=== PATIENT | female | born 1945 | race Caucasian/White ===

== ENCOUNTER → 2017-12-02 10:37 | Outpatient (CLI) | payer MEDICARE, BC, SELFPAY ==
--- NOTE | 2017-12-02 10:43 | BI_ITS ---
MAMMOGRAPHY - BILATERAL SCREENING REASON FOR EXAM: Female, 72 years old. Routine annual screening examination. PERTINENT HISTORY: History of the endometrial carcinoma. TECHNIQUE: Digital bilateral breast kandis (3D mammographic acquisition) in the CC and MLO projections. 2-D mediolateral oblique (MLO) and craniocaudad (CC) views of both breasts were obtained. CAD: Full Field Digital Mammography with Computer Added Detection was performed. COMPARISON: Comparison is made with prior examination dated October 30, 2016. FINDINGS: Breast Composition: The breasts are almost entirely fatty. There are no dominant masses or suspicious calcifications. Stable bilateral small benign appearing axillary lymph nodes. No other significant abnormalities are identified. There has been no significant change since the prior study. BI/SCREENING MAMM (CAD), BILAT IMPRESSION: Stable bilateral screening mammogram. Yearly follow-up mammogram recommended. (A) ASSESSMENT CATEGORY: BIRADS Category 2: Benign. A letter regarding these results will be sent to the patient by the facility within 30 days. Approximately 10% of breast cancers are not detected by mammography. A normal mammogram should not delay biopsy of a clinically suspicious abnormality. [id number] Electronically Signed: Roland Patel MD at 13:04 EDT Tel [phone], Service support ,
== END ==
PROVIDERS: Family Provider Internal Medicine; PCP Internal Medicine; Visit Provider Obstetrics & Gynecology
DX: Z12.31 Encounter for screening mammogram for malignant neoplasm of breast (principal)
CPT/HCPCS: 77063; 77067

== ENCOUNTER → 2018-11-06 08:45 | Outpatient (CLI) | payer MEDICARE, SELFPAY ==
--- NOTE | 2018-11-06 08:45 | CYST_PTH ---
PATIENT: GASTON CHÁVEZ LOC: [facility] U#:[id number] AGE/SX: 80/F ROOM: RE11/06/[address]: Dr. James Edgar MD : 1945 BED: DIS: SPEC #: [id number] RECD: 11/08/18 07:15 STATUS: JOYCELYN KURT #: [id number] CHIKIS: 11/06/18 08:[address]: James Edgar DEPT: SURGICAL PATHOLOGY RECD BY: Pepe Woodward ENTERED: 11/08/18 10:56 SP TYPE: Cyst OTHR DR: Dr. Phoebe Finnegan MD Tissues: CYST Procedures: Surgery Specimen Level IV HEADER OPERATION: Excision infected sebaceous cyst of back PRE-OP DIAGNOSIS: Ruptured infected sebaceous cyst of back TISSUE SUBMITTED: Back tissue MICROSCOPIC DIAGNOSIS Skin and soft tissue of back, excisional biopsy: Epidermal inclusion cyst with associated fibrosis, chronic inflammation and benign histiocytic reaction. See comment. AM:torsten 11/09/18 COMMENT The findings are suggestive of cyst rupture and associated reactive change and inflammation. Clinical correlation is suggested. MICROSCOPIC DESCRIPTION Slides are reviewed. GROSS DESCRIPTION Received in fixative is one container labeled with the patient's name and designated back tissue. The specimen consists of an ellipse of light bhatia excised skin measuring 2.2 x 1 cm and a depth of excision measuring 0.9 cm. The specimen is inked, serially sectioned and totally submitted in one cassette. / AM:torsten 11/08/18 TC:3 CPT: 68584
== END ==
PROVIDERS: Family Provider Internal Medicine; PCP Internal Medicine; Referring Provider Surgery; Visit Provider Surgery
DX: L72.3 Sebaceous cyst (principal)
CPT/HCPCS: 88304; 88305

== ENCOUNTER → 2019-01-12 10:15 | Outpatient (CLI) | payer MEDICARE, SELFPAY ==
[2019-01-12 09:23] VITALS: BMI 38.2
--- NOTE | 2019-01-12 10:26 | BI_ITS ---
MAMMOGRAPHY - BILATERAL SCREENING REASON FOR EXAM: Female, 73 years old. Routine annual screening examination. PERTINENT HISTORY: Non-contributory. TECHNIQUE: Digital bilateral breast kandis (3D mammographic acquisition) in the CC and MLO projections. 2-D mediolateral oblique (MLO) and craniocaudad (CC) views of both breasts were obtained. CAD: Full Field Digital Mammography with Computer Added Detection was performed. COMPARISON: Comparison is made with prior study dated December 02, 2017 and October 30, 2016. FINDINGS: Breast Composition: The breasts are almost entirely fatty. There are no dominant masses or suspicious calcifications. Stable small benign-appearing bilateral axillary lymph nodes. No other significant abnormalities are identified. There has been no significant change since the prior study. BI/SCREENING MAMM (CAD), BILAT IMPRESSION: Stable bilateral screening mammogram. Yearly follow-up mammogram recommended. (A) ASSESSMENT CATEGORY: BIRADS Category 2: Benign. A letter regarding these results will be sent to the patient by the facility within 30 days. Approximately 10% of breast cancers are not detected by mammography. A normal mammogram should not delay biopsy of a clinically suspicious abnormality. [id number] Electronically Signed: Roland Patel, at 13:15 EDT , Service support ,
== END ==
PROVIDERS: Family Provider Internal Medicine; PCP Internal Medicine; Referring Provider Obstetrics & Gynecology; Visit Provider Obstetrics & Gynecology
DX: Z12.31 Encounter for screening mammogram for malignant neoplasm of breast (principal)
CPT/HCPCS: 77063; 77067

== ENCOUNTER 2019-03-01 08:39 | Day surgery (SDC) | payer MEDICARE, SELFPAY ==
[2019-01-12 09:23] VITALS: BMI 38.2
[2019-03-01] VITALS (9 sets, daily range): BP systolic 104–135; BP diastolic 60–78; PULSE 53–58; RESP 16; TEMP 36.1–36.5; O2SAT 97–100; BMI 36.6
[2019-03-01 09:11] LABS: Prothrombin Time Fingerstick 11.2 SEC (11.9-14.4)
[2019-03-01 09:31] LABS: Bedside Glucose 158 mg/dL (70-110)
[2019-03-01] MEDS: Ciprofloxacin 400 MG/200 ML BAG 200 MG IV (09:41)
--- NOTE | 2019-03-01 10:15 | TISS_PTH ---
PATIENT: GASTON CHÁVEZ [place] [facility] [place][id number] AGE/SX: 73/F ROOM: RE03/01/[address]: Dr. Heather Torres MD : 1945 BED: DIS: 03/01/2019 SPEC #: [id number] RECD: 03/01/19 12:46 STATUS: JOYCELYN KURT #: [id number] CHIKIS: 03/01/19 10:[address]: Heather Torres DEPT: SURGICAL PATHOLOGY RECD BY: Harpreet Ross ENTERED: 03/01/19 14:21 SP TYPE: Tissue Bx TINY DR: Dr. 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 SJ:torsten 03/02/19 MICROSCOPIC DESCRIPTION Slides are reviewed. GROSS DESCRIPTION Received in fixative is one container labeled with the patient's name and designated urethral caruncle. The specimen consists of a polypoid piece of pink, congested tissue measuring 1 x 1 x 0.5 cm. The specimen is inked, bisected and submitted entirely in one cassette. / CÉSAR:torsten 03/01/19 TC:5 CPT: 98465
--- NOTE | 2019-03-01 10:51 | PCM.DC.URO ---
Discharge Diet: No Restrictions Discharge Activity: May not drive while taking narcotic pain medications., May Shower May resume sexual activity in: 4 weeks Additional Activity Instructions:: NO TUB BATHING, NO SWIMMING Call your doctor if your incision/area has: Continuous Slow Oozing, Sudden Increased Bleeding, Increased Pain/ Swelling, Foul Smelling Discharge Call your doctor if you observe: Fever of 101 or Higher, Inability to urinate, Shortness of breath, Chest pain, Calf discomfort, Uncontrolled pain Allergies/Adverse Reactions: Allergies Penicillins Allergy (Verified 03/01/19 09:27) Hives bromonadine Allergy (Mild, Uncoded 03/01/19 09:27) Other Medications to take at Discharge Atenolol [Tenormin (beta pat)] 25 mg PO BID 10/02/13 Glimepiride [Amaryl] 0.5 mg PO BID 10/02/13 Lisinopril [Zestril] 5 mg PO DAILY 10/02/13 Warfarin [Coumadin] 4 mg PO MOWETHSA 10/02/13 metFORMIN (XR) [Glucophage Xr] 500 mg PO BID 10/02/13 Simvastatin [Zocor] 10 mg PO QHS 07/21/15 Calcium Carbonate [Calcium] 500 mg PO BID 12/06/15 Magnesium 200 mg PO DAILY 12/06/15 Ubidecarenone/Vit E Acet [Co Q-10 100 mg Softgel] 1 ea PO DAILY 12/06/15 Omeprazole [Prilosec] 40 mg PO DAILY #30 cap 12/07/15 biotin 1 mg tablet 1 mg PO QDAY 12/02/17 cholecalciferol (vitamin D3) 1,000 unit capsule 1,000 unit PO QDAY 12/02/17 multivitamin,un-ixcv-shtxtfyr tablet 1 tab PO QDAY 12/02/17 omega-3 fatty acids 1,000 mg capsule 1,000 mg PO QDAY 12/02/17 Warfarin [Coumadin] 2 mg PO SUTUFR 02/25/19 Hydrocodone Bitart/Apap 5-325 [[place] 5MG-325MG] 1 tab PO Q4H PRN PRN 7 Days #10 tab 03/01/19 Phenazopyridine HCl [Pyridium] 200 mg PO TID PRN PRN 7 Days #30 tab 03/01/19 Smz/Tmp Ds [Bactrim Ds] 1 tab PO BID 3 Days #6 tab 03/01/19 The following prescriptions were given: Smz/Tmp Ds [Bactrim Ds] 1 tab PO BID 3 Days #6 tab Prescription Printed Hydrocodone Bitart/Apap 5-325 [[place] 5MG-325MG] 1 tab PO Q4H PRN PRN 7 Days #10 tab PRN Reason: Pain Prescription Printed Phenazopyridine HCl [Pyridium] 200 mg PO TID PRN PRN 7 Days #30 tab PRN Reason: Bladder Spasms Prescription Printed Primary Care Physician: Phoebe Finnegan MD [Primary Care Provider] - Test Results: Test results from this visit will be discussed in further detail at your follow-up appointment, if applicable. Please Follow Up With: Heather Torres MD When: 1 week, call for appt Proposed Discharge Date: 03/01/19
--- NOTE | 2019-03-01 10:52 | OP.PCM_ITS ---
Problem List (1) Urethral caruncle Status: Acute Report of Operation Date of Procedure: 03/01/19 Pre-Operative Diagnosis: urethral caruncle Post-Operative Diagnosis: same Surgery/Procedure Performed:: cystoscopy, excision urethral caruncle. Type of Anesthesia:: MAC/Supplemental/Local Specimen's removed: urethral caruncle Description of Procedure: The patient is a 73-year-old female sent to co for evaluation of a urethral carbuncle. On exam in the office there was a large urethral carbuncle at least 1 cm in size at the 6 o'clock position. The tissue was friable and irritated in appearance. We decided to surgically remove the tissue to ensure that it is benign in nature. Informed consent was obtained and the patient agreed to p roceed. She was taken to the operating room placed on the operating room table. Anesthesia monitored the head, neck, airway, IV access and vital signs throughout the case. Once anesthesia was appropriately administered the patient was placed in dorsal lithotomy position was prepped and draped in usual sterile fashion. A cyst cystourethroscopy was performed revealing no evidence of any abnormality of the bladder mucosa or the remainder of the urethral mucosa. The ureteral orifices were located on the area of the trigone. There is a cystocele present large grade 2 to small grade 3. There is vaginal atrophy present as well. At this time the bladder was emptied. The carbuncle was grasped with an Allis and was excised with a knife. The urethral tissue was brought together in running fashion with 4-0 chromic. Hemostasis was achieved. 4 interrupted sutures were placed as well. The patient tolerated the procedure. Premarin was applied and she was awakened and taken to the recovery room in good condition. Grafts/Implants Used: none - Complications none - Admit VTE Documentation VTE Present on Admission: Yes VTE Mechan Device Prophylaxis: SCD's VTE Pharm Prophylaxis ordered?: No Reason prophylaxis not ordered:: Treatment Not Indicated
== END 2019-03-01 13:20 | disposition home or self-care (01) ==
LOC: SDC 08:40 → AC 08:41
PROVIDERS: Family Provider Internal Medicine; PCP Internal Medicine; Referring Provider Urology; Visit Provider Urology
PROC: (CPT 53265; principal; 2019-03-01 10:00)
DX: N36.2 Urethral caruncle (principal); N39.41 Urge incontinence; R35.1 Nocturia; K22.70 Barrett's esophagus without dysplasia; K21.9 Gastro-esophageal reflux disease without esophagitis; E78.00 Pure hypercholesterolemia, unspecified; E11.9 Type 2 diabetes mellitus without complications; I48.91 Unspecified atrial fibrillation; I11.0 Hypertensive heart disease with heart failure; I50.1 Left ventricular failure, unspecified; Z85.42 Personal history of malignant neoplasm of other parts of uterus; Z79.01 Long term (current) use of anticoagulants; Z79.84 Long term (current) use of oral hypoglycemic drugs; Z79.899 Other long term (current) drug therapy
CPT/HCPCS: 00942; 53265; 36416; 82962; 85610; 88305; J7120; J0744

== ENCOUNTER → 2019-03-15 14:39 | Outpatient (CLI) | payer MEDICARE, SELFPAY ==
[2019-03-15 13:28] VITALS: BMI 36.6
--- NOTE | 2019-03-15 14:41 | VDLE_ITS ---
Reason For Study: swelling RIGHT LEFT CFV is compressible, spontaneous, phasic, GSV is normal. competent and demonstrates normal CFV is compressible, spontaneous, phasic, augmentation. competent, and demonstrates normal Procedure augmentation. Exam performed in department. FV is compressible, spontaneous, phasic, The exam was diagnostic. competent and demonstrates normal A preliminary report was called and/or faxed augmentation. to Dr. Armstrong. POP V is compressible, spontaneous, phasic, competent and demonstrates normal augmentation. T/P Trunk is compressible. PTV is compressible. LT PerV is compressible. Interpretation Summary There is no evidence of left lower extremity deep vein thrombosis. Left great saphenous vein appears patent and compressible segmentally. Patent and compressible right common femoral vein Ordering Physician: Gerardo Armstrong Performed By: Bebo Altman RVT
== END ==
PROVIDERS: Family Provider Internal Medicine; PCP Internal Medicine; Referring Provider Internal Medicine Cardiovascular Disease; Visit Provider Internal Medicine Cardiovascular Disease
DX: R60.0 Localized edema (principal); I48.0 Paroxysmal atrial fibrillation; Z79.01 Long term (current) use of anticoagulants
CPT/HCPCS: 93971

== ENCOUNTER → 2019-04-01 13:45 | Outpatient (CLI) | payer MEDICARE, SELFPAY ==
[2019-03-15 13:28] VITALS: BMI 36.6
--- NOTE | 2019-04-01 13:52 | ECHOD_ITS ---
Reason For Study: CHEST PAIN Procedure This was a 2D Doppler, Color Flow transthoracic echocardiogram. Myocardial strain analysis was performed in this exam to aid in the assessment of cardiac function. Exam performed in department. Left Ventricle Normal size and thickness. The estimated ejection fraction is 65 %. Stage 1 diastolic dysfunction. No regional wall motion abnormalities noted. Right Ventricle Normal size and thickness. Normal systolic function. Atria Normal left atrium. Normal right atrium. Normal atrial septum. Mitral Valve Mild focal mitral valve thickening. Trivial mitral valve insufficiency. Tricuspid Valve Normal tricuspid valve. Mild (1+) tricuspid valve insufficiency. Right ventricular systolic pressure estimated to be 38 mmHg. Aortic Valve Trisinus/trileaflet aortic valve. Trivial aortic valve insufficiency. Pulmonic Valve Normal pulmonic valve. Trivial pulmonic valve insufficiency. Great Vessels Normal aortic root. Normal arch. Normal inferior vena cava. Inferior vena cava collapse with sniff. Pericardium/Pleural No pericardial effusion. MMode/2D Measurements & Calculations LVIDd: 4.7 cm IVSd: 1.0 cm Ao root diam: 3.0 cm LVIDs: 2.8 cm LVPWd: 0.96 cm RVDd: 2.6 cm FS: 39.2 % LAV(MOD-bp): 52.9 ml LA A4 area: 16.0 cm2 LA dimension(2D): 4.3 cm LAV(MOD-bp) Indexed: 26.4 ml/m2 LAV(MOD-sp2): 68.1 ml LAV(MOD-sp4): 41.5 ml RA A4 area: 9.9 cm2 Time Measurements MV dec time: 0.25 sec Doppler Measurements & Calculations MV E max derrick: 85.4 cm/sec Lat Peak E' Derrick: 6.0 cm/sec Med Peak E' Derrick: 4.5 cm/sec MV A max derrick: 124.6 cm/sec E/E' lat: 14.2 E/E' med: 19.2 MV E/A: 0.69 Ao V2 max: 150.2 cm/sec AI max derrick: 450.9 cm/sec LV V1 max: 113.1 cm/sec Ao max P.0 mmHg AI max P.3 mmHg LV V1 max P.1 mmHg AI dec slope: 184.8 cm/sec2 AI P1/2t: 714.6 msec PA V2 max: 95.1 cm/sec PI end-d derrick: 108.5 cm/sec TR max derrick: 284.6 cm/sec TR max P.6 mmHg Interpretation Summary The estimated ejection fraction is 65 %. Stage 1 diastolic dysfunction. Trivial mitral valve insufficiency. Mild (1+) tricuspid valve insufficiency. Right ventricular systolic pressure estimated to be 38 mmHg. Trivial aortic valve insufficiency. Compared to echo report dated 02/14/2013, no appreciable changes noted. Ordering Physician: Gerardo Armstrong Referring Physician: MEGAN PANTOJA Performed By: Freida Haley, SURI, RVT
== END ==
PROVIDERS: Family Provider Internal Medicine; PCP Internal Medicine; Referring Provider Internal Medicine Cardiovascular Disease; Visit Provider Internal Medicine Cardiovascular Disease
DX: I35.1 Nonrheumatic aortic (valve) insufficiency (principal); I48.0 Paroxysmal atrial fibrillation; R07.9 Chest pain, unspecified; R00.2 Palpitations
CPT/HCPCS: 93306

== ENCOUNTER → 2019-04-06 09:30 | Outpatient (CLI) | payer MEDICARE, SELFPAY ==
[2019-03-15 13:28] VITALS: BMI 36.6
--- NOTE | 2019-04-06 09:32 | STEWCON_ITS ---
Reason For Study: CHEST PAIN Stress Results Protocol: Domo Protocol WITH DEFINITY Maximum Predicted HR: 147 bpm Target HR: 125 bpm % Maximum Predicted HR: 85 % DurationHeart Rate Stage (mm:ss) (bpm) BP Comment BASELINE 63 146/802 CC DEFINITY STAGE 1 3:00 100 164/80 STAGE 2 1:46 125 / 1 CC DEFINITY RECOVERY 78 150/92 Stress Duration: 4:46 mm:ss Maximum Stress HR: 125 bpm Baseline Echocardiogram Findings The estimated ejection fraction is 65 %. Stress Echo Wall motion Data Resting WM Intermediate WM Stress WM Resting Wall Motion Wall Motion Stress No regional wall motion No regional wall motion abnormalities noted. abnormalities noted. EKG Data The baseline ECG displays normal sinus rhythm. The patient exercised according to the regular Domo protocol for a total duration of 4:46. The maximum heart rate attained was 129 beats per minute. This was 87% of maximum predicted heart rate. The patient exercised into stage 2 of the Domo protocol. During stress, there were no ST or T wave changes noted to suggest ischemia. No clinical angina was noted. Interpretation Summary The estimated ejection fraction is 65 %. Normal, adequate, treadmill echocardiogram. Negative for ischemia by EKG and echocardiographic criteria. No anginal symptoms noted. No arrhythmias noted. Normal blood pressure response to exercise. Below average exercise capacity for age. Final LVEF is 75%. Decreased sensitivity due to poor echo windows requiring Definity agent. Test terminated due to attainment of target heart rate and dyspnea. No complications. The study was technically difficult. Contrast injection was performed. Ordering Physician: Gerardo Armstrong Referring Physician: Gerardo Armstrong Performed By: Kezia Giles, SURI, RVT
== END ==
PROVIDERS: Family Provider Internal Medicine; PCP Internal Medicine; Referring Provider Internal Medicine Cardiovascular Disease; Visit Provider Internal Medicine Cardiovascular Disease
DX: I48.0 Paroxysmal atrial fibrillation (principal); E78.5 Hyperlipidemia, unspecified; R00.2 Palpitations; R07.9 Chest pain, unspecified
CPT/HCPCS: 93017; 93350; Q9957; A4216; C8928

== ENCOUNTER → 2019-10-10 09:15 | Outpatient (CLI) | payer MEDICARE, SELFPAY ==
[2019-09-30 13:26] VITALS: BMI 36.6
[2019-10-10 10:46] LABS: AST(SGOT) 48 U/L (15-37); Alanine Aminotransfer ALT/SGPT 53 U/L (13-56); Albumin, Serum 3.7 g/dL (3.2-5.0); Alkaline Phosphatase 71 U/L (45-117); Bilirubin, Direct 0.17 mg/dL (0.00-0.30); Cholesterol 189 mg/dL (200); Globulin 4.3 g/dL (2.2-4.2); High Density Lipoprotein 68 mg/dL; Triglycerides 179 mg/dL; Very Low Density Lipoprotein 36 mg/dL (5-40)
== END ==
PROVIDERS: PCP Internal Medicine; Referring Provider Internal Medicine Cardiovascular Disease; Visit Provider Internal Medicine Cardiovascular Disease
DX: E78.5 Hyperlipidemia, unspecified (principal)
CPT/HCPCS: 36415; 80061; 80076

== ENCOUNTER → 2020-02-08 12:42 | Outpatient (CLI) | payer MEDICARE, SELFPAY ==
[2019-09-30 13:26] VITALS: BMI 36.6
[2020-02-08 09:47] VITALS: BMI 36.6
--- NOTE | 2020-02-08 12:42 | BI_ITS ---
MAMMOGRAPHY - BILATERAL SCREENING REASON FOR EXAM: Female, 74 years old. Routine annual screening examination. PERTINENT HISTORY: Non-contributory. History of remote endometrial carcinoma. TECHNIQUE: Digital bilateral breast ernestina (3D mammographic acquisition) in the CC and MLO projections. 2-D mediolateral oblique (MLO) and craniocaudad (CC) views of both breasts were obtained. CAD: Full Field Digital Mammography with Computer Added Detection was performed. COMPARISON: Comparison is made with prior examination dated January 12, 2019 and December 02, 2017. FINDINGS: Breast Composition: The breasts are almost entirely fatty. There are no dominant masses or suspicious calcifications. Stable small benign-appearing bilateral axillary lymph nodes. No other significant abnormalities are identified. There has been no significant change since the prior study. BI/SCREEN MAMM (CAD) W/ERNESTINA BILAT IMPRESSION: Stable bilateral screening mammogram. Yearly follow-up mammogram recommended. (A) ASSESSMENT CATEGORY: BIRADS Category 2: Benign. A letter regarding these results will be sent to the patient by the facility within 30 days. Approximately 10% of breast cancers are not detected by mammography. A normal mammogram should not delay biopsy of a clinically suspicious abnormality. [id number] Electronically Signed: Roland Patel, at 14:03 EDT , Service support ,
== END ==
PROVIDERS: PCP Internal Medicine; Referring Provider Obstetrics & Gynecology; Visit Provider Obstetrics & Gynecology
DX: Z12.31 Encounter for screening mammogram for malignant neoplasm of breast (principal)
CPT/HCPCS: 77063; 77067

== ENCOUNTER → 2020-05-09 17:37 | Outpatient (CLI) | payer MEDICARE, SELFPAY ==
[2020-04-13 13:10] VITALS: BMI 35.5
== END ==
PROVIDERS: PCP Internal Medicine; Referring Provider Nurse Practitioner; Visit Provider Nurse Practitioner
DX: Z20.828 Contact with and (suspected) exposure to other viral communicable diseases (principal)
CPT/HCPCS: 87635; C9803; U0003

== ENCOUNTER → 2020-12-28 09:14 | Outpatient (CLI) | payer MEDICARE, SELFPAY ==
[2020-12-19 14:00] VITALS: BMI 35.9
--- NOTE | 2020-12-28 09:18 | RAD_ITS ---
STUDY: AIR CONTRAST UPPER GI SERIES and esophagram. REASON FOR EXAM: Female, 75 years old. GERD DYSPHAGIA FLUOROSCOPY TIME (if supplied): (1 minute and 20 seconds) minutes/seconds. 25 fluoroscopic images were obtained. TECHNIQUE: SINGLE CONTRAST AND AIR CONTRAST FLUOROSCOPIC IMAGES. COMPARISON: None. FINDINGS: The cervical esophagus demonstrates normal motility without aspiration. There is no stricture or extrinsic mass effect. No intraluminal polypoid mass is identified. The thoracic esophagus distends well without stricture or mucosal fold thickening. No mucosal ulcerations are identified. There is no extrinsic mass effect. There are no diverticula. Small sliding hiatal hernia with gastroesophageal reflux. The stomach distends well without mucosal fold thickening or mucosal ulceration. There is no intraluminal mass. The duodenal bulb is freely distensible without deformity or ulceration. The duodenal sweep is normal in position and caliber.. There is evidence of a small diverticulum in the medial aspect of the second portion of the duodenum. RAD/Upper GI w/BA Swallow IMPRESSION: Small sliding hiatal hernia with gastroesophageal reflux. Small diverticulum is seen along the medial aspect of the second portion of the duodenum. Electronically Signed: Roland Patel MD at 12:50 EDT , Service support ,
== END ==
PROVIDERS: PCP Internal Medicine; Referring Provider Surgery; Visit Provider Surgery
DX: K21.9 Gastro-esophageal reflux disease without esophagitis (principal); K44.9 Diaphragmatic hernia without obstruction or gangrene; R13.10 Dysphagia, unspecified
CPT/HCPCS: 74246

== ENCOUNTER 2021-01-04 10:05 | Outpatient (RCR) | payer MEDICARE, SELFPAY ==
[2020-12-19 14:00] VITALS: BMI 35.9
[2021-01-04 10:21] LABS: INR Fingerstick 2.6; Prothrombin Time Fingerstick 28.6 SEC (11.9-14.4)
== END 2021-01-04 18:00 | disposition home or self-care (01) ==
LOC: LAB 10:05
PROVIDERS: PCP Internal Medicine; Referring Provider Internal Medicine Cardiovascular Disease; Visit Provider Internal Medicine Cardiovascular Disease
DX: I48.0 Paroxysmal atrial fibrillation (principal); Z79.01 Long term (current) use of anticoagulants
CPT/HCPCS: 36416; 85610

== ENCOUNTER → 2021-01-08 15:05 | Outpatient (CLI) | payer MEDICARE, SELFPAY ==
[2021-01-08 13:48] VITALS: BMI 35.9
[2021-01-08 16:44] LABS: ALB/GLOB Ratio 0.9 RATIO (0.9-2.4); AST(SGOT) 32 U/L (15-37); Alanine Aminotransfer ALT/SGPT 44 U/L (13-56); Albumin, Serum 3.7 g/dL (3.2-5.0); Alkaline Phosphatase 91 U/L (45-117); Anion Gap 4 (5-15); BUN 20 mg/dL (7-18); BUN/Creat Ratio 25.3 RATIO (10-20); Calcium,Total 9.4 mg/dL (8.5-10.1); Chloride 103 mmol/L (98-107); Creatinine, Serum 0.79 mg/dL (0.55-1.02); EST Glomerular Filtration Rate 75 mL/min (>60); Est Glom Filt Rate - Afr Amer 91 mL/min (>60); Globulin 4.3 g/dL (2.2-4.2); Glucose 241 mg/dL (74-106); Potassium 3.9 mmol/L (3.5-5.1); Sodium Level 137 mmol/L (136-145)
== END ==
PROVIDERS: PCP Internal Medicine; Referring Provider Internal Medicine; Visit Provider Internal Medicine
DX: K76.0 Fatty (change of) liver, not elsewhere classified (principal)
CPT/HCPCS: 36415; 80053

== ENCOUNTER 2021-01-25 08:11 | Day surgery (SDC) | payer MEDICARE, SELFPAY ==
[2020-12-19 14:00] VITALS: BMI 35.9
[2021-01-08 13:48] VITALS: BMI 35.9
[2021-01-25] VITALS (7 sets, daily range): BP systolic 101–147; BP diastolic 62–86; PULSE 62–81; RESP 18; TEMP 36.1–36.4; O2SAT 97–100; BMI 34.5
[2021-01-25 08:51] LABS: INR Fingerstick 1.7; Prothrombin Time Fingerstick 20.2 SEC (11.9-14.4)
--- NOTE | 2021-01-25 08:53 | HP.PCM_ITS ---
History and Physical Date of Admission: 01/25/21 Intake Visit Reasons: EGD, GERD Chief Complaint: gerd,dysphagia [employer] Required: No Is patient in pain?: No Allergies Penicillins Allergy (Verified 12/19/20 13:59) Hives bromonadine Allergy (Mild, Uncoded 12/19/20 13:59) Other Medications atenolol 25 mg PO BID 10/02/13 [History Confirmed 12/19/20] glimepiride 0.5 mg PO BID 10/02/13 [History Confirmed 12/19/20] lisinopril 5 mg PO DAILY 10/02/13 [History Confirmed 12/19/20] simvastatin 10 mg PO QHS 07/21/15 [History Confirmed 12/19/20] coenzyme [id number] E 1 ea PO DAILY 12/06/15 [History Confirmed 12/19/20] biotin 1 mg tablet 1 mg PO QDAY 12/02/17 [History Confirmed 12/19/20] cholecalciferol (vitamin D3) 25 mcg (1,000 unit) capsule 1,000 unit PO QDAY 12/02/17 [History Confirmed 12/19/20] multivitamin,qb-aois-whpfvpjg 1 tab PO QDAY 12/02/17 [History Confirmed 12/19/20] omega-3 fatty acids 1,000 mg capsule 1,000 mg PO QDAY 12/02/17 [History Confirmed 12/19/20] warfarin 2 mg tablet 2 mg PO SUTUFR 03/15/19 [History Confirmed 12/19/20] warfarin 4 mg tablet 4 mg PO MOWETHSA 03/15/19 [History Confirmed 12/19/20] calcium carb-Ca gluc 500 mg calcium-magnesium ox-Mg gluc 250 mg tablet 1 tab PO BID tab 10/19/20 [History Confirmed 12/19/20] nystatin 100,000 unit/gram topical cream 1 applic TOPICAL TID PRN g 10/19/20 [History Confirmed 12/19/20] nystatin 100,000 unit/gram topical powder 1 applic TOPICAL BID PRN ea 10/19/20 [History Confirmed 12/19/20] propafenone 150 mg tablet 150 mg PO .COMPLEX PRN tab 10/19/20 [History Confirmed 12/19/20] ketoconazole 2 % topical cream 1 applic TOPICAL DAILY 12/04/20 [History Confirmed 12/19/20] lansoprazole 30 mg capsule,delayed release 30 mg PO DAILY #60 cap 12/04/20 [Rx Confirmed 12/19/20] menthol-zinc oxide topical powder each TOPICAL 12/04/20 [History Confirmed 12/19/20] sitagliptin 100 mg tablet 100 mg PO DAILY 12/04/20 [History Confirmed 12/19/20] <Dr. James Edgar MD - Last Filed: 12/19/20 14:25> Vital Signs 12/19/20 13:59 12/19/20 14:00 Height 5 ft 4 in Weight: 200 lb BMI 34.3 35.9 BP 152/81 H Blood Pressure Location Rt brachial Position Sitting Respiration 16 PFSH <Brooke Puente - Last Filed: 12/19/20 14:00> Medical History (Updated 12/19/20 @ 14:[address] James Edgar MD) Anxiety 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 Diarrhea Endometrial cancer (02/2012) Essential hypertension Frequent UTI GERD (gastroesophageal reflux disease) Glaucoma h/o urethral surgery History of left shoulder fracture Hyperlipidemia Irritable bowel syndrome jail current use of anticoagulant Nonrheumatic aortic (valve) insufficiency Nonrheumatic tricuspid valve regurgitation Obesity PAF (paroxysmal atrial fibrillation) Palpitations Sebaceous cyst Secondary pulmonary hypertension Type 2 diabetes mellitus Surgical History H/O colonoscopy H/O endoscopy History of LAVH History of tonsillectomy Hx of cholecystectomy Family History Mother CVA (cerebral vascular accident) Diabetes Heart disease Father Myocardial infarction Heart disease Social History Smoking Status: Never smoker alcohol intake: never substance use type: does not use caffeine: No what type of physical activity do you participate in: walking seatbelt use: always do you feel safe at home: Yes additional social history: Yariel- Retired Patient is retired HPI <Brooke Puente - Last Filed: 12/19/20 14:00> HPI HPI: GASTON CHÁVEZ, is a 75 F who presents to the office today for <Dr. James Edgar MD - Last Filed: 12/19/20 14:25> HPI HPI: 75-year-old female. She was referred today by Dr.Efewongbe Delatorre and a written copy of my surgical consult recommendations were returned to her. The patient has a long-term history extending at least 5 to 7 years of gastroesophageal reflux disease. She had had a previous upper endoscopy Dr. Dr. Maximiliano Aviles identifying 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. But then she had a follow-up upper endoscopy in [place] and was told she had no Sweet's. That most recent procedure was done March 09, 2018. The gastric polyp was sampled. No distal esophageal biopsies were obtained. 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 Her most recent colonoscopy was January 11, 2016 and was unremarkable follow-up recommended at 10 years. The patient is just recent transferred care from Dr. Phoebe Finnegan to Dr. Delatorre.. The patient had been on omeprazole therapy and now has been converted over to Prevacid therapy. The patient states that she takes that in the morning but at nighttime before going to sleep she has to take Gaviscon. She notes that she has chronic atrial fibrillation. She believes that when she has severe reflux that that aggravates her atrial fibrillation and causes her to have episodes of prolonged arrhythmia. The patient had been cared for in the past by Dr. Gerardo Armstrong but now is switching over to see Dr. Javon Jenkins. That appointment is March 2021. She complains of sore throat and intermittent cough. She has heartburn and reflux symptoms. Of note is that she had a classic right subcostal incision for a open cholecystectomy in 1962 HPI <Brooke Puente - Last Filed: 12/19/20 14:00> HPI HPI: GASTON CHÁVEZ, is a 75 F who presents to the office today for ROS <Brooke Puente - Last Filed: 12/19/20 14:00> General General: No weight change, appetite, fatigue, colon cancer, breast cancer or weakness HEENT HEENT: Yes difficulty swallowing; No eye injury, eye surgery, swollen glands or hoarseness Endo Endocrine: Yes diabetes mellitus; No thyroid disease, thyroid cancer, Hair loss, heat intolerance or cold intolerance Skin Skin: Yes rash; No changing moles Breast Breast: No left breast lump, right breast lump, nipple discharge, breast pain, abnormal mammogram, abnormal US or breast enlargement Musc Musculoskeletal: Yes back problems and arthritis; No rheumatoid arthritis, gout or joint pain Cardio Cardiovascular: Yes atrial fibrillation and high blood pressure; No murmur, pacemaker, heart disease, heart attack, heart stent, palpitations, shortness of breat with exertion or chest pain Psych Psychiatric: Yes anxiety; No depression or hearing voices Resp Respiratory: No shortness of breath, No sleep apnea, Yes cough, No COPD, No asthma, No emphysema and No wheezing Gastro Gastrointestinal: No abdominal pain, Yes nausea or vomiting, No diarrhea, No constipation, No blood in stool, Yes acid reflux, Yes hemorrhoids, No ulcers, No gallbladder problem and No black,tarry stools Hi Hematologic: Yes blood thinners, No blood disorders, No bleeding, No anemia and No blood clots Neuro Neurologic: No system reviewed and no additional complaints, except as documented, No as per HPI, No abnormal gait, No abnormal hearing, No abnormal movements, No abnormal speech, No behavioral changes, No burning sensations, No confusion, No convulsions, No disequilibrium, No dizziness, No localized weakness, No frequent falls, No headache(s), No lack of coordination, No loss of vision, No memory loss, No numbness, No other visual disturbances, No radicular pain, No restless legs, No sensory deficit, No syncope, No tingling, No tremor(s), No weakness and No other Exam <Brooke Puente - Last Filed: 12/19/20 14:00> Chest Breast Palpation: No nipple discharge Cardio Heart Sounds: no murmurs <Dr. James Edgar MD - Last Filed: 12/19/20 14:25> Const General: cooperative, healthy appearing and comfortable [facility] Head: normal to inspection Neck Carotids: normal carotid upstroke and no bruits Resp Effort & Inspection: normal respiratory effort Cardio Rate: regular rate Rhythm: regular rhythm GI Palpation: soft and no hepatosplenomegaly Other: Overweight, well-healed right subcostal oblique remote cholecystectomy incision, no focal tenderness. No rebound or guarding [facility] Cervical Spine: normal cervical lordosis Neuro General: patient alert and patient awake Psych Appearance: grossly normal <Dr. James Edgar MD - Last Filed: 12/19/20 14:25> Procedure Criteria Procedure Criteria: Yes Elective The surgeon/proceduralist and patient have discussed in detail the risk of exposure to and/or potential harm posed by the COVID-19 virus with having a surgery/procedure at this time versus the risk of delaying the surgery/procedure. It is not possible to know either the risk of delaying the surgery or procedure or chance of getting an infection with perfect accuracy, but a joint decision was made between the patient and the surgeon/proceduralist to proceed at this time with the scheduled surgery/procedure as indicated on the consent form. <Dr. James Edgar MD - Last Filed: 12/19/20 14:25> Assessment and Plan (1) GERD (gastroesophageal reflux disease): (2) 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: Plan Details Additional Comments: 75-year-old female. There is some question that 2016 she had biopsy-proven 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 but on more recent examination nothing identified. On a more recent examination there was some concern about dysplasia and a fundic gland polyp. The patient has ongoing gastroesophageal reflux disease symptoms. She feels that a severe episode of reflux will trigger her to go into atrial fibrillation which seems plausible. I recommend to her a upper GI contrast study. I recommend that we perform a esophagogastroduodenoscopy. Very careful inspection for possible Sweet's or eosinophilic esophagitis or H. pylori will be pursued. Inspection for possible hiatal hernia. She has had an opportunity to ask and have questions answered. She states that monitored anesthesia care has been strongly recommended to her in the past. Long-term the question would be whether she continues on the Prevacid therapy in the morning and the Gaviscon at night. I briefly mention to her consideration for obtaining esophageal manometry. The patient is on chronic Coumadin therapy. I will hold on scheduling that procedure shows did not potentially create epistasis. Pending the results of her barium swallow and upper endoscopy then might pursue that for further definitive information. The patient's BMI is 35.9. This on the upper limits of what would be considered reasonable to perform a reflux procedure. I appreciate the opportunity of assisting with her surgical care. We will schedule and proceed as noted. Copy: Dr. Zbigniew Edgar M.D., F.A.C.S. I have re-examined the patient. There are no clinical changes since date of exam.
[2021-01-25] MEDS: Lactated Ringers 1,000 ML 100 ML IV (08:57)
[2021-01-25 09:00] LABS: Bedside Glucose 170 mg/dL (70-110)
--- NOTE | 2021-01-25 09:15 | EGD_PTH ---
PATIENT: GASTON CHÁVEZ LOC: EN U#:[id number] AGE/SX: 75/F ROOM: RE01/25/[address]: Dr. James Edgar MD : 1945 BED: DIS: 01/25/2021 SPEC #: [id number] RECD: 01/25/21 11:01 STATUS: JOYCELYN HICKS #: [id number] CHIKIS: 01/25/21 09:[address]: James Edgar DEPT: SURGICAL PATHOLOGY RECD BY: Pepe Woodward ENTERED: 01/25/21 12:00 SP TYPE: EGD BIOPSY [facility] DR: Dr. Zbigniew Delatorre MD Tissues: A - Gastric mucous membrane B - Stomach, NOS C - Esophagus, NOS Procedures: Special Stain Group II Surgery Specimen Level IV Alcian Blue/PAS (control) HEADER OPERATION: EGD ([facility]) PRE-OP DIAGNOSIS: GERD, Sweet?s esophagus with esophagitis TISSUE SUBMITTED: A ? Antrum biopsy for H. pylori and path, B ? Biopsy greater curvature polyp, C ? Distal esophagus biopsy MICROSCOPIC DIAGNOSIS A. Antrum biopsy: Mild gastritis. See microscopic description and comment. B. Greater curvature polyp, biopsy: Fragments of fundic gland polyp. C. Distal esophagus, biopsy: Fragments of gastroesophageal mucosa with focal mild chronic inflammation. Intestinal metaplasia (goblet cell metaplasia) is not identified. See comment. SJ:torsten 01/28/2021 COMMENT A. The results of immunohistochemistry for Helicobacter pylori will be reported separately ([id number]). B. The specimen predominantly consists of squamous epithelium. Alcian blue/PAS stain with matched control is used in the evaluation of the specimen. MICROSCOPIC DESCRIPTION Slides are reviewed. A. The specimen shows fragments of gastric mucosa with chronic inflammatory cell infiltrates in the lamina propria consisting of lymphocytes and plasma cells, consistent with mild chronic gastritis. GROSS DESCRIPTION A - Received in fixative is one container labeled with the patient's name and designated antrum. The specimen consists of two irregular fragments of light bhatia soft tissue that in aggregate measure 0.4 x 0.2 x 0.1 cm. The specimen is totally submitted in one cassette. B - Received in fixative is one container labeled with the patient's name and designated greater curvature biopsy. The specimen consists of two irregular fragments of light bhatia soft tissue that in aggregate measure 0.3 x 0.3 x 0.1 cm. The specimen is totally submitted in one cassette. C - Received in fixative is one container labeled with the patient's name and designated distal esophagus. The specimen consists of two irregular fragments of light bhatia soft tissue that in aggregate measure 0.6 x 0.5 x <0.1 cm. The specimen is totally submitted in one cassette. / AM:torsten 01/25/21 TC:3 CPT: 97428 x3, 97320
--- NOTE | 2021-01-25 09:15 | IMM_PTH ---
PATIENT: GASTON CHÁVEZ LOC: [facility] U#:[id number] AGE/SX: 75/F ROOM: RE01/25/[address]: Dr. James Edgar MD : 1945 BED: DIS: 01/25/2021 SPEC #: [id number] RECD: 01/25/21 13:11 STATUS: JOYCELYN RERosa #: [id number] CHIKIS: 01/25/21 09:[address]: James Edgar DEPT: IMMUNOHISTOCHEMISTRY RECD BY: Rhona Pineda ENTERED: 01/25/21 13:11 SP TYPE: IMMUNO OTHR DR: Dr. Zbigniew Delatorre MD Tissues: A - Stomach, NOS Procedures: H Pylori (initial) PHYSICIAN & INSTITUTION [address] [address] SPECIMEN INFORMATION: Tissue Source: A ? Antrum biopsy Clinical Info: GERD, Sweet?s esophagus with esophagitis Specimen Number: [id number] CPT code: 97485 METHODOLOGY: Deparaffinized sections of prefer/formalin-fixed tissue or PAP/DQ stained slides are incubated with monoclonal/polyclonal antibodies/oligonucleotide probes. Localization is made via biotin free immunoperoxidase method. Appropriate controls are performed and reacted as expected. Results on target cell population are indicated in the following table: RESULTS: ANTIBODY / CLONE RESULT Block A H Pylori (polyclonal) negative These tests were developed and their performance characteristics determined by [facility]. They may not have been cleared or approved by the U.S. Food and Drug Administration. The FDA has determined that such clearance or approval is not necessary. INTERPRETATION: A. Antrum biopsy: Negative for Helicobacter pylori organisms. SJ:torsten 01/28/2021
[2021-01-25 09:41] LABS: International Normalized Ratio 1.8; Prothrombin Time (Protime)PT. 19.7 SECONDS (11.7-14.9)
--- NOTE | 2021-01-25 12:39 | SUR.PREOP ---
THIS NURSE SPOKE WITH KHADRA IN ENDOSCOPY ABOUT THE CONFIRMATION INR OF 1.75. SHE WAS GOING TO RELAY TO DR. IRAHETA.
--- NOTE | 2021-01-25 15:09 | OP.EGD_ITS ---
Patient Name: Erendira Corcoran Procedure Date: 01/25/2021 9:29 AM Date of : 1945 Age: 75 Procedure: Upper GI endoscopy Indications: Follow-up of 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 Providers: James Edgar MD Referring MD: Zbigniew Delatorre MD Medicines: See the Anesthesia note for documentation of the administered medications Complications: No immediate complications. Procedure: Pre-Anesthesia Assessment: - Prior to the procedure, a History and Physical was performed, and patient medications and allergies were reviewed. The patient's tolerance of previous anesthesia was also reviewed. The risks and benefits of the procedure and the sedation options and risks were discussed with the patient. All questions were answered, and informed consent was obtained. Prior Anticoagulants: The patient has taken no previous anticoagulant or antiplatelet agents. ASA Grade Assessment: II - A patient with mild systemic disease. After reviewing the risks and benefits, the patient was deemed in satisfactory condition to undergo the procedure. After obtaining informed consent, the endoscope was passed under direct vision. Throughout the procedure, the patient's blood pressure, pulse, and oxygen saturations were monitored continuously. The gastroscope was introduced through the mouth, and advanced to the second part of duodenum. The upper GI endoscopy was accomplished without difficulty. The patient tolerated the procedure well. Scope In: 9:40:33 AM Scope Out: 9:46:44 AM Total Procedure Duration Time 0 hours 6 minutes 11 seconds Findings: A small hiatal hernia was present. The Z-line was regular and was found 38 cm from the incisors. Biopsies were taken with a cold forceps for histology. The gastric antrum was normal. Biopsies were taken with a cold forceps for histology. Multiple sessile polyps with no stigmata of recent bleeding were found on the greater curvature of the stomach. The polyp was removed with a cold biopsy forceps. Resection and retrieval were complete. The examined duodenum was normal. Bilious fluid was found in the stomach. Impression: - Small hiatal hernia. - Z-line regular, 38 cm from the incisors. Biopsied. - Normal antrum. Biopsied. - Multiple gastric polyps. Resected and retrieved. - Normal examined duodenum. - Bilious gastric fluid. Recommendation: - Await pathology results. - Discharge patient to home. - Resume previous diet. - Continue present medications. - Telephone my office for pathology results in 1 week. No clinical findings to suggest 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. I do not believe that routine scheduled follow-up will be required at this time. Procedure Code(s): --- Professional --- 12384, Esophagogastroduodenoscopy, flexible, transoral; with biopsy, single or multiple Diagnosis Code(s): --- Professional --- K44.9, Diaphragmatic hernia without obstruction or gangrene K22.70, 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 without dysplasia K31.7, Polyp of stomach and duodenum CPT copyright 2017 [employer]. All rights reserved. The codes documented in this report are preliminary and upon drill operator review may be revised to meet current compliance requirements. James Edgar MD 01/25/2021 9:51:50 AM This report has been signed electronically. Number of Addenda: 0 Note Initiated On: 01/25/2021 9:29 AM
--- NOTE | 2021-01-25 15:09 | OP.CCLET_ITS ---
01/25/2021 Zbigniew Delatorre MD [address] [place] [address] [place] [address] Re : Upper GI endoscopy procedure for Erendira Nilo Dear Dr. Delatorre This procedure was performed on Monday, January 25, 2021. My impressions and recommendations are as follows: Impressions : - Small hiatal hernia. - Z-line regular, 38 cm from the incisors. Biopsied. - Normal antrum. Biopsied. - Multiple gastric polyps. Resected and retrieved. - Normal examined duodenum. - Bilious gastric fluid. Recommendations : - Await pathology results. - Discharge patient to home. - Resume previous diet. - Continue present medications. - Telephone my office for pathology results in 1 week. No clinical findings to suggest 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. I do not believe that routine scheduled follow-up will be required at this time. My findings are described in the full procedure note, which is enclosed. If I can be of further assistance, please feel free to contact me at Doctor phone number(s): Work: . Sincerely, James Edgar MD 01/25/2021 9:51:50 AM This report has been signed electronically.
== END 2021-01-25 10:50 ==
LOC: EN 08:12 → AC 08:13
PROVIDERS: Anesthesiology; PCP Internal Medicine; Referring Provider Internal Medicine; Visit Provider Surgery
PROC: 0DJ08ZZ Inspection of Upper Intestinal Tract, Via Natural or Artificial Opening Endoscopic (ICD-10-PCS; CPT 43235; principal; 2021-01-25 09:10)
DX: K31.7 Polyp of stomach and duodenum (principal); K29.70 Gastritis, unspecified, without bleeding; K22.70 Barrett's esophagus without dysplasia; K44.9 Diaphragmatic hernia without obstruction or gangrene; K21.00 Gastro-esophageal reflux disease with esophagitis, without bleeding; K58.0 Irritable bowel syndrome with diarrhea; I48.0 Paroxysmal atrial fibrillation; I48.20 Chronic atrial fibrillation, unspecified; I27.29 Other secondary pulmonary hypertension; E11.9 Type 2 diabetes mellitus without complications; I10 Essential (primary) hypertension; E78.5 Hyperlipidemia, unspecified; H40.9 Unspecified glaucoma; F41.9 Anxiety disorder, unspecified; E66.9 Obesity, unspecified; Z68.35 Body mass index [BMI] 35.0-35.9, adult; Z79.01 Long term (current) use of anticoagulants; Z79.84 Long term (current) use of oral hypoglycemic drugs; Z79.899 Other long term (current) drug therapy; Z87.19 Personal history of other diseases of the digestive system
CPT/HCPCS: 43239; 36416; 82962; 85610; 88305; 88313; 88342; J7120; J2405

== ENCOUNTER 2021-02-14 10:38 | Outpatient (RCR) | payer MEDICARE, SELFPAY ==
[2021-01-08 13:48] VITALS: BMI 35.9
[2021-02-14 10:19] VITALS: BMI 34.3
[2021-02-14 10:46] LABS: INR Fingerstick 2.2; Prothrombin Time Fingerstick 24.6 SEC (11.9-14.4)
== END 2021-02-14 18:00 | disposition home or self-care (01) ==
LOC: LAB 10:38
PROVIDERS: PCP Internal Medicine; Referring Provider Internal Medicine Cardiovascular Disease; Visit Provider Internal Medicine Cardiovascular Disease
DX: I48.0 Paroxysmal atrial fibrillation (principal); Z79.01 Long term (current) use of anticoagulants
CPT/HCPCS: 36416; 85610

== ENCOUNTER → 2021-02-14 10:47 | Outpatient (CLI) | payer MEDICARE, SELFPAY ==
[2021-01-08 13:48] VITALS: BMI 35.9
[2021-02-14 10:19] VITALS: BMI 34.3
--- NOTE | 2021-02-14 10:49 | BI_ITS ---
MAMMOGRAPHY - BILATERAL SCREENING 3-D TOMOSYNTHESIS REASON FOR EXAM: Female, 75 years old. breast cancer screening PERTINENT HISTORY: No significant family history. TECHNIQUE: 2-D mammograms and 3-D Tomosynthesis of the breast (s) were performed. CAD was performed. COMPARISON: 02/08/2020 FINDINGS: The breast composition is fatty Scattered benign calcifications are seen. No dense spiculated masses or suspicious microcalcifications are identified. No architectural distortion is identified. There is no skin thickening or retraction. There has been no significant change since the prior study since 02/08/2020. BI/SCRN MAMM (CAD)W/ERNESTINA BILAT IMPRESSION: No mammographic signs of malignancy. Routine yearly mammograms recommended. ASSESSMENT CATEGORY: BIRADS Category 1: Negative. A letter regarding these results will be sent to the patient by the facility within 30 days. FOLLOW UP RECOMMENDATION: Yearly follow up mammogram recommended. (A) Approximately 10% of breast cancers are not detected by mammography. A normal mammogram should not delay biopsy of a clinically suspicious abnormality. Electronically Signed: Alverto Martinez, at 12:40 EDT Tel , Service support ,
== END ==
PROVIDERS: PCP Internal Medicine; Referring Provider Obstetrics & Gynecology; Visit Provider Obstetrics & Gynecology
DX: Z12.31 Encounter for screening mammogram for malignant neoplasm of breast (principal); I48.0 Paroxysmal atrial fibrillation; Z79.01 Long term (current) use of anticoagulants
CPT/HCPCS: 36416; 77063; 77067; 85610

== ENCOUNTER 2021-03-19 10:03 | Outpatient (RCR) | payer MEDICARE, SELFPAY ==
[2021-03-11 14:09] VITALS: BMI 34.3
[2021-03-19 10:16] LABS: INR Fingerstick 1.8; Prothrombin Time Fingerstick 20.9 SEC (11.9-14.4)
== END 2021-03-19 18:00 | disposition home or self-care (01) ==
LOC: LAB 10:03
PROVIDERS: PCP Internal Medicine; Referring Provider Internal Medicine Cardiovascular Disease; Visit Provider Internal Medicine Cardiovascular Disease
DX: I48.0 Paroxysmal atrial fibrillation (principal); Z79.01 Long term (current) use of anticoagulants
CPT/HCPCS: 36416; 85610

== ENCOUNTER 2021-04-03 11:03 | Outpatient (RCR) | payer MEDICARE, SELFPAY ==
[2021-03-22 09:59] VITALS: BMI 34.3
[2021-03-25 15:09] VITALS: BMI 34.4
[2021-04-03 11:11] LABS: INR Fingerstick 2.3; Prothrombin Time Fingerstick 25.5 SEC (11.9-14.4)
== END 2021-04-03 18:00 | disposition home or self-care (01) ==
LOC: LAB 11:03
PROVIDERS: PCP Internal Medicine; Referring Provider Internal Medicine Cardiovascular Disease; Visit Provider Internal Medicine Cardiovascular Disease
DX: I48.0 Paroxysmal atrial fibrillation (principal); Z79.01 Long term (current) use of anticoagulants
CPT/HCPCS: 36416; 85610

== ENCOUNTER 2021-05-01 14:47 | Outpatient (RCR) | payer MEDICARE, SELFPAY ==
[2021-04-23 23:31] VITALS: BMI 34.4
[2021-05-01 15:06] LABS: INR Fingerstick 2.6; Prothrombin Time Fingerstick 29.5 SEC (11.9-14.4)
== END 2021-05-01 18:00 | disposition home or self-care (01) ==
LOC: LAB 14:47
PROVIDERS: PCP Internal Medicine; Referring Provider Internal Medicine Cardiovascular Disease; Visit Provider Internal Medicine Cardiovascular Disease
DX: I48.0 Paroxysmal atrial fibrillation (principal); Z79.01 Long term (current) use of anticoagulants
CPT/HCPCS: 36416; 85610

== ENCOUNTER 2021-06-18 10:11 | Outpatient (RCR) | payer MEDICARE, SELFPAY ==
[2021-05-23 21:21] VITALS: BMI 34.4
[2021-05-31 13:36] LABS: INR Fingerstick 3.2; Prothrombin Time Fingerstick 35.1 SEC (11.9-14.4)
[2021-06-18 10:46] LABS: INR Fingerstick 3.2; Prothrombin Time Fingerstick 35.5 SEC (11.9-14.4)
== END 2021-06-23 18:00 | disposition home or self-care (01) ==
LOC: LAB 10:11
PROVIDERS: PCP Internal Medicine; Referring Provider Internal Medicine Cardiovascular Disease; Visit Provider Internal Medicine Cardiovascular Disease
DX: I48.0 Paroxysmal atrial fibrillation (principal); Z79.01 Long term (current) use of anticoagulants
CPT/HCPCS: 36416; 85610

== ENCOUNTER 2021-07-23 10:04 | Outpatient (RCR) | payer MEDICARE, SELFPAY ==
[2021-06-23 20:11] VITALS: BMI 34.4
[2021-07-02 17:50] LABS: INR Fingerstick 2.9; Prothrombin Time Fingerstick 32.2 SEC (11.9-14.4)
[2021-07-23 10:15] LABS: INR Fingerstick 2.8; Prothrombin Time Fingerstick 30.7 SEC (11.9-14.4)
== END 2021-07-23 18:00 | disposition home or self-care (01) ==
LOC: LAB 10:04
PROVIDERS: PCP Internal Medicine; Referring Provider Internal Medicine Cardiovascular Disease; Visit Provider Internal Medicine Cardiovascular Disease
DX: I48.0 Paroxysmal atrial fibrillation (principal); Z79.01 Long term (current) use of anticoagulants
CPT/HCPCS: 36416; 85610

== ENCOUNTER 2021-08-20 11:07 | Outpatient (RCR) | payer MEDICARE, SELFPAY ==
[2021-07-24 03:29] VITALS: BMI 34.4
[2021-08-20 11:36] LABS: INR Fingerstick 2.4; Prothrombin Time Fingerstick 27.1 SEC (11.9-14.4)
== END 2021-08-24 18:00 | disposition home or self-care (01) ==
LOC: LAB 11:07
PROVIDERS: PCP Internal Medicine; Referring Provider Internal Medicine Cardiovascular Disease; Visit Provider Internal Medicine Cardiovascular Disease
DX: I48.0 Paroxysmal atrial fibrillation (principal); Z79.01 Long term (current) use of anticoagulants
CPT/HCPCS: 36416; 85610

== ENCOUNTER 2021-09-23 14:43 | Outpatient (RCR) | payer MEDICARE, SELFPAY ==
[2021-08-25 04:31] VITALS: BMI 34.4
[2021-09-23 16:20] LABS: INR Fingerstick 2.3; Prothrombin Time Fingerstick 26.8 SEC (11.9-14.4)
== END 2021-09-23 18:00 | disposition home or self-care (01) ==
LOC: LAB 14:43
PROVIDERS: PCP Internal Medicine; Referring Provider Internal Medicine Cardiovascular Disease; Visit Provider Internal Medicine Cardiovascular Disease
DX: I48.0 Paroxysmal atrial fibrillation (principal); Z79.01 Long term (current) use of anticoagulants
CPT/HCPCS: 36416; 85610

== ENCOUNTER 2021-11-12 10:58 | Outpatient (RCR) | payer MEDICARE, SELFPAY ==
[2021-09-24 01:20] VITALS: BMI 34.4
[2021-10-29 10:51] LABS: INR Fingerstick 1.9; Prothrombin Time Fingerstick 22.4 SEC (11.7-14.9)
[2021-11-12 11:21] LABS: INR Fingerstick 1.8
== END 2021-11-21 18:00 | disposition home or self-care (01) ==
LOC: MTLAB 10:58
PROVIDERS: PCP Internal Medicine; Referring Provider Internal Medicine Cardiovascular Disease; Visit Provider Internal Medicine Cardiovascular Disease
DX: I48.0 Paroxysmal atrial fibrillation (principal); Z79.01 Long term (current) use of anticoagulants
CPT/HCPCS: 36416; 85610

== ENCOUNTER 2021-12-18 14:45 | Outpatient (RCR) | payer MEDICARE, SELFPAY ==
[2021-11-22 03:15] VITALS: BMI 34.4
[2021-11-26 11:56] LABS: INR Fingerstick 1.6; Prothrombin Time Fingerstick 19.8 SEC (11.7-14.9)
[2021-12-03 11:16] LABS: INR Fingerstick 2.3; Prothrombin Time Fingerstick 27.1 SEC (11.7-14.9)
[2021-12-18 14:56] LABS: INR Fingerstick 2.3; Prothrombin Time Fingerstick 26.9 SEC (11.7-14.9)
== END 2021-12-18 18:00 | disposition home or self-care (01) ==
LOC: MTLAB 14:45
PROVIDERS: PCP Internal Medicine; Referring Provider Internal Medicine Cardiovascular Disease; Visit Provider Internal Medicine Cardiovascular Disease
DX: I48.0 Paroxysmal atrial fibrillation (principal); Z79.01 Long term (current) use of anticoagulants
CPT/HCPCS: 36416; 85610

== ENCOUNTER 2022-01-13 14:51 | Outpatient (RCR) | payer MEDICARE, SELFPAY ==
[2021-12-22 05:20] VITALS: BMI 34.4
[2022-01-13 15:01] LABS: INR Fingerstick 3.1; Prothrombin Time Fingerstick 35.4 SEC (11.7-14.9)
== END 2022-01-13 18:00 | disposition home or self-care (01) ==
LOC: MTLAB 14:51
PROVIDERS: PCP Internal Medicine; Referring Provider Internal Medicine Cardiovascular Disease; Visit Provider Internal Medicine Cardiovascular Disease
DX: I48.0 Paroxysmal atrial fibrillation (principal); Z79.01 Long term (current) use of anticoagulants
CPT/HCPCS: 36416; 85610

== ENCOUNTER 2022-01-28 10:10 | Outpatient (RCR) | payer MEDICARE, SELFPAY ==
[2022-01-21 21:58] VITALS: BMI 34.4
[2022-01-28 10:21] LABS: Prothrombin Time Fingerstick 34.4 SEC (11.7-14.9)
== END 2022-02-20 16:00 | disposition home or self-care (01) ==
LOC: MTLAB 10:10
PROVIDERS: PCP Internal Medicine; Referring Provider Internal Medicine Cardiovascular Disease; Visit Provider Internal Medicine Cardiovascular Disease
DX: I48.0 Paroxysmal atrial fibrillation (principal); Z79.01 Long term (current) use of anticoagulants
CPT/HCPCS: 36416; 85610

== ENCOUNTER → 2022-02-17 | Outpatient (CLI) | payer MEDICARE, SELFPAY ==
--- NOTE | 2022-02-17 10:30 | BI_ITS ---
MAMMOGRAPHY - BILATERAL SCREENING REASON FOR EXAM: Female, 76 years old. Routine annual screening examination. PERTINENT HISTORY: Non-contributory. TECHNIQUE: Digital bilateral breast ernestina (3D mammographic acquisition) in the CC and MLO projections. 2-D mediolateral oblique (MLO) and craniocaudad (CC) views of both breasts were obtained. CAD: Full Field Digital Mammography with Computer Added Detection was performed. COMPARISON: Comparison is made with prior study dated 02/14/2021 and 02/08/2020. FINDINGS: Breast Composition: The breasts are almost entirely fatty. There are no dominant masses or suspicious calcifications. Stable small benign appearing bilateral axillary lymph nodes. No other significant abnormalities are identified. There has been no significant change since the prior study. BI/SCRN MAMM (CAD)W/ERNESTINA BILAT IMPRESSION: Stable bilateral screening mammogram. Yearly follow-up mammogram recommended. (A) ASSESSMENT CATEGORY: BIRADS Category 2: Benign. A letter regarding these results will be sent to the patient by the facility within 30 days. Approximately 10% of breast cancers are not detected by mammography. A normal mammogram should not delay biopsy of a clinically suspicious abnormality. [id number] Electronically Signed: Roland Patel MD at 11:24 EDT ,
== END | disposition home or self-care (01) ==
LOC: OPBI 10:29
PROVIDERS: PCP Internal Medicine; Visit Provider Obstetrics & Gynecology
DX: Z12.31 Encounter for screening mammogram for malignant neoplasm of breast (principal)
CPT/HCPCS: 77063; 77067

== ENCOUNTER 2022-03-18 11:24 | Outpatient (RCR) | payer MEDICARE, SELFPAY ==
[2022-02-21 10:02] VITALS: BMI 34.4
[2022-02-25 11:35] LABS: INR Fingerstick 3.7
[2022-03-03 14:06] LABS: INR Fingerstick 3.4; Prothrombin Time Fingerstick 38.3 SEC (11.7-14.9)
[2022-03-18 11:45] LABS: INR Fingerstick 2.7; Prothrombin Time Fingerstick 30.8 SEC (11.7-14.9)
== END 2022-03-23 03:35 | disposition home or self-care (01) ==
LOC: MTLAB 11:24
PROVIDERS: PCP Internal Medicine; Referring Provider Internal Medicine Cardiovascular Disease; Visit Provider Internal Medicine Cardiovascular Disease
DX: I48.0 Paroxysmal atrial fibrillation (principal); Z79.01 Long term (current) use of anticoagulants
CPT/HCPCS: 36416; 85610

== ENCOUNTER → 2022-04-02 | Outpatient (CLI) | payer MEDICARE, SELFPAY ==
--- NOTE | 2022-04-02 15:56 | RAD_ITS ---
EXAM: XR BILATERAL HIPS WITH PELVIS WHEN PERFORMED, 2 VIEWS CLINICAL INDICATION: Bilateral Hip Pain TECHNIQUE: Frontal view of the bilateral hips with pelvis when performed. This report was created using [employer] report generation technology. COMPARISON: None. FINDINGS: BONES/JOINTS: Unremarkable. No displaced fracture. No destructive or sclerotic lesions. Note that overlapping bowel shadows may however obscure fine detail. Sacroiliac joint is unremarkable. No widening of the pubic symphysis. The articular structures are unremarkable. SOFT TISSUES: Unremarkable. No soft tissue swelling or gas. RAD/Hips B/L min 2 views w/ Pelvis IMPRESSION: No evidence of displaced pelvic or hip fracture. Electronically Signed: Martin Celaya MD at 17:57 EDT ,
--- NOTE | 2022-04-02 16:30 | RAD_ITS ---
STUDY: X-RAY - LUMBAR SPINE REASON FOR EXAM: Female, 76 years old. Chronic back pain. TECHNIQUE: 3 view(s) of the lumbar spine were obtained. COMPARISON: None FINDINGS: Osteopenia. Normal lumbar lordosis. Mild rotatory levoscoliosis. 2 mm of anterolisthesis of L4 on L5. Diffuse facet sclerosis. Diffuse moderate intervertebral disc space narrowing with osteophyte formation most marked at L2-3, L3-4 and L4-5. Phleboliths. RAD/Lumbar Spine 2 or 3 Views IMPRESSION: Osteopenia, mild levoscoliosis and diffuse moderate thoracic and lumbosacral spondylosis. No acute abnormality, evidence of erosive changes or fusion. Electronically Signed: Dakotah Bartlett, at 9:45 EDT ,
[2022-04-02 16:32] LABS: Absolute Lymphocyte Count 1.86 X10^3/uL (0.83-4.51); Absolute Neutrophil Count 3.5 X10^3/uL (2.0-7.7); Basophil# 0.02 X10^3/uL; Basophil% 0.3 % (0-1); Eosinophil# 0.12 X10^3/uL; Hematocrit 38.1 % (37-47); Lymphocyte # 1.86 X10^3/ul (0.83-4.51); Lymphocyte % 30.5 % (19-41); Mean Corp Hgb Conc 34.1 g/dL (32-36); Mean Corpuscular Hgb 32.2 pg (27.0-32.0); Mean Corpuscular Volume 94.3 fL (81-99); Mean Platelet Vol. 9.6 fl (6.2-12.0); Monocyte# 0.62 X10^3/uL; Monocyte% 10.2 % (0-10); NRBC Flagged by Analyzer 0 % (0-5); Neutrophil # 3.45 X10^3/uL (2.7-7.7); Neutrophil % 56.7 % (47-70); Platelet Count 196 K/mm3 (150-450); RBC Distribution Width CV 13.9 % (11.6-14.6); RBC Distribution Width SD 48.1 fl (35.1-43.9); Red Blood Count 4.04 M/mm3 (4.2-5.4); White Blood Count 6.1 K/mm3 (4.4-11.0)
[2022-04-02 16:49] LABS: ALB/GLOB Ratio 0.8 RATIO (0.9-2.4); AST(SGOT) 26 U/L (15-37); Alanine Aminotransfer ALT/SGPT 32 U/L (13-56); Albumin, Serum 3.3 g/dL (3.2-5.0); Alkaline Phosphatase 68 U/L (45-117); Anion Gap 3 (5-15); BUN 22 mg/dL (7-18); BUN/Creat Ratio 29.5 RATIO (10-20); Calcium,Total 8.9 mg/dL (8.5-10.1); Chloride 106 mmol/L (98-107); Cholesterol 178 mg/dL (200); Creatinine, Serum 0.75 mg/dL (0.55-1.02); EST Glomerular Filtration Rate 80 mL/min (>60); Est Glom Filt Rate - Afr Amer 97 mL/min (>60); Globulin 4.4 g/dL (2.2-4.2); Glucose 172 mg/dL (74-106); High Density Lipoprotein 58 mg/dL; Protein, Total 7.7 g/dL (6.4-8.2); Sodium Level 139 mmol/L (136-145); Triglycerides 156 mg/dL; Very Low Density Lipoprotein 31 mg/dL (5-40)
[2022-04-02 16:55] LABS: Microalbumin,Random Urine 24.5 mg/L (NO RANGE EST.); Microalbumin:Creatinine Ratio 17.8 mg/g CRE (<30 mg/g CRE)
== END | disposition home or self-care (01) ==
PROVIDERS: PCP Internal Medicine; Referring Provider Internal Medicine; Visit Provider Internal Medicine
DX: E11.69 Type 2 diabetes mellitus with other specified complication (principal); I10 Essential (primary) hypertension; E78.5 Hyperlipidemia, unspecified; M25.551 Pain in right hip; M25.552 Pain in left hip; M47.817 Spondylosis without myelopathy or radiculopathy, lumbosacral region; G89.29 Other chronic pain
CPT/HCPCS: 36415; 72100; 73521; 80053; 80061; 82043; 82570; 85025

== ENCOUNTER 2022-04-08 12:28 | Outpatient (RCR) | payer MEDICARE, SELFPAY ==
[2022-03-23 03:36] VITALS: BMI 34.4
[2022-04-08 12:35] LABS: INR Fingerstick 2.3; Prothrombin Time Fingerstick 26.8 SEC (11.7-14.9)
== END 2022-04-08 18:00 | disposition home or self-care (01) ==
LOC: LAB 12:28
PROVIDERS: PCP Internal Medicine; Referring Provider Internal Medicine Cardiovascular Disease; Visit Provider Internal Medicine Cardiovascular Disease
DX: I48.0 Paroxysmal atrial fibrillation (principal); Z79.01 Long term (current) use of anticoagulants
CPT/HCPCS: 36416; 85610

== ENCOUNTER 2022-05-06 14:38 | Outpatient (RCR) | payer MEDICARE, SELFPAY ==
[2022-04-23 23:13] VITALS: BMI 34.4
[2022-05-06 14:50] LABS: Prothrombin Time Fingerstick 34.5 SEC (11.7-14.9)
== END 2022-05-06 18:00 | disposition home or self-care (01) ==
LOC: MTLAB 14:38
PROVIDERS: PCP Internal Medicine; Referring Provider Internal Medicine Cardiovascular Disease; Visit Provider Internal Medicine Cardiovascular Disease
DX: I48.0 Paroxysmal atrial fibrillation (principal); Z79.01 Long term (current) use of anticoagulants
CPT/HCPCS: 36416; 85610

== ENCOUNTER → 2022-05-26 | Outpatient (CLI) | payer MEDICARE, SELFPAY ==
--- NOTE | 2022-05-26 12:32 | ART_ITS ---
Reason For Study: CLAUDICATION Procedure A bilateral lower extremity continuous wave Doppler with analog waveform analysis,segmental pressures,and ankle brachial indexes without exercise. Left Segmental Pressures Left brachial= 145mmHg. Left posterior tibial artery = 175mmHg. Left dorsalis pedis artery = 181mmHg. Left digit = 109 mmHg. The left dorsalis pedis waveforms are triphasic. The left posterior tibial artery waveforms are triphasic. Right Segmental Pressures Right brachial= 144mmHg. Right posterior tibial artery = 163mmHg. Right dorsalis pedis artery = 179mmHg. Right digit = 116 mmHg. The right dorsalis pedis waveforms are triphasic. The right posterior tibial artery waveforms are triphasic. Indices The right ankle brachial index by the dorsalis pedis is 1.23. The right ankle brachial index by the posterior tibial artery is 1.12. The right digital-brachial index is 0.80. The left ankle brachial index by the dorsalis pedis is 1.25. The left ankle brachial index by the posterior tibial artery is 1.21. The left digital-brachial index is 0.75. VL/Lower Ext Art Exam w/o Exercis Interpretation Summary Right CATHY 1.23, normal. TBI and Doppler/PVR waveforms of the right leg normal a t rest. Left CATHY 1.25, normal. Doppler/PVR waveforms of the left leg normal at rest. TB I and digit waveforms diminished, pedal disease vs spasm Ordering Physician: Christian Capellan Referring Physician: Zbigniew Delatorre Performed By: CHRISTIANNE REYES T
--- NOTE | 2022-05-26 12:32 | VDLE_ITS ---
Version 2 Reason For Study: LEG SWELLING RIGHT LEFT CFV is compressible, spontaneous, phasic, CFV is compressible, spontaneous, phasic, competent and demonstrates normal competent, and demonstrates normal augmentation. augmentation. FV is compressible, phasic, and INCOMPETENT FV is compressible, spontaneous, phasic, for greater than 1.0 second. competent and demonstrates normal POP V is compressible, spontaneous, phasic, augmentation. competent and demonstrates normal POP V is compressible, spontaneous, phasic, augmentation. competent and demonstrates normal T/P Trunk is compressible. augmentation. PTV is compressible. T/P Trunk is compressible. RT PerV is compressible. PTV is compressible. SFJ is competent and measures 0.50 x 0.55 cm. LT PerV is compressible. GSV proximal thigh measures 0.39 x 0.37 cm. SFJ is competent and measures 0.59 x 0.61 cm. GSV at knee measures 0.32 x 0.28 cm. GSV proximal thigh measures 0.54 x 0.54 cm. GSV is competent throughout. GSV at knee measures 0.35 x 0.33 cm. SSV proximal calf is competent and measures GSV is competent throughout. 0.24 x 0.27 cm. SSV proximal calf is competent and measures Procedure 0.17 x 0.19 cm. This is a venous duplex using B-mode, color flow and spectral Doppler. Exam performed in department. Patient was scanned in reverse Trendelenburg position during reflux assessment. The exam was diagnostic. VL/Venous Duplex US - Jayson Extrem Interpretation Summary Deep veins of the bilateral lower extremities are patent and compressible segme ntally. There is no evidence of bilateral lower extremity deep vein thrombosis. The bilateral great saphenous veins appear patent and compressible segmentally. Positive for reflux in right femoral vein Ordering Physician: Zbigniew Delatorre Referring Physician: Zbigniew Delatorre Performed By: Christopher Monahan RVCharisse
== END | disposition home or self-care (01) ==
LOC: CVS 12:31
PROVIDERS: PCP Internal Medicine; Referring Provider Nurse Practitioner Family; Visit Provider Nurse Practitioner Family
DX: M79.89 Other specified soft tissue disorders (principal); I73.9 Peripheral vascular disease, unspecified; I87.2 Venous insufficiency (chronic) (peripheral)
CPT/HCPCS: 93923; 93970

== ENCOUNTER 2022-06-06 11:03 | Outpatient (RCR) | payer MEDICARE, SELFPAY ==
[2022-05-24 04:08] VITALS: BMI 34.4
[2022-06-06 11:10] LABS: INR Fingerstick 2.6; Prothrombin Time Fingerstick 29.6 SEC (11.7-14.9)
== END 2022-06-06 18:00 | disposition home or self-care (01) ==
LOC: LAB 11:03
PROVIDERS: PCP Internal Medicine; Referring Provider Internal Medicine Cardiovascular Disease; Visit Provider Internal Medicine Cardiovascular Disease
DX: I48.0 Paroxysmal atrial fibrillation (principal); Z79.01 Long term (current) use of anticoagulants
CPT/HCPCS: 36416; 85610

== ENCOUNTER 2022-07-04 10:15 | Outpatient (RCR) | payer MEDICARE, SELFPAY ==
[2022-06-24 10:08] VITALS: BMI 34.4
[2022-07-04 10:25] LABS: INR Fingerstick 2.3; Prothrombin Time Fingerstick 27.3 SEC (11.7-14.9)
== END 2022-07-23 18:00 | disposition home or self-care (01) ==
LOC: LAB 10:15
PROVIDERS: PCP Internal Medicine; Referring Provider Internal Medicine Cardiovascular Disease; Visit Provider Internal Medicine Cardiovascular Disease
DX: I48.0 Paroxysmal atrial fibrillation (principal); Z79.01 Long term (current) use of anticoagulants
CPT/HCPCS: 36416; 85610

== ENCOUNTER 2022-07-30 11:43 | Outpatient (RCR) | payer MEDICARE, SELFPAY ==
[2022-07-24 00:31] VITALS: BMI 34.4
[2022-07-30 17:10] LABS: INR Fingerstick 2.5; Prothrombin Time Fingerstick 28.7 SEC (11.7-14.9)
== END 2022-07-30 18:00 | disposition home or self-care (01) ==
LOC: LAB 11:43
PROVIDERS: PCP Internal Medicine; Referring Provider Internal Medicine Cardiovascular Disease; Visit Provider Internal Medicine Cardiovascular Disease
DX: I48.0 Paroxysmal atrial fibrillation (principal); Z79.01 Long term (current) use of anticoagulants
CPT/HCPCS: 36416; 85610

== ENCOUNTER 2022-08-26 11:11 | Outpatient (RCR) | payer MEDICARE, SELFPAY ==
[2022-08-24 04:05] VITALS: BMI 34.4
[2022-08-26 11:21] LABS: INR Fingerstick 2.4; Prothrombin Time Fingerstick 27.4 SEC (11.7-14.9)
== END 2022-08-26 18:00 | disposition home or self-care (01) ==
LOC: LAB 11:11
PROVIDERS: PCP Internal Medicine; Referring Provider Internal Medicine Cardiovascular Disease; Visit Provider Internal Medicine Cardiovascular Disease
DX: I48.0 Paroxysmal atrial fibrillation (principal); Z79.01 Long term (current) use of anticoagulants
CPT/HCPCS: 36416; 85610

== ENCOUNTER 2022-09-30 11:03 | Outpatient (RCR) | payer MEDICARE, SELFPAY ==
[2022-09-24 08:31] VITALS: BMI 34.4
[2022-09-30 11:16] LABS: INR Fingerstick 2.2
== END 2022-09-30 18:00 | disposition home or self-care (01) ==
LOC: LAB 11:03
PROVIDERS: PCP Internal Medicine; Referring Provider Internal Medicine Cardiovascular Disease; Visit Provider Internal Medicine Cardiovascular Disease
DX: I48.0 Paroxysmal atrial fibrillation (principal); Z79.01 Long term (current) use of anticoagulants
CPT/HCPCS: 36416; 85610

== ENCOUNTER 2022-10-28 10:38 | Outpatient (RCR) | payer MEDICARE, SELFPAY ==
[2022-10-21 23:07] VITALS: BMI 34.4
[2022-10-28 10:50] LABS: INR Fingerstick 2.2; Prothrombin Time Fingerstick 26.1 SEC (11.7-14.9)
== END 2022-11-21 23:11 | disposition home or self-care (01) ==
LOC: LAB 10:38
PROVIDERS: PCP Internal Medicine; Referring Provider Internal Medicine Cardiovascular Disease; Visit Provider Internal Medicine Cardiovascular Disease
DX: I48.0 Paroxysmal atrial fibrillation (principal); Z79.01 Long term (current) use of anticoagulants
CPT/HCPCS: 36416; 85610

== ENCOUNTER 2022-12-05 09:49 | Outpatient (RCR) | payer MEDICARE, SELFPAY ==
[2022-11-21 23:11] VITALS: BMI 34.4
[2022-11-25 10:41] LABS: INR Fingerstick 3.2; Prothrombin Time Fingerstick 34.4 SEC (11.7-14.9)
[2022-12-05 10:00] LABS: INR Fingerstick 1.9
== END 2022-12-21 01:26 | disposition home or self-care (01) ==
LOC: LAB 09:49
PROVIDERS: PCP Internal Medicine; Referring Provider Internal Medicine Cardiovascular Disease; Visit Provider Internal Medicine Cardiovascular Disease
DX: I48.0 Paroxysmal atrial fibrillation (principal); Z79.01 Long term (current) use of anticoagulants
CPT/HCPCS: 36416; 85610

== ENCOUNTER 2023-01-14 10:43 | Outpatient (RCR) | payer MEDICARE, SELFPAY ==
[2022-12-21 01:26] VITALS: BMI 34.4
[2022-12-23 10:51] LABS: INR Fingerstick 1.6
[2022-12-30 14:20] LABS: INR Fingerstick 1.8; Prothrombin Time Fingerstick 19.6 SEC (11.7-14.9)
[2023-01-14 10:50] LABS: INR Fingerstick 1.9; Prothrombin Time Fingerstick 21.2 SEC (11.7-14.9)
== END 2023-01-21 18:00 | disposition home or self-care (01) ==
LOC: LAB 10:43
PROVIDERS: PCP Internal Medicine; Referring Provider Internal Medicine Cardiovascular Disease; Visit Provider Internal Medicine Cardiovascular Disease
DX: I48.0 Paroxysmal atrial fibrillation (principal); Z79.01 Long term (current) use of anticoagulants
CPT/HCPCS: 36416; 85610

== ENCOUNTER → 2023-02-05 | Outpatient (CLI) | payer MEDICARE, SELFPAY ==
--- NOTE | 2023-02-05 15:22 | BD_ITS ---
STUDY: DUAL ENERGY X-RAY ABSORPTIOMETRY / DXA REASON FOR EXAM: Female, 77 years old. Osteopenia TECHNIQUE: Bone Mineral Density (BMD) measurements of lumbar spine and bilateral hips were obtained. COMPARISON: None. FINDINGS: Lumbar Spine (L1-L4): g/cm2 (1.040) / T-score (0.6) / Z-score (3.0) Findings are suggestive of normal bone density with a low fracture risk. Left Femur Total: g/cm2 (1.064) / T-score (1.0) / Z-score (2.9) Left Femoral Neck: g/cm2 (0.831) / T-score (-0.2) / Z-score (2.0) Right Femur Total: g/cm2 (1.058) / T-score (1.0) / Z-score (2.9) Right Femoral Neck: g/cm2 (0.713) / T-score (-1.2) / Z-score (1.0) BD/Dexa Bone Density Study IMPRESSION: The patient is considered osteopenic as outlined below according to World [employer] Organization (WHO) criteria with a low fracture risk. Reference Information: The T-score is the number of standard deviations above or below the standard which is normal for young adults at their peak bone mineral density. The World Health Organization (WHO) interprets the T-scores as follows: Above -1 Normal bone density Between -1 and -2.5 Osteopenia Equal to / or below -2.5 Osteoporosis As a practical clinical guideline, osteopenia may be graded as follows: Mild -1 through -1.5 Moderate -1.6 through -2.0 Severe -2.1 through -2.4 The Z-score is the number of standard deviations above or below age-matched controls. A Z-score of less than -1.5 would be considered abnormal. References: 1. NIH Osteoporosis and Related Bone Diseases www osteo.org 2. International Society for Clinical Densitometry www iscd.org 3. National Osteoporosis Foundation www nof.org Electronically Signed: Roland Patel MD at 14:46 EDT ,
== END | disposition home or self-care (01) ==
LOC: OPBD 15:13
PROVIDERS: PCP Internal Medicine; Referring Provider Internal Medicine; Visit Provider Internal Medicine
DX: Z13.820 Encounter for screening for osteoporosis (principal); M85.80 Other specified disorders of bone density and structure, unspecified site; Z78.0 Asymptomatic menopausal state
CPT/HCPCS: 77080

== ENCOUNTER 2023-02-16 14:02 | Outpatient (RCR) | payer MEDICARE, SELFPAY ==
[2023-01-22 09:58] VITALS: BMI 34.4
[2023-01-28 10:41] LABS: INR Fingerstick 1.3; Prothrombin Time Fingerstick 14.3 SEC (11.7-14.9)
[2023-02-09 08:34] LABS: INR Fingerstick 1.7; Prothrombin Time Fingerstick 19.4 SEC (11.7-14.9)
[2023-02-16 14:15] LABS: INR Fingerstick 2.8; Prothrombin Time Fingerstick 29.8 SEC (11.7-14.9)
== END 2023-02-16 18:00 | disposition home or self-care (01) ==
LOC: LAB 14:02
PROVIDERS: PCP Internal Medicine; Referring Provider Internal Medicine Cardiovascular Disease; Visit Provider Internal Medicine Cardiovascular Disease
DX: I48.0 Paroxysmal atrial fibrillation (principal); Z79.01 Long term (current) use of anticoagulants
CPT/HCPCS: 36416; 85610

== ENCOUNTER → 2023-02-19 | Outpatient (CLI) | payer MEDICARE, SELFPAY ==
--- NOTE | 2023-02-19 10:32 | BI_ITS ---
MAMMOGRAPHY - BILATERAL SCREENING REASON FOR EXAM: Female, 77 years old. Routine annual screening examination. PERTINENT HISTORY: Non-contributory. TECHNIQUE: Digital bilateral breast ernestina (3D mammographic acquisition) in the CC and MLO projections. 2-D mediolateral oblique (MLO) and craniocaudad (CC) views of both breasts were obtained. CAD: Full Field Digital Mammography with Computer Added Detection was performed. COMPARISON: Comparison is made with prior study dated 02/17/2022 and February 14, 2021. FINDINGS: Breast Composition: The breasts are almost entirely fatty. There are no dominant masses or suspicious calcifications. Stable small benign-appearing bilateral axillary lymph nodes. No other significant abnormalities are identified. There has been no significant change since the prior study. BI/SCRN MAMM (CAD)W/ERNESTINA BILAT IMPRESSION: Stable bilateral screening mammogram. Yearly follow-up mammogram recommended. (A) ASSESSMENT CATEGORY: BIRADS Category 2: Benign. A letter regarding these results will be sent to the patient by the facility within 30 days. Approximately 10% of breast cancers are not detected by mammography. A normal mammogram should not delay biopsy of a clinically suspicious abnormality. [id number] Electronically Signed: Roland Patel MD at 12:23 EDT ,
== END | disposition home or self-care (01) ==
LOC: OPBI 10:31
PROVIDERS: PCP Internal Medicine; Referring Provider Obstetrics & Gynecology; Visit Provider Obstetrics & Gynecology
DX: Z12.31 Encounter for screening mammogram for malignant neoplasm of breast (principal)
CPT/HCPCS: 77063; 77067

== ENCOUNTER 2023-03-16 11:37 | Outpatient (RCR) | payer MEDICARE, SELFPAY ==
[2023-02-20 22:32] VITALS: BMI 34.4
[2023-03-16 11:51] LABS: INR Fingerstick 3.2; Prothrombin Time Fingerstick 34.4 SEC (11.7-14.9)
== END 2023-03-23 18:00 | disposition home or self-care (01) ==
LOC: LAB 11:37
PROVIDERS: PCP Internal Medicine; Referring Provider Internal Medicine Cardiovascular Disease; Visit Provider Internal Medicine Cardiovascular Disease
DX: I48.0 Paroxysmal atrial fibrillation (principal); Z79.01 Long term (current) use of anticoagulants
CPT/HCPCS: 36416; 85610

== ENCOUNTER 2023-04-15 09:54 | Outpatient (RCR) | payer MEDICARE, SELFPAY ==
[2023-03-24 00:50] VITALS: BMI 34.4
[2023-03-31 11:33] LABS: INR Fingerstick 3.2; Prothrombin Time Fingerstick 33.8 SEC (11.7-14.9)
[2023-04-15 10:50] LABS: Absolute Lymphocyte Count 1.73 X10^3/uL (0.83-4.51); Absolute Neutrophil Count 3.7 X10^3/uL (2.0-7.7); Basophil# 0.02 X10^3/uL; Basophil% 0.3 % (0-1); Eosinophil# 0.07 X10^3/uL; Eosinophils% 1.2 % (0-5); Hematocrit 39.3 % (37-47); Lymphocyte # 1.73 X10^3/ul (0.83-4.51); Lymphocyte % 28.7 % (19-41); Mean Corp Hgb Conc 33.1 g/dL (32-36); Mean Corpuscular Hgb 31.2 pg (27.0-32.0); Mean Corpuscular Volume 94.2 fL (81-99); Mean Platelet Vol. 9.7 fl (6.2-12.0); Monocyte# 0.51 X10^3/uL; Monocyte% 8.5 % (0-10); NRBC Flagged by Analyzer 0 % (0-5); Neutrophil # 3.66 X10^3/uL (2.7-7.7); Neutrophil % 60.8 % (47-70); Platelet Count 203 K/mm3 (150-450); RBC Distribution Width CV 13.7 % (11.6-14.6); RBC Distribution Width SD 47.2 fl (35.1-43.9); Red Blood Count 4.17 M/mm3 (4.2-5.4)
[2023-04-15 10:56] LABS: International Normalized Ratio 2.7; Prothrombin Time (Protime)PT. 28.6 SECONDS (11.7-14.9)
[2023-04-15 11:07] LABS: Hemoglobin A1c 7.1 % (3.8-5.6)
[2023-04-15 11:13] LABS: Vitamin D,25 Hydroxy 31.3 ng/mL
[2023-04-15 11:16] LABS: ALB/GLOB Ratio 0.8 RATIO (0.9-2.4); AST(SGOT) 19 U/L (15-37); Alanine Aminotransfer ALT/SGPT 25 U/L (13-56); Albumin, Serum 3.4 g/dL (3.2-5.0); Alkaline Phosphatase 64 U/L (45-117); Anion Gap 3 (5-15); BUN 16 mg/dL (7-18); BUN/Creat Ratio 23.4 RATIO (10-20); Calcium,Total 8.7 mg/dL (8.5-10.1); Chloride 109 mmol/L (98-107); Cholesterol 184 mg/dL (200); Creatinine, Serum 0.68 mg/dL (0.55-1.02); EST Glomerular Filtration Rate 88 mL/min (>60); Est Glom Filt Rate - Afr Amer 107 mL/min (>60); Globulin 4.2 g/dL (2.2-4.2); Glucose 95 mg/dL (74-106); High Density Lipoprotein 66 mg/dL; Potassium 3.9 mmol/L (3.5-5.1); Protein, Total 7.6 g/dL (6.4-8.2); Sodium Level 141 mmol/L (136-145); Triglycerides 106 mg/dL; Very Low Density Lipoprotein 21 mg/dL (5-40)
[2023-04-15 11:25] LABS: Microalbumin,Random Urine 46.2 mg/L (NO RANGE EST.); Microalbumin:Creatinine Ratio 36.1 mg/g CRE (<30 mg/g CRE)
== END 2023-04-15 18:00 | disposition home or self-care (01) ==
LOC: LAB 09:54
PROVIDERS: Nurse Practitioner Family; PCP Internal Medicine; Referring Provider Internal Medicine Cardiovascular Disease; Visit Provider Internal Medicine Cardiovascular Disease
DX: I48.0 Paroxysmal atrial fibrillation (principal); Z79.01 Long term (current) use of anticoagulants
CPT/HCPCS: 36415; 36416; 80053; 80061; 82043; 82306; 82570; 83036; 85025; 85610

== ENCOUNTER 2023-05-13 10:08 | Outpatient (RCR) | payer MEDICARE, SELFPAY ==
[2023-04-23 23:04] VITALS: BMI 34.4
== END 2023-05-13 18:00 | disposition home or self-care (01) ==
LOC: LAB 10:08
PROVIDERS: PCP Internal Medicine; Referring Provider Internal Medicine Cardiovascular Disease; Visit Provider Internal Medicine Cardiovascular Disease
DX: I48.0 Paroxysmal atrial fibrillation (principal); Z79.01 Long term (current) use of anticoagulants
CPT/HCPCS: 36416; 85610

== ENCOUNTER → 2023-05-27 | Outpatient (CLI) | payer MEDICARE, SELFPAY ==
--- NOTE | 2023-05-27 07:24 | ECHOD_ITS ---
Reason For Study: PAFIB Procedure This was a 2D Doppler, Color Flow transthoracic echocardiogram. Exam performed in department. Left Ventricle Normal LV size. Moderate concentric left ventricular hypertrophy. Left ventricular systolic function is normal. The estimated ejection fraction is 70 %. No regional wall motion abnormalities noted. Right Ventricle Normal RV size. Normal systolic function. Atria Normal left atrium. Normal right atrium. Mitral Valve Mild focal mitral valve calcification, bileaflet. Mild (1+) eccentric mitral valve insufficiency. Tricuspid Valve Normal tricuspid valve. Aortic Valve Trisinus/trileaflet aortic valve. Mild focal aortic valve calcification. Pulmonic Valve Normal pulmonic valve. Great Vessels Normal aortic root. The pulmonary artery is normal size. Normal inferior vena cava. Pericardium/Pleural No pericardial effusion. MMode/2D Measurements & Calculations LVIDd: 4.1 cm IVSd: 1.3 cm Ao root diam: 3.6 cm LVIDs: 2.1 cm LVPWd: 1.5 cm FS: 49.3 % LAV(MOD-bp): 65.8 ml LVAd ap4: 22.8 cm2 SV(MOD-sp4): 43.0 ml LAV(MOD-bp) Indexed: 32.9 ml/m2 LVLd ap4: 6.8 cm LAV(MOD-sp2): 58.9 ml EDV(MOD-sp4): 61.9 ml LAV(MOD-sp4): 61.9 ml EDV(sp4-el): 64.9 ml LVAs ap4: 10.4 cm2 LVLs ap4: 5.1 cm ESV(MOD-sp4): 19.0 ml ESV(sp4-el): 17.9 ml EF(MOD-sp4): 69.4 % EF(sp4-el): 72.4 % SV(sp4-el): 46.9 ml LA A4 area: 21.2 cm2 LA dimension(2D): 4.4 cm RA A4 area: 18.8 cm2 TAPSE: 2.7 cm Doppler Measurements & Calculations Lat Peak E' Derrick: 7.6 cm/sec Med Peak E' Derrick: 5.3 cm/sec MV V2 max: 133.9 cm/sec MV max P.2 mmHg MV V2 mean: 68.5 cm/sec MV mean P.3 mmHg MV V2 VTI: 40.3 cm Ao V2 max: 176.4 cm/sec LV V1 max: 146.3 cm/sec PA V2 max: 95.1 cm/sec Ao max P.5 mmHg LV V1 max P.6 mmHg PA V2 mean: 63.0 cm/sec Ao V2 mean: 111.2 cm/sec LV V1 mean P.4 mmHg Ao mean P.7 mmHg LV V1 mean: 98.1 cm/sec Ao V2 VTI: 38.4 cm LV V1 VTI: 38.6 cm AV (velocity ratio): 1.0 TR max derrick: 301.6 cm/sec TR max P.4 mmHg ECHO/Echo Complete Interpretation Summary Normal LV size. Moderate concentric left ventricular hypertrophy. Left ventricular systolic function is normal. The estimated ejection fraction is 70 %. Mild (1+) eccentric mitral valve insufficiency. Ordering Physician: Javon Jenkins Referring Physician: Javon Jenkins Performed By: Dominique Walker RCS
--- NOTE | 2023-05-27 07:24 | CDU_ITS ---
Reason For Study: Bruit Rt. Velocities/BP Lt. Velocities/BP Prox CCA 89.1/13.5 cm/sec. Prox CCA 106.9/15.7 cm/sec. Mid CCA 67.4/12.6 cm/sec. Mid CCA 80.6/12.4 cm/sec. Dist CCA 67.4/11.6 cm/sec. Dist CCA 80.6/14.6 cm/sec. Prox ICA 56/11.6 cm/sec. Prox ICA 42.3/9 cm/sec. Mid ICA 80.6/20.1 cm/sec. Mid ICA 72.9/16.8 cm/sec. Dist ICA 62.3/18.6 cm/sec. Dist ICA 91.6/23.4 cm/sec. Rt. ICA/CCA = 1.20. Lt. ICA/CCA = 1.14. Prox ECA 58.1/5.3 cm/sec. Prox ECA 69.6/6.9 cm/sec. Rt. Vert. 41.9/11.6 cm/sec. Lt. Vert. 44.3/8 cm/sec. Right Extracranial There is homogeneous, smooth atherosclerotic plaque noted in the right common carotid artery. There is homogeneous, smooth atherosclerotic plaque noted in the right internal carotid artery. The right internal carotid artery is very tortuous. There is intimal thickening but no significant atherosclerotic plaque noted in the right external carotid artery. Antegrade flow is noted in the right vertebral artery. Left Extracranial There is intimal thickening but no significant atherosclerotic plaque noted in the left common carotid artery. There is heterogeneous, irregular atherosclerotic plaque noted in the left internal carotid artery. The left internal carotid artery is very tortuous. There is heterogeneous, irregular atherosclerotic plaque noted in the left external carotid artery. Antegrade flow is noted in the left vertebral artery. Procedure Carotid Duplex [id number]. This is a Carotid Duplex examination using B-mode, color flow and specral Doppler. The study was technically difficult. Exam performed in department. VL/Carotid Duplex Ultrasound Interpretation Summary Mild (<50%) stenosis right extracranial internal carotid. Mild (<50%) stenosis left extracranial internal carotid. Patent and antegrade vertebrals bilaterally. Ordering Physician: Javon Jenkins Referring Physician: Zbigniew Delatorre Performed By: Jailene George RVT
--- NOTE | 2023-05-27 19:21 | STRESSREP ---
Stress Test Report Pharmacologic myocardial perfusion stress test. 78-year-old lady with a history of shortness of breath Resting EKG demonstrates sinus rhythm with a rate of 63 bpm. Resting blood pressure is 170/88 mmHg. 0.4 mg of regadenoson was infused per usual protocol followed by rapid intravenous saline flush injection. Continuous EKG monitoring was performed. The maximum heart rate was 85 bpm which was 59% of max impacted heart rate the maximum workload was 1 metabolic equivalent. At rest there were no ST or T wave changes noted to suggest ischemia and at peak infusion nonspecific ST changes were noted which did not meet the criteria for ischemia. No clinical angina is noted. The final blood pressure was 170/88 mmHg. Myocardial perfusion protocol. 14.4 mCi of technetium 99m sestamibi was injected at rest. 0.4 mg of regadenoson was infused per usual protocol. At peak infusion 45.1 mCi of technetium 99m sestamibi was injected stress images were obtained stress and rest images were reconstructed and compared in the short axis vertical long and horizontal long axis. Gated images were also obtained. Perfusion SPECT analysis: Review of the stress images demonstrate normal uptake of tracer noted in all areas of the myocardium. The resting images similar demonstrated normal uptake of tracer noted in all areas of the myocardium. No areas of reversibility are noted to suggest ischemia and no previous infarct is noted. Gated SPECT analysis: The gated ejection fraction is 76%. Conclusion: Normal pharmacologic myocardial perfusion stress test. Preserved ejection fraction.
== END | disposition home or self-care (01) ==
PROVIDERS: PCP Internal Medicine; Referring Provider Internal Medicine Cardiovascular Disease; Visit Provider Internal Medicine Cardiovascular Disease
DX: I48.0 Paroxysmal atrial fibrillation (principal); I10 Essential (primary) hypertension; E78.5 Hyperlipidemia, unspecified; R09.89 Other specified symptoms and signs involving the circulatory and respiratory systems; R06.09 Other forms of dyspnea
CPT/HCPCS: 78452; 93017; 93306; 93880; A9500; A4216; J2785

== ENCOUNTER 2023-06-11 13:42 | Outpatient (RCR) | payer MEDICARE, SELFPAY ==
[2023-05-24 03:15] VITALS: BMI 34.4
[2023-06-11 13:51] LABS: Prothrombin Time Fingerstick 32.5 SEC (11.7-14.9)
== END 2023-06-11 18:00 | disposition home or self-care (01) ==
LOC: LAB 13:42
PROVIDERS: PCP Internal Medicine; Referring Provider Internal Medicine Cardiovascular Disease; Visit Provider Internal Medicine Cardiovascular Disease
DX: I48.0 Paroxysmal atrial fibrillation (principal); Z79.01 Long term (current) use of anticoagulants
CPT/HCPCS: 36416; 85610

== ENCOUNTER 2023-07-10 10:28 | Outpatient (RCR) | payer MEDICARE, SELFPAY ==
[2023-06-23 22:25] VITALS: BMI 34.4
[2023-07-10 10:36] LABS: Prothrombin Time Fingerstick 32.3 SEC (11.7-14.9)
== END 2023-07-23 18:00 | disposition home or self-care (01) ==
LOC: LAB 10:28
PROVIDERS: PCP Internal Medicine; Referring Provider Internal Medicine Cardiovascular Disease; Visit Provider Internal Medicine Cardiovascular Disease
DX: I48.0 Paroxysmal atrial fibrillation (principal); Z79.01 Long term (current) use of anticoagulants
CPT/HCPCS: 36416; 85610

== ENCOUNTER 2023-08-05 15:51 | Outpatient (RCR) | payer MEDICARE, SELFPAY ==
[2023-07-24 03:13] VITALS: BMI 34.4
[2023-08-05 17:03] LABS: International Normalized Ratio 2.9; Prothrombin Time (Protime)PT. 30.7 SECONDS (11.7-14.9)
[2023-08-05 17:28] LABS: Anion Gap 2 (5-15); BUN 20 mg/dL (7-18); BUN/Creat Ratio 27.5 RATIO (10-20); Calcium,Total 9.4 mg/dL (8.5-10.1); Chloride 108 mmol/L (98-107); Creatinine, Serum 0.73 mg/dL (0.55-1.02); EST Glomerular Filtration Rate 82 mL/min (>60); Est Glom Filt Rate - Afr Amer 99 mL/min (>60); Glucose 196 mg/dL (74-106); Potassium 4.5 mmol/L (3.5-5.1); Sodium Level 141 mmol/L (136-145)
== END 2023-08-23 23:59 ==
LOC: BIMLAB 15:51
PROVIDERS: PCP Internal Medicine; Referring Provider Internal Medicine Cardiovascular Disease; Visit Provider Internal Medicine Cardiovascular Disease
DX: I48.0 Paroxysmal atrial fibrillation (principal); Z79.01 Long term (current) use of anticoagulants
CPT/HCPCS: 36415; 80048; 85610

== ENCOUNTER 2023-09-10 11:50 | Outpatient (RCR) | payer MEDICARE, SELFPAY ==
[2023-08-24 00:25] VITALS: BMI 34.4
[2023-09-03 10:35] LABS: INR Fingerstick 4.2; Prothrombin Time Fingerstick 43.6 SEC (11.7-14.9)
[2023-09-03 11:46] LABS: International Normalized Ratio 3.8
[2023-09-10 12:01] LABS: Prothrombin Time Fingerstick 42.3 SEC (11.7-14.9)
[2023-09-10 12:33] LABS: International Normalized Ratio 3.9; Prothrombin Time (Protime)PT. 38.9 SECONDS (11.7-14.9)
== END 2023-09-10 18:00 | disposition home or self-care (01) ==
LOC: LAB 11:50
PROVIDERS: PCP Internal Medicine; Referring Provider Internal Medicine Cardiovascular Disease; Visit Provider Internal Medicine Cardiovascular Disease
DX: I48.0 Paroxysmal atrial fibrillation (principal); Z79.01 Long term (current) use of anticoagulants
CPT/HCPCS: 36415; 36416; 85610

== ENCOUNTER 2023-10-09 10:11 | Outpatient (RCR) | payer MEDICARE, SELFPAY ==
[2023-09-23 23:13] VITALS: BMI 34.4
[2023-09-25 06:45] LABS: INR Fingerstick 3.3
[2023-10-09 10:21] LABS: INR Fingerstick 2.1
== END 2023-10-22 18:00 | disposition home or self-care (01) ==
LOC: LAB 10:11
PROVIDERS: PCP Internal Medicine; Referring Provider Internal Medicine Cardiovascular Disease; Visit Provider Internal Medicine Cardiovascular Disease
DX: I48.0 Paroxysmal atrial fibrillation (principal); Z79.01 Long term (current) use of anticoagulants
CPT/HCPCS: 36416; 85610

== ENCOUNTER 2023-10-30 12:28 | Outpatient (RCR) | payer MEDICARE, SELFPAY ==
[2023-10-22 23:54] VITALS: BMI 34.4
[2023-10-30 12:36] LABS: INR Fingerstick 2.1; Prothrombin Time Fingerstick 22.1 SEC (11.7-14.9)
== END 2023-11-22 00:30 | disposition home or self-care (01) ==
LOC: LAB 12:28
PROVIDERS: PCP Internal Medicine; Referring Provider Internal Medicine Cardiovascular Disease; Visit Provider Internal Medicine Cardiovascular Disease
DX: I48.0 Paroxysmal atrial fibrillation (principal); Z79.01 Long term (current) use of anticoagulants
CPT/HCPCS: 36416; 85610

== ENCOUNTER → 2023-11-11 | Outpatient (CLI) | payer MEDICARE, SELFPAY ==
[2023-11-11 15:17] LABS: Absolute Lymphocyte Count 2.09 X10^3/uL (0.83-4.51); Basophil# 0.03 X10^3/uL; Basophil% 0.4 % (0-1); Eosinophil# 0.07 X10^3/uL; Hematocrit 40.2 % (37-47); Hemoglobin 13.1 g/dL (12.0-15.0); Lymphocyte # 2.09 X10^3/ul (0.83-4.51); Lymphocyte % 30.1 % (19-41); Mean Corp Hgb Conc 32.6 g/dL (32-36); Mean Corpuscular Hgb 30.8 pg (27.0-32.0); Mean Corpuscular Volume 94.6 fL (81-99); Mean Platelet Vol. 10.3 fl (6.2-12.0); Monocyte# 0.68 X10^3/uL; Monocyte% 9.8 % (0-10); NRBC Flagged by Analyzer 0 % (0-5); Neutrophil # 4.04 X10^3/uL (2.7-7.7); Neutrophil % 58.3 % (47-70); Platelet Count 208 K/mm3 (150-450); RBC Distribution Width CV 13.9 % (11.6-14.6); RBC Distribution Width SD 48.3 fl (35.1-43.9); Red Blood Count 4.25 M/mm3 (4.2-5.4); White Blood Count 6.9 K/mm3 (4.4-11.0)
[2023-11-11 15:53] LABS: ALB/GLOB Ratio 0.9 RATIO (0.9-2.4); AST(SGOT) 25 U/L (15-37); Alanine Aminotransfer ALT/SGPT 28 U/L (13-56); Albumin, Serum 3.6 g/dL (3.2-5.0); Alkaline Phosphatase 74 U/L (45-117); Anion Gap 3 (5-15); BUN 21 mg/dL (7-18); BUN/Creat Ratio 29.8 RATIO (10-20); Calcium,Total 8.9 mg/dL (8.5-10.1); Chloride 106 mmol/L (98-107); EST Glomerular Filtration Rate 85 mL/min (>60); Est Glom Filt Rate - Afr Amer 103 mL/min (>60); Globulin 4.2 g/dL (2.2-4.2); Glucose 137 mg/dL (74-106); Protein, Total 7.8 g/dL (6.4-8.2); Sodium Level 139 mmol/L (136-145); T4 Free Direct 0.67 ng/dL (0.76-1.46); Thyroid Stim Hormone (TSH) 2.35 uIU/mL (0.358-3.74)
[2023-11-11 16:21] LABS: Microalbumin,Random Urine 41.8 mg/L (NO RANGE EST.); Microalbumin:Creatinine Ratio 47.8 mg/g CRE (<30 mg/g CRE)
== END | disposition home or self-care (01) ==
LOC: BIMLAB 14:14
PROVIDERS: PCP Internal Medicine; Referring Provider Internal Medicine; Visit Provider Internal Medicine
DX: E11.69 Type 2 diabetes mellitus with other specified complication (principal)
CPT/HCPCS: 36415; 80053; 82043; 82570; 84439; 84443; 85025

== ENCOUNTER 2023-12-11 10:31 | Outpatient (RCR) | payer MEDICARE, SELFPAY ==
[2023-11-22 01:00] VITALS: BMI 34.4
[2023-11-27 11:09] LABS: INR Fingerstick 1.5
[2023-12-11 10:52] LABS: INR Fingerstick 2.6; Prothrombin Time Fingerstick 26.4 SEC (11.7-14.9)
== END 2023-12-22 23:13 | disposition home or self-care (01) ==
LOC: LAB 10:31
PROVIDERS: PCP Internal Medicine; Referring Provider Internal Medicine Cardiovascular Disease; Visit Provider Internal Medicine Cardiovascular Disease
DX: I48.0 Paroxysmal atrial fibrillation (principal); Z79.01 Long term (current) use of anticoagulants
CPT/HCPCS: 36416; 85610

== ENCOUNTER 2024-01-01 10:33 | Outpatient (RCR) | payer MEDICARE, SELFPAY ==
[2023-12-22 23:13] VITALS: BMI 34.4
[2024-01-01 10:42] LABS: INR Fingerstick 2.6; Prothrombin Time Fingerstick 26.3 SEC (11.7-14.9)
== END 2024-01-19 18:00 | disposition home or self-care (01) ==
LOC: LAB 10:33
PROVIDERS: PCP Internal Medicine; Referring Provider Internal Medicine Cardiovascular Disease; Visit Provider Internal Medicine Cardiovascular Disease
DX: I48.0 Paroxysmal atrial fibrillation (principal); Z79.01 Long term (current) use of anticoagulants
CPT/HCPCS: 36416; 85610

== ENCOUNTER 2024-02-01 11:23 | Outpatient (RCR) | payer MEDICARE, SELFPAY ==
[2024-01-25 09:22] VITALS: BMI 34.4
[2024-02-01 11:33] LABS: INR Fingerstick 2.5; Prothrombin Time Fingerstick 25.8 SEC (11.7-14.9)
== END 2024-02-01 18:00 | disposition home or self-care (01) ==
LOC: MTLAB 11:23
PROVIDERS: PCP Internal Medicine; Referring Provider Internal Medicine Cardiovascular Disease; Visit Provider Internal Medicine Cardiovascular Disease
DX: I48.0 Paroxysmal atrial fibrillation (principal); Z79.01 Long term (current) use of anticoagulants
CPT/HCPCS: 36416; 85610

== ENCOUNTER 2024-02-29 10:20 | Outpatient (RCR) | payer MEDICARE, SELFPAY ==
[2024-02-22 04:36] VITALS: BMI 34.4
[2024-02-29 10:38] LABS: INR Fingerstick 2.1; Prothrombin Time Fingerstick 22.3 SEC (11.7-14.9)
== END 2024-03-23 18:00 | disposition home or self-care (01) ==
LOC: MTLAB 10:20
PROVIDERS: PCP Internal Medicine; Referring Provider Internal Medicine Cardiovascular Disease; Visit Provider Internal Medicine Cardiovascular Disease
DX: I48.0 Paroxysmal atrial fibrillation (principal); Z79.01 Long term (current) use of anticoagulants
CPT/HCPCS: 36416; 85610

== ENCOUNTER 2024-03-28 13:34 | Outpatient (RCR) | payer MEDICARE, SELFPAY ==
[2024-03-23 23:33] VITALS: BMI 34.4
[2024-03-28 13:44] LABS: Prothrombin Time Fingerstick 21.4 SEC (11.7-14.9)
== END 2024-03-28 18:00 | disposition home or self-care (01) ==
LOC: MTLAB 13:34
PROVIDERS: PCP Internal Medicine; Referring Provider Internal Medicine Cardiovascular Disease; Visit Provider Internal Medicine Cardiovascular Disease
DX: I48.0 Paroxysmal atrial fibrillation (principal); Z79.01 Long term (current) use of anticoagulants
CPT/HCPCS: 36416; 85610

== ENCOUNTER → 2024-04-14 | Outpatient (CLI) | payer MEDICARE, SELFPAY ==
--- NOTE | 2024-04-14 11:48 | BI_ITS ---
MAMMOGRAPHY - BILATERAL SCREENING REASON FOR EXAM: Female, 78 years old. Routine annual screening examination. PERTINENT HISTORY: Non-contributory. TECHNIQUE: Digital bilateral breast ernestina (3D mammographic acquisition) in the CC and MLO projections. 2-D mediolateral oblique (MLO) and craniocaudad (CC) views of both breasts were obtained. CAD: Full Field Digital Mammography with Computer Added Detection was performed. COMPARISON: Comparison is made with prior study dated February 19, 2023 and February 17, 2022. FINDINGS: Breast Composition: The breasts are almost entirely fatty. There are no dominant masses or suspicious calcifications. Stable benign-appearing bilateral axillary lymph nodes. No other significant abnormalities are identified. There has been no significant change since the prior study. BI/SCRN MAMM (CAD)W/ERNESTINA BILAT IMPRESSION: Stable bilateral screening mammogram. Yearly follow-up mammogram recommended. (A) ASSESSMENT CATEGORY: BIRADS Category 2: Benign. A letter regarding these results will be sent to the patient by the facility within 30 days. Approximately 10% of breast cancers are not detected by mammography. A normal mammogram should not delay biopsy of a clinically suspicious abnormality. [id number] Electronically Signed: Roland Patel MD at 12:40 EDT ,
== END | disposition home or self-care (01) ==
LOC: OPBI 11:48
PROVIDERS: PCP Internal Medicine; Referring Provider Obstetrics & Gynecology; Visit Provider Obstetrics & Gynecology
DX: Z12.31 Encounter for screening mammogram for malignant neoplasm of breast (principal)
CPT/HCPCS: 77063; 77067

== ENCOUNTER 2024-05-23 14:24 | Outpatient (RCR) | payer MEDICARE, SELFPAY ==
[2024-04-23 21:51] VITALS: BMI 34.4
[2024-04-26 12:58] LABS: INR Fingerstick 2.1; Prothrombin Time Fingerstick 22.1 SEC (11.7-14.9)
[2024-05-23 16:28] LABS: Absolute Lymphocyte Count 1.82 X10^3/uL (0.83-4.51); Absolute Neutrophil Count 3.9 X10^3/uL (2.0-7.7); Basophil# 0.02 X10^3/uL; Basophil% 0.3 % (0-1); Eosinophil# 0.11 X10^3/uL; Eosinophils% 1.7 % (0-5); Hematocrit 39.4 % (37-47); Hemoglobin 12.9 g/dL (12.0-15.0); Lymphocyte # 1.82 X10^3/ul (0.83-4.51); Lymphocyte % 28.5 % (19-41); Mean Corp Hgb Conc 32.7 g/dL (32-36); Mean Corpuscular Hgb 31.3 pg (27.0-32.0); Mean Corpuscular Volume 95.6 fL (81-99); Mean Platelet Vol. 10.2 fl (6.2-12.0); Monocyte# 0.54 X10^3/uL; Monocyte% 8.5 % (0-10); NRBC Flagged by Analyzer 0 % (0-5); Neutrophil # 3.86 X10^3/uL (2.7-7.7); Neutrophil % 60.5 % (47-70); Platelet Count 220 K/mm3 (150-450); RBC Distribution Width CV 13.5 % (11.6-14.6); RBC Distribution Width SD 47.8 fl (35.1-43.9); Red Blood Count 4.12 M/mm3 (4.2-5.4); White Blood Count 6.4 K/mm3 (4.4-11.0)
[2024-05-23 16:42] LABS: International Normalized Ratio 2.1; Prothrombin Time (Protime)PT. 23.2 SECONDS (11.7-14.9)
[2024-05-23 16:56] LABS: ALB/GLOB Ratio 0.8 RATIO (0.9-2.4); AST(SGOT) 21 U/L (15-37); Alanine Aminotransfer ALT/SGPT 24 U/L (13-56); Albumin, Serum 3.4 g/dL (3.2-5.0); Alkaline Phosphatase 80 U/L (45-117); Anion Gap 7 (5-15); BUN 20 mg/dL (7-18); BUN/Creat Ratio 26.4 RATIO (10-20); Calcium,Total 9.4 mg/dL (8.5-10.1); Chloride 105 mmol/L (98-107); Cholesterol 183 mg/dL (200); Creatinine, Serum 0.76 mg/dL (0.55-1.02); EST Glomerular Filtration Rate 78 mL/min (>60); Est Glom Filt Rate - Afr Amer 95 mL/min (>60); Globulin 4.5 g/dL (2.2-4.2); Glucose 175 mg/dL (74-106); High Density Lipoprotein 60 mg/dL; Potassium 3.9 mmol/L (3.5-5.1); Protein, Total 7.9 g/dL (6.4-8.2); Sodium Level 140 mmol/L (136-145); Triglycerides 199 mg/dL; Very Low Density Lipoprotein 40 mg/dL (5-40)
[2024-05-23 17:24] LABS: Microalbumin,Random Urine 72.6 mg/L (NO RANGE EST.); Microalbumin:Creatinine Ratio 56.3 mg/g CRE (<30 mg/g CRE)
== END 2024-05-23 18:00 | disposition home or self-care (01) ==
LOC: MTLAB 14:24
PROVIDERS: Physician Assistant Medical; PCP Internal Medicine; Referring Provider Internal Medicine; Visit Provider Internal Medicine Cardiovascular Disease
DX: I48.0 Paroxysmal atrial fibrillation (principal); Z79.01 Long term (current) use of anticoagulants; E11.69 Type 2 diabetes mellitus with other specified complication; E78.2 Mixed hyperlipidemia
CPT/HCPCS: 36416; 80053; 80061; 82043; 82570; 85025; 85610

== ENCOUNTER 2024-06-23 10:01 | Outpatient (RCR) | payer MEDICARE, SELFPAY ==
[2024-05-24 05:01] VITALS: BMI 34.4
[2024-06-23 10:12] LABS: INR Fingerstick 2.2; Prothrombin Time Fingerstick 22.5 SEC (11.7-14.9)
== END 2024-06-23 18:00 | disposition home or self-care (01) ==
LOC: MTLAB 10:01
PROVIDERS: PCP Internal Medicine; Referring Provider Internal Medicine Cardiovascular Disease; Visit Provider Internal Medicine Cardiovascular Disease
DX: I48.0 Paroxysmal atrial fibrillation (principal); Z79.01 Long term (current) use of anticoagulants
CPT/HCPCS: 36416; 85610

== ENCOUNTER 2024-07-20 10:26 | Outpatient (RCR) | payer MEDICARE, SELFPAY ==
[2024-06-23 21:06] VITALS: BMI 34.4
[2024-07-20 10:35] LABS: INR Fingerstick 2.3; Prothrombin Time Fingerstick 25.2 SEC (11.7-14.9)
== END 2024-07-23 18:00 | disposition home or self-care (01) ==
LOC: MTLAB 10:26
PROVIDERS: PCP Internal Medicine; Referring Provider Internal Medicine Cardiovascular Disease; Visit Provider Internal Medicine Cardiovascular Disease
DX: I48.0 Paroxysmal atrial fibrillation (principal); Z79.01 Long term (current) use of anticoagulants
CPT/HCPCS: 36416; 85610

== ENCOUNTER 2024-08-22 14:30 | Outpatient (RCR) | payer MEDICARE, SELFPAY ==
[2024-07-24 02:43] VITALS: BMI 34.4
[2024-08-15 14:53] LABS: INR Fingerstick 1.6; Prothrombin Time Fingerstick 18.7 SEC (11.7-14.9)
[2024-08-22 14:44] LABS: INR Fingerstick 1.4; Prothrombin Time Fingerstick 16.2 SEC (11.7-14.9)
== END 2024-08-22 18:00 | disposition home or self-care (01) ==
LOC: LAB 14:30
PROVIDERS: PCP Internal Medicine; Referring Provider Internal Medicine Cardiovascular Disease; Visit Provider Internal Medicine Cardiovascular Disease
DX: Z79.01 Long term (current) use of anticoagulants
CPT/HCPCS: 36416; 85610

== ENCOUNTER 2024-09-19 11:54 | Outpatient (RCR) | payer MEDICARE, SELFPAY ==
[2024-08-24 04:30] VITALS: BMI 34.4
[2024-08-30 13:06] LABS: Prothrombin Time Fingerstick 22.3 SEC (11.7-14.9)
[2024-09-09 14:17] LABS: INR Fingerstick 2.1; Prothrombin Time Fingerstick 23.1 SEC (11.7-14.9)
[2024-09-19 12:04] LABS: INR Fingerstick 1.4; Prothrombin Time Fingerstick 15.5 SEC (11.7-14.9)
== END 2024-09-19 18:00 | disposition home or self-care (01) ==
LOC: LAB 11:54
PROVIDERS: PCP Internal Medicine; Referring Provider Internal Medicine Cardiovascular Disease; Visit Provider Internal Medicine Cardiovascular Disease
DX: Z79.01 Long term (current) use of anticoagulants
CPT/HCPCS: 36416; 85610

== ENCOUNTER 2024-10-11 14:15 | Outpatient (RCR) | payer MEDICARE, SELFPAY ==
[2024-09-24 02:05] VITALS: BMI 34.4
[2024-09-26 14:21] LABS: INR Fingerstick 1.8; Prothrombin Time Fingerstick 20.6 SEC (11.7-14.9)
[2024-10-03 16:05] LABS: Prothrombin Time Fingerstick 22.2 SEC (11.7-14.9)
[2024-10-11 14:27] LABS: INR Fingerstick 1.8; Prothrombin Time Fingerstick 20.2 SEC (11.7-14.9)
== END 2024-10-21 18:00 | disposition home or self-care (01) ==
LOC: MTLAB 14:15
PROVIDERS: PCP Internal Medicine; Referring Provider Internal Medicine Cardiovascular Disease; Visit Provider Internal Medicine Cardiovascular Disease
DX: Z79.01 Long term (current) use of anticoagulants
CPT/HCPCS: 36416; 85610

== ENCOUNTER 2024-11-14 11:10 | Outpatient (RCR) | payer MEDICARE, SELFPAY ==
[2024-10-22 08:09] VITALS: BMI 34.4
[2024-10-25 11:03] LABS: INR Fingerstick 1.9; Prothrombin Time Fingerstick 21.2 SEC (11.7-14.9)
[2024-11-15 08:37] LABS: Prothrombin Time Fingerstick 21.7 SEC (11.7-14.9)
== END 2024-11-14 18:00 | disposition home or self-care (01) ==
LOC: LAB 11:10
PROVIDERS: PCP Internal Medicine; Referring Provider Internal Medicine Cardiovascular Disease; Visit Provider Internal Medicine Cardiovascular Disease
DX: Z79.01 Long term (current) use of anticoagulants
CPT/HCPCS: 36416; 85610

== ENCOUNTER → 2024-11-28 | Outpatient (CLI) | payer MEDICARE, SELFPAY ==
[2024-11-28 18:45] LABS: Anion Gap 8 (5-15); BUN 20 mg/dL (4-19); BUN/Creat Ratio 26.3 RATIO (10-20); Calcium,Total 9.5 mg/dL (7.6-11.0); Carbon Dioxide 27.5 mmol/L (21.0-32.0); Chloride 104 mmol/L (98-108); Creatinine, Serum 0.75 mg/dL (0.70-1.20); EST Glomerular Filtration Rate 80 (>60); Glucose 123 mg/dL (70-99); Sodium Level 140 mmol/L (133-145)
== END | disposition home or self-care (01) ==
LOC: BIMLAB 12:11
PROVIDERS: PCP Internal Medicine; Referring Provider Internal Medicine; Visit Provider Internal Medicine
DX: I10 Essential (primary) hypertension (principal)
CPT/HCPCS: 36415; 80048

== ENCOUNTER 2024-12-12 11:33 | Outpatient (RCR) | payer MEDICARE, SELFPAY ==
[2024-11-21 22:20] VITALS: BMI 34.4
[2024-12-12 11:41] LABS: INR Fingerstick 2.1; Prothrombin Time Fingerstick 22.6 SEC (11.7-14.9)
== END 2024-12-21 18:00 | disposition home or self-care (01) ==
LOC: MTLAB 11:33
PROVIDERS: PCP Internal Medicine; Referring Provider Internal Medicine Cardiovascular Disease; Visit Provider Internal Medicine Cardiovascular Disease
DX: I48.0 Paroxysmal atrial fibrillation (principal); Z79.01 Long term (current) use of anticoagulants
CPT/HCPCS: 36416; 85610

== ENCOUNTER 2025-01-10 11:23 | Outpatient (RCR) | payer MEDICARE, SELFPAY ==
[2024-12-22 00:55] VITALS: BMI 34.4
[2025-01-10 11:36] LABS: INR Fingerstick 2.3; Prothrombin Time Fingerstick 24.7 SEC (11.7-14.9)
== END 2025-01-10 18:00 | disposition home or self-care (01) ==
LOC: MTLAB 11:23
PROVIDERS: PCP Internal Medicine; Referring Provider Internal Medicine Cardiovascular Disease; Visit Provider Internal Medicine Cardiovascular Disease
DX: Z79.01 Long term (current) use of anticoagulants
CPT/HCPCS: 36416; 85610

== ENCOUNTER 2025-02-09 10:18 | Outpatient (RCR) | payer MEDICARE, SELFPAY ==
[2025-01-22 21:19] VITALS: BMI 34.4
[2025-02-09 12:37] LABS: Prothrombin Time (Protime)PT. 22.8 SECONDS (11.7-14.9)
== END 2025-02-09 18:00 | disposition home or self-care (01) ==
LOC: MTLAB 10:18
PROVIDERS: PCP Internal Medicine; Referring Provider Internal Medicine Cardiovascular Disease; Visit Provider Internal Medicine Cardiovascular Disease
DX: Z79.01 Long term (current) use of anticoagulants
CPT/HCPCS: 36415; 85610

== ENCOUNTER 2025-03-08 10:40 | Outpatient (RCR) | payer MEDICARE, SELFPAY ==
[2025-03-08 12:22] LABS: Prothrombin Time (Protime)PT. 21.7 SECONDS (11.7-14.9)
[2025-03-08 15:20] LABS: Hematocrit 37.9 % (37-47); Hemoglobin 12.5 g/dL (12.0-15.0); Immature Granulocytes Count 0.020 X10^3/uL (0.0-0.0); Mean Corp Hgb Conc 33.0 g/dL (32-36); Mean Corpuscular Volume 95.9 fL (81-99); Mean Platelet Vol. 10.6 fl (6.2-12.0); NRBC Flagged by Analyzer 0 % (0-5); Platelet Count 205 K/mm3 (150-450); RBC Distribution Width CV 13.8 % (11.6-14.6); RBC Distribution Width SD 49.3 fl (35.1-43.9); Red Blood Count 3.95 M/mm3 (4.2-5.4); White Blood Count 6.8 K/mm3 (4.4-11.0)
[2025-03-08 15:52] LABS: AST(SGOT) 24 U/L (<=31); Alanine Aminotransfer ALT/SGPT 18 U/L (<=34); Albumin, Serum 4.1 g/dL (3.4-4.8); Alkaline Phosphatase 69 U/L (35-104); Anion Gap 8 (5-15); BUN 20 mg/dL (4-19); BUN/Creat Ratio 26.6 RATIO (10-20); Calcium,Total 9.4 mg/dL (7.6-11.0); Carbon Dioxide 26.0 mmol/L (21.0-32.0); Chloride 105 mmol/L (98-108); Globulin 3.4 g/dL (2.2-4.2); Glucose 175 mg/dL (70-99); Potassium 4.4 mmol/L (3.3-5.1)
== END 2025-03-23 18:00 | disposition home or self-care (01) ==
LOC: MTLAB 10:40
PROVIDERS: PCP Internal Medicine; Referring Provider Internal Medicine Cardiovascular Disease; Visit Provider Internal Medicine Cardiovascular Disease
DX: Z79.01 Long term (current) use of anticoagulants; I10 Essential (primary) hypertension; E11.9 Type 2 diabetes mellitus without complications
CPT/HCPCS: 36415; 80053; 85025; 85610

== ENCOUNTER → 2025-04-17 | Outpatient (CLI) | payer MEDICARE, SELFPAY ==
--- NOTE | 2025-04-17 12:30 | BI_ITS ---
EXAM: SCRN MAMM (CAD)W/ERNESTINA BILAT DATE: 04/17/2025 CLINICAL HISTORY: F, Age 79 y/o , SCREEN FOR BREAST CANCER TECHNIQUE: SCRN MAMM (CAD)W/ERNESTINA BILAT COMPARISON: Prior exam(s) dated 04/14/2024, 02/19/2023, and 02/17/2022.. FINDINGS: TISSUE DENSITY: Must pick one of these options! Bilateral Breast Mammographic Findings: Benign vascular calcifications and round calcifications are seen in both breasts. No suspicious masses, suspicious cluster of microcalcifications, architectural distortion or secondary signs of malignancy is identified in either breast. BI/SCRN MAMM (CAD)W/ERNESTINA BILAT IMPRESSION: Benign stable screening mammogram. OVERALL FINAL ASSESSMENT BI-RADS 2: BENIGN RECOMMENDATION: Routine annual follow-up in 1 Year A letter with findings and recommendations will be mailed to the patient. Reading Location: [id number]
== END | disposition home or self-care (01) ==
LOC: OPBI 12:28
PROVIDERS: PCP Internal Medicine; Referring Provider Obstetrics & Gynecology; Visit Provider Obstetrics & Gynecology
DX: Z12.31 Encounter for screening mammogram for malignant neoplasm of breast (principal)
CPT/HCPCS: 77063; 77067

== ENCOUNTER 2025-04-19 12:19 | Outpatient (RCR) | payer MEDICARE, SELFPAY ==
[2025-04-19 12:31] LABS: INR Fingerstick 2.3
== END 2025-04-19 18:00 | disposition home or self-care (01) ==
LOC: MTLAB 12:19
PROVIDERS: PCP Internal Medicine; Referring Provider Internal Medicine Cardiovascular Disease; Visit Provider Internal Medicine Cardiovascular Disease
DX: I48.0 Paroxysmal atrial fibrillation (principal); Z79.01 Long term (current) use of anticoagulants
CPT/HCPCS: 36416; 85610

== ENCOUNTER 2025-05-23 14:33 | Outpatient (RCR) | payer MEDICARE, SELFPAY ==
[2025-05-23 14:44] LABS: INR Fingerstick 2.1
== END 2025-05-23 18:00 | disposition home or self-care (01) ==
LOC: MTLAB 14:33
PROVIDERS: PCP Internal Medicine; Referring Provider Internal Medicine Cardiovascular Disease; Visit Provider Internal Medicine Cardiovascular Disease
DX: I48.0 Paroxysmal atrial fibrillation (principal); Z79.01 Long term (current) use of anticoagulants
CPT/HCPCS: 36416; 85610

== ENCOUNTER 2025-06-20 11:14 | Outpatient (RCR) | payer MEDICARE, SELFPAY ==
[2025-06-20 15:29] LABS: Prothrombin Time (Protime)PT. 23.5 SECONDS (11.7-14.9)
[2025-06-20 15:35] LABS: Anion Gap 8 (5-15); BUN 21 mg/dL (4-19); BUN/Creat Ratio 30.9 RATIO (10-20); Calcium,Total 9.0 mg/dL (7.6-11.0); Carbon Dioxide 24.0 mmol/L (21.0-32.0); Chloride 106 mmol/L (98-108); Glucose 149 mg/dL (70-99); Potassium 4.2 mmol/L (3.3-5.1)
[2025-06-20 15:50] LABS: Creatinine, Urine (random) 86.30 mg/dL (28.00-217.00); Microalbumin,Random Urine 47.7 mg/L (<20 mg/L)
== END 2025-06-20 18:00 | disposition home or self-care (01) ==
LOC: MTLAB 11:14
PROVIDERS: PCP Internal Medicine; Referring Provider Internal Medicine Cardiovascular Disease; Visit Provider Internal Medicine Cardiovascular Disease
DX: I48.0 Paroxysmal atrial fibrillation (principal); Z79.01 Long term (current) use of anticoagulants; E11.69 Type 2 diabetes mellitus with other specified complication
CPT/HCPCS: 36415; 80048; 82043; 82570; 83036; 85610

== ENCOUNTER → 2025-07-06 | Outpatient (CLI) | payer MEDICARE, SELFPAY ==
[2025-07-06 18:05] LABS: Hematocrit 40.0 % (37-47); Hemoglobin 13.2 g/dL (12.0-15.0); Immature Granulocytes Count 0.040 X10^3/uL (0.0-0.0); Mean Corp Hgb Conc 33.0 g/dL (32-36); Mean Corpuscular Volume 94.6 fL (81-99); Mean Platelet Vol. 10.1 fl (6.2-12.0); NRBC Flagged by Analyzer 0 % (0-5); Platelet Count 286 K/mm3 (150-450); RBC Distribution Width CV 13.9 % (11.6-14.6); RBC Distribution Width SD 47.9 fl (35.1-43.9); Red Blood Count 4.23 M/mm3 (4.2-5.4); White Blood Count 9.1 K/mm3 (4.4-11.0)
[2025-07-06 18:27] LABS: AST(SGOT) 25 U/L (<=31); Alanine Aminotransfer ALT/SGPT 21 U/L (<=34); Albumin, Serum 4.0 g/dL (3.4-4.8); Alkaline Phosphatase 70 U/L (35-104); Anion Gap 9 (5-15); BUN 27 mg/dL (4-19); BUN/Creat Ratio 29.4 RATIO (10-20); Calcium,Total 9.7 mg/dL (7.6-11.0); Carbon Dioxide 26.0 mmol/L (21.0-32.0); Chloride 104 mmol/L (98-108); Globulin 3.7 g/dL (2.2-4.2); Glucose 142 mg/dL (70-99); Potassium 4.2 mmol/L (3.3-5.1)
== END | disposition home or self-care (01) ==
LOC: MTLAB 16:40
PROVIDERS: PCP Internal Medicine; Referring Provider Physician Assistant; Visit Provider Physician Assistant
DX: R19.7 Diarrhea, unspecified (principal)
CPT/HCPCS: 36415; 80053; 85025

== ENCOUNTER → 2025-07-08 | Outpatient (CLI) | payer MEDICARE, SELFPAY ==
--- OUTSIDE RECORDS SUMMARY | 2025-07-08 10:07 | XMS RPT_ITS | CCD ---
Author Organization [facility] CliniSyct Care Team Providers Care Sink Cutter Name Role Phone SAIMA JERONIMO Unavailable Unavailable TALAMPAS, MEGAN Unavailable Unavailable SAIMA, JERONIMO Unavailable Unavailable TALAMPAS, MEGAN Unavailable Unavailable TALAMPAS, MEGAN Unavailable Unavailable SAIMA, JERONIMO Unavailable Unavailable SAIMA, JERONIMO Unavailable Unavailable TALAMPAS, MEGAN Unavailable Unavailable SAIMA, JERONIMO E Unavailable Unavailable TALAMPAS, MEGAN D Unavailable Unavailable Dr. Eric Delatorre Primary Care Provider [phone] Dr. Eric Delatorre Attending Provider [phone] Dr. Eric Delatorre Referring Provider [phone] Dr. Eric Delatorre Primary Care Provider [phone] Dr. Eric Delatorre Attending Provider [phone] Dr. Eric Delatorre Referring Provider [phone] Dr. Lola Bowles Attending Provider [phone] ERIC DELATORRE MD Consulting Unavailable ERIC DELATORRE MD Admitting Unavailable ERIC DELATORRE MD Attending Unavailable ERIC DELATORRE MD Primary Care Unavailable PROVIDER, UNKNOWN Consulting Unavailable ERIC DELATORRE MD Primary Care Unavailable ERIC DELATORRE MD Consulting Unavailable ERIC DELATORRE MD Admitting Unavailable ERIC DELATORRE MD Attending Unavailable PROVIDER, UNKNOWN Consulting Unavailable ERIC DELATORRE MD Primary Care Unavailable ERIC DELATORRE MD Consulting Unavailable ERIC DELATORRE MD Admitting Unavailable ERIC DELATORRE MD Attending Unavailable PROVIDER, UNKNOWN Consulting Unavailable ERIC DELATORRE MD Primary Care Unavailable ERIC DELATORRE MD Consulting Unavailable ERIC DELATORRE MD Admitting Unavailable ERIC DELATORRE MD Attending Unavailable PROVIDER, UNKNOWN Consulting Unavailable ERIC DELATORRE MD Admitting Unavailable ERIC DELATORRE MD Attending Unavailable ERIC DELATORRE MD Consulting Unavailable ERIC DELATORRE MD Primary Care Unavailable PROVIDER, UNKNOWN Consulting Unavailable ERIC DELATORRE MD Admitting Unavailable ERIC DELTAORRE MD Attending Unavailable ERIC DELATORRE MD Consulting Unavailable ERIC DELATORRE MD Primary Care Unavailable PROVIDER, UNKNOWN Consulting Unavailable Dr. Eric Delatorre Primary Care Provider [phone] Dr. Eric Delatorre Attending Provider [phone] Dr. Eric Delatorre Referring Provider [phone] Dr. Eric Delatorre Primary Care Provider 1(33 0) Dr. Eric Delatorre Referring Provider [phone])2 Dr. Eric Delatorre Attending Provider [phone] Roof CHAIN CARRIER, CHAIN CARRIER-C Christian Hilario Attending Provider [phone] Dr. William Penny Attending Provider [phone] Dr. Eric Delatorre Primary Care Provider 1(33 0) Dr. Eric Delatorre Referring Provider [phone] Roof CHAIN CARRIER, CHAIN CARRIER-C Christian H Referring Provider Dr. Eric Delatorre Primary Care Provider 1(33 0) Dr. Eric Delatorre Attending Provider [phone])2 Dr. Eric Delatorre Referring Provider [phone] Roof CHAIN CARRIER, CHAIN CARRIER-C Christian H Attending Provider Dr. William Penny Attending Provider [phone] Roof CHAIN CARRIER, CHAIN CARRIER-C Christian H Referring Provider Dr. Temo Delatorrebe Primary Care Provider 1(33 0) Oleghe, Dr. Coy Attending Provider [phone])2 Oleghe, Dr. Coy Referring Provider [phone])2 Oleghe, Dr. Coy Primary Care Provider 1(33 0) Oleghe, Dr. Coy Primary Care Provider 1(33 0) Oleghe, Dr. Coy Attending Provider [phone])2 Oleghe, Dr. Coy Referring Provider [phone])2 Oleghe, Dr. Coy Primary Care Provider 1(33 0) Oleghe, Dr. Coy Attending Provider [phone])2 Oleghe, Dr. Coy Referring Provider 1(330)2 Dr. Lola Bowles Attending Provider 1([phone] ) Oleghe, Dr. Coy Primary Care Provider 1(33 0) Oleghe, Dr. Coy Attending Provider 1(330)2 Oleghe, Dr. Coy Referring Provider 1(330)2 Dr. Javon Jenkins Attending Provider [phone] Dr. William Penny Attending Provider [phone] Dr. Javon Jenkins Referring Provider [phone] Nandini, Dr. Coy Primary Care Provider 1(33 0) Oleghe, Dr. Coy Attending Provider 1(330)2 Oleghe, Dr. Coy Referring Provider 1(330)2 Dr. Javon Jenkins Attending Provider [phone] Dr. William Penny Attending Provider [phone] Dr. Javon Jenkins Referring Provider [phone] Nandini, Dr. Coy Primary Care Provider 1(33 0) Oleghe, Dr. Coy Attending Provider [phone])2 Nandini, Dr. Coy Referring Provider [phone])2 Nandini, Dr. Coy Primary Care Provider 1(33 0) Nandini, Dr. Coy Attending Provider [phone])2 Nandini, Dr. Coy Referring Provider [phone])2 Roof CHAIN CARRIER, CHAIN CARRIER-Kym Hilario Attending Provider [phone] Nandini, Dr. Coy Primary Care Provider 1(33 0) Nandini, Dr. Coy Referring Provider [phone])2 Nandini, Dr. Coy Attending Provider [phone])2 Nandini BRANDON, Dr. Coy Primary Care Provider Nandini BRANDON, Dr. Coy Attending Provider 1(33 0) Nandini BRANDON, Dr. Coy Referring Provider 1(33 0) Alice BRANDON, Dr. Alejandro Attending Provider 1(330) Alice BRANDON, Dr. Alejandro Referring Provider 1(330) Nandini BRANDON, Dr. Coy Primary Care Provider Alice BRANDON, Dr. Alejandro Attending Provider 1(330) Dr. Javon Jenkins MD Referring Provider 1(330) Nandini BRANDON, Dr. Coy Attending Provider 1(33 0) Nandini BRANDON, Dr. Coy Referring Provider 1(33 0) Nandini BRANDON, Dr. Coy Primary Care Provider Dr. Javon Jenkins MD Attending Provider [phone] Dr. Javon Jenkins MD Referring Provider [phone]) Nandini BRANDON, Dr. Coy Primary Care Provider Alice BRANDON, Dr. Alejandro Attending Provider [phone] Alice BRANODN, Dr. Alejandro Referring Provider 1(330) Nandini BRANDON, Dr. Coy Other Provider [phone])2 Nandini BRANDON, Dr. Coy Primary Care Provider Nandini BRANDON, Dr. Coy Referring Provider 1(33 0) Alice BRANDON, Dr. Alejandro Attending Provider 1(330) Alice BRANDON, Dr. Alejandro Referring Provider 1(330) Nandini BRANDON, Dr. Coy Attending Provider 1(33 0) Wilbur BRANDON, Dr. Davila Attending Provider Wilbur BRANDON, Dr. Davila Referring Provider Nandini BRANDON, Dr. Coy Primary Care Provider Alice BRANDON, Dr. Alejandro Attending Provider 1(330) Nandini BRANDON, Dr. Coy Referring Provider 1(33 0) Nandini BRANDON, Dr. Coy Primary Care Physician Alice BRANDON, Dr. Alejandro Attending Physician [phone] Alice BRANDON, Dr. Alejandro Referring Provider 1(330) Nandini BRANDON, Dr. Coy Attending Physician [phone] Nandini BRANDON, Dr. Coy Nurse Practitioner 1(33 0) Wilbur BRANDON, Dr. Davila Attending Physician Rustyghe, Efewongbe Primary Care Unavailable Lola Bowles Referring Unavailable Lola Bowles Attending Unavailable Oleghe, Efewongbe Consulting Unavailable Oleghe, Efewongbe Primary Care Unavailable Alice, Javon Attending Unavailable Alice, Javon Referring Unavailable Oleghe, Efewongbe Primary Care Unavailable Alice, Javon Attending Unavailable Alice, [place] Referring Unavailable Oleghe, Efewongbe Consulting Unavailable Oleghe, Efewongbe Primary Care Unavailable Alice, Javon Attending Unavailable Alice, [place] Referring Unavailable Oleghe, Efewongbe Consulting Unavailable Oleghe, Efewongbe Primary Care Unavailable Alice, Javon Attending Unavailable Alice, [place] Referring Unavailable Oleghe, Efewongbe Consulting Unavailable Alice, [place] Referring Unavailable Oleghe, Efewongbe Primary Care Unavailable Alice, Javon Attending Unavailable Oleghe, Efewongbe Referring Unavailable Oleghe, Efewongbe Primary Care Unavailable Oleghe, Efewongbe Attending Unavailable Oleghe, Efewongbe Primary Care Unavailable Alice, Javon Referring Unavailable Alice, Javon Attending Unavailable Alice, Javon Referring Unavailable Oleghe, Efewongbe Primary Care Unavailable Alice, [place] Attending Unavailable Alice, [place] Referring Unavailable Oleghe, Efewongbe Primary Care Unavailable Alice, Javon Attending Unavailable Alice, Javon Referring Unavailable Oleghe, Efewongbe Primary Care Unavailable Alice, [place] Attending Unavailable Alice, [place] Referring Unavailable Oleghe, Efewongbe Primary Care Unavailable Alice, Javon Attending Unavailable Oleghe, Efewongbe Primary Care Unavailable Alice, Javon Referring Unavailable Alice, [place] Attending Unavailable Oleghe, Efewongbe Primary Care Unavailable Alice, [place] Referring Unavailable Alice, [place] Attending Unavailable Oleghe, Efewongbe Primary Care Unavailable Oleghe, [place] Attending Unavailable Oleghe, Efewongbe Primary Care Unavailable Oleghe, [place] Referring Unavailable Oleghe, Efew[place]be Attending Unavailable Oleghe, Efewongbe Primary Care Unavailable Oleghe, [place] Referring Unavailable Alice, Javon Attending Unavailable Oleghe, [place]few[place] Referring Unavailable Oleghe, Efewongbe Primary Care Unavailable Oleghe, Efewongbe Attending Unavailable Oleghe, [place] Referring Unavailable Oleghe, Efewongbe Primary Care Unavailable Oleghe, [place]few[place] Attending Unavailable Oleghe, [place] Referring Unavailable Oleghe, Efewongbe Primary Care Unavailable Oleghe, [place] Attending Unavailable Oleghe, [place]few[place]be Primary Care Unavailable Oleghe, [place] Referring Unavailable Lola Bowles Attending Unavailable Oleghe, [place] Consulting Unavailable Oleghe, Efewongbe Primary Care Unavailable Alice, [place] Referring Unavailable Javon Jenkins Attending Unavailable Allergies Allergy Classification Reported Allergen(s) Allergy Type Date of Onset Reaction(s) Facility (20 sources) brimonidine; Translations: [BRIMONIDINE] Drug Allergy 8 AOF, NEEDS FOLLOW-UP [facility] Repository (20 sources) Penicillins; Translations: [PENICILLINS] Propensity to adverse reactions (disorder) 5 Hives [facility] Repository (13 sources) bromonadine Allergy to substance 2 Other [facility] Medications Current Medications Medication Drug Class(es) Dates Sig (Normalized) Sig (Original) aluminum hydroxide 160 mg / magnesium carbonate 105 mg chewable tablet (20 sources) Start: 01-22-2021 amLODIPine 2.5 mg oral tablet (11 sources) Dihydropyridine Calcium Channel Pat Start: 06-22-2024 take 1 tablet by mouth once daily atenolol 25 mg oral tablet (20 sources) beta-Adrenergic Pat Start: 03-28-2025 take 1 tablet by mouth twice daily Start: 03-23-2025 End: 03-28-2025 take 2 tablets by mouth twice daily Atenolol 25 mg tablet Discontinued 50 mg PO TWICE A DAY 180 2 March 23, 2025 1:55pm March 28, 2025 2:58pm Essential hypertension Essential (primary) hypertension Start: 10-02-2013 End: 03-23-2025 take 1 tablet by mouth twice daily Atenolol 25 mg tablet Discontinued 25 mg PO TWICE A DAY 180 2 June 15, 2024 12:56pm March 06, 2025 2:00pm Essential hypertension Essential (primary) hypertension Ca Carb-Ca Gluc-Mg Ox-Mg Gluco (Calcium Magnesium) 500 mg calcium -250 mg tablet (20 sources) Start: 10-30-2023 take 2 tablets by mouth twice daily Ca Carb-Ca Gluc-Mg Ox-Mg Gluco (Calcium Magnesium) 500 mg calcium -250 mg tablet Active 2 TABLET PO TWICE A DAY October 30, 2023 2:06pm Start: 10-19-2020 take 1 tablet by suzanna th twice daily Ca Carb-Ca Gluc-Mg Ox-Mg Gluco (Calcium Magnesium) 500 mg calcium -250 mg tablet Active 1 TABLET PO TWICE A DAY October 19, 2020 2:09pm Start: 10-19-2020 End: 10-30-2023 take 1 tablet by mouth twice daily Ca Carb-Ca Gluc-Mg Ox-Mg Gluco (Calcium Magnesium) 500 mg calcium -250 mg tablet Discontinued 1 TABLET PO TWICE A DAY October 19, 2020 1:00am October 30, 2023 2:08pm Start: 10-19-2020 take 1 tablet by suzanna th twice daily Ca Carb-Ca Gluc-Mg Ox-Mg Gluco (Calcium Magnesium) 500 mg calcium -250 mg tablet Active 1 TABLET PO TWICE A DAY October 19, 2020 12:00am Start: 10-19-2020 take 1 tablet by suzanna th twice daily Ca Carb-Ca Gluc-Mg Ox-Mg Gluco (Calcium Magnesium) 500 mg calcium -250 mg tablet Active 1 TABLET PO TWICE A DAY October 19, 2020 1:00am Calcium Carb,Gluc-Mag Gluc,O x (Calcium Magnesium) 500 mg calcium -250 mg tablet (20 sources) Start: 10-30-2023 Start: 10-30-2023 Calcium Carb,G arleen-Mag Gluc,Ox (Calcium Magnesium) 500 mg calcium -250 mg tablet Active 2 {tbl} PO TWICE A DAY October 30, 2023 2:06pm Start: 10-19-2020 End: 10-30-2023 Calcium Carb,Gluc-Mag Gluc,O x (Calcium Magnesium) 500 mg calcium -250 mg tablet Discontinued 1 {tbl} PO TWICE A DAY October 19, 2020 1:00am October 30, 2023 2:08pm Cane (12 sources) Start: 01-21-2023 Cane Active 0 .Route 1 January 20, 2023 11:00pm As directed Start: 01-21-2023 Cane Active 0 .Route 1 January 21, 2023 12:00am As directed Cane device (11 sources) Start: 01-21-2023 Cane device Ac tive 0 .Route 1 January 21, 2023 12:00am Osteoarthritis Unspecified osteoarthritis, unspecified site As directed Start: 01-21-2023 Cane device Ac tive 0 .Route 1 January 21, 2023 12:00am As directed cholecalciferol 0.025 mg oral capsule (20 sources) Vitamin D Start: 12-02-2017 take 1 capsule by mouth once daily Compress.Stocking,Knee, Reg,Lrg (20 sources) Start: 04-02-2022 Compress.Stock ing,Kn ee,Reg,Lrg Active 0 .MEDSUPPLY 2 April 01, 2022 11:00pm wear daily for venous insufficiency 15-20 mmHg Start: 04-02-2022 Compress.Stock ing,Knee,Reg,Lrg Active 0 .MEDSUPPLY 2 April 02, 2022 12:00am wear daily for venous insufficiency 15-20 mmHg Compress.Stocking,Knee,Reg,L rg misc (11 sources) Start: 04-02-2022 Compress.Stocking,Knee,Reg,L rg misc Active 0 .MEDSUPPLY 2 1 April 02, 2022 12:00am Venous insufficiency (chronic) (peripheral) wear daily for venous insufficiency 15-20 mmHg Start: 04-02-2022 Compress.Stock ing,Knee,Reg,Lrg misc Active 0 .MEDSUPPLY 2 April 02, 2022 12:00am wear daily for venous insufficiency 15-20 mmHg Handicap Placard (11 sources) Start: 05-13-[address] Active 0 .ROUTE .MEDSUPPLY 1 0 May 13, 2024 12:00am Other reduced mobility As directed, length of time 3 years Start: 05-13-[address] Active 0 .ROUTE .MEDSUPPLY 1 May 13, 2024 12:00am As directed, length of time 3 years 3 ml insulin glargine 100 un t/ml pen injector (20 sources) Insulin Analog Start: 10-07-2024 Start: 05-13-2024 End: 10-07-2024 Insulin Glargine (Lantus Trisha ostar U-100 Insulin) 100 unit/mL (3 mL) insulin pen Discontinued 35 U SC daily 31.5 90 2 May 16, 2024 11:07am October 07, 2024 1:37pm Take 30 units in the evening and 5 units in the morning Start: 10-30-2023 End: 05-13-2024 Insulin Glargine (Lantus Trisha ostar U-100 Insulin) 100 unit/mL (3 mL) insulin pen Discontinued 30 U SC EVERY EVENING 27 90 2 May 02, 2024 3:01pm May 13, 2024 11:41am Start: 07-27-2023 End: 10-30-2023 Insulin Glargine (Lantus Trisha ostar U-100 Insulin) 100 unit/mL (3 mL) insulin pen Discontinued 0 .ROUTE .COMPLEX 30 2 July 27, 2023 12:01pm October 30, 2023 2:08pm INJECT 30 units SUBCUTANEOUSLY EVERY DAY for 3 MONTHS Start: 10-17-2022 End: 07-27-2023 Insulin Glargine (Lantus Trisha ostar U-100 Insulin) 100 unit/mL (3 mL) insulin pen Discontinued 30 U SC DAILY 27 90 2 October 17, 2022 3:15pm July 27, 2023 12:01pm Start: 05-21-2022 End: 10-17-2022 Insulin Glargine (Lantus Trisha ostar U-100 Insulin) 100 unit/mL (3 mL) insulin pen Discontinued 24 - 28 U SC DAILY 21.6 90 2 May 21, 2022 12:26pm October 17, 2022 3:16pm Start: 12-27-2021 End: 05-21-2022 Insulin Glargine (Lantus Trisha ostar U-100 Insulin) 100 unit/mL (3 mL) insulin pen Discontinued 18 U SC DAILY 16.2 90 2 December 27, 2021 3:10pm May 21, 2022 12:27pm Start: 09-23-2021 End: 12-27-2021 Insulin Glargine (Lantus Trisha ostar U-100 Insulin) 100 unit/mL (3 mL) insulin pen Discontinued 15 U SC DAILY 4.5 30 2 September 23, 2021 1:00am December 27, 2021 3:11pm lisinopril 20 mg oral tablet (20 sources) Angiotensin Converting Enzyme Inhibitor Start: 03-28-2025 take 1 tablet by mouth twice daily Start: 03-23-2025 End: 03-28-2025 take 1 tablet by mouth once daily Lisinopril 20 mg tablet Discontinued 20 mg PO daily 90 March 23, 2025 1:55pm March 28, 2025 2:58pm Start: 10-30-2023 End: 03-23-2025 take 1 tablet by mouth twice daily Lisinopril 20 mg tablet Discontinued 20 mg PO TWICE A DAY 180 October 24, 2024 11:11am March 23, 2025 1:55pm Start: 05-05-2023 End: 10-30-2023 take 1 tablet by mouth once daily Lisinopril 20 mg tablet Discontinued 20 mg PO DAILY 90 3 May 05, 2023 2:05pm October 30, 2023 2:44pm Start: 04-09-2021 End: 05-05-2023 take 1 tablet by mouth once daily Lisinopril 10 mg tablet Discontinued 10 mg PO DAILY 90 3 March 23, 2023 10:31am May 05, 2023 2:05pm Start: 10-02-2013 End: 04-09-2021 take 1 tablet by mouth once daily Lisinopril 5 MG tablet Discontinued 5 mg PO DAILY October 02, 2013 1:00am April 09, 2021 2:03pm Menthol / Zinc Oxide (20 sources) Start: 12-04-2020 menthol-zinc o xide topical powder Active 1 EACH TOPICAL NEEDED December 04, 2020 2:37pm Start: 12-04-2020 End: 04-08-2022 Menthol-Zinc Oxide powder Di scontinued 1 NMA TOPICAL NEEDED as needed for skin irritaion December 04, 2020 12:00am April 08, 2022 1:12pm Start: 12-04-2020 End: 04-08-2022 menthol-zinc oxide topical p owder Discontinued 1 EACH TOPICAL NEEDED December 03, 2020 11:00pm April 08, 2022 12:12pm Start: 12-04-2020 End: 04-08-2022 menthol-zinc oxide topical p owder Discontinued 1 EACH TOPICAL NEEDED December 04, 2020 12:00am April 08, 2022 1:12pm Start: 12-04-2020 menthol-zinc o xide topical powder Active 1 EACH TOPICAL NEEDED December 04, 2020 12:00am Multivitamin,Oh-Uces-Ndfakte s (Complete Multivitamin) tablet (11 sources) Start: 12-02-2017 Start: 12-02-2017 Multivitamin,T y-Wpta-Hbbccsom (Complete Multivitamin) tablet Active 1 {tbl} PO daily December 02, 2017 12:00am multivitamin,ly-crak-vplcsaj s tablet (20 sources) Start: 12-02-2017 take 1 tablet by mouth once daily multivitamin,cs-wdlf-pdprmdfq tablet Active 1 TABLET PO daily December 02, 2017 9:33am Start: 12-02-2017 take 1 tablet by suzanna th once daily multivitamin,gc-iqyl-xyfcffxf tablet Act mandeep 1 TABLET PO daily December 01, 2017 11:00pm Start: 12-02-2017 take 1 tablet by suzanna th once daily multivitamin,qx-lwoz-zojjwwcc tablet Act mandeep 1 TABLET PO daily December 02, 2017 12:00am [place]-3 Fatty Acids (20 sources) Start: 12-02-2017 take 1000 mg by mout h once daily [place]-3 Fatty Acids Active 1000 MG PO daily December 02, 2017 9:33am Start: 12-02-2017 End: 08-05-2023 take 1000 mg by mouth once daily [place]-3 Fatty Acids Discontinued 1000 MG PO daily December 02, 2017 12:00am August 05, 2023 4:21pm Start: 12-02-2017 End: 08-05-2023 take 1000 mg by mouth once daily [place]-3 Fatty Acids Discontinued 1000 MG PO daily December 01, 2017 11:00pm August 05, 2023 3:21pm Start: 12-02-2017 take 1000 mg by mout h once daily [place]-3 Fatty Acids Active 1000 MG PO daily December 01, 2017 11:00pm Start: 12-02-2017 take 1000 mg by mout h once daily [place]-3 Fatty Acids Active 1000 MG PO daily December 02, 2017 12:00am Completed/Discontinued Medications Medication Drug Class(es) Dates Sig (Normalized) Sig (Original) acetaminophen 325 mg / HYDROcodone bitartrate 5 mg oral tablet (20 sources) Opioid Agonist Start: 03-01-2019 End: 03-12-2019 Hydrocodone-Acetami nophen 1 TABLET tablet Discontinued 1 {tbl} PO EVERY 4 HOURS NEEDED as needed for Pain 10 7 0 March 01, 2019 March 07, 2019 12:00am March 12, 2019 12:08am Urethral caruncle Urethral caruncle Start: 03-01-2019 End: 03-12-2019 take 1 tablet by mouth every four hours as needed Hydrocodone-Acetaminophen Discontinued 1 TABLET PO EVERY 4 HOURS NEEDED 10 7 March 01, 2019 March 12, 2019 12:08am biotin 1 mg oral tablet (20 sources) Start: 12-02-2017 End: 08-05-2023 take 1 tablet by mouth once daily Biotin 1 mg tablet Discontinued 1 mg PO daily December 02, 2017 12:00am August 05, 2023 4:21pm calcium carbonate 1500 mg oral tablet (20 sources) Start: 12-06-2015 End: 10-19-2020 Calcium Carbonate 600 MG tablet Discontinued 500 mg PO TWICE A DAY December 06, 2015 12:00am October 19, 2020 2:10pm Start: 12-06-2015 End: 10-19-2020 take 500 mg by mouth twice daily Calcium Carbonate Discontinued 500 MG PO TWICE A DAY December 06, 2015 12:00am October 19, 2020 2:10pm cefdinir 300 mg oral capsule (20 sources) Cephalosporin Antibacterial Start: 12-07-2015 End: 12-02-2017 take 1 capsule by mouth every twelve hours Cefdinir 300 MG capsule Discontinued 300 mg PO Q12H 20 0 December 07, 2015 8:28am December 02, 2017 9:32am 0.5 ml dulaglutide 3 mg/ml auto-injector (20 sources) GLP-1 Receptor Agonist Start: 01-22-2021 End: 03-11-2021 Dulaglutide (Trulicity) 1.5 mg/0.5 mL pen injector Discontinued 1.5 mg SC January 22, 2021 9:39am March 11, 2021 2:06pm Start: 01-08-2021 End: 01-22-2021 Dulaglutide (Trulicity) 1.5 mg/0.5 mL pen injector Discontinued 1.5 mg SC EVERY WEEK 2 January 08, 2021 12:00am January 22, 2021 9:39am empagliflozin 25 mg oral tablet (20 sources) Sodium-Glucose Cotransporter 2 Inhibitor Start: 01-08-2021 End: 01-08-2021 take 1 tablet by mouth once daily in the morning Empagliflozin (Jardiance) 25 mg tablet Discontinued 25 mg PO EVERY MORNING 30 1 January 08, 2021 12:00am January 08, 2021 3:51pm fluticasone propionate 0.05 mg/actuat metered dose nasal spray (20 sources) Corticosteroid Start: 12-06-2015 End: 12-02-2017 Fluticasone Propionate 1 SPRAY spray,suspension Discontinued 2 NMA NASAL DAILY December 06, 2015 12:00am December 02, 2017 9:32am Start: 12-06-2015 End: 12-02-2017 Fluticasone Propionate Disco ntinued 2 SPRAY NASAL DAILY December 06, 2015 12:00am December 02, 2017 9:32am glimepiride 2 mg oral tablet (20 sources) Sulfonylurea Start: 11-11-2023 End: 05-01-2025 take 2 tablets by mouth once daily in the morning, then take 1 tablet by mouth in the evening Glimepiride 2 mg tablet Discontinued 6 mg PO DAILY 270 90 1 October 26, 2024 9:39am May 01, 2025 8:02am Take 4 mg in the morning and 2 mg in the evening Start: 11-11-2023 End: 11-11-2023 take 4 mg by mouth once daily in the morning, then take 2 mg by mouth in the evening Glimepiride Active 6 MG PO DAILY 270 90 November 11, 2023 1:55pm Take 4 mg in the morning and 2 mg in the evening Start: 06-02-2022 End: 11-11-2023 take 1 tablet by mouth twice daily Glimepiride 2 mg tablet Discontinued 0 .ROUTE .COMPLEX 180 June 10, 2023 6:55pm October 30, 2023 2:08pm TAKE ONE TABLET BY MOUTH TWICE DAILY Start: 04-08-2022 End: 06-02-2022 take 1 tablet by mouth once daily Glimepiride 2 mg tablet Discontinued 2 mg PO DAILY April 08, 2022 1:10pm June 02, 2022 8:33am Start: 06-11-2021 End: 04-08-2022 take 1 tablet by mouth twice daily Glimepiride 2 mg tablet Discontinued 2 mg PO TWICE A DAY 180 3 June 11, 2021 11:52am April 08, 2022 1:13pm Start: 03-25-2021 End: 06-11-2021 take 1 tablet by mouth twice daily Glimepiride 1 mg tablet Discontinued 1 mg PO TWICE A DAY 60 3 2021 3:51pm June 11, 2021 11:52am Start: 10-02-2013 End: 03-25-2021 take 0.5 mg by mouth twice daily Glimepiride 1 mg tabl et Discontinued 0.5 mg PO TWICE A DAY 60 3 January 24, 2021 5:16pm March 25, 2021 4:43pm Start: 10-02-2013 End: 03-25-2021 take 0.5 mg by mouth twice daily Glimepiride Discontin ued 0.5 MG PO TWICE A DAY 60 January 24, 2021 5:16pm March 25, 2021 4:43pm hydrocortisone 25 mg/ml topical cream (17 sources) Corticosteroid Start: 04-30-2023 End: 05-05-2023 Hydrocortisone 2.5 % cream Discontinued 1 NMA TOPICAL TWICE A DAY as needed for rash 30 April 30, 2023 12:00am May 05, 2023 1:17pm ketoconazole 20 mg/ml topical cream (20 sources) Azole Antifungal Start: 12-04-2020 End: 03-11-2021 Ketoconazole 2 % cream Discontinued 1 NMA TOPICAL DAILY as needed for Skin Cleansing December 04, 2020 12:00am March 11, 2021 2:07pm lansoprazole 30 mg delayed release oral capsule (20 sources) Proton Pump Inhibitor Start: 12-04-2020 End: 10-26-2024 take 1 capsule by mouth once daily Lansoprazole 30 mg capsule,delayed release(DR/EC) Discontinued 30 mg PO DAILY 90 August 25, 2023 12:56pm October 26, 2024 9:39am Magnesium (20 sources) Start: 12-06-2015 End: 10-19-2020 take 200 mg by mouth once daily Magnesium Discontinued 200 MG PO DAILY December 06, 2015 9:46am October 19, 2020 2:09pm Start: 12-06-2015 End: 10-19-2020 take 1 tablet by mouth once daily Magnesium 200 MG tablet Discontinued 200 mg PO DAILY December 06, 2015 12:00am October 19, 2020 2:09pm Start: 12-06-2015 End: 10-19-2020 take 200 mg by mouth once daily Magnesium Discontinued 200 MG PO DAILY December 05, 2015 11:00pm October 19, 2020 1:09pm Start: 12-06-2015 End: 10-19-2020 take 200 mg by mouth once daily Magnesium Discontinued 200 MG PO DAILY December 06, 2015 12:00am October 19, 2020 2:09pm 24 hr metFORMIN hydrochloride 500 mg extended release oral tablet (20 sources) Biguanide Start: 10-02-2013 End: 12-04-2020 take 1 tablet by mouth twice daily Metformin 500 MG tablet Discontinued 500 mg PO TWICE A DAY October 02, 2013 1:00am December 04, 2020 2:36pm miconazole nitrate 0.02 mg/mg topical powder (20 sources) Azole Antifungal Start: 04-17-2022 End: 04-14-2024 Miconazole Nitrate 2 % powder Discontinued 1 NMA TOPICAL .PRN May 05, 2023 1:18pm April 14, 2024 10:57am Start: 04-17-2022 Miconazole Nit rate Active 1 APPLIC TOPICAL TWICE A DAY April 17, 2022 4:33pm Start: 10-30-2021 End: 04-08-2022 Miconazole Nitrate 2 % powde r Discontinued 1 NMA TOPICAL TWICE A DAY 90 3 October 30, 2021 1:00am April 08, 2022 1:12pm nystatin [id number] unt/ml topical cream (20 sources) Polyene Antifungal Start: 02-08-2020 End: 05-03-2021 Nystatin 100,000 unit/gram cream Discontinued 1 NMA TOPICAL THREE TIMES A DAY 30 February 10, 2020 4:19pm October 19, 2020 2:13pm Start: 02-08-2020 End: 10-30-2021 Nystatin (Nystop) 100,000 un it/gram powder Discontinued 1 NMA TOPICAL TWICE A DAY as needed for Skin Irritation 2 3 September 23, 2021 4:51pm October 30, 2021 4:24pm Start: 02-08-2020 End: 05-03-2021 Nystatin Discontinued 1 APPL IC TOPICAL THREE TIMES A DAY 30 February 10, 2020 4:19pm October 19, 2020 2:13pm Start: 02-08-2020 End: 10-30-2021 Nystatin (Nystop) 100,000 un it/gram powder Discontinued 1 APPLIC TOPICAL TWICE A DAY 2 September 23, 2021 4:51pm October 30, 2021 4:24pm nystatin 100 unt/mg / triamcinolone acetonide 0.001 mg/mg topical ointment (20 sources) Polyene Antifungal, Corticosteroid Start: 02-14-2021 End: 04-08-2022 Nystatin-Triamcinolone 100,000-0.1 unit/gram-% ointment Discontinued 1 NMA TOPICAL THREE TIMES A DAY 06 12February 14, 2021 12:00am April 08, 2022 1:12pm Start: 02-14-2021 End: 04-08-2022 Nystatin-Triamcinolone Disco ntinued 1 APPLIC TOPICAL THREE TIMES A DAY February 14, 2021 12:00am April 08, 2022 1:12pm [place]-3 Fatty Acids 1,000 mg capsule (11 sources) Start: 12-02-2017 End: 08-05-2023 take 1 capsule by mouth once daily [place]-3 Fatty Acids 1,000 mg capsule Discontinued 1000 mg PO daily December 02, 2017 12:00am August 05, 2023 4:21pm omeprazole 20 mg delayed release oral capsule (20 sources) Proton Pump Inhibitor Start: 04-13-2020 End: 12-04-2020 take 2 capsules by mouth once daily Omeprazole 20 mg capsule,delayed release(DR/EC) Discontinued 40 mg PO DAILY April 13, 2020 1:22pm December 04, 2020 3:16pm Start: 04-13-2020 End: 12-04-2020 take 40 mg by mouth once daily Omeprazole Discontinued 40 MG PO DAILY April 13, 2020 1:22pm December 04, 2020 3:16pm Start: 09-30-2019 End: 04-13-2020 take 1 capsule by mouth once daily Omeprazole 20 mg capsule,delayed release(DR/EC) Discontinued 20 mg PO DAILY September 30, 2019 2:33pm April 13, 2020 1:22pm Start: 03-09-2019 End: 09-30-2019 take 1 capsule by mouth twice daily Omeprazole 20 mg capsule,delayed release(DR/EC) Discontinued 20 mg PO TWICE A DAY March 09, 2019 12:00am September 30, 2019 2:35pm Start: 12-07-2015 End: 03-09-2019 take 1 capsule by mouth once daily Omeprazole 40 MG capsule Discontinued 40 mg PO DAILY 30 0 December 07, 2015 12:00am March 09, 2019 2:46pm phenazopyridine hydrochloride 200 mg oral tablet (20 sources) Start: 03-01-2019 End: 03-12-2019 take 1 tablet by mouth three times daily as needed for muscle spasms Phenazopyridine 200 MG tablet Discontinued 200 mg PO 3 TIMES DAILY NEEDED as needed for Bladder Spasms 30 7 0 March 01, 2019 12:00am March 07, 2019 12:00am March 12, 2019 12:08am propafenone hydrochloride 150 mg oral tablet (20 sources) Antiarrhythmic Start: 09-30-2019 End: 06-11-2021 Propafenone 150 mg tablet Discontinued 150 mg PO .COMPLEX as needed for Cardiac Arrhythmia October 19, 2020 2:40pm June 11, 2021 11:13am 150 mg PO PRN; Take 1 tablet as needed for atrial fibrillation, may take up to 3 tablets 8 hours apart. Notify art therapy specialist automation application engineer if requiring more than 3 doses. simvastatin 10 mg oral tablet (20 sources) HMG-CoA Reductase Inhibitor Start: 07-21-2015 End: 01-09-2025 take 1 tablet by mouth at bedtime Simvastatin 10 mg tablet Discontinued 10 mg PO AT BEDTIME 90 3 January 07, 2024 11:44am January 09, 2025 9:33am SITagliptin 100 mg oral tablet (20 sources) Dipeptidyl Peptidase 4 Inhibitor Start: 04-08-2022 End: 07-09-2022 take 1 tablet by mouth once daily Sitagliptin Phosphate (Januvia) 100 mg tablet Discontinued 100 mg PO DAILY April 08, 2022 12:00am July 09, 2022 4:00pm until current supply is depleted Start: 01-22-2021 End: 04-02-2022 take 1 tablet by mouth once daily Sitagliptin Phosphate (Januvia) 100 mg tablet Discontinued 100 mg PO DAILY 90 1 October 31, 2021 12:44pm April 02, 2022 2:48pm Start: 12-04-2020 End: 01-08-2021 take 1 tablet by mouth once daily Sitagliptin Phosphate (Januvia) 100 mg tablet Discontinued 100 mg PO DAILY December 04, 2020 12:00am January 08, 2021 3:51pm sulfamethoxazole 800 mg / trimethoprim 160 mg oral tablet (20 sources) Dihydrofolate Reductase Inhibitor Antibacterial, Sulfonamide Antimicrobial Start: 03-01-2019 End: 03-06-2019 Sulfamethoxazole-Trimethopri m 1 TABLET tablet Discontinued 1 {tbl} PO TWICE A DAY 6 3 0 March 01, 2019 12:00am March 03, 2019 12:00am March 06, 2019 12:10am Start: 03-01-2019 End: 03-06-2019 take 1 tablet by mouth twice daily Sulfamethoxazole-Trimethoprim Discontinu ed 1 TABLET PO TWICE A DAY 6 3 March 01, 2019 12:00am March 06, 2019 12:10am ubidecarenone 100 mg / vitamin e 5 unt oral capsule (20 sources) Start: 12-06-2015 End: 10-30-2023 take 1 capsule by mouth once daily Coenzyme D88-Smhvoqk E 1 EACH capsule Discontinued 1 NMA PO DAILY December 06, 2015 12:00am October 30, 2023 2:06pm Start: 12-06-2015 End: 10-30-2023 Coenzyme L02-Hirwcgm E Disco ntinued 1 EACH PO DAILY December 06, 2015 12:00am October 30, 2023 2:06pm warfarin sodium 2 mg oral tablet (20 sources) Vitamin K Antagonist Start: 03-16-2023 End: 04-30-2023 Warfarin 2 mg tablet Discontinued 2 mg PO .QFRI Protocol: Adjustment Start Date: 04/16/23INR Value: 2.7INR Date: 04/15/23Recheck Date: 05/14/23 Condition: Thursday Dose/Route: 4 mg Instructions: 1 x 4 mg tablet Condition: Thursday Dose/Route: 4 mg Instructions: 1 x 4 mg tablet Condition: Thursday Dose/Route: 4 mg Instructions: 1 x 4 mg tablet Condition: Thursday Dose/Route: 4 mg Instructions: 1 x 4 mg tablet Condition: Dose/Route: 4 mg Instructions: 1 x 4 mg tablet Condition: Thursday Dose/Route: 4 mg Instructions: 1 x 4 mg tablet Condition: Thursday Dose/Route: 4 mg Instructions: 1 x 4 mg tablet 20 March 16, 2023 12:00am April 30, 2023 1:37pm Take with 4mg tab on every Thu to equal 6mg Please contact the information source for Protocol details. Start: 04-08-2022 End: 05-12-2024 take 1 tablet by mouth once daily Warfarin 4 mg tablet Discontinued 4 mg PO DAILY Protocol: Adjustment Start Date: 04/16/23INR Value: 2.7INR Date: 04/15/23Recheck Date: 05/14/23 Condition: Thursday Dose/Route: 4 mg Instructions: 1 x 4 mg tablet Condition: Thursday Dose/Route: 4 mg Instructions: 1 x 4 mg tablet Condition: Thursday Dose/Route: 4 mg Instructions: 1 x 4 mg tablet Condition: Thursday Dose/Route: 4 mg Instructions: 1 x 4 mg tablet Condition: Dose/Route: 4 mg Instructions: 1 x 4 mg tablet Condition: Thursday Dose/Route: 4 mg Instructions: 1 x 4 mg tablet Condition: Thursday Dose/Route: 4 mg Instructions: 1 x 4 mg tablet 90 March 16, 2023 12:00am April 30, 2023 1:37pm Please contact the information source for Protocol details. Start: 04-08-2022 End: 03-16-2023 Warfarin 4 mg tablet Discont inued 2 mg PO MOWE April 08, 2022 1:14pm March 16, 2023 1:08pm Please contact the information source for Protocol details. Start: 04-08-2022 End: 03-16-2023 Warfarin Discontinued 2 MG P O MOWE April 08, 2022 1:14pm March 16, 2023 1:08pm Start: 01-22-2021 End: 12-04-2021 Warfarin 4 mg tablet Discont inued 4 mg PO MOWETHSA Protocol: Adjustment Start Date: Thursday12/03/21INR Value: 2.3INR Date: 12/03/21Recheck Date: 12/17/21 Condition: Thursday Dose/Route: 4 mg Instructions: 1 x 4 mg tablet Condition: Thursday Dose/Route: 2 mg Instructions: 0.5 x 4 mg tablets Condition: Thursday Dose/Route: 4 mg Instructions: 1 x 4 mg tablet Condition: Thursday Dose/Route: 4 mg Instructions: 1 x 4 mg tablet Condition: Dose/Route: 4 mg Instructions: 1 x 4 mg tablet Condition: Thursday Dose/Route: 4 mg Instructions: 1 x 4 mg tablet Condition: Thursday Dose/Route: 4 mg Instructions: 1 x 4 mg tablet 52 90 October 02, 2021 4:24pm December 04, 2021 3:58pm Please contact the information source for Protocol details. Start: 12-27-2020 End: 03-16-2023 take 0.5 tablet by mouth once daily Warfarin 4 mg tablet Discontinued 4 mg PO .COMPLEX Protocol: Adjustment Start Date: Thursday03/16/23INR Value: 3.2INR Date: 03/16/23Recheck Date: 03/30/23 Condition: Thursday Dose/Route: 4 mg Instructions: 1 x 4 mg tablet Condition: Thursday Dose/Route: 4 mg Instructions: 1 x 4 mg tablet Condition: Thursday Dose/Route: 4 mg Instructions: 1 x 4 mg tablet Condition: Thursday Dose/Route: 4 mg Instructions: 1 x 4 mg tablet Condition: Dose/Route: 4 mg Instructions: 1 x 4 mg tablet Condition: Thursday Dose/Route: 6 mg Instructions: 1.5 x 4 mg tablets Condition: Thursday Dose/Route: 4 mg Instructions: 1 x 4 mg tablet 90 3 January 06, 2023 4:06pm March 16, 2023 1:08pm 4 mg PO every day except 0.5 tablet (2mg) on Thursday, Thursday, Thursday and or as directed. Please contact the information source for Protocol details. Start: 12-27-2020 End: 04-08-2022 Warfarin Discontinued 2 MG P O SUTUFR December 27, 2020 11:18am April 08, 2022 1:15pm 1/2 tab on Thursday, Thursday, Thursday. 1 tablet on Thursday, Thursday, , Thursday. Start: 02-25-2019 End: 12-27-2020 Warfarin 2 mg tablet Discont inued 2 mg PO SUTUFR March 15, 2019 1:39pm December 27, 2020 11:17am Dr. Finnegan manages Start: 10-02-2013 End: 12-02-2017 Warfarin 2 MG tablet Discont inued 2 mg PO TUFR October 02, 2013 1:00am December 02, 2017 9:32am Start: 10-02-2013 End: 12-27-2020 Warfarin 4 mg tablet Discont inued 4 mg PO MOWETHSA March 15, 2019 1:40pm December 27, 2020 11:21am Dr. Finnegan Manages Problems Active Problems Problem Classification Problem Date Documented Da te Episodic/Chronic Allergic reactions (20 sources) Inflammatory dermatosis; Translations: [Dermatitis, unspecified] 04-30-2023 Episodic Anxiety disorders (20 sources) Generalized anxiety disorder; Translations: [Generalized anxiety disorder] 03-11-2021 Chronic Cancer of uterus (20 sources) Malignant neoplasm of endometrium of corpus uteri ; Translations: [Malignant neoplasm of endometrium] Onset: 02-22-2012 12-04-2020 Chronic Comment on above: Stage Ia Cardiac dysrhythmias (20 sources) Paroxysmal atrial fibrillation; Translations: [Paroxysmal atrial fibrillation] Onset: 10-01-2017 Chronic Cardiac dysrhythmias (20 sources) Palpitations; Translations: [Palpitations] 04-08-2021 Episodic Diabetes mellitus with complications (1 source) Type 2 diabetes mellitus with other specified complication; Translations: [Type 2 diabetes mellitus with other specified complication] Onset: 06-24-2025 Chronic Diabetes mellitus without complication (20 sources) Type 2 diabetes mellitus; Translations: [Type 2 diabetes mellitus without complications] Onset: 05-22-2021 Chronic Disorders of lipid metabolism (20 sources) Hyperlipidemia; Translations: [Hyperlipidemia, unspecified] Chronic Esophageal disorders (20 sources) 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; Translations: [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 without dysplasia] Chronic Essential hypertension (20 sources) Essential (primary) hypertension; Translations: [Essential hypertension] Onset: 10-01-2017 Chronic Glaucoma (20 sources) Glaucoma; Translations: [Unspecified glaucoma] 12-04-2020 Chronic Headache; including migraine (20 sources) Headache; Translations: [Headache] 06-11-2021 Episodic Miscellaneous mental health disorders (13 sources) Sleep terror disorder; Translations: [Sleep terrors [night terrors]] 08-22-2024 Chronic Mycoses (20 sources) Candidiasis of vagina; Translations: [Candidiasis of vulva and vagina] 01-08-2021 Episodic Osteoarthritis (20 sources) Osteoarthritis; Translations: [Unspecified osteoarthritis, unspecified site] 01-21-2023 Chronic Other aftercare (20 sources) Long-term current use of anticoagulant; Translations: [superintendent terminal (current) use of anticoagulants] 03-09-2019 Episodic Other aftercare (1 source) intermediate (current) use of anticoagulants; Translations: [intermediate (current) use of anticoagulants] Onset: 06-24-2025 Episodic Other bone disease and musculoskeletal deformities (20 sources) Osteopenia; Translations: [Other specified disorders of bone density and structure, unspecified site] 01-21-2023 Episodic Other bone disease and musculoskeletal deformities (6 sources) Other specified disorders of bone density and structure, unspecified site; Translations: [Disorder of bone and cartilage, unspecified] 01-21-2023 Episodic Other diseases of bladder and urethra (4 sources) Overactive bladder; Translations: [Overactive bladder] 05-23-2025 Chronic Other diseases of bladder and urethra (20 sources) Urethral caruncle; Translations: [Urethral caruncle] 03-01-2019 Episodic Other diseases of veins and lymphatics (20 sources) Venous insufficiency of leg; Translations: [Venous insufficiency (chronic) (peripheral)] 12-27-2021 Episodic Other diseases of veins and lymphatics (12 sources) Venous insufficiency (chronic) (peripheral); Translations: [Venous (peripheral) insufficiency, unspecified] Episodic Other gastrointestinal disorders (20 sources) Irritable bowel syndrome; Translations: [Irritable bowel syndrome without diarrhea] 12-04-2020 Chronic Other gastrointestinal disorders (2 sources) Irritable bowel syndrome without diarrhea; Translations: [Irritable bowel syndrome] 04-30-2023 Chronic Other gastrointestinal disorders (20 sources) Dysphagia; Translations: [Dysphagia, unspecified] 04-08-2021 Episodic Other gastrointestinal disorders (20 sources) Diarrhea; Translations: [Diarrhea, unspecified] 04-08-2021 Episodic Other gastrointestinal disorders (20 sources) Incontinence of feces; Translations: [Full incontinence of feces] 01-08-2021 Episodic Other inflammatory condition of skin (3 sources) Rosacea; Translations: [Rosacea, unspecified] Chronic Other inflammatory condition of skin (3 sources) Rosacea, unspecified; Translations: [Rosacea] Chronic Other inflammatory condition of skin (20 sources) Irritant contact dermatitis; Translations: [Erythema intertrigo] 05-03-2021 Episodic Other inflammatory condition of skin (6 sources) Erythema intertrigo; Translations: [Contact dermatitis and other eczema due to other specified agents] Episodic Other liver diseases (9 sources) Non-alcoholic fatty liver; Translations: [Fatty (change of) liver, not elsewhere classified] Chronic Other liver diseases (20 sources) Fatty (change of) liver, not elsewhere classified; Translations: [Nonalcoholic fatty liver disease] 01-08-2021 Chronic Other lower respiratory disease (20 sources) Dyspnea on exertion; Translations: [Other forms of dyspnea] 04-08-2022 Episodic Other lower respiratory disease (4 sources) Other forms of dyspnea; Translations: [Other respiratory abnormalities] Episodic Other non-traumatic joint disorders (20 sources) Hip pain; Translations: [Pain in right hip] 04-02-2022 Episodic Other non-traumatic joint disorders (5 sources) Pain in right hip; Translations: [Pain in joint, pelvic region and thigh] Episodic Other non-traumatic joint disorders (4 sources) Shoulder pain; Translations: [Pain in left shoulder] 10-17-2022 Episodic Other non-traumatic joint disorders (20 sources) Pain in left shoulder; Translations: [Pain in joint, shoulder region] 10-17-2022 Episodic Other nutritional; endocrine; and metabolic disorders (20 sources) Obesity; Translations: [Obesity, unspecified] 01-12-2019 Chronic Other nutritional; endocrine; and metabolic disorders (4 sources) Obesity, unspecified; Translations: [Obesity, unspecified] Chronic Other screening for suspected conditions (not mental disorders or infectious disease) (1 source) Encounter for screening mammogram for malignant neoplasm of breast; Translations: [Encounter for screening mammogram for malignant neoplasm of breast] Onset: 04-21-2025 Episodic Other skin disorders (20 sources) Sebaceous cyst of skin; Translations: [Sebaceous cyst] 04-08-2021 Episodic Other upper respiratory infections (20 sources) Laryngitis; Translations: [Acute laryngitis] 04-08-2021 Episodic Peripheral and visceral atherosclerosis (20 sources) Intermittent claudication; Translations: [Peripheral vascular disease, unspecified] Chronic Pulmonary heart disease (20 sources) Secondary pulmonary hypertension; Translations: [Secondary pulmonary hypertension] 04-08-2021 Chronic Residual codes; unclassified (20 sources) Hypersomnia; Translations: [Hypersomnia, unspecified] 07-09-2022 Chronic Residual codes; unclassified (3 sources) Hypersomnia, unspecified; Translations: [Hypersomnia, unspecified] Chronic Residual codes; unclassified (20 sources) Patient encounter status; Translations: [Other specified personal risk factors, not elsewhere classified] 02-08-2020 Episodic Comment on above: h/o endometrial canc er recommend annual exams Residual codes; unclassified (5 sources) Other specified personal risk factors, not elsewhere classified; Translations: [Routine gynecological examination] Onset: 04-17-2025 02-19-2023 Episodic Residual codes; unclassified (17 sources) Flushing; Translations: [Flushing] 04-30-2023 Episodic Residual codes; unclassified (2 sources) Flushing; Translations: [Flushing] 04-30-2023 Episodic Spondylosis; intervertebral disc disorders; other back problems (20 sources) Backache; Translations: [Dorsalgia, unspecified] Episodic Unclassified (1 source) Unknown / UNK(Unknown) Onset: 10-01-2017 Urinary tract infections (20 sources) Recurrent urinary tract infection; Translations: [Urinary tract infection, site not specified] 12-04-2020 Episodic Past or Other Problems Problem Classification Problem Date Documented Da te Episodic/Chronic Other aftercare (1 source) superintendent terminal (current) use of oral hypoglycemic drugs; Translations: [intermediate (current) use of oral hypoglycemic drugs] Onset: 05-22-2021 Episodic Unclassified (20 sources) h/o urethral surgery 03-14-2022 Comment on above: 2019 Results Test Name Value Interpretation Reference Range Facility Basic Metabolic Profile (BMP )on 06-20-2025 BUN/CRE 30.9 RATIO High 06-12 [facility] Comment on above: Order Comment: OF [facility] OFFICE ORDERE PT/INR STANDING ORDER. ORDERED THE REST. Performed By: #### L [id number], L502.0250, L500.2500, [id number] #### [facility] [address] [place], [address] Calcium [Mass/Vol] 9.0 mg/dL Normal 7.6-11.0 [facility] Comment on above: Order Comment: OF [facility] OFFICE ORDERE PT/INR STANDING ORDER. ORDERED THE REST. Performed By: #### L [id number], L502.0250, L500.2500, [id number] #### [facility] [address] [place], [address] Chloride [Moles/Vol] 106 mmol/L Normal 98-108 [facility] Comment on above: Order Comment: OF [facility] OFFICE ORDERE PT/INR STANDING ORDER. ORDERED THE REST. Performed By: #### L [id number], [id number], L500.2500, [id number] #### [facility] [address] [place], [address] CO2 [Moles/Vol] 24.0 mmol/L Normal 21.0-32.0 [facility] Comment on above: Order Comment: OF [facility] OFFICE ORDERE PT/INR STANDING ORDER. ORDERED THE REST. Performed By: #### L [id number], L502.0250, L500.2500, [id number] #### [facility] [address] [place], [address] Creatinine [Mass/Vol] 0.67 mg/dL Low 0.70-1.20 [facility] Comment on above: Order Comment: OF [facility] OFFICE ORDERE PT/INR STANDING ORDER. ORDERED THE REST. Performed By: #### L [id number], [id number], L500.2500, [id number] #### [facility] [address] [place], [address] GAP 8 Normal 5-15 [facility] Comment on above: Order Comment: OF [facility] OFFICE ORDERE PT/INR STANDING ORDER. ORDERED THE REST. Performed By: #### L [id number], L502.0250, L500.2500, [id number] #### [facility] [address] [place], [address] GFR/1.73 sq M.predicted among non-blacks MDRD (S/P/Bld) [Vol rate/Area] 88 mL/min/{1.73_m2} Normal >60 [facility] Comment on above: Order Comment: OF [facility] OFFICE ORDERE PT/INR STANDING ORDER. ORDERED THE REST. Result Comment: mL/m in/1.73m2 CKD-EPI Creatinine Equation (2020) Performed By: #### L [id number], L502.0250, L500.2500, [id number] #### [facility] [address] [place], [address] Glucose [Mass/Vol] 149 mg/dL High 70-99 [facility] Comment on above: Order Comment: OF [facility] OFFICE ORDERE PT/INR STANDING ORDER. ORDERED THE REST. Performed By: #### L [id number], [id number], L500.2500, [id number] #### [facility] [address] [place], [address] Potassium [Moles/Vol] 4.2 mmol/L Normal 3.3-5.1 [facility] Comment on above: Order Comment: OF [facility] OFFICE ORDERE PT/INR STANDING ORDER. ORDERED THE REST. Performed By: #### L [id number], [id number], L500.2500, [id number] #### [facility] [address] [place], [address] Sodium [Moles/Vol] 137 mmol/L Normal 133-145 [facility] Comment on above: Order Comment: OF [facility] OFFICE ORDERE PT/INR STANDING ORDER. ORDERED THE REST. Performed By: #### L [id number], L502.0250, L500.2500, [id number] #### [facility] [address] [place], [address] Urea nitrogen [Mass/Vol] 21 mg/dL High 4-19 [facility] Comment on above: Order Comment: OF [facility] OFFICE ORDERE PT/INR STANDING ORDER. ORDERED THE REST. Performed By: #### L [id number], [id number], L500.2500, [id number] #### [facility] [address] [place], [address] Hemoglobin A1con 06-20-2025 HbA1c (Bld) [Mass fraction] 7.7 % High <=5.6 [facility] Comment on above: Result Comment: Norm al < 5.7 % Prediabetic 5.7 - 6.4 % Diabetic >or= 6.5 % Please note range changes. Performed By: #### L [id number], [id number], L500.2500, [id number] #### [facility] [address] [place], [address] Microalb:Creat Ratio,Random URon 06-20-2025 Creatinine [Mass/Vol] 86.30 mg/dL Normal 28.00- 217. 00 [facility] Comment on above: Performed By: #### L [id number] #### [facility] [address] [place], [address] MALB:CREAT 55.3 mg/g CRE High <30 mg/g CRE [facility] Comment on above: Performed By: #### L [id number] #### [facility] [address] [place], [address] MICROALBUMIN,UR 47.7 mg/L Normal <20 mg/L [facility] Comment on above: Performed By: #### L [id number] #### [facility] [address] [place], [address] Prothrombin Time w/INRon INR Coag (PPP) [Relative time] 2.0 {INR} Normal [facility] Comment on above: Performed By: #### L [id number], [id number], L500.2500, [id number] #### [facility] [address] [place], [address] PT Coag (PPP) [Time] 23.5 s High 11.7-14.9 [facility] Comment on above: Performed By: #### L [id number], L502.0250, L500.2500, L300.5150 #### [facility] [address] [place], [address] Internal Medicine Office Vis iton 05-23-2025 Internal Medicine Office Visit [facility] [address] [place] [address] [place] [address] OFFICE VISIT Date of Service: 05/23/25 MR#: [id number] Acct: [id number] Name: ERENDIRA CHÁVEZ Rep #: [id number] : 1945 Provider: Dr. Eric mayo MD Age/Sex: 80/F Location[place] [facility] [place] Status: Signed Intake Vital Signs 04/17/25 13:26 05/23/25 13:14 Height 5 ft 4 in 5 ft 4 in Weight: 230 lb BMI 39.4 BP 144/82 H Blood Pressure Location Lt brachial Position Sitting Respiration 14 Pulse 68 Pulse Source Monitor Temp 97.4 F L Temp Source Temporal Pulse Oximetry (%) 97 Oxygen Delivery Method room air Intake Visit Reasons: Follow up- Ok per Dr. Delatorre Chief Complaint: FU Chronic Conditions 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 Is patient in pain?: No Allergies brimonidine Allergy (Verified 05/23/25 13:05) NEEDS FOLLOW-UP Penicillins Allergy (Verified 05/23/25 13:05) Hives Medications ???Medication ???Instructions ???Recorded ???Confirmed ???Type cholecalciferol (vitamin D3) 25 1,000 unit PO QDAY 12/02/17 History mcg (1,000 unit) capsule multivitamin,ck-hjnu-nyyzidzc 1 tab PO QDAY 12/02/17 05/23/25 Hi story (Complete Multivitamin tablet) aluminum hydrox-magnesium carb 160 2 - 3 tab PO QHS 01/22/21 History mg-105 mg chewable tablet compress.stocking,knee,reg,lr g #2 ea 04/02/22 05/23/25 Rx cane #1 ea 01/21/23 05/23/25 Rx calcium 500 mg 2 tab PO BID 10/30/23 05/23/25 His tory (carb,gluconate)-magnesium 250 mg (gluc,oxide) tablet (Calcium Magnesium) warfarin 4 mg tablet 4 mg PO DAILY #90 tabs 05/12/24 Rx Handicap Placard #1 ea 05/13/24 05/23/25 Rx blood sugar diagnostic (Accu-Chek #200 ea 06/08/24 05/23/25 Rx Destinee Plus test strips) amlodipine 2.5 mg tablet 2.5 mg PO DAILY #30 tabs 06/22/24 05/23/25 Rx insulin glargine 100 unit/mL (3 45 unit (0.45 mL) subcut QDAY 3 05/23/25 Rx mL) subcutaneous pen (Lantus months #40.5 mL Solostar U-100 Insulin) lansoprazole 30 mg capsule,delayed 30 mg PO DAILY #90 caps 10/26/24 05/23/25 Rx release simvastatin 10 mg tablet 10 mg PO QHS #90 tabs 01/09/25 Rx atenolol 25 mg tablet 25 mg PO BID #180 tabs 03/28/25 Rx lisinopril 20 mg tablet 20 mg PO BID #180 tabs 03/28/25 Rx pen needle, diabetic 31 gauge x #100 ea 04/25/25 05/23/25 Rx 5/16 (Comfort EZ Pen [place]) glimepiride 2 mg tablet 6 mg (3 x 2 mg) PO DAILY 3 months 05/01/25 05/23/25 Rx #270 tabs Have you fallen in the past year?: No [facility] Medical History (Updated 05/23/25 @ 14:[address] Eric Delatorre MD) Overactive bladder Night terrors, adult Health care maintenance Dermatitis Hot flashes Osteopenia Osteoarthritis Left shoulder pain Hypersomnolence Bilateral hip pain Chronic back pain Rosacea Venous insufficiency of both lower extremities Paroxysmal atrial fibrillation Generalized anxiety disorder Headache Wears glasses Yeast dermatitis Arthritis High cholesterol Back pain Migraine headache Difficulty swallowing Dietary restriction History of hiatal hernia History of IBS Gastric reflux Non-smoker Leg cramps History of edema Cardiology follow-up encounter Hx of echocardiogram History of stress test Fecal incontinence Vaginal candidiasis Fatty liver disease, nonalcoholic h/o urethral surgery Frequent UTI Secondary pulmonary hypertension Irritable bowel syndrome Glaucoma GERD (gastroesophageal reflux disease) History of left shoulder fracture Diarrhea 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 Palpitations Hyperlipidemia Sebaceous cyst Endometrial cancer (02/2012) Obesity Essential hypertension Type 2 diabetes mellitus Surgical History S/P eye surgery H/O colonoscopy H/O endoscopy History of LAVH History of tonsillectomy Hx of cholecystectomy Family History Mother CVA (cerebral vascular accident) Diabetes Heart disease Father Myocardial infarction Heart disease Brother Hypertension High cholesterol Social History number of children: 2 current occupational status: retired Smoking Status: Never smoker alcohol intake: never substance use type: does not use caffeine: No what type of physical activity do you participate in: walking seatbelt use: always do you feel safe at home: Yes additional social history: Yariel- Retired Patient is retired HPI HPI Chief Complaint: FU Chronic Conditions Details: ERENDIRA CHÁVEZ, is an 80-year-old female presenting for (more content not included)... Normal [facility] International normalized rat io (INR) measurement by fingerstickOrdered By: Javon Jenkins on 05-23-2025 INR Coag (BldC) [Relative time] 2.1 [facility] Comment on above: Critical Value > 4.0 Protime w/INR Fingerstickon 05-23-2025 INR Coag (PPP) [Relative time] 2.1 {INR} Normal [facility] Comment on above: Result Comment: Crit ical Value > 4.0 Performed By: #### L 9200.0000 #### [facility] [address] [place], [place], [id number] Protime [place] 22.7 SEC High 11.7-14.9 [facility] Comment on above: Performed By: #### L 9200.0000 #### [facility] [address] [place], [address] Whole blood prothrombin time Ordered By: Javon Jenkins on 05-23-2025 PT Coag (Bld) [Time] 22.7 s High 11.7-14.9 [facility] Breast imaging reportOrdered By: Clara Bejarano on 04-19-2025 Study report [facility] Imaging Services [address] [place] [address] SCRN MAMM (CAD)W/ERNESTINA BILAT MR#: [id number] Acct: [id number] Name: ERENDIRA CHÁVEZ Rep #: [id number] : 1945 F 79 From: Toby Bejarano DO PCP: Dr. Eric Delatorre MD Status: R EG CLI Study:SCRN MAMM (CAD)W/ERNESTINA BILAT Date of Exa m: 04/17/25 Exam# [id number] Ordering Dr: Lola Lopez MD ADDENDUM by Dr. Clara Bejarano DO on 04/19/25 at 2245 Breast composition: The breasts are primarily fatty. Reading Location: [facility] [place] 04/19/255 Date cc: Dr. Eric Delatorre MD; Dr. Lola Bowles MD ~* Signed EXAM: SCRN MAMM (CAD)W/ERNESTINA BILAT DATE: 04/17/2025 CLINICAL HISTORY: F, Age 79 y/o , SCREEN FOR BREAST CANCER TECHNIQUE: SCRN MAMM (CAD)W/ERNESTINA BILAT COMPARISON: Prior exam(s) dated 04/14/2024, 02/19/2023, and 02/17/2022.. FINDINGS: TISSUE DENSITY: Must pick one of these options! Bilateral Breast Mammographic Findings: Benign vascular calcifications and round calcifications are seen in both breasts. No suspicious masses, suspicious cluster of microcalcifications, architectural distortion or secondary signs of malignancy is identified in either breast. BI/SCRN MAMM (CAD)W/ERNESTINA BILAT IMPRESSION: Benign stable screening mammogram. OVERALL FINAL ASSESSMENT BI-RADS 2: BENIGN RECOMMENDATION: Routine annual follow-up in 1 Year A letter with findings and recommendations will be mailed to the patient. Reading Location: [facility] [place] CC: Dr. Eric Delatorre MD; Dr. Lola Bowles MD ~ Promotions Manager: Signed [facility] International normalized rat io (INR) measurement by fingerstickOrdered By: Javon Jenkins on 04-19-2025 INR Coag (BldC) [Relative time] 2.3 [facility] Comment on above: Critical Value > 4.0 Protime w/INR Fingerstickon 04-19-2025 INR Coag (PPP) [Relative time] 2.3 {INR} Normal [facility] Comment on above: Result Comment: Crit ical Value > 4.0 Performed By: #### L 9200.0000 #### [facility] [address] [place], [place], [id number] Protime Coagsen 25.0 SEC High 11.7-14.9 [facility] Comment on above: Performed By: #### L 9200.0000 #### [facility] [address] [place], [place], [address] Whole blood prothrombin time Ordered By: Javon Jenkins on 04-19-2025 PT Coag (Bld) [Time] 25.0 s High 11.7-14.9 [facility] [place] [place] Office Visit Reporton 04-17-2025 [facility] Office Visit Report [facility] [address], [address] [place] [address] OFFICE VISIT Date of Service: 04/17/25 MR#: [id number] Acct: [id number] Name: ERENDIRA CHÁVEZ Rep #: [id number] : 1945 Provider: Dr. 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 Is patient in pain?: No Allergies brimonidine Allergy (Verified 04/17/25 13:29) NEEDS FOLLOW-UP Penicillins Allergy (Verified 04/17/25 13:29) Hives Medications ???Medication ???Instructions ???Recorded ???Confirmed ???Type cholecalciferol (vitamin D3) 25 1,000 unit PO QDAY 12/02/17 History mcg (1,000 unit) capsule multivitamin,wr-udyc-vczgisar 1 tab PO QDAY 12/02/17 04/17/25 Hi story (Complete Multivitamin tablet) aluminum hydrox-magnesium carb 160 2 - 3 tab PO QHS 01/22/21 History mg-105 mg chewable tablet compress.stocking,knee,reg,lr g #2 ea 04/02/22 04/17/25 Rx cane #1 ea 01/21/23 04/17/25 Rx calcium 500 mg 2 tab PO BID 10/30/23 04/17/25 His tory (carb,gluconate)-magnesium 250 mg (gluc,oxide) tablet (Calcium Magnesium) warfarin 4 mg tablet 4 mg PO DAILY #90 tabs 05/12/24 Rx Handicap Placard #1 ea 05/13/24 04/17/25 Rx blood sugar diagnostic (Accu-Chek #200 ea 06/08/24 04/17/25 Rx Destinee Plus test strips) amlodipine 2.5 mg tablet 2.5 mg PO DAILY #30 tabs 06/22/24 04/17/25 Rx insulin glargine 100 unit/mL (3 45 unit (0.45 mL) subcut QDAY 3 04/17/25 Rx mL) subcutaneous pen (Lantus months #40.5 mL Solostar U-100 Insulin) pen needle, diabetic 31 gauge x #100 ea 10/13/24 04/17/25 Rx 5/16 (Comfort EZ Pen [place]) glimepiride 2 mg tablet 6 mg (3 x 2 mg) PO DAILY 3 months 10/26/24 04/17/25 Rx #270 tabs lansoprazole 30 mg capsule,delayed 30 mg PO DAILY #90 caps 10/26/24 04/17/25 Rx release simvastatin 10 mg tablet 10 mg PO QHS #90 tabs 01/09/25 Rx atenolol 25 mg tablet 25 mg PO BID #180 tabs 03/28/25 Rx lisinopril 20 mg tablet 20 mg PO BID #180 tabs 03/28/25 Rx Is last menstrual period known: No Post menopausal: Yes Patient : No : No Control Method: post menopausal [facility] Medical History Night terrors, adult Health care maintenance Dermatitis Hot flashes Osteopenia Osteoarthritis Left shoulder pain Hypersomnolence Bilateral hip pain Chronic back pain Rosacea Venous insufficiency of both lower extremities Paroxysmal atrial fibrillation Generalized anxiety disorder Headache Wears glasses Yeast dermatitis Arthritis High cholesterol Back pain Migraine headache Difficulty swallowing Dietary restriction History of hiatal hernia History of IBS Gastric reflux Non-smoker Leg cramps History of edema Cardiology follow-up encounter Hx of echocardiogram History of stress test Fecal incontinence Vaginal candidiasis Fatty liver disease, nonalcoholic h/o urethral surgery Frequent UTI Secondary pulmonary hypertension Irritable bowel syndrome Glaucoma GERD (gastroesophageal reflux disease) History of left shoulder fracture Diarrhea 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 Palpitations Hyperlipidemia Sebaceous cyst Endometrial cancer (02/2012) Obesity Essential hypertension Type 2 diabetes mellitus Surgical History S/P eye surgery H/O colonoscopy H/O endoscopy History of LAV History of tonsillectomy Hx of cholecystectomy Family History Mother CVA (cerebral vascular accident) Diabetes Heart disease Father Myocardial infarction Heart disease Brother Hypertension High cholesterol Social History (Updated 04/17/25 @ 13:30 by Mona Faulkner) number of children: 2 current occupational status: retired Smoking Status: Never smoker alcohol intake: never substance use type: does not use caffeine: No what type of physical activity do you participate in: walking seatbelt use: always do you feel safe at home: Yes additional social history: Yariel- Retired Patient is retired History 2 Elective abortions Hx Para 2 Spontaneous abortions Hx # Term Pregnancies Ectopic pregnancies Hx # Pregnancies Multiple births # of living children Past Pregnancies Del. Date Name GA/Weeks Outcome Route Bth Weight Infant Gen Labor Lgth Anesthesia D (more content not included)... Normal [facility] SCRN MAMM (CAD)W/ERNESTINA BILATo n 04-17-2025 SCRN MAMM (CAD)W/ERNESTINA BILAT [facility] Imaging Services [address] [place] [address] SCRN MAMM (CAD)W/ERNESTINA BILAT MR#: [id number] Acct: [id number] Name: ERENDIRA CHÁVEZ Rep #: [id number] : 1945 F 79 From: Clara Calles PCP: Dr. Eric Delatorre MD Status: REG CLI Study: SCRN MAMM (CAD)W/ERNESTINA BILAT Date of Exam: 03/25 01/15 Exam# [id number] Ordering Dr: Lola Bowles ADDENDUM by Dr. Clara Bejarano DO on 04/19/25 at 2245 Breast composition: The breasts are primarily fatty. Reading Location: [id number] 04/19/252244 Date cc: Dr. Eric Delatorre MD; Dr. Lola Bowles MD * Signed EXAM: SCRN MAMM (CAD)W/ERNESTINA BILAT DATE: 04/17/2025 CLINICAL HISTORY: F, Age 79 y/o , SCREEN FOR BREAST CANCER TECHNIQUE: SCRN MAMM (CAD)W/ERNESTINA BILAT COMPARISON: Prior exam(s) dated 04/14/2024, 02/19/2023, and 02/17/2022.. FINDINGS: TISSUE DENSITY: Must pick one of these options! Bilateral Breast Mammographic Findings: Benign vascular calcifications and round calcifications are seen in both breasts. No suspicious masses, suspicious cluster of microcalcifications, architectural distortion or secondary signs of malignancy is identified in either breast. BI/SCRN MAMM (CAD)W/ERNESTINA BILAT IMPRESSION: Benign stable screening mammogram. OVERALL FINAL ASSESSMENT BI-RADS 2: BENIGN RECOMMENDATION: Routine annual follow-up in 1 Year A letter with findings and recommendations will be mailed to the patient. Reading Location: [facility] [place] CC: Dr. Eric Delatorre MD; Dr. Lola Bowles MD Promotions Manager: Signed Normal [facility] No Panel InformationOrdered By: Christian Capellan on 03-24-2025 INR International Normalized Ratio 2.0 [facility] Absolute lymphocyte countOrd ered By: Eric Delatorre on 03-08-2025 Lymphocytes Auto (Unsp spec) [#/Vol] 1.69 10*3/uL 0.83-4.51 [facility] Absolute neutrophil countOrd ered By: Eric Delatorre on 03-08-2025 Neutrophils (Bld) [#/Vol] 4.4 10*3/uL 2.0-7.7 [facility] Anion gap in Serum or Plasma Ordered By: Eric Delatorre on 03-08-2025 Anion gap [Moles/Vol] 8 mmol/L 5-15 [facility] Automated lymphocyte count a s percentage of total leukocytesOrdered By: Eric Delatorre on 03-08-2025 Lymphocytes/100 WBC Auto (Unsp spec) 24.7 % 19-41 [facility] BUN/creatinine ratioOrdered By: Eric Delatorre on 03-08-2025 Urea nitrogen/Creatinine [Mass ratio] 26.6 mg/mg High 10-20 [facility] Basophil percentageOrdered B y: Eric Delatorre on 03-08-2025 Basophils/100 WBC (Bld) 0.3 % 0-1 [facility] Bilirubin, totalOrdered By: Eric Delatorre on 03-08-2025 Bilirubin [Mass/Vol] 0.51 mg/dL 0.00-1.30 [facility] CBC W/Diff, Automatedon 07- Absolute Lymph 1.69 X10 3/uL Normal 0.83-4.51 [facility] Comment on above: Performed By: #### L 300.3900 #### [facility] [address] [place], [address] Absolute Neut 4.4 X10 3/uL Normal 2.0-7.7 [facility] Comment on above: Performed By: #### L 300.3900 #### [facility] [address] [place], [address] Basophils/100 WBC (Bld) 0.3 % Normal 0-1 [facility] Comment on above: Performed By: #### L 300.3900 #### [facility] [address] [place], [address] Eosinophils/100 WBC (Bld) 1.3 % Normal 0-5 [facility] Comment on above: Performed By: #### L 300.3900 #### [facility] [address] [place], [address] Erythrocyte distribution width (RBC) [Ratio] 13.8 % Normal 11.6-14.6 [facility] Comment on above: Performed By: #### L 300.3900 #### [facility] [address] [place], [address] Hematocrit (Bld) [Volume fraction] 37.9 % Normal 37-47 [facility] Comment on above: Performed By: #### L 300.3900 #### [facility] [address] [place], [address] Hemoglobin (Bld) [Mass/Vol] 12.5 g/dL Normal 12.0-15.0 [facility] Comment on above: Performed By: #### L 300.3900 #### [facility] [address] [place], [address] IG% 0.300 Normal 0.0-0.9 [facility] Comment on above: Result Comment: IG% - Immature Granulocytes (promyelocytes, myelocytes and metamyelocytes) > 1% indicates that a LEFT SHIFT is Present. Performed By: #### L 300.3900 #### [facility] [address] [place], [address] Lymphocytes/100 WBC (Bld) 24.7 % Normal 19-41 [facility] Comment on above: Performed By: #### L 300.3900 #### [facility] [address] [place], [address] MCH (RBC) [Entitic mass] 31.6 pg Normal 27.0-32.0 [facility] Comment on above: Performed By: #### L 300.3900 #### [facility] [address] [place], [address] MCHC (RBC) [Mass/Vol] 33.0 g/dL Normal 32-36 [facility] Comment on above: Performed By: #### L 300.3900 #### [facility] [address] [place], [address] MCV (RBC) [Entitic vol] 95.9 fL Normal 81-99 [facility] Comment on above: Performed By: #### L 300.3900 #### [facility] [address] [place], [address] Monocytes/100 WBC (Bld) 8.8 % Normal 0-10 [facility] Comment on above: Performed By: #### L 300.3900 #### [facility] [address] [place], [address] Neutrophils/100 WBC (Bld) 64.6 % Normal 47-70 [facility] Comment on above: Performed By: #### L 300.3900 #### [facility] [address] [place], [address] Nucleated RBC (Bld) [#/Vol] 0 10*3/uL Normal 0-5 [facility] Comment on above: Performed By: #### L 300.3900 #### [facility] [address] [place], [address] Platelet mean volume (Bld) [Entitic vol] 10.6 fL Normal 6.2-12.0 [facility] Comment on above: Performed By: #### L 300.3900 #### [facility] [address] [place], [address] Platelets (Bld) [#/Vol] 205 10*3/uL Normal 150-450 [facility] Comment on above: Performed By: #### L 300.3900 #### [facility] [address] [place], [address] RBC (Bld) [#/Vol] 3.95 10*6/uL Low 4.2-5.4 [facility] Comment on above: Performed By: #### L 300.3900 #### [facility] [address] [place], [address] RDW SD 49.3 fl High 35.1-43.9 [facility] Comment on above: Performed By: #### L 300.3900 #### [facility] [address] [place], [address] WBC (Bld) [#/Vol] 6.8 10*3/uL Normal 4.4-11.0 [facility] Comment on above: Performed By: #### L 300.3900 #### [facility] [address] [place], [address] Carbon dioxide, total [Moles /volume] in Central venous bloodOrdered By: Eric Delatorre on 03-08-2025 CO2 [Moles/Vol] 26.0 mmol/L 21.0-32.0 [facility] Chloride assayOrdered By: Ayush catie Delatorre on 03-08-2025 Chloride [Moles/Vol] 105 mmol/L 98-108 [facility] Comprehensive Metabolic Prof ilon 03-08-2025 Albumin [Mass/Vol] 4.1 g/dL Normal 3.4-4.8 [facility] Comment on above: Performed By: #### L 300.3900 #### [facility] [address] [place], [address] Albumin/Globulin [Mass ratio] 1.2 {ratio} Normal 0.9-2.4 [facility] Comment on above: Performed By: #### L 300.3900 #### [facility] [address] [place], [address] ALK PHOS 69 U/L Normal 35-104 [facility] Comment on above: Performed By: #### L 300.3900 #### [facility] [address] [place], [address] ALT [Catalytic activity/Vol] 18 U/L Normal <=34 [facility] Comment on above: Performed By: #### L 300.3900 #### [facility] [address] [place], [address] AST [Catalytic activity/Vol] 24 U/L Normal <=31 [facility] Comment on above: Performed By: #### L 300.3900 #### [facility] [address] [place], [address] Bilirubin [Mass/Vol] 0.51 mg/dL Normal 0.00-1.30 [facility] Comment on above: Performed By: #### L 300.3900 #### [facility] [address] [place], [address] BUN/CRE 26.6 RATIO High 10-20 [facility] Comment on above: Performed By: #### L 300.3900 #### [facility] [address] [place], [address] Calcium [Mass/Vol] 9.4 mg/dL Normal 7.6-11.0 [facility] Comment on above: Performed By: #### L 300.3900 #### [facility] [address] [place], [address] Chloride [Moles/Vol] 105 mmol/L Normal 98-108 [facility] Comment on above: Performed By: #### L 300.3900 #### [facility] [address] [place], [address] CO2 [Moles/Vol] 26.0 mmol/L Normal 21.0-32.0 [facility] Comment on above: Performed By: #### L 300.3900 #### [facility] [address] [place], [address] Creatinine [Mass/Vol] 0.74 mg/dL Normal 0.70-1.20 [facility] Comment on above: Performed By: #### L 300.3900 #### [facility] [address] [place], [address] GAP 8 Normal 5-15 [facility] Comment on above: Performed By: #### L 300.3900 #### [facility] [address] [place], [address] GFR/1.73 sq M.predicted among non-blacks MDRD (S/P/Bld) [Vol rate/Area] 82 mL/min/{1.73_m2} Normal >60 [facility] Comment on above: Result Comment: mL/m in/1.73m2 CKD-EPI Creatinine Equation (2020) Performed By: #### L 300.3900 #### [facility] [address] [place], [address] Globulin (S) [Mass/Vol] 3.4 g/dL Normal 2.2-4.2 [facility] Comment on above: Performed By: #### L 300.3900 #### [facility] [address] [place], [address] Glucose [Mass/Vol] 175 mg/dL High 70-99 [facility] Comment on above: Performed By: #### L 300.3900 #### [facility] [address] [place], [address] Potassium [Moles/Vol] 4.4 mmol/L Normal 3.3-5.1 [facility] Comment on above: Performed By: #### L 300.3900 #### [facility] [address] [place], [address] Sodium [Moles/Vol] 139 mmol/L Normal 133-145 [facility] Comment on above: Performed By: #### L 300.3900 #### [facility] [address] [place], [address] T PROT 7.5 g/dL Normal 5.9-8.4 [facility] Comment on above: Performed By: #### L 300.3900 #### [facility] [address] [place], [address] Urea nitrogen [Mass/Vol] 20 mg/dL High 4-19 [facility] Comment on above: Performed By: #### L 300.3900 #### [facility] [address] [place], [address] Eosinophil percentageOrdered By: Eric Delatorre on 03-08-2025 Eosinophils/100 WBC (Bld) 1.3 % 0-5 [facility] Erythrocyte distribution wid th ratioOrdered By: Eric Delatorre on 03-08-2025 Erythrocyte distribution width (RBC) [Ratio] 13.8 % 11.6-14.6 [facility] Erythrocyte distribution wid th standard deviationOrdered By: Eric Delatorre on 03-08-2025 Erythrocyte distribution width (RBC) [Ratio] 49.3 fl High 35.1-43.9 [facility] Glomerular filtration rate ( GFR) estimation/1.73 sq m using serum, plasma, or whole bOrdered By: Eric Delatorre on 03-08-2025 GFR/1.73 sq M.predicted among non-blacks MDRD (S/P/Bld) [Vol rate/Area] 82 mL/min/{1.73_m2} >60 [facility] Comment on above: mL/min/1.73m2 CKD-EP I Creatinine Equation (2020) Hematocrit Auto (Bld) [Volum e fraction]Ordered By: Eric Delatorre on 03-08-2025 Hematocrit (Bld) [Volume fraction] 37.9 % 37-47 [facility] Hemoglobin measurementOrdere d By: Eric Delatorre on 03-08-2025 Hemoglobin (Bld) [Mass/Vol] 12.5 g/dL 12.0-15.0 [facility] Immature granulocytes/100 WB C Auto (Bld)Ordered By: Eric Delatorre on 03-08-2025 Immature granulocytes/100 WBC (Bld) 0.300 % 0.0-0.9 [facility] Comment on above: IG% - Immature Granu locytes (promyelocytes, myelocytes and metamyelocytes) > 1% indicates that a LEFT SHIFT is Present. International normalized rat io (INR) calculationOrdered By: Eric Delatorre on 03-08-2025 INR Coag (Bld) [Relative time] 1.9 {INR} [facility] Laboratory - Chemistry and C hemistry - challengeOrdered By: Eric Delatorre on 03-08-2025 AST [Catalytic activity/Vol] 24 U/L <32 [facility] MCV (mean corpuscular volume ) determinationOrdered By: Eric Delatorre on 03-08-2025 MCV (RBC) [Entitic vol] 95.9 fL 81-99 [facility] Mean corpuscular hemoglobin (MCH) determinationOrdered By: Eric Delatorre 03-08-2025 MCH (RBC) [Entitic mass] 31.6 pg 27.0-32.0 [facility] Mean corpuscular hemoglobin concentration (MCHC) determinationOrdered By: Eric Delatorre on 03-08-2025 MCHC (RBC) [Mass/Vol] 33.0 g/dL 32-36 [facility] Mean platelet volume determi nationOrdered By: Eric Delatorre on 03-08-2025 Platelet mean volume (Bld) [Entitic vol] 10.6 fL 6.2-12.0 [facility] Monocyte percentageOrdered B y: Eric Delatorre on 03-08-2025 Monocytes/100 WBC (Bld) 8.8 % 0-10 [facility] Neutrophil percentageOrdered By: [facility] Del[facility] on 03-08-2025 Neutrophils/100 WBC (Bld) 64.6 % 47-70 [facility] Nucleated red blood cell per centageOrdered By: Radhareklawrebeca Delatorre on 03-08-2025 Nucleated RBC/100 WBC (Bld) [Ratio] 0 % 0-5 [facility] Platelet countOrdered By: Ayush Delatorre on 03-08-2025 Platelets (Bld) [#/Vol] 205 10*3/uL 150-450 [facility] Potassium measurement (mass/ volume)Ordered By: Eric Delatorre on 03-08-2025 Potassium (Unsp spec) [Mass/Vol] 4.4 mmol/L 3.3-5.1 [facility] Prothrombin Time w/INRon INR Coag (PPP) [Relative time] 1.9 {INR} Normal [facility] Comment on above: Order Comment: DAYANARA Suarez SEND PT RESULTS TO Performed By: #### L 270.3900 #### [facility] [address] [place], [place], [id number] PT Coag (PPP) [Time] 21.7 s High 11.7-14.9 [facility] Comment on above: Order Comment: DAYANARA Suarez SEND PT RESULTS TO Performed By: #### L 911.3900 #### [facility] [address] [place], [address] Prothrombin timeOrdered By: Eric Delatorre on 03-08-2025 PT Coag (PPP) [Time] 21.7 s High 11.7-14.9 [facility] RBC Auto (Bld) [#/Vol]Ordere d By: Eric Delatorre on 03-08-2025 RBC (Bld) [#/Vol] 3.95 10*6/uL Low 4.2-5.4 [facility] Serum creatinine measurement (mass/volume)Ordered By: Eric Delatorre on 03-08-2025 Creatinine [Mass/Vol] 0.74 mg/dL 0.70-1.20 [facility] Serum globulin measurementOr dered By: Eric Delatorre on 03-08-2025 Globulin (S) [Mass/Vol] 3.4 g/dL 2.2-4.2 [facility] Serum glucose measurement (m ass/volume)Ordered By: Eric Delatorre on 03-08-2025 Glucose [Mass/Vol] 175 mg/dL High 70-99 [facility] Serum or plasma alanine gee otransferase (ALT) measurementOrdered By: Eric Delatorre on 03-08-2025 ALT [Catalytic activity/Vol] 18 U/L <35 [facility] Serum or plasma albumin david urement (mass/volume)Ordered By: Eric Delatorre 03-08-2025 Albumin [Mass/Vol] 4.1 g/dL 3.4-4.8 [facility] Serum or plasma albumin/glob ulin mass ratioOrdered By: Eric Delatorre 03-08-2025 Albumin/Globulin [Mass ratio] 1.2 {ratio} 0.9-2.4 [facility] Serum or plasma alkaline edgar sphatase measurementOrdered By: Eric Delatorre 03-08-2025 ALP [Catalytic activity/Vol] 69 U/L 35-104 [facility] Serum or plasma calcium david urement (mass/volume)Ordered By: Eric Delatorre 03-08-2025 Calcium [Mass/Vol] 9.4 mg/dL 7.6-11.0 [facility] Serum or plasma urea nitroge n measurement (mass/volume)Ordered By: Temorebeca Ojedauyen on 03-08-2025 Urea nitrogen [Mass/Vol] 20 mg/dL High 4-19 [facility] Sodium levelOrdered By: Radha Delatorre on 03-08-2025 Sodium [Moles/Vol] 139 mmol/L 133-145 [facility] Total proteinOrdered By: Alvin Delatorre on 03-08-2025 Protein [Mass/Vol] 7.5 g/dL 5.9-8.4 [facility] White blood cell (WBC) count Ordered By: Eric Delatorre on 03-08-2025 WBC (Bld) [#/Vol] 6.8 10*3/uL 4.4-11.0 [facility] Internal Medicine Office Vis itonancy 03-06-2025 Internal Medicine Office Visit [facility] [address] [place] [address] [address] [place] [address] OFFICE VISIT Date of Service: 03/06/25 MR#: [id number] Acct: [id number] Name: ERENDIRA CHÁVEZ Rep #: [id number] : 1945 Provider: Dr. 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 Accompanied by: Self Is patient in pain?: No Allergies brimonidine Allergy (Verified 03/06/25 13:21) NEEDS FOLLOW-UP Penicillins Allergy (Verified 03/06/25 13:21) Hives Medications ???Medication ???Instructions ???Recorded ???Confirmed ???Type cholecalciferol (vitamin D3) 25 1,000 unit PO QDAY 12/02/17 History mcg (1,000 unit) capsule multivitamin,nf-ugip-jbucayml 1 tab PO QDAY 12/02/17 03/06/25 Hi story (Complete Multivitamin tablet) aluminum hydrox-magnesium carb 160 2 - 3 tab PO QHS 01/22/21 History mg-105 mg chewable tablet compress.stocking,knee,reg,lr g #2 ea 04/02/22 03/06/25 Rx cane #1 ea 01/21/23 03/06/25 Rx calcium 500 mg 2 tab PO BID 10/30/23 03/06/25 His tory (carb,gluconate)-magnesium 250 mg (gluc,oxide) tablet (Calcium Magnesium) warfarin 4 mg tablet 4 mg PO DAILY #90 tabs 05/12/24 Rx Handicap Placard #1 ea 05/13/24 03/06/25 Rx blood sugar diagnostic (Accu-Chek #200 ea 06/08/24 03/06/25 Rx Destinee Plus test strips) amlodipine 2.5 mg tablet 2.5 mg PO DAILY #30 tabs 06/22/24 03/06/25 Rx insulin glargine 100 unit/mL (3 45 unit (0.45 mL) subcut QDAY 3 03/06/25 Rx mL) subcutaneous pen (Lantus months #40.5 mL Solostar U-100 Insulin) pen needle, diabetic 31 gauge x #100 ea 10/13/24 03/06/25 Rx 5/16 (Comfort EZ Pen [place]) lisinopril 20 mg tablet 20 mg PO BID #180 tabs 10/24/24 Rx glimepiride 2 mg tablet 6 mg (3 x 2 mg) PO DAILY 3 months 10/26/24 03/06/25 Rx #270 tabs lansoprazole 30 mg capsule,delayed 30 mg PO DAILY #90 caps 10/26/24 03/06/25 Rx release simvastatin 10 mg tablet 10 mg PO QHS #90 tabs 01/09/25 Rx atenolol 25 mg tablet 25 mg PO BID #180 tabs 03/06/25 Rx Have you fallen in the past year?: No Nurse's Note: atenolol needs refilled also has numbers of sugar readings for 3 month [facility] Medical History Night terrors, adult Health care maintenance Dermatitis Hot flashes Osteopenia Osteoarthritis Left shoulder pain Hypersomnolence Bilateral hip pain Chronic back pain Rosacea Venous insufficiency of both lower extremities Paroxysmal atrial fibrillation Generalized anxiety disorder Headache Wears glasses Yeast dermatitis Arthritis High cholesterol Back pain Migraine headache Difficulty swallowing Dietary restriction History of hiatal hernia History of IBS Gastric reflux Non-smoker Leg cramps History of edema Cardiology follow-up encounter Hx of echocardiogram History of stress test Fecal incontinence Vaginal candidiasis Fatty liver disease, nonalcoholic h/o urethral surgery Frequent UTI Secondary pulmonary hypertension Irritable bowel syndrome Glaucoma GERD (gastroesophageal reflux disease) History of left shoulder fracture Diarrhea 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 intermediate current use of anticoagulant Palpitations Hyperlipidemia Sebaceous cyst Endometrial cancer (02/2012) Obesity Essential hypertension Type 2 diabetes mellitus Surgical History S/P eye surgery H/O colonoscopy H/O endoscopy History of [facility] History of tonsillectomy Hx of cholecystectomy Family History Mother CVA (cerebral vascular accident) Diabetes Heart disease Father Myocardial infarction Heart disease Brother Hypertension High cholesterol Social History Smoking Status: Never smoker alcohol intake: never substance use type: does not use caffeine: No what type of physical activity do you participate in: walking seatbelt use: always do you feel safe at home: Yes additional social history: Yariel- Retired Patient is retired HPI HPI Chief Complaint: 3 m fu Details: ERENDIRA CHÁVEZ, is a 79-year-old female presenting with Type 2 Diabetes Mellitus management and follow-up of her chronic medical (more content not included)... Normal [facility] - Hematology and Cell countsOrdered By: Eric Delatorre on 03-06-2025 HbA1c (Bld) [Mass fraction] 7.5 % High 4.2-6.3 [facility] International normalized rat io (INR) calculationOrdered By: Javon Jenkins on 02-09-2025 INR Coag (Bld) [Relative time] 2.0 {INR} [facility] Prothrombin Time w/INRon INR Coag (PPP) [Relative time] 2.0 {INR} Normal [facility] Comment on above: Performed By: #### L 300.3900 #### [facility] [address] [place], [address] PT Coag (PPP) [Time] 22.8 s High 11.7-14.9 [facility] Comment on above: Performed By: #### L 300.3900 #### [facility] [address] [place], [address] Prothrombin timeOrdered By: Javon Jenkins on 02-09-2025 PT Coag (PPP) [Time] 22.8 s High 11.7-14.9 [facility] International normalized rat io (INR) measurement by fingerstickOrdered By: Javon Jenkins on 01-10-2025 INR Coag (BldC) [Relative time] 2.3 [facility] Comment on above: Critical Value > 4.0 Protime w/INR Fingerstickon 01-10-2025 INR Coag (PPP) [Relative time] 2.3 {INR} Normal [facility] Comment on above: Result Comment: Crit ical Value > 4.0 Performed By: #### L 9200.0000 #### [facility] [address] [place], [address] Protime [place]agsen 24.7 SEC High 11.7-14.9 [facility] Comment on above: Performed By: #### L 9200.0000 #### [facility] [address] [place], [address] Whole blood prothrombin time Ordered By: Javon Jenkins on 01-10-2025 PT Coag (Bld) [Time] 24.7 s High 11.7-14.9 [facility] Cardiology Visit Reporton Cardiology Visit Report [facility] [address] [place] [address] OFFICE VISIT Date of Service: 12/20/24 MR#: [id number] Acct: [id number] Name: ERENDIRA CHÁVEZ Rep #: [id number] : 1945 Provider: Dr. Javon Jenkins MD Age/Sex: 79/F Location[place] [facility] [place] Status: Signed HPI HPI History of Present Illness Details: This is a 79-year-old female who presents the office today for a cardiovascular outpatient follow- up. She has a past medical history of hypertension, paroxysmal atrial fibrillation, 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, endometrial cancer stage Ia in 2012, and GERD. She tells me that she had an episode of atrial fibrillation which lasted almost 16 hours she took an extra atenolol which improved her symptomatology. She denies chest, arm, jaw, or neck discomfort. She acknowledges palpitations that she describes as fast. She states bilateral lower extremity edema. She denies claudication. She states occasional shortness of breath with activity. She denies shortness of breath at rest, orthopnea, or PND. She denies chronic cough. She denies significant, sudden weight gain. She denies lightheadedness, near-syncope, or syncope. She denies blood in urine, blood in stool, or epistaxis. He denies fever with chills. She denies myalgia. She acknowledges fatigue. Her exercise level has remained stable. Intake Vital Signs 10/30/23 12:55 11/28/24 11:20 12/20/24 14:13 Height 5 ft 4 in 5 ft 4 in 5 ft 4 in Weight: 228 lb BMI 39.1 BP 144/78 H Blood Pressure Location Lt brachial Position Sitting Respiration 16 Pulse 72 Pulse Source Monitor Intake Visit Reasons: 1 Y FU 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 Accompanied by: Significant Other Is patient in pain?: No Allergies brimonidine Allergy (Verified 12/20/24 14:20) NEEDS FOLLOW-UP Penicillins Allergy (Verified 12/20/24 14:20) Hives Medications ???Medication ???Instructions ???Recorded ???Confirmed ???Type cholecalciferol (vitamin D3) 25 1,000 unit PO QDAY 12/02/17 History mcg (1,000 unit) capsule multivitamin,zo-fpep-yzhuaraq 1 tab PO QDAY 12/02/17 12/20/24 Hi story (Complete Multivitamin tablet) aluminum hydrox-magnesium carb 160 2 - 3 tab PO QHS 01/22/21 History mg-105 mg chewable tablet compress.stocking,knee,reg,lr g #2 ea 04/02/22 11/28/24 Rx cane #1 ea 01/21/23 11/28/24 Rx calcium 500 mg 2 tab PO BID 10/30/23 12/20/24 His tory (carb,gluconate)-magnesium 250 mg (gluc,oxide) tablet (Calcium Magnesium) simvastatin 10 mg tablet 10 mg PO QHS #90 tabs 01/07/24 Rx warfarin 4 mg tablet 4 mg PO DAILY #90 tabs 05/12/24 Rx Handicap Placard #1 ea 05/13/24 11/28/24 Rx blood sugar diagnostic (Accu-Chek #200 ea 06/08/24 11/28/24 Rx Destinee Plus test strips) atenolol 25 mg tablet 25 mg PO BID #180 tabs 06/15/24 Rx amlodipine 2.5 mg tablet 2.5 mg PO DAILY #30 tabs 06/22/24 12/20/24 Rx insulin glargine 100 unit/mL (3 45 unit (0.45 mL) subcut QDAY 3 12/20/24 Rx mL) subcutaneous pen (Lantus months #40.5 mL Solostar U-100 Insulin) pen needle, diabetic 31 gauge x #100 ea 10/13/24 11/28/24 Rx 5/16 (Comfort EZ Pen [place]) lisinopril 20 mg tablet 20 mg PO BID #180 tabs 10/24/24 Rx glimepiride 2 mg tablet 6 mg (3 x 2 mg) PO DAILY 3 months 10/26/24 12/20/24 Rx #270 tabs lansoprazole 30 mg capsule,delayed 30 mg PO DAILY #90 caps 10/26/24 12/20/24 Rx release Have you fallen in the past year?: No [facility] Medical History Night terrors, adult Health care maintenance Dermatitis Hot flashes Osteopenia Osteoarthritis Left shoulder pain Hypersomnolence Bilateral hip pain Chronic back pain Rosacea Venous insufficiency of both lower extremities Paroxysmal atrial fibrillation Generalized anxiety disorder Headache Wears glasses Yeast dermatitis Arthritis High cholesterol Back pain Migraine headache Difficulty swallowing Dietary restriction History of hiatal hernia History of IBS Gastric reflux Non-smoker Leg cramps History of edema Cardiology follow-up encounter Hx of echocardiogram History of stress test Fecal incontinence Vaginal candidiasis Fatty liver disease, nonalcoholic h/o urethral surgery Frequent UTI Secondary pulmonary hypertension Irritable bowel syndrome Glaucoma GERD (gastroesophageal reflux disease) History of left shoulder fracture Diarrhea 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 intermediate current use of anticoagulant Palpitations Hyperlipidemia Sebaceous cyst Endometrial cancer (02/2012) Obesity Essential hypertension Type 2 diabetes mellitus Surgical History S/P eye tara (more content not included)... Normal [facility] International normalized rat io (INR) measurement by fingerstickOrdered By: Javon Jenkins on 12-12-2024 INR Coag (BldC) [Relative time] 2.1 [facility] Comment on above: Critical Value > 4.0 Protime w/INR Fingerstickon 12-12-2024 INR Coag (PPP) [Relative time] 2.1 {INR} Normal [facility] Comment on above: Result Comment: Crit ical Value > 4.0 Performed By: #### L 300.3900 #### [facility] [address] [place], [address] Protime Coagsen 22.6 SEC High 11.7-14.9 [facility] Comment on above: Performed By: #### L 300.3900 #### [facility] [address] [facility] [place], [place], [id number] Whole blood prothrombin time Ordered By: Javon Jenkins on 12-12-2024 PT Coag (Bld) [Time] 22.6 s High 11.7-14.9 [facility] Anion gap in Serum or Plasma Ordered By: Eric Delatorre on 11-28-2024 Anion gap [Moles/Vol] 8 mmol/L - [facility] BUN/creatinine ratioOrdered By: Eric Delatorre on 11-28-2024 Urea nitrogen/Creatinine [Mass ratio] 26.3 mg/mg High 06-12 [facility] Basic Metabolic Profile (BMP )on 11-28-2024 BUN/CRE 26.3 RATIO High 06-12 [facility] Comment on above: Performed By: #### L 500.2500 #### [facility] [address] [place], [address] Calcium [Mass/Vol] 9.5 mg/dL Normal 7.6-11.0 [facility] Comment on above: Performed By: #### L 500.2500 #### [facility] [address] [place], [address] Chloride [Moles/Vol] 104 mmol/L Normal 98-108 [facility] Comment on above: Performed By: #### L 500.2500 #### [facility] [address] [place], [address] CO2 [Moles/Vol] 27.5 mmol/L Normal 21.0-32.0 [facility] Comment on above: Performed By: #### L 500.2500 #### [facility] [address] [place], [address] Creatinine [Mass/Vol] 0.75 mg/dL Normal 0.70-1.20 [facility] Comment on above: Performed By: #### L 500.2500 #### [facility] [address] [place], [address] GAP 8 Normal - [facility] Comment on above: Performed By: #### L 500.2500 #### [facility] [address] [place], [address] GFR/1.73 sq M.predicted among non-blacks MDRD (S/P/Bld) [Vol rate/Area] 80 mL/min/{1.73_m2} Normal >60 [facility] Comment on above: Result Comment: mL/m in/1.73m2 CKD-EPI Creatinine Equation (2020) Performed By: #### L 500.2500 #### [facility] [address] [place], [address] Glucose [Mass/Vol] 123 mg/dL High 70-99 [facility] Comment on above: Performed By: #### L 500.2500 #### [facility] [address] [place], [address] Potassium [Moles/Vol] 5.0 mmol/L Normal 3.3-5.1 [facility] Comment on above: Performed By: #### L 500.2500 #### [facility] [address] [place], [address] Sodium [Moles/Vol] 140 mmol/L Normal 133-145 [facility] Comment on above: Performed By: #### L 500.2500 #### [facility] [address] [place], [address] Urea nitrogen [Mass/Vol] 20 mg/dL High 4-19 [facility] Comment on above: Performed By: #### L 500.2500 #### [facility] [address] [place], [address] Carbon dioxide, total [Moles /volume] in Central venous bloodOrdered By: Eric Delatorre on 11-28-2024 CO2 [Moles/Vol] 27.5 mmol/L 21.0-32.0 [facility] Chloride assayOrdered By: Ayush Delatorre on 11-28-2024 Chloride [Moles/Vol] 104 mmol/L 98-108 [facility] GFR/1.73 sq M.predicted ana g non-blacks MDRD (S/P/Bld) [Vol rate/Area]Ordered By: Eric Delatorre on 11-28-2024 Estimated GFR (MDRD) Non-Af Amer 80 >60 [facility] Comment on above: mL/min/1.73m2 CKD-EP I Creatinine Equation (2020) Glomerular filtration rate ( GFR) estimation/1.73 sq m using serum, plasma, or whole bOrdered By: Eric Delatorre on 11-28-2024 GFR/1.73 sq M.predicted among non-blacks MDRD (S/P/Bld) [Vol rate/Area] 80 mL/min/{1.73_m2} >60 [facility] Comment on above: mL/min/1.73m2 CKD-EP I Creatinine Equation (2020) Internal Medicine Office Vis itonancy 11-28-2024 Internal Medicine Office Visit [facility] [address] [place], [place] [address] OFFICE VISIT Date of Service: 11/28/24 MR#: [id number] Acct: [id number] Name: ERENDIRA CHÁVEZ Rep #: [id number] : 1945 Provider: Dr. Eric mayo MD Age/Sex: 79/F Location: [facility] [place] Status: Signed Intake Vital Signs 08/22/24 13:29 11/28/24 11:20 Height 5 ft 4 in 5 ft 4 in Weight: 227 lb BMI 38.9 BP 124/72 H Blood Pressure Location Lt brachial Position Sitting Respiration 18 Pulse 64 Pulse Source Monitor Temp 98.0 F Temp Source Temporal Pulse Oximetry (%) 97 Oxygen Delivery Method room air Intake Visit Reasons: 3 m fu - keep last of am or pm Chief Complaint: 3 m fu Is patient in pain?: Yes (2 all over ) Allergies brimonidine Allergy (Verified 11/28/24 11:22) NEEDS FOLLOW-UP Penicillins Allergy (Verified 11/28/24 11:22) Hives Medications ???Medication ???Instructions ???Recorded ???Confirmed ???Type cholecalciferol (vitamin D3) 25 1,000 unit PO QDAY 12/02/17 History mcg (1,000 unit) capsule multivitamin,hw-vebp-duzgegwb 1 tab PO QDAY 12/02/17 11/28/24 Hi story (Complete Multivitamin tablet) aluminum hydrox-magnesium carb 160 2 - 3 tab PO QHS 01/22/21 History mg-105 mg chewable tablet compress.stocking,knee,reg,lr g #2 ea 04/02/22 11/28/24 Rx cane #1 ea 01/21/23 11/28/24 Rx calcium 500 mg 2 tab PO BID 10/30/23 11/28/24 His tory (carb,gluconate)-magnesium 250 mg (gluc,oxide) tablet (Calcium Magnesium) simvastatin 10 mg tablet 10 mg PO QHS #90 tabs 01/07/2403/17 Rx warfarin 4 mg tablet 4 mg PO DAILY #90 tabs 05/12/24 Rx Handicap Placard #1 ea 05/13/24 11/28/24 Rx blood sugar diagnostic (Accu-Chek #200 ea 06/08/24 11/28/24 Rx Destinee Plus test strips) atenolol 25 mg tablet 25 mg PO BID #180 tabs 06/15/24 Rx amlodipine 2.5 mg tablet 2.5 mg PO DAILY #30 tabs 06/22/24 11/28/24 Rx insulin glargine 100 unit/mL (3 45 unit (0.45 mL) subcut QDAY 3 11/28/24 Rx mL) subcutaneous pen (Lantus months #40.5 mL Solostar U-100 Insulin) pen needle, diabetic 31 gauge x #100 ea 10/13/24 11/28/24 Rx 5/16 (Comfort EZ Pen [place]) lisinopril 20 mg tablet 20 mg PO BID #180 tabs 10/24/24 Rx glimepiride 2 mg tablet 6 mg (3 x 2 mg) PO DAILY 3 months 10/26/24 11/28/24 Rx #270 tabs lansoprazole 30 mg capsule,delayed 30 mg PO DAILY #90 caps 10/26/24 11/28/24 Rx release Have you fallen in the past year?: No [facility] Medical History Night terrors, adult Health care maintenance Dermatitis Hot flashes Osteopenia Osteoarthritis Left shoulder pain Hypersomnolence Bilateral hip pain Chronic back pain Rosacea Venous insufficiency of both lower extremities Paroxysmal atrial fibrillation Generalized anxiety disorder Headache Wears glasses Yeast dermatitis Arthritis High cholesterol Back pain Migraine headache Difficulty swallowing Dietary restriction History of hiatal hernia History of IBS Gastric reflux Non-smoker Leg cramps History of edema Cardiology follow-up encounter Hx of echocardiogram History of stress test Fecal incontinence Vaginal candidiasis Fatty liver disease, nonalcoholic h/o urethral surgery Frequent UTI Secondary pulmonary hypertension Irritable bowel syndrome Glaucoma GERD (gastroesophageal reflux disease) History of left shoulder fracture Diarrhea 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 intermediate current use of anticoagulant Palpitations Hyperlipidemia Sebaceous cyst Endometrial cancer (02/2012) Obesity Essential hypertension Type 2 diabetes mellitus Surgical History S/P eye surgery H/O colonoscopy H/O endoscopy History of [facility] History of tonsillectomy Hx of cholecystectomy Family History Mother CVA (cerebral vascular accident) Diabetes Heart disease Father Myocardial infarction Heart disease Brother Hypertension High cholesterol Social History Smoking Status: Never smoker alcohol intake: never substance use type: does not use caffeine: No what type of physical activity do you participate in: walking seatbelt use: always do you feel safe at home: Yes additional social history: Yariel- Retired Patient is retired HPI HPI Chief Complaint: 3 m fu Details: ERENDIRA CHÁVEZ, is a 79 F who presents to the office today for follow-up of her chronic conditions. History of diabetes mellitus type 2, A1c today is at 8 down from 8.5. 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 Normal [facility] - Hematology and Cell countsOrdered By: Eric Delatorre on 11-28-2024 HbA1c (Bld) [Mass fraction] 8.0 % High 4.2-6.3 [facility] Potassium (Unsp spec) [Mass/ Vol]Ordered By: Eric Delatorre on 11-28-2024 Potassium [Moles/Vol] 5.0 mmol/L 3.3-5.1 [facility] Potassium measurement (mass/ volume)Ordered By: Ayushnainanancirebeca Ojedajulitadaniela on 11-28-2024 Potassium (Unsp spec) [Mass/Vol] 5.0 mmol/L 3.3-5.1 [facility] Serum creatinine measurement (mass/volume)Ordered By: Ayushnainanancirebeca Ojedajulitadaniela on 11-28-2024 Creatinine [Mass/Vol] 0.75 mg/dL 0.70-1.20 [facility] Serum glucose measurement (m ass/volume)Ordered By: Ayushnainanancirebeca Ojedajulitadaniela on 11-28-2024 Glucose [Mass/Vol] 123 mg/dL High 70-99 [facility] Serum or plasma calcium david urement (mass/volume)Ordered By: Ayushnainanancirebeca Ojedajulitadaniela on 11-28-2024 Calcium [Mass/Vol] 9.5 mg/dL 7.6-11.0 [facility] Serum or plasma urea nitroge n measurement (mass/volume)Ordered By: Ayushcatie Delatorre on 11-28-2024 Urea nitrogen [Mass/Vol] 20 mg/dL High 4-19 [facility] Sodium levelOrdered By: Radha Delatorre on 11-28-2024 Sodium [Moles/Vol] 140 mmol/L 133-145 [facility] Protime w/INR Fingerstickon 11-15-2024 INR Coag (PPP) [Relative time] 2.0 {INR} Normal [facility] Comment on above: Result Comment: Crit ical Value > 4.0 Performed By: #### L 9200.0000 #### [facility] [address] [place], [address] Protime Coagsen 21.7 SEC High 11.7-14.9 [facility] Comment on above: Performed By: #### L 9200.0000 #### [facility] [address] [place], [address] INR Coag (BldC) [Relative ti me]Ordered By: Javon Jenkins on 11-14-2024 INR Coag (Bld) [Relative time] 2.0 {INR} [facility] Comment on above: Critical Value > 4.0 International normalized rat io (INR) measurement by fingerstickOrdered By: Javon Alice on 11-14-2024 INR Coag (BldC) [Relative time] 2.0 [facility] Comment on above: Critical Value > 4.0 PT Coag (Bld) [Time]Ordered By: [place] Alice on 11-14-2024 Bedside Prothrombin Time 21.7 SEC High 11.7-14.9 [facility] Whole blood prothrombin time Ordered By: [place] Alice on 11-14-2024 PT Coag (Bld) [Time] 21.7 s High 11.7-14.9 [facility] Protime w/INR Fingerstickon 10-25-2024 INR Coag (PPP) [Relative time] 1.9 {INR} Normal [facility] Comment on above: Result Comment: Crit ical Value > 4.0 Performed By: #### L 9200.0000 #### [facility] [address] [place], [place], [id number] Protime Coagsen 21.2 SEC High 11.7-14.9 [facility] Comment on above: Performed By: #### L [id number] #### [facility] [address] [place], [place], [id number] (349) INR Coag (BldC) [Relative ti me]Ordered By: Javon Alice on 10-11-2024 INR Coag (Bld) [Relative time] 1.8 {INR} [facility] Comment on above: Critical Value > 4.0 International normalized rat io (INR) measurement by fingerstickOrdered By: [place] Alice on 10-11-2024 INR Coag (BldC) [Relative time] 1.8 [facility] Comment on above: Critical Value > 4.0 PT Coag (Bld) [Time]Ordered By: Javon Alice on 10-11-2024 Bedside Prothrombin Time 20.2 SEC High 11.7-14.9 [facility] Protime w/INR Fingerstickon 10-11-2024 INR Coag (PPP) [Relative time] 1.8 {INR} Normal [facility] Comment on above: Result Comment: Crit ical Value > 4.0 Performed By: #### L 500.2500 #### [facility] [address] [place], [address] Protime Coagsen 20.2 SEC High 11.7-14.9 [facility] Comment on above: Performed By: #### L 500.2500 #### [facility] [address] [place], [address] Whole blood prothrombin time Ordered By: Javon Jenkins on 10-11-2024 PT Coag (Bld) [Time] 20.2 s High 11.7-14.9 [facility] Protime w/INR Fingerstickon 10-03-2024 INR Coag (PPP) [Relative time] 2.0 {INR} Normal [facility] Comment on above: Result Comment: Crit ical Value > 4.0 Performed By: #### L [id number] #### [facility] [address] [place], [address] Protime Coagsen 22.2 SEC High 11.7-14.9 [facility] Comment on above: Performed By: #### L [id number] #### [facility] [address] [place], [address] Protime w/INR Fingerstickon 09-26-2024 INR Coag (PPP) [Relative time] 1.8 {INR} Normal [facility] Comment on above: Result Comment: Crit ical Value > 4.0 Performed By: #### L [id number] #### [facility] [address] [place], [address] Protime Coagsen 20.6 SEC High 11.7-14.9 [facility] Comment on above: Performed By: #### L [id number] #### [facility] [address] [place], [address] INR Coag (BldC) [Relative ti me]Ordered By: Javon Alice on 09-19-2024 INR Coag (Bld) [Relative time] 1.4 {INR} [facility] Comment on above: Critical Value > 4.0 PT Coag (Bld) [Time]Ordered By: Javon Alice on 09-19-2024 Bedside Prothrombin Time 15.5 SEC High 11.7-14.9 [facility] Protime w/INR Fingerstickon 09-19-2024 INR Coag (PPP) [Relative time] 1.4 {INR} Normal [facility] Comment on above: Result Comment: Crit ical Value > 4.0 Performed By: #### L [id number] #### [facility] [address] [place], [address] Protime Coagsen 15.5 SEC High 11.7-14.9 [facility] Comment on above: Performed By: #### L [id number] #### [facility] [address] [place], [address] Protime w/INR Fingerstickon 09-09-2024 INR Coag (PPP) [Relative time] 2.1 {INR} Normal [facility] Comment on above: Result Comment: Crit ical Value > 4.0 Performed By: #### L [id number] #### [facility] [address] [place], [address] Protime Coagsen 23.1 SEC High 11.7-14.9 [facility] Comment on above: Performed By: #### L [id number] #### [facility] [address] [place], [address] Protime w/INR Fingerstickon 08-30-2024 INR Coag (PPP) [Relative time] 2.0 {INR} Normal [facility] Comment on above: Result Comment: Crit ical Value > 4.0 Performed By: #### L 300.3900 #### [facility] [address] [place], [place], [address] Protime Coagsen 22.3 SEC High 11.7-14.9 [facility] Comment on above: Performed By: #### L 300.3900 #### [facility] [address] [place], [address] INR Coag (BldC) [Relative ti me]Ordered By: Javon Jenkins on 08-22-2024 INR Coag (Bld) [Relative time] 1.4 {INR} [facility] Comment on above: Critical Value > 4.0 Internal Medicine Office Vis rayray 08-22-2024 Internal Medicine Office Visit [facility] [address] [place], [place] [address] OFFICE VISIT Date of Service: 08/22/24 MR#: [id number] Acct: [id number] Name: ERENDIRA CHÁVEZ Rep #: [id number] : 1945 Provider: Dr. Eric mayo MD Age/Sex: 79/F Location: [facility] Status: Signed Intake Vital Signs 05/13/24 11:12 05/23/24 14:53 08/22/24 13:29 Height 5 ft 4 in 5 ft 4 in 5 ft 4 in Weight: 220 lb BMI 37.8 BP 128/80 H Blood Pressure Location Lt brachial Position Sitting Respiration 16 Pulse 75 Pulse Source Monitor Temp 97.5 F L Temp Source Temporal Pulse Oximetry (%) 99 Oxygen Delivery Method room air Intake Visit Reasons: 3 M FU Chief Complaint: follow up chronic conditions. 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 Accompanied by: Self Is patient in pain?: No Allergies brimonidine Allergy (Verified 08/22/24 13:24) NEEDS FOLLOW-UP Penicillins Allergy (Verified 08/22/24 13:24) Hives Medications ???Medication ???Instructions ???Recorded ???Confirmed ???Type cholecalciferol (vitamin D3) 25 1,000 unit PO QDAY 12/02/17 08/22/24 History mcg (1,000 unit) capsule multivitamin,pl-wiwv-veksybue 1 tab PO QDAY 12/02/17 08/22/24 History (Complete Multivitamin tablet) aluminum hydrox-magnesium carb 160 2 - 3 tab PO QHS 01/22/21 08/22/24 History mg-105 mg chewable tablet compress.stocking,knee,reg,lr g #2 ea 04/02/22 08/22/24 Rx cane #1 ea 01/21/23 08/22/24 Rx lansoprazole 30 mg capsule,delayed 30 mg PO DAILY #90 caps 08/25/23 08/22/24 Rx release calcium 500 mg 2 tab PO BID 10/30/23 08/22/24 History (carb,gluconate)-magnesium 250 mg (gluc,oxide) tablet (Calcium Magnesium) lisinopril 20 mg tablet 20 mg PO BID #180 tabs 10/30/23 08/22/24 Rx simvastatin 10 mg tablet 10 mg PO QHS #90 tabs 01/07/24 08/22/24 Rx pen needle, diabetic 31 gauge x #100 ea 02/29/24 08/22/24 Rx 5/16 (Comfort EZ Pen [place]) glimepiride 2 mg tablet 6 mg (3 x 2 mg) PO DAILY 3 months 04/28/24 08/22/24 Rx #270 tabs warfarin 4 mg tablet 4 mg PO DAILY #90 tabs 05/12/24 08/22/24 Rx Handicap Placard #1 ea 05/13/24 08/22/24 Rx insulin glargine 100 unit/mL (3 35 unit (0.35 mL) subcut QDAY 3 05/16/24 08/22/24 Rx mL) subcutaneous pen (Lantus months #31.5 mL Solostar U-100 Insulin) blood sugar diagnostic (Accu-Chek #200 ea 06/08/24 08/22/24 Rx Destinee Plus test strips) atenolol 25 mg tablet 25 mg PO BID #180 tabs 06/15/24 08/22/24 Rx amlodipine 2.5 mg tablet 2.5 mg PO DAILY #30 tabs 06/22/24 08/22/24 Rx Have you fallen in the past year?: No [facility] Medical History (Updated 08/22/24 @ 14:[address] Eric Delatorre MD) Night terrors, adult Health care maintenance Dermatitis Hot flashes Osteopenia Osteoarthritis Left shoulder pain Hypersomnolence Bilateral hip pain Chronic back pain Rosacea Venous insufficiency of both lower extremities Paroxysmal atrial fibrillation Generalized anxiety disorder Headache Wears glasses Yeast dermatitis Arthritis High cholesterol Back pain Migraine headache Difficulty swallowing Dietary restriction History of hiatal hernia History of IBS Gastric reflux Non-smoker Leg cramps History of edema Cardiology follow-up encounter Hx of echocardiogram History of stress test Fecal incontinence Vaginal candidiasis Fatty liver disease, nonalcoholic h/o urethral surgery Frequent UTI Secondary pulmonary hypertension Irritable bowel syndrome Glaucoma GERD (gastroesophageal reflux disease) History of left shoulder fracture Diarrhea 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 Palpitations Hyperlipidemia Sebaceous cyst Endometrial cancer (02/2012) Obesity Essential hypertension Type 2 diabetes mellitus Surgical History S/P eye surgery H/O colonoscopy H/O endoscopy History of LAVH History of tonsillectomy Hx of cholecystectomy Family History Mother CVA (cerebral vascular accident) Diabetes Heart disease Father Myocardial infarction Heart disease Brother Hypertension High cholesterol Social History Smoking Status: Never smoker alcohol intake: never substance use type: does not use caffeine: No what type of physical activity do you participate in: walking seatbelt use: always do you feel safe at home: Yes additional social history: Yariel- Retired Patient is retired HPI HPI Chief Complaint: follow up chronic conditions. Details: ERENDIRA CHÁVEZ, is a 79 F who presents to the office today for follow-up of her chronic medical conditions. Also has some concerns. A1c today is at 8.5 up from 8.1. She did come in with her log which s (more content not included)... Normal [facility] - Hematology and Cell countson 08-22-2024 HbA1c (Bld) [Mass fraction] 8.5 % High 4.2-6.3 [facility] PT Coag (Bld) [Time]Ordered By: Javon Jenkins on 08-22-2024 Bedside Prothrombin Time 16.2 SEC High 11.7-14.9 [facility] Protime w/INR Fingerstickon 12-30-2024 INR Coag (PPP) [Relative time] 1.4 {INR} Normal [facility] Comment on above: Result Comment: Crit ical Value > 4.0 Performed By: #### L 300.3900 #### [facility] [address] [place], [address] Protime Coagsen 16.2 SEC High 11.7-14.9 [facility] Comment on above: Performed By: #### L 300.3900 #### [facility] [address] [place], [address] Protime w/INR Fingerstickon 08-15-2024 INR Coag (PPP) [Relative time] 1.6 {INR} Normal [facility] Comment on above: Result Comment: Crit ical Value > 4.0 Performed By: #### L 300.3900 #### [facility] [address] [place], [address] Protime Coagsen 18.7 SEC High 11.7-14.9 [facility] Comment on above: Performed By: #### L 300.3900 #### [facility] [address] [place], [address] Protime w/INR Fingerstickon 07-20-2024 INR Coag (PPP) [Relative time] 2.3 {INR} Normal [facility] Comment on above: Result Comment: Crit ical Value > 4.0 Performed By: #### L 300.3900 #### [facility] [address] [place], [address] Protime Coagsen 25.2 SEC High 11.7-14.9 [facility] Comment on above: Performed By: #### L 300.3900 #### [facility] [address] [place], [address] Capillary blood internationa l normalized ratio (INR)Ordered By: Javon Jenkins on 12-11-2023 INR Coag (BldC) [Relative time] 2.6 [facility] Comment on above: Critical Value > 4.0 Whole blood prothrombin time Ordered By: Javon Alice on 12-11-2023 PT Coag (Bld) [Time] 26.4 s 11.7-14.9 [facility] Absolute lymphocyte countOrd ered By: Ayushnainanancirebeca Ojedauyen on 11-11-2023 Lymphocytes Auto (Unsp spec) [#/Vol] 2.09 10*3/uL 0.83-4.51 [facility] Automated lymphocyte count a s percentage of total leukocytesOrdered By: Eric Delatorre on 11-11-2023 Lymphocytes/100 WBC Auto (Unsp spec) 30.1 % 19-41 [facility] Basophil percentageOrdered B y: Ayushnainanancirebeca Delatorre on 11-11-2023 Basophils/100 WBC (Bld) 0.4 % 0-1 [facility] Bilirubin [Mass/Vol] 0.50 mg/dL 0.20-1.00 [facility] Comment on above: For patients on eltr ombopag therapy, use of Dimension [place] TBIL is not recommended. Chloride [Moles/Vol] 106 mmol/L 98-107 [facility] Eosinophils/100 WBC (Bld) 1.0 % 0-5 [facility] Glucose [Mass/Vol] 137 mg/dL 74-106 [facility] Comment on above: Fasting Glucose resu lt greater than or equal to 126 mg/dL suggests DIABETES MELLITUS per A.D.A. criteria. Hemoglobin (Bld) [Mass/Vol] 13.1 g/dL 12.0-15.0 [facility] Monocytes/100 WBC (Bld) 9.8 % 0-10 [facility] Neutrophils (Bld) [#/Vol] 4.0 10*3/uL 2.0-7.7 [facility] Neutrophils/100 WBC (Bld) 58.3 % 47-70 [facility] Potassium [Moles/Vol] 4.0 mmol/L 3.5-5.1 [facility] Protein [Mass/Vol] 7.8 g/dL 6.4-8.2 [facility] Sodium [Moles/Vol] 139 mmol/L 136-145 [facility] WBC (Bld) [#/Vol] 6.9 10*3/uL 4.4-11.0 [facility] Determination of erythrocyte mean corpuscular volume (MCV)Ordered By: Eric Delatorre on 11-11-2023 MCV (RBC) [Entitic vol] 94.6 fL 81-99 [facility] Erythrocyte distribution wid th ratioOrdered By: [facility] Hospital[facility] Delatorre on 11-11-2023 Erythrocyte distribution width (RBC) [Ratio] 13.9 % 11.6-14.6 [facility] Erythrocyte distribution wid th standard deviationOrdered By: [facility] Hospital[facility]beca Ojedadaniela on 11-11-2023 Erythrocyte distribution width (RBC) [Entitic vol] 48.3 fL 35.1-43.9 [facility] Hematocrit Auto (Bld) [Volum e fraction]Ordered By: Radhareklawrebeca Delatorre on 11-11-2023 Hematocrit (Bld) [Volume fraction] 40.2 % 37-47 [facility] Immature granulocytes/100 WB C Auto (Bld)Ordered By: [facility] Ojedadaniela on 11-11-2023 Immature granulocytes/100 WBC (Bld) 0.400 % 0.0-0.9 [facility] Comment on above: IG% - Immature Granu locytes (promyelocytes, myelocytes and metamyelocytes) > 1% indicates that a LEFT SHIFT is Present. Laboratory - Chemistry and C hemistry - challengeOrdered By: Eric Delatorre on 11-11-2023 Albumin/Globulin [Mass ratio] 0.9 {ratio} 0.9-2.4 [facility] ALP [Catalytic activity/Vol] 74 U/L 45-117 [facility] ALT [Catalytic activity/Vol] 28 U/L 13-56 [facility] CO2 [Moles/Vol] 30.0 mmol/L 21.0-32.0 [facility] Globulin (S) [Mass/Vol] 4.2 g/dL 2.2-4.2 [facility] Urea nitrogen/Creatinine [Mass ratio] 29.8 mg/mg 10-20 [facility] - Hematology and Cell countsOrdered By: Eric Delatorre on 11-11-2023 MCH (RBC) [Entitic mass] 30.8 pg 27.0-32.0 [facility] MCHC (RBC) [Mass/Vol] 32.6 g/dL 32-36 [facility] Nucleated RBC/100 WBC (Bld) [Ratio] 0 % 0-5 [facility] Platelet mean volume (Bld) [Entitic vol] 10.3 fL 6.2-12.0 [facility] Platelets (Bld) [#/Vol] 208 10*3/uL 150-450 [facility] - Hematology and Cell countson 11-11-2023 HbA1c (Bld) [Mass fraction] 7.9 % 4.2-6.3 [facility] No Panel InformationOrdered By: Eric Delatorre on 11-11-2023 Estimated GFR (MDRD) Amer 103 mL/min >60 [facility] Comment on above: GFR Calc Estimated GFR (MDRD) Non-Af Amer 85 mL/min >60 [facility] Comment on above: Non- GFR Calc Urine Microalbumin/Creatini ne Ratio 47.8 mg/g CRE <30 [facility] RBC Auto (Bld) [#/Vol]Ordere d By: Eric Delatorre on 11-11-2023 RBC (Bld) [#/Vol] 4.25 10*6/uL 4.2-5.4 [facility] Serum or plasma calcium david urement (mass/volume)Ordered By: Eric Delatorre on 11-11-2023 Calcium [Mass/Vol] 8.9 mg/dL 8.5-10.1 [facility] Serum or plasma creatinine m easurement (mass/volume)Ordered By: Eric Delatorre on 11-11-2023 Creatinine [Mass/Vol] 0.70 mg/dL 0.55-1.02 [facility] Comment on above: The validity of the calculated GFR & GFRAA in patients over 70 years has not been determined. Clinical correlation is essential. Serum or plasma thyroid stim ulating hormone (TSH) measurement (units/volume)Ordered By: Eric Delatorre on 11-11-2023 TSH Qn 2.35 uIU/mL 0.358-3.74 [facility] Serum or plasma urea nitroge n measurement (mass/volume)Ordered By: Eric Delatorre on 11-11-2023 Urea nitrogen [Mass/Vol] 21 mg/dL 7-18 [facility] Thin prep Papanicolaou smear with manual screeningOrdered By: Eric Delatorre on 11-11-2023 Thin prep Papanicolaou smear with manual screening 3.6 g/dL 3.2-5.0 [facility] Thin prep Papanicolaou smear with manual screening 25 U/L 15-37 [facility] Thin prep Papanicolaou smear with manual screening 3 5-15 [facility] Thin prep Papanicolaou smear with manual screening 41.8 mg/L NO RANGE EST. [facility] Thin prep Papanicolaou smear with manual screening 0.67 ng/dL 0.76-1.46 [facility] Urine creatinine measurement (mass/volume)Ordered By: Eric Delatorre on 11-11-2023 Creatinine (U) [Mass/Vol] 87.40 mg/dL NO RANGE EST. [facility] Capillary blood internationa l normalized ratio (INR)Ordered By: Javon Jenkins on 10-30-2023 INR Coag (BldC) [Relative time] 2.1 [facility] Comment on above: Critical Value > 4.0 Whole blood prothrombin time Ordered By: Javon Jenkins on 10-30-2023 PT Coag (Bld) [Time] 22.1 s 11.7-14.9 [facility] Capillary blood internationa l normalized ratio (INR)Ordered By: Javon Jenkins on 10-09-2023 INR Coag (BldC) [Relative time] 2.1 [facility] Comment on above: Critical Value > 4.0 Whole blood prothrombin time Ordered By: Javon Jenkins on 10-09-2023 PT Coag (Bld) [Time] 22.0 s 11.7-14.9 [facility] Laboratory - CoagulationOrde red By: Javon Jenkins on 09-10-2023 PT Coag (PPP) [Time] 38.9 s 11.7-14.9 [facility] Platelet poor plasma interna tional normalized ratio (INR)Ordered By: Javon Jenkins on 09-10-2023 INR Coag (PPP) [Relative time] 3.9 {INR} [facility] Whole blood prothrombin time Ordered By: Javon Jenkins on 09-10-2023 PT Coag (Bld) [Time] 42.3 s 11.7-14.9 [facility] Basophil percentageOrdered B y: Eric Delatorre on 08-05-2023 Chloride [Moles/Vol] 108 mmol/L 98-107 [facility] Glucose [Mass/Vol] 196 mg/dL 74-106 [facility] Comment on above: Fasting Glucose resu lt greater than or equal to 126 mg/dL suggests DIABETES MELLITUS per A.D.A. criteria. Potassium [Moles/Vol] 4.5 mmol/L 3.5-5.1 [facility] Sodium [Moles/Vol] 141 mmol/L 136-145 [facility] Laboratory - Chemistry and C hemistry - challengeOrdered By: Eric Delatorre on 08-05-2023 CO2 [Moles/Vol] 31.0 mmol/L 21.0-32.0 [facility] Urea nitrogen/Creatinine [Mass ratio] 27.5 mg/mg 10-20 [facility] - CoagulationOrde red By: Javon Jenkins on 08-05-2023 PT Coag (PPP) [Time] 30.7 s 11.7-14.9 [facility] - Hematology and Cell countson 08-05-2023 HbA1c (Bld) [Mass fraction] 7.8 % 4.2-6.3 [facility] No Panel InformationOrdered By: Eric Delatorre on 08-05-2023 Estimated GFR (MDRD) Amer 99 mL/min >60 [facility] Comment on above: GFR Calc Estimated GFR (MDRD) Non-Af Amer 82 mL/min >60 [facility] Comment on above: Non- GFR Calc Serum or plasma calcium david urement (mass/volume)Ordered By: Eric Delatorre on 08-05-2023 Calcium [Mass/Vol] 9.4 mg/dL 8.5-10.1 [facility] Serum or plasma creatinine m easurement (mass/volume)Ordered By: Eric Delatorre on 08-05-2023 Creatinine [Mass/Vol] 0.73 mg/dL 0.55-1.02 [facility] Comment on above: The validity of the calculated GFR & GFRAA in patients over 70 years has not been determined. Clinical correlation is essential. Serum or plasma urea nitroge n measurement (mass/volume)Ordered By: Eric Delatorre on 08-05-2023 Urea nitrogen [Mass/Vol] 20 mg/dL 7- [facility] Thin prep Papanicolaou smear with manual screeningOrdered By: Eric Delatorre on 08-05-2023 Thin prep Papanicolaou smear with manual screening 2 - [facility] Whole blood international no rmalized ratio (INR)Ordered By: Javon Jenkins on 08-05-2023 INR Coag (Bld) [Relative time] 2.9 {INR} [facility] - CoagulationOrde red By: Javon Jenkins on 07-10-2023 INR Coag (Bld) [Relative time] 3.0 {INR} [facility] Comment on above: Critical Value > 4.0 Whole blood prothrombin time Ordered By: Javon Jenkins on 07-10-2023 PT Coag (Bld) [Time] 32.3 s 11.7-14.9 [facility] - CoagulationOrde red By: Javon Jenkins on 06-11-2023 INR Coag (Bld) [Relative time] 3.0 {INR} [facility] Comment on above: Critical Value > 4.0 Whole blood prothrombin time Ordered By: Javon Jenkins on 06-11-2023 PT Coag (Bld) [Time] 32.5 s 11.7-14.9 [facility] Laboratory - CoagulationOrde red By: Javonlorri Jenkins on 05-13-2023 INR Coag (Bld) [Relative time] 3.0 {INR} [facility] Comment on above: Critical Value > 4.0 Whole blood prothrombin time Ordered By: Javon Jenkins on 05-13-2023 PT Coag (Bld) [Time] 32.0 s 11.7-14.9 [facility] - Hematology and Cell countson 04-30-2023 HbA1c (Bld) [Mass fraction] 7.3 % 4.2-6.3 [facility] Absolute lymphocyte countOrd ered By: Christian Capellan on 04-15-2023 Lymphocytes Auto (Unsp spec) [#/Vol] 1.73 10*3/uL 0.83-4.51 [facility] Basophil percentageOrdered B y: Christian Capellan on 04-15-2023 Basophils/100 WBC (Bld) 0.3 % 0-1 [facility] Eosinophils/100 WBC (Bld) 1.2 % 0-5 [facility] Neutrophils (Bld) [#/Vol] 3.7 10*3/uL 2.0-7.7 [facility] Neutrophils/100 WBC (Bld) 60.8 % 47-70 [facility] WBC (Bld) [#/Vol] 6.0 10*3/uL 4.4-11.0 [facility] Bilirubin [Mass/Vol] 0.60 mg/dL 0.20-1.00 [facility] Comment on above: For patients on eltr ombopag therapy, use of Dimension [place] TBIL is not recommended. Chloride [Moles/Vol] 109 mmol/L 98-107 [facility] Cholesterol [Mass/Vol] 184 mg/dL <200 [facility] Comment on above: <200 mg/dL Desirable 200-240 mg/dL Borderline >240 mg/dL High Risk Glucose [Mass/Vol] 95 mg/dL 74-106 [facility] Potassium [Moles/Vol] 3.9 mmol/L 3.5-5.1 [facility] Protein [Mass/Vol] 7.6 g/dL 6.4-8.2 [facility] Sodium [Moles/Vol] 141 mmol/L 136-145 [facility] Triglyceride [Mass/Vol] 106 mg/dL <199 [facility] Comment on above: The drugs N-Acetylcy steine and Metamizole may falsely depress this assay.Serum Triglycerides Reference Interval Normal <150 mg/dL Borderline high 150 - 199 mg/dL High 200 - 499 mg/dL Very High > or = 500 mg/dL Blood erythrocytes count (nu mber/volume)Ordered By: Christian Capellan on 04-15-2023 RBC (Bld) [#/Vol] 4.17 10*6/uL 4.2-5.4 [facility] Blood hemoglobin measurement (mass/volume)Ordered By: Christian Capellan on 04-15-2023 Hemoglobin (Bld) [Mass/Vol] 13.0 g/dL 12.0-15.0 [facility] Blood lymphocytes/100 leukoc ytesOrdered By: Christian Capellan on 04-15-2023 Lymphocytes/100 WBC (Bld) 28.7 % 19-41 [facility] Blood monocytes/100 leukocyt esOrdered By: Christian Capellan on 04-15-2023 Monocytes/100 WBC (Bld) 8.5 % 0-10 [facility] Blood platelet mean volumeOr dered By: Christian Capellan on 04-15-2023 Platelet mean volume (Bld) [Entitic vol] 9.7 fL 6.2-12.0 [facility] Determination of erythrocyte mean corpuscular volume (MCV)Ordered By: Christian Capellan on 04-15-2023 MCV (RBC) [Entitic vol] 94.2 fL 81-99 [facility] Hematocrit Auto (Bld) [Volum e fraction]Ordered By: Christian Capellan on 04-15-2023 Hematocrit (Bld) [Volume fraction] 39.3 % 37-47 [facility] INR in Blood by Coagulation assayOrdered By: Christian Capellan on 04-15-2023 INR Coag (Bld) [Relative time] 2.7 {INR} [facility] Laboratory - Chemistry and C hemistry - challengeOrdered By: Christian Capellan on 04-15-2023 ALP [Catalytic activity/Vol] 64 U/L 45-117 [facility] ALT [Catalytic activity/Vol] 25 U/L 13-56 [facility] CO2 [Moles/Vol] 29.0 mmol/L 21.0-32.0 [facility] Globulin (S) [Mass/Vol] 4.2 g/dL 2.2-4.2 [facility] Urea nitrogen/Creatinine [Mass ratio] 23.4 mg/mg 10-20 [facility] Laboratory - CoagulationOrde red By: Christian Capellan on 04-15-2023 PT Coag (PPP) [Time] 28.6 s 11.7-14.9 [facility] - Hematology and Cell countsOrdered By: Christian Capellan on 04-15-2023 Erythrocyte distribution width (RBC) [Entitic vol] 47.2 fL 35.1-43.9 [facility] Erythrocyte distribution width (RBC) [Ratio] 13.7 % 11.6-14.6 [facility] Immature granulocytes/100 WBC (Bld) 0.500 % 0.0-0.9 [facility] Comment on above: IG% - Immature Granu locytes (promyelocytes, myelocytes and metamyelocytes) > 1% indicates that a LEFT SHIFT is Present. MCH (RBC) [Entitic mass] 31.2 pg 27.0-32.0 [facility] Nucleated RBC/100 WBC (Bld) [Ratio] 0 % 0-5 [facility] MCHC Auto (RBC) [Mass/Vol]Or dered By: Christian Capellan on 04-15-2023 MCHC (RBC) [Mass/Vol] 33.1 g/dL 32-36 [facility] No Panel InformationOrdered By: Christian Capellan on 04-15-2023 Urine Microalbumin/Creatini ne Ratio 36.1 mg/g CRE <30 [facility] Vitamin D 25-Hydroxy 31.3 ng/mL [facility] Comment on above: Vitamin D 25(OH) Sta tus Range Deficiency <20 ng/mL (50nmol/L) Insufficiency 20 - 30 ng/mL (50 - 75 nmol/L) Sufficiency 30 - 100 ng/mL (75 - 250 nmol/L) Toxicity >100 ng/mL (>250 nmol/L) Estimated GFR (MDRD) Amer 107 mL/min >60 [facility] Comment on above: GFR Calc Estimated GFR (MDRD) Non-Af Amer 88 mL/min >60 [facility] Comment on above: Non- GFR Calc Platelets bldOrdered By: Salty Capellan on 04-15-2023 Platelets (Bld) [#/Vol] 203 10*3/uL 150-450 [facility] Serum or plasma albumin david urement (mass/volume)Ordered By: Christian Capellan on 04-15-2023 Albumin [Mass/Vol] 3.4 g/dL 3.2-5.0 [facility] Serum or plasma albumin/glob ulin mass ratioOrdered By: Christian Capellan on 04-15-2023 Albumin/Globulin [Mass ratio] 0.8 {ratio} 0.9-2.4 [facility] Serum or plasma calcium david urement (mass/volume)Ordered By: Christian Capellan on 04-15-2023 Calcium [Mass/Vol] 8.7 mg/dL 8.5-10.1 [facility] Serum or plasma cholesterol in HDL measurement (mass/volume)Ordered By: Christian Capellan on 04-15-2023 Cholesterol in HDL [Mass/Vol] 66 mg/dL >40 [facility] Comment on above: The drugs N-Acetylcy steine and Metamizole may falsely depress this assay. Reference Range HDL <40 mg/dL Low HDL Cholesterol HDL >or= 60 mg/dL High HDL Cholesterol Serum or plasma cholesterol in VLDL measurement (mass/volume)Ordered By: Christian Capellan on 04-15-2023 Cholesterol in VLDL [Mass/Vol] 21 mg/dL 5-40 [facility] Serum or plasma creatinine m easurement (mass/volume)Ordered By: Christian Capellan on 04-15-2023 Creatinine [Mass/Vol] 0.68 mg/dL 0.55-1.02 [facility] Comment on above: The validity of the calculated GFR & GFRAA in patients over 70 years has not been determined. Clinical correlation is essential. Serum or plasma low density lipoprotein (LDL) cholesterol measurement (mass/volume)Ordered By: Christian Capellan on 04-15-2023 Cholesterol in LDL [Mass/Vol] 97 mg/dL 0-130 [facility] Serum or plasma urea nitroge n measurement (mass/volume)Ordered By: Christian Capellan on 04-15-2023 Urea nitrogen [Mass/Vol] 16 mg/dL 7-18 [facility] Thin prep Papanicolaou smear with manual screeningOrdered By: Christian Capellan on 04-15-2023 Thin prep Papanicolaou smear with manual screening 46.2 mg/L NO RANGE EST. [facility] Thin prep Papanicolaou smear with manual screening 19 U/L 15-37 [facility] Thin prep Papanicolaou smear with manual screening 3 5-15 [facility] Urine creatinine measurement (mass/volume)Ordered By: Christian Capellan on 04-15-2023 Creatinine (U) [Mass/Vol] 128.00 mg/dL NO RANGE EST. [facility] Whole blood hemoglobin A1c/t otal hemoglobin ratio (mass fraction)Ordered By: Christian Capellan on 04-15-2023 HbA1c (Bld) [Mass fraction] 7.1 % 3.8-5.6 [facility] Comment on above: Normal < 5.7 % Predi abetic 5.7 - 6.4 % Diabetic >or= 6.5 % Please note range changes. Whole blood prothrombin time Ordered By: Javon Jenkins on 03-31-2023 PT Coag (Bld) [Time] 33.8 s 11.7-14.9 [facility] - CoagulationOrde red By: Javon Jenkins on 03-16-2023 INR Coag (Bld) [Relative time] 3.2 {INR} [facility] Comment on above: Critical Value > 4.0 Whole blood prothrombin time Ordered By: Javon Jenkins on 03-16-2023 PT Coag (Bld) [Time] 34.4 s 11.7-14.9 [facility] - CoagulationOrde red By: Javon Jenkins on 02-16-2023 INR Coag (Bld) [Relative time] 2.8 {INR} [facility] Comment on above: Critical Value > 4.0 Whole blood prothrombin time Ordered By: Javon Jenkins on 02-16-2023 PT Coag (Bld) [Time] 29.8 s 11.7-14.9 [facility] - CoagulationOrde red By: Dr. Jenkins on 02-06-2023 INR Coag (Bld) [Relative time] 1.7 {INR} [facility] Comment on above: Critical Value > 4.0 Whole blood prothrombin time Ordered By: Dr. Jenkins on 02-06-2023 PT Coag (Bld) [Time] 19.4 s 11.7-14.9 [facility] - Hematology and Cell countson 01-21-2023 HbA1c (Bld) [Mass fraction] 7.9 % 4.2-6.3 [facility] - CoagulationOrde red By: Dr. Jenkins on 01-14-2023 INR Coag (Bld) [Relative time] 1.9 {INR} [facility] Comment on above: Critical Value > 4.0 Whole blood prothrombin time Ordered By: Dr. Jenkins on 01-14-2023 PT Coag (Bld) [Time] 21.2 s 11.7-14.9 [facility] - CoagulationOrde red By: Dr. Jenkins on 12-05-2022 INR Coag (Bld) [Relative time] 1.9 {INR} [facility] Comment on above: Critical Value > 4.0 Whole blood prothrombin time Ordered By: Dr. Jenkins on 12-05-2022 PT Coag (Bld) [Time] 21.0 s 11.7-14.9 [facility] - CoagulationOrde red By: Dr. Jenkins on 10-28-2022 INR Coag (Bld) [Relative time] 2.2 {INR} [facility] Comment on above: Critical Value > 4.0 Whole blood prothrombin time Ordered By: Dr. Jenkins on 10-28-2022 PT Coag (Bld) [Time] 26.1 s 11.7-14.9 [facility] - Hematology and Cell countson 10-17-2022 HbA1c (Bld) [Mass fraction] 7.8 % 4.2-6.3 [facility] - CoagulationOrde red By: Dr. Jenkins on 09-30-2022 INR Coag (Bld) [Relative time] 2.2 {INR} [facility] Comment on above: Critical Value > 4.0 Whole blood prothrombin time Ordered By: Dr. Jenkins on 09-30-2022 PT Coag (Bld) [Time] 26.0 s 11.7-14.9 [facility] - CoagulationOrde red By: Dr. Jenkins on 08-26-2022 INR Coag (Bld) [Relative time] 2.4 {INR} [facility] Comment on above: Critical Value > 4.0 Whole blood prothrombin time Ordered By: Dr. Jenkins on 08-26-2022 PT Coag (Bld) [Time] 27.4 s 11.7-14.9 [facility] - CoagulationOrde red By: Dr. Jenkins on 07-30-2022 INR Coag (Bld) [Relative time] 2.5 {INR} [facility] Comment on above: Critical Value > 4.0 Whole blood prothrombin time Ordered By: Dr. Jenkins on 07-30-2022 PT Coag (Bld) [Time] 28.7 s 11.7-14.9 [facility] - CoagulationOrde red By: Dr. Jenkins on 07-04-2022 INR Coag (Bld) [Relative time] 2.3 {INR} [facility] Comment on above: Critical Value > 4.0 Whole blood prothrombin time Ordered By: Dr. Jenkins on 07-04-2022 PT Coag (Bld) [Time] 27.3 s 11.7-14.9 [facility] - Coagulationon 1 INR Coag (Bld) [Relative time] 2.6 {INR} [facility] Work Phone: Comment on above: Critical Value > 4.0 Whole blood prothrombin time on 06-06-2022 PT Coag (Bld) [Time] 29.6 s 11.7-14.9 [facility] Work Phone: Laboratory - Coagulationon 0 05-06-2022 INR Coag (Bld) [Relative time] 3.0 {INR} [facility] Work Phone: Comment on above: Critical Value > 4.0 Whole blood prothrombin time on 05-06-2022 PT Coag (Bld) [Time] 34.5 s 11.7-14.9 [facility] Work Phone: Laboratory - Coagulationon 0 04-08-2022 INR Coag (Bld) [Relative time] 2.3 {INR} [facility] Work Phone: Comment on above: Critical Value > 4.0 Whole blood prothrombin time on 04-08-2022 PT Coag (Bld) [Time] 26.8 s 11.7-14.9 [facility] Work Phone: Absolute lymphocyte counton 04-02-2022 Lymphocytes Auto (Unsp spec) [#/Vol] 1.86 10*3/uL 0.83-4.51 [facility] Work Phone: [phone] Basophil percentageon 2021 Basophils/100 WBC (Bld) 0.3 % 0-1 [facility] Work Phone: [phone] Bilirubin [Mass/Vol] 0.40 mg/dL 0.20-1.00 [facility] Work Phone: [phone] Comment on above: For patients on eltr ombopag therapy, use of Dimension [place] TBIL is not recommended. Chloride [Moles/Vol] 106 mmol/L 98-107 [facility] Work Phone: [phone] Cholesterol [Mass/Vol] 178 mg/dL <200 [facility] Work Phone: [phone] Comment on above: <200 mg/dL Desirable 200-240 mg/dL Borderline >240 mg/dL High Risk Eosinophils/100 WBC (Bld) 2.0 % 0-5 [facility] Work Phone: [phone] Glucose [Mass/Vol] 172 mg/dL 74-106 [facility] Work Phone: Comment on above: Fasting Glucose resu lt greater than or equal to 126 mg/dL suggests DIABETES MELLITUS per A.D.A. criteria. Neutrophils (Bld) [#/Vol] 3.5 10*3/uL 2.0-7.7 [facility] Work Phone: [phone] Neutrophils/100 WBC (Bld) 56.7 % 47-70 [facility] Work Phone: [phone] Potassium [Moles/Vol] 4.0 mmol/L 3.5-5.1 [facility] Work Phone: [phone] Protein [Mass/Vol] 7.7 g/dL 6.4-8.2 [facility] Work Phone: [phone] Sodium [Moles/Vol] 139 mmol/L 136-145 [facility] Work Phone: [phone] Triglyceride [Mass/Vol] 156 mg/dL <199 [facility] Work Phone: Comment on above: The drugs N-Acetylcy steine and Metamizole may falsely depress this assay.Serum Triglycerides Reference Interval Normal <150 mg/dL Borderline high 150 - 199 mg/dL High 200 - 499 mg/dL Very High > or = 500 mg/dL WBC (Bld) [#/Vol] 6.1 10*3/uL 4.4-11.0 [facility] Work Phone: [phone] Blood erythrocytes count (nu mber/volume)on 04-02-2022 RBC (Bld) [#/Vol] 4.04 10*6/uL 4.2-5.4 [facility] Work Phone: Blood hemoglobin measurement (mass/volume)on 04-02-2022 Hemoglobin (Bld) [Mass/Vol] 13.0 g/dL 12.0-15.0 [facility] Work Phone: Blood lymphocytes/100 leukoc yteson 04-02-2022 Lymphocytes/100 WBC (Bld) 30.5 % 19-41 [facility] Work Phone: Blood monocytes/100 leukocyt eson 04-02-2022 Monocytes/100 WBC (Bld) 10.2 % 0-10 [facility] Work Phone: [phone] Blood platelet mean volumeon 04-02-2022 Platelet mean volume (Bld) [Entitic vol] 9.6 fL 6.2-12.0 [facility] Work Phone: Determination of erythrocyte mean corpuscular volume (MCV)on 04-02-2022 MCV (RBC) [Entitic vol] 94.3 fL 81-99 [facility] Work Phone: [phone] Hematocrit Auto (Bld) [Volum e fraction]on 04-02-2022 Hematocrit (Bld) [Volume fraction] 38.1 % 37-47 [facility] Work Phone: Laboratory - Chemistry and C hemistry - challengeon 04-02-2022 ALP [Catalytic activity/Vol] 68 U/L 45-117 [facility] Work Phone: [phone] ALT [Catalytic activity/Vol] 32 U/L 13-56 [facility] Work Phone: CO2 [Moles/Vol] 30.0 mmol/L 21.0-32.0 [facility] Work Phone: [phone] Globulin (S) [Mass/Vol] 4.4 g/dL 2.2-4.2 [facility] Work Phone: [phone] Urea nitrogen/Creatinine [Mass ratio] 29.5 mg/mg 10-20 [facility] Work Phone: Laboratory - Hematology and Cell countson 04-02-2022 Erythrocyte distribution width (RBC) [Entitic vol] 48.1 fL 35.1-43.9 [facility] Work Phone: [phone] Erythrocyte distribution width (RBC) [Ratio] 13.9 % 11.6-14.6 [facility] Work Phone: [phone] Immature granulocytes/100 WBC (Bld) 0.300 % 0.0-0.9 [facility] Work Phone: [phone] Comment on above: IG% - Immature Granu locytes (promyelocytes, myelocytes and metamyelocytes) > 1% indicates that a LEFT SHIFT is Present. MCH (RBC) [Entitic mass] 32.2 pg 27.0-32.0 [facility] Work Phone: [phone] Nucleated RBC/100 WBC (Bld) [Ratio] 0 % 0-5 [facility] Work Phone: [phone] HbA1c (Bld) [Mass fraction] 8.2 % 4.2-6.3 [facility] Work Phone: MCHC Auto (RBC) [Mass/Vol]on 04-02-2022 MCHC (RBC) [Mass/Vol] 34.1 g/dL 32-36 [facility] Work [facility]: [phone] No Panel Informationon 04-02 Urine Microalbumin/Creatini ne Ratio 17.8 mg/g CRE <30 [facility] Work Phone: [phone] Estimated GFR (MDRD) Amer 97 mL/min >60 [facility] Work Phone: Comment on above: GFR Calc Estimated GFR (MDRD) Non-Af Amer 80 mL/min >60 [facility] Work Phone: Comment on above: Non- GFR Calc Platelets bldon 04-02-2022 Platelets (Bld) [#/Vol] 196 10*3/uL 150-450 [facility] Work Phone: Serum or plasma albumin david urement (mass/volume)on 04-02-2022 Albumin [Mass/Vol] 3.3 g/dL 3.2-5.0 [facility] Work Phone: Serum or plasma albumin/glob ulin mass ratioon 04-02-2022 Albumin/Globulin [Mass ratio] 0.8 {ratio} 0.9-2.4 [facility] Work Phone: Serum or plasma calcium david urement (mass/volume)on 04-02-2022 Calcium [Mass/Vol] 8.9 mg/dL 8.5-10.1 [facility] Work Phone: Serum or plasma cholesterol in HDL measurement (mass/volume)on 04-02-2022 Cholesterol in HDL [Mass/Vol] 58 mg/dL >40 [facility] Work Phone: Comment on above: The drugs N-Acetylcy steine and Metamizole may falsely depress this assay. Reference Range HDL <40 mg/dL Low HDL Cholesterol HDL >or= 60 mg/dL High HDL Cholesterol Serum or plasma cholesterol in VLDL measurement (mass/volume)on 04-02-2022 Cholesterol in VLDL [Mass/Vol] 31 mg/dL 5-40 [facility] Work Phone: Serum or plasma creatinine m easurement (mass/volume)on 04-02-2022 Creatinine [Mass/Vol] 0.75 mg/dL 0.55-1.02 [facility] Work Phone: Comment on above: The validity of the calculated GFR & GFRAA in patients over 70 years has not been determined. Clinical correlation is essential. Serum or plasma low density lipoprotein (LDL) cholesterol measurement (mass/volume)on 04-02-2022 Cholesterol in LDL [Mass/Vol] 89 mg/dL 0-130 [facility] Work Phone: Serum or plasma urea nitroge n measurement (mass/volume)on 04-02-2022 Urea nitrogen [Mass/Vol] 22 mg/dL 7-18 [facility] Work Phone: Thin prep Papanicolaou smear with manual screeningon 04-02-2022 Thin prep Papanicolaou smear with manual screening 24.5 mg/L NO RANGE EST. [facility] Work Phone: Thin prep Papanicolaou smear with manual screening 26 U/L 15-37 [facility] Work Phone: Thin prep Papanicolaou smear with manual screening 3 5-15 [facility] Work Phone: Urine creatinine measurement (mass/volume)on 04-02-2022 Creatinine (U) [Mass/Vol] 138.00 mg/dL NO RANGE EST. [facility] Work Phone: Laboratory - Coagulationon 0 03-18-2022 INR Coag (Bld) [Relative time] 2.7 {INR} [facility] Work Phone: Comment on above: Critical Value > 4.0 Whole blood prothrombin time on 03-18-2022 PT Coag (Bld) [Time] 30.8 s 11.7-14.9 [facility] Work Phone: Laboratory - Coagulationon 0 01-28-2022 INR Coag (Bld) [Relative time] 3.0 {INR} [facility] Work Phone: Comment on above: Critical Value > 4.0 Whole blood prothrombin time on 01-28-2022 PT Coag (Bld) [Time] 34.4 s 11.7-14.9 [facility] Work Phone: Laboratory - Coagulationon 0 01-13-2022 INR Coag (Bld) [Relative time] 3.1 {INR} [facility] Work Phone: Comment on above: Critical Value > 4.0 Whole blood prothrombin time on 01-13-2022 PT Coag (Bld) [Time] 35.4 s 11.7-14.9 [facility] Work Phone: Laboratory - Hematology and Cell countson 12-27-2021 HbA1c (Bld) [Mass fraction] 8.1 % 4.2-6.3 [facility] Work Phone: Laboratory - Coagulationon 0 12-18-2021 INR Coag (Bld) [Relative time] 2.3 {INR} [facility] Work Phone: Comment on above: Critical Value > 4.0 Whole blood prothrombin time on 12-18-2021 PT Coag (Bld) [Time] 26.9 s 11.7-14.9 [facility] Work Phone: Laboratory - Coagulationon 0 11-12-2021 INR Coag (Bld) [Relative time] 1.8 {INR} [facility] Work Phone: Comment on above: Critical Value > 4.0 Whole blood prothrombin time on 11-12-2021 PT Coag (Bld) [Time] 21.0 s 11.7-14.9 [facility] Work Phone: Laboratory - Coagulationon 0 09-23-2021 INR Coag (Bld) [Relative time] 2.3 {INR} [facility] Work Phone: Comment on above: Critical Value > 4.0 Laboratory - Hematology and Cell countson 09-23-2021 HbA1c (Bld) [Mass fraction] 9.8 % [facility] Work Phone: Whole blood prothrombin time on 09-23-2021 PT Coag (Bld) [Time] 26.8 s 11.9-14.4 [facility] Work Phone: CNOVon 10-01-2017 CNOV Office Visit (AGCARDWST) ----ERENDIRA CHÁVEZ ([id number]) 1945 FDate Time Provider Department10/01/17 2:30 PM JERONIMO LANDAVERDEWSCharisse During your visit today, we recorded the following information about you: Pulse Blood pressure Weight 66/minute 124/75 98.3 kgJeronimo Landaverde MD 10/01/2017 3:24 PM SignedPERTINENT CARDIAC HISTORYPAFHTNHyperlipidemiaDM ADHERENCE TO GUIDELINESACE-I or ARB for HF with prior LVEFANDlt;40 (NQF 0081) - N/AASA or Plavix for ASHD (NQF 0067) - N/ABeta pat for ASHD with prior AK or prior LVEFANDlt;40 (NQF 0070) - N/ABeta pat for HF with prior LVEFANDlt;40 (NQF 0083) - N/AACE-I or ARB for ASHD with DM or prior LVEFANDlt;40 (NQF 0066) - N/AStatin therapy for ASHD or FHL or DM - metBMI documented and plan if ANDgt;25 (NQF 0421) - lifestyle recommendation formTobacco use screening and referral (NQF 0028) - lifestyle recommendation formRecommendation for whole food, plant based diet - lifestyle recommendation formCLINICAL IMPRESSION/PLAN:Erendira Chávez is doing well. Her atrial fibrillation is infrequent. I remindedher to go to emergency Department if this recurs so that we can try flecainide.I will see her in 8 months or as needed. She will continue INRs through primarycare. If there is increased chest pain or shortness of breath, she has beenadvised to contact me.Written and verbal health teaching given to patient, patient verbalizesunderstanding and agrees with treatment plan.This note was generated using [employer] recognition system, and there may besome incorrect words, spellings, and punctuation that were not noted inchecking the note before saving.DIAGNOSIS FOR VISIT:PAFHypertensionHISTORY OF PRESENT ILLNESSErendira Chávez returns for follow-up of her atrial fibrillation andhypertension.She reports stable exercise tolerance. She's had no chest pain. She deniesorthopnea. She's had minimal edema. She's had rare palpitations and sustainedepisodes.She denies syncope, TIAs, amaurosis and claudicationShe had flu recently but has recovered.ALLERGIES:ALLERGIES Allergen Reactions- Alphagan [Brimonidi* Itching- PenicillinsCURRENT OUTPATIENT MEDICATIONS:simvastatin (ZOCOR) 10 mg tablet TAKE ONE TABLET BY MOUTH AT BEDTIMEomeprazole (PRILOSEC) 20 mg capsule TAKE ONE CAPSULE BY MOUTH DAILYblood sugar diagnostic (ACCU-CHEK DESTINEE PLUS TEST STRP) test strip Test bloodsugar(s) 1 times daily. Dx:E11.9 Insulin: Nowarfarin (COUMADIN) 4 mg tablet Take 2mg TueANDamp;Fri and 4mg daily all otherdays or as directed.lisinopril (ZESTRIL, PRINIVIL) 5 mg tablet Take 1 tablet by mouth once daily.metFORMIN ER (GLUCOPHAGE XR) 500 mg 24 hr tablet TAKE ONE TABLET BY MOUTH DAILYSUN BRANDglimepiride (AMARYL) 1 mg tablet Take 0.5 tablets by mouth twice daily withmeals.brimonidine (ALPHAGAN) 0.2 % ophthalmic solution 1 Drop three times daily.atenolol (TENORMIN) 25 mg tablet Take 1 tablet by mouth twice daily.Blood-Glucose Meter misc As directed; E11.9 Insulin: Nofluticasone (FLONASE) 50 mcg/actuation nasal spray Use 2 Sprays in each nostrilonce daily.Lancets lancets Test blood sugar(s) 1x/ daily. Dx: 250.00. Insulin: NoOTC PRODUCT [id number] twice dailyOTC PRODUCT omega 3 liquid [id number] SG 100 100 MG-100 UNIT CAP Take one(1) tablet daily.THERAPEUTIC MULTIVITAMIN TAB Take one(1) tablet daily.PHYSICAL EXAMINATION:VITAL SIGNS: BP 124/75 Pulse 66 Wt 216 lb 11.2 oz (98.3kg)Chest: Clear to percussion and auscultation. Trachea is midline. Air entry isequal. Cardiac: Regular rhythm. S1 and S2 are normal. PMI is nondisplaced.There is a soft systolic ejection murmur. Carotids are brisk without bruits.JVP is less than 10 cm. Abdomen: Soft and nontender. There are no pulsatilemasses or bruits. No liver enlargement. Bowel sounds are active.Extremities: Trace edema. Pulses are intact and symmetrical.Recent labs were reviewed. Renal function is normal. LDL was 82. TSH is normal.Electronically Signed:Jeronimo Landaverde [facility] 3:[facility] PMCC: Clifton Maldonado Provider: MEGAN FINNEGAN [[id number]]Allergies As of Date: 10/01/2017 Noted Allergy ReactionALPHAGAN (BRIMONIDINE) 10/01/2017 9 - ItchingPENICILLINS 06/16/2005Date Reviewed: 10/01/2017Reviewed by: Kim Feng) Denise - Fully AssessedReason for Visit: Recheck [92]Primary Visit Diagnosis:PAF (paroxysmal atrial fibrillation) (HCC) [I48.0] Other Visit Diagnosis:Essential hypertension [I10]Prescriptions as of 10/01/2017 Sig: SIMVASTATIN 10 MG TABLET TAKE ONE TABLET BY MOUTH AT B* OMEPRAZOLE 20 MG CAPSULE,GLORIA* TAKE ONE CAPSULE BY MOUTH SOFÍA* BLOOD SUGAR DIAGNOSTIC STRIPS Test blood sugar(s) 1 times d* WARFARIN 4 MG TABLET Take 2mg TueANDFri and 4mg simone* LISINOPRIL 5 MG TABLET Take 1 tablet by mouth once d* METFORMIN ER 500 MG TABLET,EX* TAKE ONE TABLET BY MOUTH SIMONE* GLIMEPIRIDE 1 MG TABLET Take 0.5 tablets by mouth twi* BRIMONIDINE 0.2 % EYE DROPS 1 Drop three times daily. ATENOLOL 25 MG TABLET Take 1 tablet by mouth twice * BLOOD-GLUCOSE METER As directed; E11.9 Insulin: * FLUTICASONE 50 MCG/ACTUATION * Use 2 Sprays in each nostril * Patient taking differently: Use 2 Sprays in each nostril * LANCETS Test blood sugar(s) 1x/ daily* * OTC PRODUCT [id number] [id number] ma* * OTC PRODUCT omega 3 liquid 1725mg * COQ10 SG 100 100 MG-100 UNIT * Take one(1) tablet daily. * THERAPEUTIC MULTIVITAMIN TABL* Take one(1) tablet daily.Problem List As Of Date 10/01/2017 Noted Resolved Abdominal pain, left lower quadrant [R10.32] INVALID FOR*10/19/2014 Diarrhea [R19.7] INVALID FOR*10/19/2014 BENIGN HYPERTENSION [I10] INVALID FOR*10/19/2014 HYPERLIPIDEMIA NEC/NOS [E78.5] INVALID FOR*10/24/2015 PULMONARY NODULE [R22.2] INVALID FOR*10/19/2014 ESOPHAGITIS, UNSPECIFIED [K20.9] INVALID FOR* Other hammer toe (acquired) [M20.40] INVALID FOR*10/19/2014 OBESITY [E66.9] INVALID FOR*10/19/2014 MYALGIA AND MYOSITIS NOS [HTZ1273] INVALID FOR* SKIN ERUPTION, NONSPEC [R21] INVALID FOR*10/19/2014 Fracture, shoulder [S42.90XA] INVALID FOR*11/28/2015 More... DM w/o complication type II [E11.9] INVALID FOR*10/24/2015 Obesity [E66.9] INVALID FOR*10/19/2014 HTN (hypertension) [I10] INVALID FOR* More... IBS (irritable bowel syndrome) [K58.9] INVALID FOR* Endometrial cancer [C54.1] INVALID FOR*11/28/2015 Paroxysmal atrial fibrillation [I48.0] INVALID FOR* Urethral caruncle [N36.2] INVALID FOR* PAF (paroxysmal atrial fibrillation) [I48.0] INVALID FOR*10/19/2014 BMI 39.0-39.9,adult [Z68.39] INVALID FOR*10/24/2015 Hyperlipidemia [E78.5] INVALID FOR* Acute frontal sinusitis [J01.10] INVALID FOR*11/30/2016 BMI 37.0-37.9, adult [Z68.37] INVALID FOR* Essential hypertension, benign [I10] INVALID FOR* Anticoagulated on Coumadin [Z51.81, Z79.01] INVALID FOR* Endometrial cancer (HCC) [C54.1] INVALID FOR* More... Pulmonary HTN (HCC) [I27.20] INVALID FOR* Gastroesophageal reflux disease [K21.9] INVALID FOR* Irritable bowel syndrome with diarrhea [K58.0] INVALID FOR* Type 2 diabetes mellitus without complication, *INVALID FOR* More... Glaucoma [H40.9] Status:Closed by JERONIMO LANDAVERDE MD on 10/01/17 [facility] PROGRESSon 10-01-2017 PROGRESS HNO ID: [id number] thor: Jeronimo Mondragon: (none)Author Type: PhysicianType: Progress NotesFiled: 10/01/2017 3:24 PMNote Text:PERTINENT CARDIAC HISTORYPAFHTNHyperlipidemiaDM ADHERENCE TO GUIDELINESACE-I or ARB for HF with prior LVEF<40 (NQF 0081) - N/AASA or Plavix for ASHD (NQF 0067) - N/ABeta pat for ASHD with prior AK or prior LVEF<40 (NQF 0070) - N/ABeta pat for HF with prior LVEF<40 (NQF 0083) - N/AACE-I or ARB for ASHD with DM or prior LVEF<40 (NQF 0066) - N/AStatin therapy for ASHD or FHL or DM - metBMI documented and plan if >25 (NQF 0421) - lifestyle recommendation formTobacco use screening and referral (NQF 0028) - lifestyle recommendationformRecommendat ion for whole food, plant based diet - lifestyle recommendationformCLINICAL IMPRESSION/PLAN:Erendira Chávez is doing well. Her atrial fibrillation is infrequent. Ireminded her to go to emergency Department if this recurs so that we cantry flecainide.I will see her in 8 months or as needed. She will continue INRs throughprimary care. If there is increased chest pain or shortness of breath, shehas been advised to contact me.Written and verbal health teaching given to patient, patient verbalizesunderstanding and agrees with treatment plan.This note was generated using [employer] voice recognition system, and theremay be some incorrect words, spellings, and punctuation that were notnoted in checking the note before saving.DIAGNOSIS FOR VISIT:PAFHypertensionHISTORY OF PRESENT ILLNESSErendira Chávez returns for follow-up of her atrial fibrillation andhypertension.She reports stable exercise tolerance. She's had no chest pain. She deniesorthopnea. She's had minimal edema. She's had rare palpitations andsustained episodes.She denies syncope, TIAs, amaurosis and claudicationShe had flu recently but has recovered.ALLERGIES:ALLERGIES Allergen Reactions- Alphagan [Brimonidi* Itching- PenicillinsCURRENT OUTPATIENT MEDICATIONS:simvastatin (ZOCOR) 10 mg tablet TAKE ONE TABLET BY MOUTH AT BEDTIMEomeprazole (PRILOSEC) 20 mg capsule TAKE ONE CAPSULE BY MOUTH DAILYblood sugar diagnostic (ACCU-CHEK DESTINEE PLUS TEST STRP) test strip Testblood sugar(s) 1 times daily. Dx:E11.9 Insulin: Nowarfarin (COUMADIN) 4 mg tablet Take 2mg TueANDFri and 4mg daily all otherdays or as directed.lisinopril (ZESTRIL, PRINIVIL) 5 mg tablet Take 1 tablet by mouth oncedaily.metFORMIN ER (GLUCOPHAGE XR) 500 mg 24 hr tablet TAKE ONE TABLET BY MOUTHDAILY SUN BRANDglimepiride (AMARYL) 1 mg tablet Take 0.5 tablets by mouth twice dailywith meals.brimonidine (ALPHAGAN) 0.2 % ophthalmic solution 1 Drop three times daily.atenolol (TENORMIN) 25 mg tablet Take 1 tablet by mouth twice daily.Blood-Glucose Meter [facility] [place] As directed; E11.9 Insulin: Nofluticasone (FLONASE) 50 mcg/actuation nasal spray Use 2 Sprays in eachnostril once daily.Lancets lancets Test blood sugar(s) 1x/ daily. Dx: 250.00. Insulin: NoOTC PRODUCT rlvszny800rg rciqvqcb124ha jyhrbunlj348gr twice dailyOTC PRODUCT omega 3 liquid [id number] SG 100 100 MG-100 UNIT CAP Take one(1) tablet daily.THERAPEUTIC MULTIVITAMIN TAB Take one(1) tablet daily.PHYSICAL EXAMINATION:VITAL SIGNS: BP 124/75 Pulse 66 Wt 216 lb 11.2 oz (98.3kg)Chest: Clear to percussion and auscultation. Trachea is midline. Airentry is equal. Cardiac: Regular rhythm. S1 and S2 are normal. PMI isnondisplaced. There is a soft systolic ejection murmur. Carotids arebrisk without bruits. JVP is less than 10 cm. Abdomen: Soft andnontender. There are no pulsatile masses or bruits. No liverenlargement. Bowel sounds are active. Extremities: Trace edema. Pulsesare intact and symmetrical.Recent labs were reviewed. Renal function is normal. LDL was 82. TSH isnormal.Electronically Signed:Jeronimo Landaverde MDFebruary 2017 3:20 PMCC: Megan Finnegan MD [facility] Vital Signs Date Time Vital Sign Value Performing Clinician Faci lity 05-23-2025 13:14-0400 Body height 162.[address] Eric Delatorre MD Work Phone: [facility] 05-23-2025 13:14-0400 Body mass index (BMI) [Ratio] 39.4 kg/m2 Dr. Eric Delatorre MD Work Phone: [facility] 05-23-2025 13:14-0400 Body temperature 97.4 [degF] Dr. Eric Deltaorre MD Work Phone: [facility] 05-23-2025 13:14-0400 Body weight 104.[address] Eric Delatorre MD Work Phone: [facility] 05-23-2025 13:14-0400 Diastolic blood pressure 82 mm[Hg] Dr. Eric Delatorre MD Work Phone: [facility] 05-23-2025 13:14-0400 Heart rate 68 /min Dr. Eric Delatorre MD Work Phone: [facility] 05-23-2025 13:14-0400 Respiratory rate 14 /min Dr. Eric Delatorre MD Work Phone: [facility] 05-23-2025 13:14-0400 SaO2% (BldA) [Mass fraction] 97 % Dr. Eric Delatorre MD Work Phone: [facility] 05-23-2025 13:14-0400 Systolic blood pressure 144 mm[Hg] Dr. Eric Delatorre MD Work Phone: [facility] 04-17-2025 13:26-0400 Body height 162.[address] Eric Delatorre MD Work Phone: [facility] 04-17-2025 13:26-0400 Body mass index (BMI) [Ratio] 39.6 kg/m2 Dr. Eric Delatorre MD Work Phone: [facility] 04-17-2025 13:26-0400 Body weight 104.[address] Eric Delatorre MD Work Phone: [facility] 04-17-2025 13:26-0400 Diastolic blood pressure 78 mm[Hg] Dr. Eric Delatorre MD Work Phone: [facility] 04-17-2025 13:26-0400 Systolic blood pressure 154 mm[Hg] Dr. Eric Delatorre MD Work Phone: [facility] 03-06-2025 13:25-0400 Body height 162.[address] Eric Delatorre MD Work Phone: [facility] 03-06-2025 13:25-0400 Body mass index (BMI) [Ratio] 39.5 kg/m2 Dr. Eric Delatorre MD Work Phone: [facility] 03-06-2025 13:25-0400 Body temperature 98.1 [degF] Dr. Eric Delatorre MD Work Phone: [facility] 03-06-2025 13:25-0400 Body weight 104.[address] Eric Delatorre MD Work Phone: [facility] 03-06-2025 13:25-0400 Diastolic blood pressure 80 mm[Hg] Dr. Eric Delatorre MD Work Phone: [facility] 03-06-2025 13:25-0400 Heart rate 73 /min Dr. Eric Delatorre MD Work Phone: [facility] 03-06-2025 13:25-0400 Respiratory rate 16 /min Dr. Eric Delatorre MD Work Phone: [facility] 03-06-2025 13:25-0400 SaO2% (BldA) [Mass fraction] 97 % Dr. Eric Delatorre MD Work Phone: [facility] 03-06-2025 13:25-0400 Systolic blood pressure 132 mm[Hg] Dr. Eric Delatorre MD Work Phone: [facility] 01-22-2025 21:19-0400 Body mass index (BMI) [Ratio] 34.4 kg/m2 Dr. Erci Delatorre MD Work Phone: [facility] 12-22-2024 00:55-0400 Body mass index (BMI) [Ratio] 34.4 kg/m2 Dr. Eric Delatorre MD Work Phone: [facility] 12-20-2024 14:13-0400 Body height 162.[address] Eric Delatorre MD Work Phone: [facility] 12-20-2024 14:13-0400 Body mass index (BMI) [Ratio] 39.1 kg/m2 Dr. Eric Delatorre MD Work Phone: [facility] 12-20-2024 14:13-0400 Body weight 103.[address] Eric Delatorre MD Work Phone: [facility] 12-20-2024 14:13-0400 Diastolic blood pressure 78 mm[Hg] Dr. Eric Delatorre MD Work Phone: [facility] 12-20-2024 14:13-0400 Heart rate 72 /min Dr. Eric Delatorre MD Work Phone: [facility] 12-20-2024 14:13-0400 Respiratory rate 16 /min Dr. Eric Delatorre MD Work Phone: [facility] 12-20-2024 14:13-0400 Systolic blood pressure 144 mm[Hg] Dr. Eric Delatorre MD Work Phone: [facility] 11-28-2024 11:20-0400 Body height 162.[address] Eric Delatorre MD Work Phone: [facility] 11-28-2024 11:20-0400 Body mass index (BMI) [Ratio] 38.9 kg/m2 Dr. Eric Delatorre MD Work Phone: [facility] 11-28-2024 11:20-0400 Body temperature 98 [degF] Dr. Eric Delatorre MD Work Phone: [facility] 11-28-2024 11:20-0400 Body weight 102.[address] Eric Delatorre MD Work Phone: [facility] 11-28-2024 11:20-0400 Diastolic blood pressure 72 mm[Hg] Dr. Eric Delatorre MD Work Phone: [facility] 11-28-2024 11:20-0400 Heart rate 64 /min Dr. Eric Delatorre MD Work Phone: [facility] 11-28-2024 11:20-0400 Respiratory rate 18 /min Dr. Eric Delatorre MD Work Phone: [facility] 11-28-2024 11:20-0400 SaO2% (BldA) [Mass fraction] 97 % Dr. Eric Delatorre MD Work Phone: [facility] 11-28-2024 11:20-0400 Systolic blood pressure 124 mm[Hg] Dr. Eric Delatorre MD Work Phone: [facility] 11-21-2024 22:20-0400 Body mass index (BMI) [Ratio] 34.4 kg/m2 Dr. Eric Delatorre MD Work Phone: [facility] 10-22-2024 08:09-0500 Body mass index (BMI) [Ratio] 34.4 kg/m2 Dr. Eric Delatorre MD Work Phone: [facility] 09-24-2024 02:05-0500 Body mass index (BMI) [Ratio] 34.4 kg/m2 Dr. Eric Delatorre MD Work Phone: [facility] 08-24-2024 04:30-0500 Body mass index (BMI) [Ratio] 34.4 kg/m2 Dr. Eric Delatorre MD Work Phone: [facility] 08-22-2024 13:29-0500 Body height 162.[address] Eric Delatorre MD Work Phone: [facility] 08-22-2024 13:29-0500 Body mass index (BMI) [Ratio] 37.8 kg/m2 Dr. Eric Delatorre MD Work Phone: [facility] 08-22-2024 13:29-0500 Body temperature 97.5 [degF] Dr. Eric Delatorre MD Work Phone: [facility] 08-22-2024 13:29-0500 Body weight 99.[address] Eric Delatorre MD Work Phone: [facility] 08-22-2024 13:29-0500 Diastolic blood pressure 80 mm[Hg] Dr. Eric Delatorre MD Work Phone: [facility] 08-22-2024 13:29-0500 Heart rate 75 /min Dr. Eric Delatorre MD Work Phone: [facility] 08-22-2024 13:29-0500 Respiratory rate 16 /min Dr. Eric Delatorre MD Work Phone: [facility] 08-22-2024 13:29-0500 SaO2% (BldA) [Mass fraction] 99 % Dr. Eric Delatorre MD Work Phone: [facility] 08-22-2024 13:29-0500 Systolic blood pressure 128 mm[Hg] Dr. Eric Delatorre MD Work Phone: [facility] 07-24-2024 02:43-0500 Body mass index (BMI) [Ratio] 34.4 kg/m2 Dr. Eric Delatorre MD Work Phone: [facility] 11-22-2023 01:00-0400 Body mass index (BMI) [Ratio] 34.4 kg/m2 Dr. Eric Delatorre Work Phone: [facility] 11-11-2023 13:35-0400 Body height 162.[address] Eric Delatorre Work Phone: [facility] 11-11-2023 13:35-0400 Body mass index (BMI) [Ratio] 37.6 kg/m2 Dr. Eric Delatorre Work Phone: [facility] 11-11-2023 13:35-0400 Body temperature 97.9 [degF] Dr. Eric Delatorre Work Phone: [facility] 11-11-2023 13:35-0400 Body weight 99.[address] Eric Delatorre Work Phone: [facility] 11-11-2023 13:35-0400 Diastolic blood pressure 80 mm[Hg] Dr. Eric Delatorre Work Phone: [facility] 11-11-2023 13:35-0400 Heart rate 61 /min Dr. Eric Delatorre Work Phone: [facility] 11-11-2023 13:35-0400 Respiratory rate 16 /min Dr. Eric Delatorre Work Phone: [facility] 11-11-2023 13:35-0400 SaO2% (BldA) [Mass fraction] 97 % Dr. Eric Delatorre Work Phone: [facility] 11-11-2023 13:35-0400 Systolic blood pressure 140 mm[Hg] Dr. Eric Delatorre Work Phone: [facility] 10-30-2023 12:55-0500 Body mass index (BMI) [Ratio] 37.8 kg/m2 Dr. Eric Delatorre Work Phone: [facility] 10-30-2023 12:55-0500 Body weight 99.[address] Eric Delatorre Work Phone: [facility] 10-30-2023 12:55-0500 Diastolic blood pressure 73 mm[Hg] Dr. Eric Delatorre Work Phone: [facility] 10-30-2023 12:55-0500 Heart rate 63 /min Dr. Eric Delatorre Work Phone: [facility] 10-30-2023 12:55-0500 Respiratory rate 16 /min Dr. Eric Delatorre Work Phone: [facility] 10-30-2023 12:55-0500 Systolic blood pressure 156 mm[Hg] Dr. Eric Delatorre Work Phone: [facility] 10-22-2023 23:54-0500 Body mass index (BMI) [Ratio] 34.4 kg/m2 Dr. Eric Delatorre Work Phone: [facility] 09-23-2023 23:13-0500 Body mass index (BMI) [Ratio] 34.4 kg/m2 Dr. Eric Delatorre Work Phone: [facility] 08-24-2023 00:25-0500 Body mass index (BMI) [Ratio] 34.4 kg/m2 Dr. Eric Delatorre Work Phone: [facility] 08-05-2023 15:22-0500 Body height 162.[address] Eric Delatorre Work Phone: [facility] 08-05-2023 15:22-0500 Body mass index (BMI) [Ratio] 37.4 kg/m2 Dr. Eric Delatorre Work Phone: [facility] 08-05-2023 15:22-0500 Body temperature 97.6 [degF] Dr. Eric Delatorre Work Phone: [facility] 08-05-2023 15:22-0500 Body weight 98.[address] Eric Delatorre Work Phone: [facility] 08-05-2023 15:22-0500 Diastolic blood pressure 84 mm[Hg] Dr. Eric Delatorre Work Phone: [facility] 08-05-2023 15:22-0500 Heart rate 62 /min Dr. Eric Delatorre Work Phone: [facility] 08-05-2023 15:22-0500 Respiratory rate 16 /min Dr. Eric Delatorre Work Phone: [facility] 08-05-2023 15:22-0500 SaO2% (BldA) [Mass fraction] 99 % Dr. Eric Delatorre Work Phone: [facility] 08-05-2023 15:22-0500 Systolic blood pressure 144 mm[Hg] Dr. Eric Delatorre Work Phone: [facility] 07-24-2023 03:13-0500 Body mass index (BMI) [Ratio] 34.4 kg/m2 Dr. Eric Delatorre Work Phone: [facility] 06-23-2023 22:25-0400 Body mass index (BMI) [Ratio] 34.4 kg/m2 Dr. Eric Delatorre Work Phone: [facility] 05-24-2023 03:15-0400 Body mass index (BMI) [Ratio] 34.4 kg/m2 Dr. Eric Delatorre Work Phone: [facility] 05-05-2023 13:30-0400 Body height 162.[address] Eric Delatorre Work Phone: [facility] 05-05-2023 13:12-0400 Body mass index (BMI) [Ratio] 37.2 kg/m2 Dr. Eric Delatorre Work Phone: [facility] 05-05-2023 13:12-0400 Body weight 98.[address] Eric Delatorre Work Phone: [facility] 05-05-2023 13:12-0400 Heart rate 62 /min Dr. Eric Delatorre Work Phone: [facility] 05-05-2023 13:12-0400 Respiratory rate 16 /min Dr. Eric Delatorre Work Phone: [facility] 04-30-2023 13:44-0400 Body mass index (BMI) [Ratio] 37.2 kg/m2 Dr. Eric Delatorre Work Phone: [facility] 04-30-2023 13:44-0400 Body temperature 96.6 [degF] Dr. Eric Delatorre Work Phone: [facility] 04-30-2023 13:44-0400 Body weight 98.[address] Eric Delatorre Work Phone: [facility] 04-30-2023 13:44-0400 Diastolic blood pressure 96 mm[Hg] Dr. Eric Delatorre Work Phone: [facility] 04-30-2023 13:44-0400 Heart rate 62 /min Dr. Eric Delatorre Work Phone: [facility] 04-30-2023 13:44-0400 Respiratory rate 18 /min Dr. Eric Delatorre Work Phone: [facility] 04-30-2023 13:44-0400 SaO2% (BldA) [Mass fraction] 98 % Dr. Eric Delatorre Work Phone: [facility] 04-30-2023 13:44-0400 Systolic blood pressure 166 mm[Hg] Dr. Eric Delatorre Work Phone: [facility] 04-23-2023 23:04-0400 Body mass index (BMI) [Ratio] 34.4 kg/m2 Dr. Eric Delatorre Work Phone: [facility] 03-24-2023 00:50-0400 Body mass index (BMI) [Ratio] 34.4 kg/m2 Dr. Eric Delatorre Work Phone: [facility] 02-20-2023 22:32-0400 Body mass index (BMI) [Ratio] 34.4 kg/m2 Dr. Eric Delatorre Work Phone: [facility] 02-19-2023 09:50-0400 Body height 162.[address] Eric Delatorre Work Phone: [facility] 02-19-2023 09:49-0400 Body mass index (BMI) [Ratio] 37.5 kg/m2 Dr. Eric Delatorre Work Phone: [facility] 02-19-2023 09:49-0400 Body weight 99.[address] Eric Delatorre Work Phone: [facility] 02-19-2023 09:49-0400 Diastolic blood pressure 80 mm[Hg] Dr. Eric Delatorre Work Phone: [facility] 02-19-2023 09:49-0400 Systolic blood pressure 172 mm[Hg] Dr. Eric Delatorre Work Phone: [facility] 01-22-2023 09:58-0400 Body mass index (BMI) [Ratio] 34.4 kg/m2 Dr. Eric Delatorre Work Phone: [facility] 01-21-2023 13:35-0400 Body height 162.[address] Erci Delatorre Work Phone: [facility] 01-21-2023 13:35-0400 Body mass index (BMI) [Ratio] 36.9 kg/m2 Dr. Eric Delatorre Work Phone: [facility] 01-21-2023 13:35-0400 Body temperature 96.6 [degF] Dr. Eric Delatorre Work Phone: [facility] 01-21-2023 13:35-0400 Body weight 97.[address] Eric Delatorre Work Phone: [facility] 01-21-2023 13:35-0400 Diastolic blood pressure 96 mm[Hg] Dr. Eric Delatorre Work Phone: [facility] 01-21-2023 13:35-0400 Heart rate 96 /min Dr. Eric Delatorre Work Phone: [facility] 01-21-2023 13:35-0400 Respiratory rate 18 /min Dr. Eric Delatorre Work Phone: [facility] 01-21-2023 13:35-0400 SaO2% (BldA) [Mass fraction] 97 % Dr. Eric Delatorre Work Phone: [facility] 01-21-2023 13:35-0400 Systolic blood pressure 138 mm[Hg] Dr. Eric Delatorre Work Phone: [facility] 12-21-2022 01:26-0400 Body mass index (BMI) [Ratio] 34.4 kg/m2 Dr. Eric Delatorre Work Phone: [facility] 11-21-2022 23:11-0400 Body mass index (BMI) [Ratio] 34.4 kg/m2 Dr. Eric Delatorre Work Phone: [facility] 10-21-2022 23:07-0500 Body mass index (BMI) [Ratio] 34.4 kg/m2 Dr. Eric Delatorre Work Phone: [facility] 10-17-2022 13:43-0500 Body height 162.[address] Eric Delatorre Work Phone: [facility] 10-17-2022 13:43-0500 Body mass index (BMI) [Ratio] 37.4 kg/m2 Dr. Eric Delatorre Work Phone: [facility] 10-17-2022 13:43-0500 Body temperature 96.5 [degF] Dr. Eric Delatorre Work Phone: [facility] 10-17-2022 13:43-0500 Body weight 98.[address] Eric Delatorre Work Phone: [facility] 10-17-2022 13:43-0500 Diastolic blood pressure 84 mm[Hg] Dr. Eric Delatorre Work Phone: [facility] 10-17-2022 13:43-0500 Heart rate 66 /min Dr. Eric Delatorre Work Phone: [facility] 10-17-2022 13:43-0500 Respiratory rate 18 /min Dr. Eric Delatorre Work Phone: [facility] 10-17-2022 13:43-0500 SaO2% (BldA) [Mass fraction] 99 % Dr. Eric Delatorre Work Phone: [facility] 10-17-2022 13:43-0500 Systolic blood pressure 130 mm[Hg] Dr. Eric Delatorre Work Phone: [facility] 09-24-2022 08:31-0500 Body mass index (BMI) [Ratio] 34.4 kg/m2 Dr. Eric Delatorre Work Phone: [facility] 08-24-2022 04:05-0500 Body mass index (BMI) [Ratio] 34.4 kg/m2 Dr. Eric Delatorre Work Phone: [facility] 07-24-2022 00:31-0500 Body mass index (BMI) [Ratio] 34.4 kg/m2 Dr. Eric Delatorre Work Phone: [facility] 07-09-2022 15:04-0500 Body temperature 96.5 [degF] Dr. Eric Delatorre Work Phone: [facility] 07-09-2022 15:04-0500 Body weight 98.[address] Eric Delatorre Work Phone: [facility] 07-09-2022 15:04-0500 Diastolic blood pressure 82 mm[Hg] Dr. Eric Delatorre Work Phone: [facility] 07-09-2022 15:04-0500 Heart rate 61 /min Dr. Eric Delatorre Work Phone: [facility] 07-09-2022 15:04-0500 Respiratory rate 18 /min Dr. Eric Delatorre Work Phone: [facility] 07-09-2022 15:04-0500 SaO2% (BldA) [Mass fraction] 100 % Dr. Eric Delatorre Work Phone: [facility] 07-09-2022 15:04-0500 Systolic blood pressure 134 mm[Hg] Dr. Eric Delatorre Work Phone: [facility] 06-24-2022 10:08-0400 Body mass index (BMI) [Ratio] 34.4 kg/m2 Dr. Eric Delatorre Work Phone: [facility] 05-24-2022 04:08-0400 Body mass index (BMI) [Ratio] 34.4 kg/m2 Dr. Eric Delatorre Work Phone: [facility] Work Phone: 04-23-2022 23:13-0400 Body mass index (BMI) [Ratio] 34.4 kg/m2 Dr. Eric Delatorre Work Phone: [facility] Work Phone: 04-08-2022 13:03-0400 Body height 162.[address] Eric Delatorre Work Phone: [facility] Work Phone: 04-08-2022 13:03-0400 Body mass index (BMI) [Ratio] 36.8 kg/m2 Dr. Eric Delatorre Work Phone: [facility] Work Phone: 04-08-2022 13:03-0400 Body weight 97.[address] Eric Delatorre Work Phone: [facility] Work Phone: 04-08-2022 13:03-0400 Diastolic blood pressure 68 mm[Hg] Dr. Eric Delatorre Work Phone: [facility] Work Phone: 04-08-2022 13:03-0400 Heart rate 64 /min Dr. Eric Delatorre Work Phone: [facility] Work Phone: 04-08-2022 13:03-0400 Respiratory rate 16 /min Dr. Eric Delatorre Work Phone: [facility] Work Phone: 04-08-2022 13:03-0400 Systolic blood pressure 125 mm[Hg] Dr. Eric Delatorre Work Phone: [facility] Work Phone: 04-02-2022 13:57-0400 Body height 162.[address] Eric Delatorre Work Phone: [facility] Work Phone: 04-02-2022 13:57-0400 Body mass index (BMI) [Ratio] 36.9 kg/m2 Dr. Eric Delatorre Work Phone: [facility] Work Phone: 04-02-2022 13:57-0400 Body temperature 97.5 [degF] Dr. Eric Delatorre Work Phone: [facility] Work Phone: 04-02-2022 13:57-0400 Body weight 97.[address] Eric Delatorre Work Phone: [facility] Work Phone: 04-02-2022 13:57-0400 Diastolic blood pressure 70 mm[Hg] Dr. Eric Delatorre Work Phone: [facility] Work Phone: 04-02-2022 13:57-0400 Heart rate 67 /min Dr. Eric Delatorre Work Phone: [facility] Work Phone: 04-02-2022 13:57-0400 Respiratory rate 16 /min Dr. Eric Delatorre Work Phone: [facility] Work Phone: 04-02-2022 13:57-0400 SaO2% (BldA) [Mass fraction] 98 % Dr. Eric Delatorre Work Phone: [facility] Work Phone: 04-02-2022 13:57-0400 Systolic blood pressure 134 mm[Hg] Dr. Eric Delatorre Work Phone: [facility] Work Phone: 03-23-2022 03:36-0400 Body mass index (BMI) [Ratio] 34.4 kg/m2 Dr. Eric Delatorre Work Phone: [facility] Work Phone: 02-21-2022 10:02-0400 Body mass index (BMI) [Ratio] 34.4 kg/m2 Dr. Eric Delatorre Work Phone: [facility] Work Phone: 02-17-2022 11:08-0400 Body height 162.[address] Eric Delatorre Work Phone: [facility] Work Phone: 02-17-2022 11:08-0400 Body mass index (BMI) [Ratio] 34.3 kg/m2 Dr. Eric Delatorre Work Phone: [facility] Work Phone: 02-17-2022 11:07-0400 Body weight 97.[address] Eric Delatorre Work Phone: [facility] Work Phone: 02-17-2022 11:07-0400 Diastolic blood pressure 92 mm[Hg] Dr. Eric Delatorre Work Phone: [facility] Work Phone: 02-17-2022 11:07-0400 Systolic blood pressure 140 mm[Hg] Dr. Eric Delatorre Work Phone: [facility] Work Phone: 01-21-2022 21:58-0400 Body mass index (BMI) [Ratio] 34.4 kg/m2 Dr. Eric Delatorre Work Phone: [facility] Work Phone: 12-27-2021 14:37-0400 Body mass index (BMI) [Ratio] 35.9 kg/m2 Dr. Eric Delatorre Work Phone: [facility] Work Phone: 12-27-2021 14:37-0400 Body temperature 96.9 [degF] Dr. Eric Delatorre Work Phone: [facility] Work Phone: 12-27-2021 14:37-0400 Body weight 94.[address] Eric Delatorre Work Phone: [facility] Work Phone: 12-27-2021 14:37-0400 Diastolic blood pressure 86 mm[Hg] Dr. Eric Delatorre Work Phone: [facility] Work Phone: 12-27-2021 14:37-0400 Heart rate 66 /min Dr. Eric Delatorre Work Phone: [facility] Work Phone: 12-27-2021 14:37-0400 Respiratory rate 16 /min Dr. Eric Delatorre Work Phone: [facility] Work Phone: 12-27-2021 14:37-0400 SaO2% (BldA) [Mass fraction] 97 % Dr. Eric Delatorre Work Phone: [facility] Work Phone: 12-27-2021 14:37-0400 Systolic blood pressure 142 mm[Hg] Dr. Eric Delatorre Work Phone: [facility] Work Phone: 12-27-2021 14:37-0400 Body height 162.[address] Eric Delatorre Work Phone: [facility] Work Phone: 12-27-2021 14:37-0400 Body mass index (BMI) [Ratio] 35.9 kg/m2 Dr. Eric Delatorre Work Phone: [facility] Work Phone: 12-27-2021 14:37-0400 Body temperature 96.9 [degF] Dr. Eric Delatorre Work Phone: [facility] Work Phone: 12-27-2021 14:37-0400 Body weight 94.[address] Eric Delatorre Work Phone: [facility] Work Phone: 12-27-2021 14:37-0400 Diastolic blood pressure 86 mm[Hg] Dr. Eric Delatorre Work Phone: [facility] Work Phone: 12-27-2021 14:37-0400 Heart rate 66 /min Dr. Eric Delatorre Work Phone: [facility] Work Phone: 12-27-2021 14:37-0400 Respiratory rate 16 /min Dr. Eric Delatorre Work Phone: [facility] Work Phone: 12-27-2021 14:37-0400 SaO2% (BldA) [Mass fraction] 97 % Dr. Eric Delatorre Work Phone: [facility] Work Phone: 12-27-2021 14:37-0400 Systolic blood pressure 142 mm[Hg] Dr. Eric Delatorre Work Phone: [facility] Work Phone: 12-22-2021 05:20-0400 Body mass index (BMI) [Ratio] 34.4 kg/m2 Dr. Eric Delatorre Work Phone: [facility] Work Phone: 11-22-2021 03:15-0400 Body mass index (BMI) [Ratio] 34.4 kg/m2 Dr. Eric Delatorre Work Phone: [facility] Work Phone: 10-30-2021 14:56-0500 Body mass index (BMI) [Ratio] 35.9 kg/m2 Dr. Eric Delatorre Work Phone: [facility] Work Phone: 10-30-2021 14:56-0500 Body temperature 96.6 [degF] Dr. Eric Delatorre Work Phone: [facility] Work Phone: 10-30-2021 14:56-0500 Body weight 94.[address] Eric Delatorre Work Phone: [facility] Work Phone: 10-30-2021 14:56-0500 Diastolic blood pressure 70 mm[Hg] Dr. Eric Delatorre Work Phone: [facility] Work Phone: 10-30-2021 14:56-0500 Heart rate 70 /min Dr. Eric Delatorre Work Phone: [facility] Work Phone: 10-30-2021 14:56-0500 Respiratory rate 16 /min Dr. Eric Delatorre Work Phone: [facility] Work Phone: 10-30-2021 14:56-0500 SaO2% (BldA) [Mass fraction] 97 % Dr. Eric Delatorre Work Phone: [facility] Work Phone: 10-30-2021 14:56-0500 Systolic blood pressure 154 mm[Hg] Dr. Eric Delatorre Work Phone: [facility] Work Phone: 10-30-2021 13:56-0500 Body height 162.[address] Eric Delatorre Work Phone: [facility] Work Phone: 10-30-2021 13:56-0500 Body mass index (BMI) [Ratio] 35.9 kg/m2 Dr. Eric Delatorre Work Phone: [facility] Work Phone: 10-30-2021 13:56-0500 Body temperature 96.6 [degF] Dr. Eric Delatorre Work Phone: [facility] Work Phone: 10-30-2021 13:56-0500 Body weight 94.[address] Eric Delatorre Work Phone: [facility] Work Phone: 10-30-2021 13:56-0500 Diastolic blood pressure 70 mm[Hg] Dr. Eric Delatorre Work Phone: [facility] Work Phone: 10-30-2021 13:56-0500 Heart rate 70 /min Dr. Eric Delatorre Work Phone: [facility] Work Phone: 10-30-2021 13:56-0500 Respiratory rate 16 /min Dr. Eric Delatorre Work Phone: [facility] Work Phone: 10-30-2021 13:56-0500 SaO2% (BldA) [Mass fraction] 97 % Dr. Eric Delatorre Work Phone: [facility] Work Phone: 10-30-2021 13:56-0500 Systolic blood pressure 154 mm[Hg] Dr. Eric Delatorre Work Phone: [facility] Work Phone: 09-24-2021 01:20-0500 Body mass index (BMI) [Ratio] 34.4 kg/m2 Dr. Eric Delatorre Work Phone: [facility] Work Phone: 09-24-2021 00:20-0500 Body mass index (BMI) [Ratio] 34.4 kg/m2 Dr. Eric Delatorre Work Phone: [facility] Work Phone: 09-23-2021 14:13-0500 Body temperature 96.6 [degF] Dr. Eric Delatorre Work Phone: [facility] Work Phone: 09-23-2021 14:13-0500 Body weight 92.[address] Eric Delatorre Work Phone: [facility] Work Phone: 09-23-2021 14:13-0500 Diastolic blood pressure 88 mm[Hg] Dr. Eric Delatorre Work Phone: [facility] Work Phone: 09-23-2021 14:13-0500 Heart rate 16 /min Dr. Eric Delatorre Work Phone: [facility] Work Phone: 09-23-2021 14:13-0500 Respiratory rate 16 /min Dr. Eric Delatorre Work Phone: [facility] Work Phone: 09-23-2021 14:13-0500 SaO2% (BldA) [Mass fraction] 99 % Dr. Eric Delatorre Work Phone: [facility] Work Phone: 09-23-2021 14:13-0500 Systolic blood pressure 160 mm[Hg] Dr. Eric Delatorre Work Phone: [facility] Work Phone: 08-25-2021 03:31-0500 Body mass index (BMI) [Ratio] 34.4 kg/m2 Dr. Eric Delatorre Work Phone: [facility] Work Phone: Encounters Encounter Date Encounter Type Care Provider Facility Start: 06-24-2025 ambulatory Eric Delatorre Benito[place] ty:[facility] Start: 06-20-2025 End: 06-20-2025 ambulatory Radhanancirebeca Delatorre Facility:[facility] Start: 05-23-2025 End: 05-23-[address] Javon Jenkins MD -Laboratory [facility] Work Phone: Start: 05-23-2025 End: 05-23-[address] Eric Delatorre MD Work Phone: -[facility] Start: 05-23-2025 End: 05-23-[address] Eric Delatorre MD -[facility] Work Phone: Start: 05-23-2025 End: 05-23-[address] Eric Delatorre MD [facility] Start: 05-23-2025 End: 05-23-[address] Eric Delatorre MD Work Phone: -[facility] Start: 04-19-2025 End: 04-19-[address] Eric Delatorre MD Work Phone: -[facility] Start: 04-19-2025 End: 04-19-[address] Javon Jenkins MD -Laboratory [facility] Work Phone: Start: 04-19-[address] Javon Jenkins MD -Labor[facility] Work Phone: Start: 04-17-2025 Encounter for gynecological examination (general) (routine) with abnormal findings Lola Bowles [facility] Start: 04-17-2025 End: 04-17-[address] Lola Bowles MD [facility] Start: 04-17-2025 End: 04-17-[address] Eric Delatorre MD Work Phone: -[facility] Start: 04-17-2025 End: 04-17-[address] Lola Bowles MD -[facility] Work Phone: Start: 04-17-2025 End: 04-17-2025 ambulatory Eric Delatorre Facility:[facility] Start: 03-24-[address] Javon Jenkins MD -[facility] Work Phone: Start: 03-24-2025 ambulatory Eric Gonzalez ty:[facility] Start: 03-24-2025 Non-patient / Non-visit Dr. Ayush Delatorre MD -[facility] Work Phone: Start: 03-08-2025 End: 03-23-[address] Javon Jenkins MD -[facility] Work Phone: Start: 03-08-2025 End: 03-23-[address] Eric Delatorre MD Work Phone: -[facility] [place] Start: 03-06-2025 End: 03-06-[address] Eric Delatorre MD -[facility] Work Phone: Start: 03-06-2025 End: 03-06-[address] Eric Delatorre MD Work Phone: -[facility] Start: 02-09-2025 End: 02-09-[address] Javon Jenkins MD -Laboratory [employer] [facility] Work Phone: Start: 02-09-2025 End: 02-09-[address] Eric Delatorre MD Work Phone: -[facility] [place] Start: 01-10-2025 End: 01-10-[address] Javon Jenkins MD -Laboratory [facility] Work Phone: Start: 01-10-2025 End: 01-10-[address] Eric Delatorre MD Work Phone: [facility] Work Phone: Start: 12-20-2024 End: 12-20-[address] Javon Jenkins MD -[facility] Work Phone: Start: 12-20-2024 End: 12-20-2024 ambulatory [facility] [address] Facility:[facility] Start: 12-12-2024 End: 12-21-2024 ambulatory Javon Jenkins Facility:[facility] Start: 12-12-2024 End: 12-21-[address] Javon Jenkins MD -Laboratory [employer] [facility] [facility] Work Phone: Start: 11-28-2024 End: 11-28-[address] Eric Delatorre MD Work Phone: [facility] Work Phone: Start: 11-28-2024 End: 11-28-[address] Eric Delatorre MD -Laboratory, [place] Start: 11-28-2024 End: 11-28-[address] Eric Delatorre MD -[facility] Work Phone: Start: 11-28-2024 End: 11-28-2024 ambulatory [facility] [address] Facility:[facility] Start: 11-28-2024 End: 11-28-2024 ambulatory [facility] [address] Facility:[facility] Start: 11-14-2024 End: 11-14-[address] Eric Delatorre MD Work Phone: [facility] Work Phone: Start: 11-14-2024 End: 11-14-[address] Javon Jenkins MD -Laboratory Work Phone: Start: 10-11-2024 End: 10-21-2024 ambulatory Javon Jenkins Facility:[facility] Start: 10-11-2024 End: 10-21-[address] [facility] [place] [place] Work Phone: Start: 09-19-2024 End: 09-19-2024 ambulatory [facility] [address] Facility:[facility] Start: 09-19-2024 End: 09-19-[address] Javon Jenkins MD -Laboratory Work Phone: Start: 08-22-2024 End: 08-22-2024 ambulatory [facility] [address] Facility:[facility] Start: 08-22-2024 End: 08-22-[address] Javon Jenkins MD -Laboratory Work Phone: Start: 08-22-2024 End: 08-22-[address] Eric Delatorre MD -[facility] Work Phone: Start: 08-22-2024 End: 08-22-2024 ambulatory [facility] [address] Facility:[facility] Start: 07-20-2024 End: 07-23-2024 [facility] Start: 12-11-2023 End: 12-22-[address] Eric Delatorre Work Phone: [facility] Work Phone: Start: 12-11-2023 End: 12-22-[address] Eric Delatorre Work Phone: [facility]-Laboratory Work Phone: Start: 11-11-2023 End: 11-11-[address] Eric Delatorre Work Phone: [facility] Work Phone: Start: 11-11-2023 End: 11-11-[address] Eric Delatorre Work Phone: [facility] Work Phone: Start: 10-30-2023 End: 10-30-[address] Eric Delatorre Work Phone: [facility] Work Phone: Start: 10-30-2023 End: 11-22-[address] Eric Delatorre Work Phone: [facility] Work Phone: Start: 10-30-2023 End: 11-22-[address] [facility] Work [facility]: Start: 10-30-[address] Gisel Delatorre Work Phone: [facility] Work Phone: Start: 10-09-2023 End: 10-22-[address] Eric Delatorre Work Phone: [facility] Work Phone: Start: 10-09-2023 End: 10-22-[address] Eric Delatorre Work Phone: [facility] Work Phone: Start: 09-10-2023 End: 09-10-[address] [facility] Work [facility]: Start: 08-05-2023 End: 08-23-[address] Eric Delatorre [facility] [place] Start: 08-05-2023 End: 08-05-[address] Eric Delatorre Work Phone: [facility] Work Phone: Start: 07-10-2023 End: 07-23-[address] Eric Delatorre Work Phone: [facility] Work Phone: Start: 07-10-2023 End: 07-23-[address] Eric Delatorre Work Phone: [facility]-Laboratory Work Phone: Start: 06-11-2023 End: 06-11-[address] Eric Delatorre Work Phone: [facility] Work Phone: Start: 06-11-2023 End: 06-11-[address] Eric Delatorre Work Phone: [facility]-Laboratory Work Phone: Start: 05-27-2023 Non-patient / Non-visit Dr. Ayush Delatorre Work Phone: [facility] Start: 05-27-2023 End: 05-27-[address] Eric Delatorre Work Phone: [facility]-Cardiovascula r Services Work Phone: Start: 05-13-2023 End: 05-13-[address] Eric Delatorre Work Phone: [facility]-Laboratory Work Phone: Start: 05-05-2023 End: 05-05-[address] Eric Delatorre Work Phone: [facility] Work Phone: Start: 04-30-[address] Daniela Delatorre Work Phone: [facility] Start: 04-30-2023 End: 04-30-2023 Encounter for general adult medical examination without abnormal findings Dr. Eric Delatorre Work Phone: [facility] Start: 04-30-2023 End: 04-30-[address] Eric Delatorre Work Phone: [facility] Work Phone: Start: 04-15-2023 End: 04-15-[address] Eric Delatorre Work Phone: [facility] Work Phone: Start: 04-15-2023 End: 04-15-[address] Eric Delatorre Work Phone: [facility]-Laboratory Work Phone: Start: 03-16-2023 End: 03-23-[address] Eric Delatorre Work Phone: [facility] Work Phone: Start: 03-16-2023 End: 03-23-[address] Eric Delatorre Work Phone: [facility]-Laboratory Work Phone: Start: 02-19-2023 End: 02-19-[address] Eric Delatorre Work Phone: [facility] Work Phone: Start: 02-19-2023 End: 02-19-[address] Eric Delatorre Work Phone: [facility]-Outpatient Breast Imaging Work Phone: Start: 02-16-2023 End: 02-16-[address] Eric Delatorre Work Phone: [facility] Work Phone: Start: 02-16-2023 End: 02-16-[address] [facility] Work [facility]: Start: 02-06-[address] Gisel Delatorre Work Phone: [facility]-Laboratory Start: 02-05-2023 End: 02-05-[address] Eric Delatorre Work Phone: [facility] Work Phone: Start: 02-05-2023 End: 02-05-[address] Eric Delatorre Work Phone: [facility]-Outpatient Bone Densitometry Start: 01-21-2023 End: 01-21-[address] Eric Delatorre Work Phone: [facility] Start: 01-14-2023 End: 01-21-[address] Eric Delatorre Work Phone: [facility] Work Phone: Start: 01-14-2023 End: 01-21-[address] [facility] Start: 12-05-2022 End: 12-21-[address] Eric Delatorre Work Phone: [facility] Work Phone: Start: 12-05-2022 End: 12-21-[address] [facility] Delatorre [facility] Start: 10-28-2022 End: 11-21-[address] Eric Delatorre Work Phone: [facility] Work Phone: Start: 10-28-2022 End: 11-21-[address] Eric Delatorre Work Phone: [facility]-Laboratory Start: 10-17-2022 End: 10-17-[address] Eric Delatorre Work Phone: [facility] Internal [facility] Start: 09-30-2022 End: 09-30-[address] Eric Delatorre Work Phone: [facility] Work Phone: Start: 09-30-2022 End: 09-30-[address] [facility]ator[facility] Start: 08-26-2022 End: 08-26-[address] [facility] Start: 07-30-2022 End: 07-30-[address] Eric Delatorre Work Phone: [facility] Work Phone: Start: 07-30-2022 End: 07-30-[address] [facility] Delatorre [facility] Start: 07-09-2022 End: 07-09-[address] Eric Delatorre Work Phone: [facility] Internal [facility] Start: 07-04-2022 End: 07-23-[address] Eric Delatorre Work Phone: [facility] Work Phone: Start: 07-04-2022 End: 07-23-[address] [facility] Delatorre [facility] Start: 06-06-2022 End: 06-06-[address] Eric Delatorre Work Phone: [facility] Work Phone: Start: 06-06-2022 End: 06-06-[address] [facility] Delatorre [facility] Start: 05-26-2022 Non-patient / Non-visit Dr. Ayush Delatorre Work Phone: [facility] Start: 05-26-2022 End: 05-26-[address] Eric Delatorre Work Phone: [facility] Work Phone: Start: 05-26-2022 End: 05-26-[address] Eric Delatorre Work Phone: [facility]Cardiov[facility] Start: 05-06-2022 End: 05-06-[address] Eric Delatorre Work Phone: [facility] Work Phone: Start: 05-06-2022 End: 05-06-[address] Eric Delatorre Work Phone: [facility] Start: 04-08-2022 End: 04-08-[address] Eric Delatorre Work Phone: [facility] Start: 04-08-2022 End: 04-08-[address] Eric Delatorre [facility] Phone: [facility] Start: 04-02-2022 End: 04-02-[address] Eric Delatorre Work Phone: [facility] [place] Start: 04-02-2022 End: 04-02-[address] Eric Delatorre Work Phone: [facility] Start: 03-18-2022 End: 03-23-[address] Eric Delatorre Work Phone: [facility] Start: 03-10-2022 End: 03-10-2022 ambulatory ERIC OJEDADaniela Gareth [facility] Start: 02-17-2022 End: 02-17-[address] Eric Delatorre Work Phone: [facility] Start: 01-28-2022 End: 02-20-[address] Eric Delatorre Work Phone: [facility] Start: 01-28-[address] Gisel Delatorre Work Phone: [facility] Start: 01-13-2022 End: 01-13-[address] Eric Delatorre Work Phone: [facility] Start: 12-27-2021 End: 12-27-[address] Eric Delatorre Work Phone: [facility] Start: 12-18-2021 End: 12-18-[address] Eric Delatorre Work Phone: [facility] Start: 11-12-2021 End: 11-21-[address] Eric Delatorre Work Phone: [facility] Start: 10-30-2021 End: 10-30-[address] Eric Delatorre Work Phone: [facility] Start: 09-30-2021 End: 09-30-2021 ambulatory ERIC DELATORRE [facility] Start: 09-23-2021 End: 09-23-[address] Eric Delatorre Work Phone: [facility] Start: 09-23-2021 End: 09-23-[address] Eric Delatorre Work Phone: [facility] Start: 07-30-2021 End: 07-30-2021 ambulatory ERIC OJEADJULITADaniela [facility] Start: 05-22-2021 End: 05-22-2021 ambulatory ERIC OJEDAJULITADaniela [facility] Start: 04-15-2021 End: 04-15-2021 ambulatory ERIC BRANDON NANDINI [facility] Start: 03-21-2021 End: 03-21-2021 ambulatory ERIC BRANDON SARAHDaniela [facility] Start: 06-02-2018 Ambulatory [facility] Facility :[facility] Start: 10-01-2017 End: 10-01-2017 Ambulatory [facility] Facility:[facility] Start: 09-23-2017 Ambulatory [facility] Facility :[facility] Procedures Date Procedure Procedure Detail Performing Clinician Start: 04-17-2025 Screening mammography Joslyn Delatorre MD Work Phone: Start: 05-27-2023 Cardiovascular stres s test using pharmacologic stress agent Dr. Eric Delatorre Work Phone: Start: 02-19-2023 Screening mammography Joslyn Delatorre Work Phone: Start: 02-05-2023 Dual energy X-ray absorptiometry Dr. Eric Delatorre Work Phone: Start: 04-02-2022 X-ray of lumbar spin e, two or three views Dr. Eric Delatorre Work Phone: Start: 04-02-2022 Plain x-ray of pelvi s and lower extremity Dr. Eric Delatorre Work Phone: Start: 02-17-2022 Screening mammography Joslyn Delatorre Work Phone: Plan of Treatment Date Care Activity Detail Author Start: 05-23-2025 Urine microalbumin/creatinine ratio measurement [facility] Start: 04-17-2025 Screening mammography SCRN ALVIN M (CAD)W/ERNESTINA BILAT [facility] Start: 02-17-2022 Patient referral [facility] Work Phone: Start: 09-23-2021 Patient referral [facility] Work Phone: Ankle brachial press ure index [facility] Work Phone: Basic metabolic 2008 panel with ionized calcium - Serum or Plasma [facility] Calculation of international normalized ratio [facility] Calculation of international normalized ratio [facility] CBC W Auto Different ial panel - Blood [facility] CBC W Auto Different ial panel - Blood [facility] Comprehensive metabo lic 1999 panel - Serum or Plasma [facility] DXA Bone [Mass/Area] Bone density [facility] Hemoglobin A1c/Hemoglobin.total in Blood [facility] Hemoglobin A1c/Hemoglobin.total in Blood [facility] Lipid 1996 panel - S twila or Plasma [facility] Patient referral [facility] Work Phone: Prothrombin time (PT ) in Blood by Coagulation assay [facility] Prothrombin time (PT ) in Blood by Coagulation assay [facility] Urine microalbumin/creatinine ratio measurement [facility] Vitamin D, 25-hydrox y measurement [facility] Immunizations Immunization Date Immunization Notes Care Provider Kerri laird 07-23-2023 Influenza High-Dose Quadrivalent Dr. Eric Delatorre MD Work Phone: [facility] 05-30-2023 Pfizer Covid-19 (Comirnaty) Dr. Eric Delatorre MD Work Phone: [facility] 07-10-2022 Influenza High-Dose Quadrivalent Dr. Eric Delatorre MD Work Phone: [facility] 06-15-2022 Covid Pfizer Bivalen t Booster Dr. Eric Delatorre MD Work Phone: [facility] 01-06-2022 Covid (Pfizer) Dr. Eric Delatorre MD Work Phone: [facility] 07-16-2021 influenza, injectabl e, quadrivalent, preservative free Dr. Eric Delatorre MD Work Phone: [facility] 06-21-2021 Covid (Pfizer) Dr. Eric Delatorre MD Work Phone: [facility] 10-17-2020 Covid (Pfizer) Dr. Eric Delatorre MD Work Phone: [facility] 09-21-2020 Covid (Pfizer) Dr. Eric Delatorre MD Work Phone: [facility] 06-16-2020 Influenza High-Dose Quadrivalent Dr. Eric Delatorre MD Work Phone: [facility] 07-15-2019 influenza, high dose seasonal, preservative-free Dr. Eric Delatorre MD Work Phone: [facility] 04-18-2015 pneumococcal conjuga te vaccine, [address] Eric Delatorre MD Work Phone: [facility] Payers Date Payer Category Payer Self-pay [id number] 2023 Medicare [id number] 2010 Medicare [id number] 1945 Unknown [id number] 2.16.84 [id number] 1945 Unknown [id number] 2.16.84 0.1.695768.3.579.2. 1945 Unknown [id number] 2.16.84 0.1.508025.3.579.2.65 1945 Unknown [id number] 2.16.84 0.1.067746.3.579.2.651 1945 Unknown [id number] 2.16.84 0.1.503001.3.579.2.651 1945 Unknown [id number] 2.16.84 0.1.238058.3.579.2.651 Unknown [id number] Unknown [id number] 2.16.8 40.1.562973.3.579.2.462 Unknown [id number] 2.16.8 40.1.208354.3.579.2.462 Unknown [id number] 2.16.8 40.1.168540.3.579.2.462 Unknown [id number] 2.16.8 40.1.293884.3.579.2.462 Unknown [id number] 2.16.8 40.1.107557.3.579.2.462 Unknown [id number] 2.16.8 40.1.672006.3.579.2.462 Unknown [id number] 2.16.8 40.1.385054.3.579.2.462 Unknown [id number] 2.16.8 40.1.212751.3.579.2.462 Unknown [id number] 2.16.8 40.1.866662.3.579.2.462 Unknown [id number] 2.16.8 40.1.605343.3.579.2.462 Unknown [id number] 2.16.8 40.1.480281.3.579.2.462 Unknown [id number] 2.16.8 40.1.624451.3.579.2.462 Unknown [id number] 2.16.8 40.1.039288.3.579.2.462 Unknown [id number] 2.16.8 40.1.996389.3.579.2.462 Unknown [id number] 2.16.8 40.1.031799.3.579.2.462 Unknown [id number] 2.16.8 40.1.724854.3.579.2.462 Unknown [id number] 2.16.8 40.1.852672.3.579.2.462 Unknown [id number] 2.16.8 40.1.252723.3.579.2.462 Unknown [id number] 2.16.8 40.1.306029.3.579.2.462 Unknown [id number] 2.16.8 40.1.432824.3.579.2.462 Unknown [id number] 2.16.8 40.1.821469.3.579.2.462 Unknown [id number] 2.16.8 40.1.477496.3.579.2.462 Social History Date Type Detail Facility Start: 10-30-2021 End: 11-11-2023 Tobacco smoking status NHIS Unknown if ever smoked [facility] Start: 02-14-2021 Rare [facility] Start: 02-14-2021 None [facility] Start: 02-14-2021 Homeless [facility] Start: 02-14-2021 Non-smoker [facility] Start: 1945 Sex Assigned At Female [facility] Start: 11-11-2023 End: 04-17-2025 Tobacco smoking status NHIS Never smoked tobacco (finding) [facility] Start: 11-21-2024 End: 12-01-2024 Sex Female (finding) [facility] Sex Female [facility] Medical Equipment Procedure Code Equipment Code Equipment Origin al Text Equipment Identifier Dates Blood Sugar Diagnostic (Accu-Chek Destinee Plus Test Strp) strip Start: 02-13-2021 Pen Needle, Diab etic (Comfort Ez Pen [place]) 31 gauge x 5/16 needle Start: 10-30-2021 Blood Sugar Diagnostic (Accu-Chek Destinee Plus Test Strp) strip Start: 02-13-2021 End: 02-13-2021 Pen Needle, Diab etic (Comfort Ez Pen [place]) 29 gauge x 1/2 needle Start: 09-23-2021 End: 10-30-2021 Blood Sugar Diagnostic (Accu-Chek Destinee Plus Test Strp) strip Start: 02-13-2021 Pen Needle, Diab etic (Comfort Ez Pen [place]) 31 gauge x 5/16 needle Start: 12-27-2021 Blood Sugar Diagnostic (Accu-Chek Destinee Plus Test Strp) strip Start: 02-13-2021 End: 02-13-2021 Pen Needle, Diab etic (Comfort Ez Pen [place]) 29 gauge x 1/2 needle Start: 09-23-2021 End: 10-30-2021 Pen Needle, Diab etic (Comfort Ez Pen [place]) 31 gauge x 5/16 needle Start: 10-30-2021 End: 12-27-2021 Blood Sugar Diagnostic (Accu-Chek Destinee Plus Test Strp) strip Start: 02-12-2022 Pen Needle, Diab etic (Comfort Ez Pen [place]) 31 gauge x 5/16 needle Start: 12-27-2021 Blood Sugar Diagnostic (Accu-Chek Destinee Plus Test Strp) strip Start: 02-13-2021 End: 02-13-2021 Blood Sugar Diagnostic (Accu-Chek Destinee Plus Test Strp) strip Start: 02-13-2021 End: 02-12-2022 Pen Needle, Diab etic (Comfort Ez Pen [place]) 29 gauge x 1/2 needle Start: 09-23-2021 End: 10-30-2021 Pen Needle, Diab etic (Comfort Ez Pen [place]) 31 gauge x 5/16 needle Start: 10-30-2021 End: 12-27-2021 Blood Sugar Diagnostic (Accu-Chek Destinee Plus Test Strp) strip Start: 02-12-2022 Pen Needle, Diab etic (Comfort Ez Pen [place]) 31 gauge x 5/16 needle Start: 12-27-2021 Blood Sugar Diagnostic (Accu-Chek Destinee Plus Test Strp) strip Start: 02-13-2021 End: 02-13-2021 Blood Sugar Diagnostic (Accu-Chek Destinee Plus Test Strp) strip Start: 02-13-2021 End: 02-12-2022 Pen Needle, Diab etic (Comfort Ez Pen [place]) 29 gauge x 1/2 needle Start: 09-23-2021 End: 10-30-2021 Pen Needle, Diab etic (Comfort Ez Pen [place]) 31 gauge x 5/16 needle Start: 10-30-2021 End: 12-27-2021 Blood Sugar Diagnostic (Accu-Chek Destinee Plus Test Strp) strip Start: 02-12-2022 Pen Needle, Diab etic (Comfort Ez Pen [place]) 31 gauge x 5/16 needle Start: 12-27-2021 Blood Sugar Diagnostic (Accu-Chek Destinee Plus Test Strp) strip Start: 02-13-2021 End: 02-13-2021 Blood Sugar Diagnostic (Accu-Chek Destinee Plus Test Strp) strip Start: 02-13-2021 End: 02-12-2022 Pen Needle, Diab etic (Comfort Ez Pen [place]) 29 gauge x 1/2 needle Start: 09-23-2021 End: 10-30-2021 Pen Needle, Diab etic (Comfort Ez Pen [place]) 31 gauge x 5/16 needle Start: 10-30-2021 End: 12-27-2021 Blood Sugar Diagnostic (Accu-Chek Destinee Plus Test Strp) strip Start: 02-12-2022 Pen Needle, Diab etic (Comfort Ez Pen [place]) 31 gauge x 5/16 needle Start: 12-27-2021 Blood Sugar Diagnostic (Accu-Chek Destinee Plus Test Strp) strip Start: 02-13-2021 End: 02-13-2021 Blood Sugar Diagnostic (Accu-Chek Destinee Plus Test Strp) strip Start: 02-13-2021 End: 02-12-2022 Pen Needle, Diab etic (Comfort Ez Pen [place]) 29 gauge x 1/2 needle Start: 09-23-2021 End: 10-30-2021 Pen Needle, Diab etic (Comfort Ez Pen [place]) 31 gauge x 5/16 needle Start: 10-30-2021 End: 12-27-2021 Blood Sugar Diagnostic (Accu-Chek Destinee Plus Test Strp) strip Start: 02-12-2022 Pen Needle, Diab etic (Comfort Ez Pen [place]) 31 gauge x 5/16 needle Start: 12-27-2021 Blood Sugar Diagnostic (Accu-Chek Destinee Plus Test Strp) strip Start: 02-13-2021 End: 02-13-2021 Blood Sugar Diagnostic (Accu-Chek Destinee Plus Test Strp) strip Start: 02-13-2021 End: 02-12-2022 Pen Needle, Diab etic (Comfort Ez Pen [place]) 29 gauge x 1/2 needle Start: 09-23-2021 End: 10-30-2021 Pen Needle, Diab etic (Comfort Ez Pen [place]) 31 gauge x 5/16 needle Start: 10-30-2021 End: 12-27-2021 Blood Sugar Diagnostic (Accu-Chek Destinee Plus Test Strp) strip Start: 02-12-2022 Pen Needle, Diab etic (Comfort Ez Pen [place]) 31 gauge x 5/16 needle Start: 12-27-2021 Blood Sugar Diagnostic (Accu-Chek Destinee Plus Test Strp) strip Start: 02-13-2021 End: 02-13-2021 Blood Sugar Diagnostic (Accu-Chek Destinee Plus Test Strp) strip Start: 02-13-2021 End: 02-12-2022 Pen Needle, Diab etic (Comfort Ez Pen [place]) 29 gauge x 1/2 needle Start: 09-23-2021 End: 10-30-2021 Pen Needle, Diab etic (Comfort Ez Pen [place]) 31 gauge x 5/16 needle Start: 10-30-2021 End: 12-27-2021 Blood Sugar Diagnostic (Accu-Chek Destinee Plus Test Strp) strip Start: 02-12-2022 Pen Needle, Diab etic (Comfort Ez Pen [place]) 31 gauge x 5/16 needle Start: 12-27-2021 Blood Sugar Diagnostic (Accu-Chek Destinee Plus Test Strp) strip Start: 02-13-2021 End: 02-13-2021 Blood Sugar Diagnostic (Accu-Chek Destinee Plus Test Strp) strip Start: 02-13-2021 End: 02-12-2022 Pen Needle, Diab etic (Comfort Ez Pen [place]) 29 gauge x 1/2 needle Start: 09-23-2021 End: 10-30-2021 Pen Needle, Diab etic (Comfort Ez Pen [place]) 31 gauge x 5/16 needle Start: 10-30-2021 End: 12-27-2021 Blood Sugar Diagnostic (Accu-Chek Destinee Plus Test Strp) strip Start: 02-12-2022 Pen Needle, Diab etic (Comfort Ez Pen [place]) 31 gauge x 5/16 needle Start: 12-27-2021 Blood Sugar Diagnostic (Accu-Chek Destinee Plus Test Strp) strip Start: 02-13-2021 End: 02-13-2021 Blood Sugar Diagnostic (Accu-Chek Destinee Plus Test Strp) strip Start: 02-13-2021 End: 02-12-2022 Pen Needle, Diab etic (Comfort Ez Pen [place]) 29 gauge x 1/2 needle Start: 09-23-2021 End: 10-30-2021 Pen Needle, Diab etic (Comfort Ez Pen [place]) 31 gauge x 5/16 needle Start: 10-30-2021 End: 12-27-2021 Blood Sugar Diagnostic (Accu-Chek Destinee Plus Test Strp) strip Start: 02-12-2022 Pen Needle, Diab etic (Comfort Ez Pen [place]) 31 gauge x 5/16 needle Start: 12-27-2021 Blood Sugar Diagnostic (Accu-Chek Destinee Plus Test Strp) strip Start: 02-13-2021 End: 02-13-2021 Blood Sugar Diagnostic (Accu-Chek Destinee Plus Test Strp) strip Start: 02-13-2021 End: 02-12-2022 Pen Needle, Diab etic (Comfort Ez Pen [place]) 29 gauge x 1/2 needle Start: 09-23-2021 End: 10-30-2021 Pen Needle, Diab etic (Comfort Ez Pen [place]) 31 gauge x 5/16 needle Start: 10-30-2021 End: 12-27-2021 Blood Sugar Diagnostic (Accu-Chek Destinee Plus Test Strp) strip Start: 02-12-2022 Pen Needle, Diab etic (Comfort Ez Pen [place]) 31 gauge x 5/16 needle Start: 12-27-2021 Blood Sugar Diagnostic (Accu-Chek Destinee Plus Test Strp) strip Start: 02-13-2021 End: 02-13-2021 Blood Sugar Diagnostic (Accu-Chek Destinee Plus Test Strp) strip Start: 02-13-2021 End: 02-12-2022 Pen Needle, Diab etic (Comfort Ez Pen [place]) 29 gauge x 1/2 needle Start: 09-23-2021 End: 10-30-2021 Pen Needle, Diab etic (Comfort Ez Pen [place]) 31 gauge x 5/16 needle Start: 10-30-2021 End: 12-27-2021 Blood Sugar Diagnostic (Accu-Chek Destinee Plus Test Strp) strip Start: 02-12-2022 Pen Needle, Diab etic (Comfort Ez Pen [place]) 31 gauge x 5/16 needle Start: 12-27-2021 Blood Sugar Diagnostic (Accu-Chek Destinee Plus Test Strp) strip Start: 02-13-2021 End: 02-13-2021 Blood Sugar Diagnostic (Accu-Chek Destinee Plus Test Strp) strip Start: 02-13-2021 End: 02-12-2022 Pen Needle, Diab etic (Comfort Ez Pen [place]) 29 gauge x 1/2 needle Start: 09-23-2021 End: 10-30-2021 Pen Needle, Diab etic (Comfort Ez Pen [place]) 31 gauge x 5/16 needle Start: 10-30-2021 End: 12-27-2021 Blood Sugar Diagnostic (Accu-Chek Destinee Plus Test Strp) strip Start: 02-12-2022 Pen Needle, Diab etic (Comfort Ez Pen [place]) 31 gauge x 5/16 needle Start: 12-27-2021 Blood Sugar Diagnostic (Accu-Chek Destinee Plus Test Strp) strip Start: 02-13-2021 End: 02-13-2021 Blood Sugar Diagnostic (Accu-Chek Destinee Plus Test Strp) strip Start: 02-13-2021 End: 02-12-2022 Pen Needle, Diab etic (Comfort Ez Pen [place]) 29 gauge x 1/2 needle Start: 09-23-2021 End: 10-30-2021 Pen Needle, Diab etic (Comfort Ez Pen [place]) 31 gauge x 5/16 needle Start: 10-30-2021 End: 12-27-2021 Blood Sugar Diagnostic (Accu-Chek Destinee Plus Test Strp) strip Start: 02-12-2022 Pen Needle, Diab etic (Comfort Ez Pen [place]) 31 gauge x 5/16 needle Start: 02-06-2023 Blood Sugar Diagnostic (Accu-Chek Destinee Plus Test Strp) strip Start: 02-13-2021 End: 02-13-2021 Blood Sugar Diagnostic (Accu-Chek Destinee Plus Test Strp) strip Start: 02-13-2021 End: 02-12-2022 Pen Needle, Diab etic (Comfort Ez Pen [place]) 29 gauge x 1/2 needle Start: 09-23-2021 End: 10-30-2021 Pen Needle, Diab etic (Comfort Ez Pen [place]) 31 gauge x 5/16 needle Start: 10-30-2021 End: 12-27-2021 Pen Needle, Diab etic (Comfort Ez Pen [place]) 31 gauge x 5/16 needle Start: 12-27-2021 End: 02-06-2023 Blood Sugar Diagnostic (Accu-Chek Destinee Plus Test Strp) strip Start: 02-12-2022 Pen Needle, Diab etic (Comfort Ez Pen [place]) 31 gauge x 5/16 needle Start: 02-06-2023 Blood Sugar Diagnostic (Accu-Chek Destinee Plus Test Strp) strip Start: 02-13-2021 End: 02-13-2021 Blood Sugar Diagnostic (Accu-Chek Destinee Plus Test Strp) strip Start: 02-13-2021 End: 02-12-2022 Pen Needle, Diab etic (Comfort Ez Pen [place]) 29 gauge x 1/2 needle Start: 09-23-2021 End: 10-30-2021 Pen Needle, Diab etic (Comfort Ez Pen [place]) 31 gauge x 5/16 needle Start: 10-30-2021 End: 12-27-2021 Pen Needle, Diab etic (Comfort Ez Pen [place]) 31 gauge x 5/16 needle Start: 12-27-2021 End: 02-06-2023 Blood Sugar Diagnostic (Accu-Chek Destinee Plus Test Strp) strip Start: 02-12-2022 Pen Needle, Diab etic (Comfort Ez Pen [place]) 31 gauge x 5/16 needle Start: 02-06-2023 Blood Sugar Diagnostic (Accu-Chek Destinee Plus Test Strp) strip Start: 02-13-2021 End: 02-13-2021 Blood Sugar Diagnostic (Accu-Chek Destinee Plus Test Strp) strip Start: 02-13-2021 End: 02-12-2022 Pen Needle, Diab etic (Comfort Ez Pen [place]) 29 gauge x 1/2 needle Start: 09-23-2021 End: 10-30-2021 Pen Needle, Diab etic (Comfort Ez Pen [place]) 31 gauge x 5/16 needle Start: 10-30-2021 End: 12-27-2021 Pen Needle, Diab etic (Comfort Ez Pen [place]) 31 gauge x 5/16 needle Start: 12-27-2021 End: 02-06-2023 Blood Sugar Diagnostic (Accu-Chek Destinee Plus Test Strp) strip Start: 02-12-2022 Pen Needle, Diab etic (Comfort Ez Pen [place]) 31 gauge x 5/16 needle Start: 02-06-2023 Blood Sugar Diagnostic (Accu-Chek Destinee Plus Test Strp) strip Start: 02-13-2021 End: 02-13-2021 Blood Sugar Diagnostic (Accu-Chek Destinee Plus Test Strp) strip Start: 02-13-2021 End: 02-12-2022 Pen Needle, Diab etic (Comfort Ez Pen [place]) 29 gauge x 1/2 needle Start: 09-23-2021 End: 10-30-2021 Pen Needle, Diab etic (Comfort Ez Pen [place]) 31 gauge x 5/16 needle Start: 10-30-2021 End: 12-27-2021 Pen Needle, Diab etic (Comfort Ez Pen [place]) 31 gauge x 5/16 needle Start: 12-27-2021 End: 02-06-2023 Blood Sugar Diagnostic (Accu-Chek Destinee Plus Test Strp) strip Start: 02-12-2022 Pen Needle, Diab etic (Comfort Ez Pen [place]) 31 gauge x 5/16 needle Start: 02-06-2023 Blood Sugar Diagnostic (Accu-Chek Destinee Plus Test Strp) strip Start: 02-13-2021 End: 02-13-2021 Blood Sugar Diagnostic (Accu-Chek Destinee Plus Test Strp) strip Start: 02-13-2021 End: 02-12-2022 Pen Needle, Diab etic (Comfort Ez Pen [place]) 29 gauge x 1/2 needle Start: 09-23-2021 End: 10-30-2021 Pen Needle, Diab etic (Comfort Ez Pen [place]) 31 gauge x 5/16 needle Start: 10-30-2021 End: 12-27-2021 Pen Needle, Diab etic (Comfort Ez Pen [place]) 31 gauge x 5/16 needle Start: 12-27-2021 End: 02-06-2023 Blood Sugar Diagnostic (Accu-Chek Destinee Plus Test Strp) strip Start: 04-30-2023 Pen Needle, Diab etic (Comfort Ez Pen [place]) 31 gauge x 5/16 needle Start: 02-06-2023 Blood Sugar Diagnostic (Accu-Chek Destinee Plus Test Strp) strip Start: 02-13-2021 End: 02-13-2021 Blood Sugar Diagnostic (Accu-Chek Destinee Plus Test Strp) strip Start: 02-13-2021 End: 02-12-2022 Blood Sugar Diagnostic (Accu-Chek Destinee Plus Test Strp) strip Start: 02-12-2022 End: 04-30-2023 Pen Needle, Diab etic (Comfort Ez Pen [place]) 29 gauge x 1/2 needle Start: 09-23-2021 End: 10-30-2021 Pen Needle, Diab etic (Comfort Ez Pen [place]) 31 gauge x 5/16 needle Start: 10-30-2021 End: 12-27-2021 Pen Needle, Diab etic (Comfort Ez Pen [place]) 31 gauge x 5/16 needle Start: 12-27-2021 End: 02-06-2023 Blood Sugar Diagnostic (Accu-Chek Destinee Plus Test Strp) strip Start: 04-30-2023 Pen Needle, Diab etic (Comfort Ez Pen [place]) 31 gauge x 5/16 needle Start: 02-06-2023 Blood Sugar Diagnostic (Accu-Chek Destinee Plus Test Strp) strip Start: 02-13-2021 End: 02-13-2021 Blood Sugar Diagnostic (Accu-Chek Destinee Plus Test Strp) strip Start: 02-13-2021 End: 02-12-2022 Blood Sugar Diagnostic (Accu-Chek Destinee Plus Test Strp) strip Start: 02-12-2022 End: 04-30-2023 Pen Needle, Diab etic (Comfort Ez Pen [place]) 29 gauge x 1/2 needle Start: 09-23-2021 End: 10-30-2021 Pen Needle, Diab etic (Comfort Ez Pen [place]) 31 gauge x 5/16 needle Start: 10-30-2021 End: 12-27-2021 Pen Needle, Diab etic (Comfort Ez Pen [place]) 31 gauge x 5/16 needle Start: 12-27-2021 End: 02-06-2023 Blood Sugar Diagnostic (Accu-Chek Destinee Plus Test Strp) strip Start: 04-30-2023 Pen Needle, Diab etic (Comfort Ez Pen [place]) 31 gauge x 5/16 needle Start: 02-06-2023 Blood Sugar Diagnostic (Accu-Chek Destinee Plus Test Strp) strip Start: 02-13-2021 End: 02-13-2021 Blood Sugar Diagnostic (Accu-Chek Destinee Plus Test Strp) strip Start: 02-13-2021 End: 02-12-2022 Blood Sugar Diagnostic (Accu-Chek Destinee Plus Test Strp) strip Start: 02-12-2022 End: 04-30-2023 Pen Needle, Diab etic (Comfort Ez Pen [place]) 29 gauge x 1/2 needle Start: 09-23-2021 End: 10-30-2021 Pen Needle, Diab etic (Comfort Ez Pen [place]) 31 gauge x 5/16 needle Start: 10-30-2021 End: 12-27-2021 Pen Needle, Diab etic (Comfort Ez Pen [place]) 31 gauge x 5/16 needle Start: 12-27-2021 End: 02-06-2023 Blood Sugar Diagnostic (Accu-Chek Destinee Plus Test Strp) strip Start: 04-30-2023 Pen Needle, Diab etic (Comfort Ez Pen [place]) 31 gauge x 5/16 needle Start: 02-06-2023 Blood Sugar Diagnostic (Accu-Chek Destinee Plus Test Strp) strip Start: 02-13-2021 End: 02-13-2021 Blood Sugar Diagnostic (Accu-Chek Destinee Plus Test Strp) strip Start: 02-13-2021 End: 02-12-2022 Blood Sugar Diagnostic (Accu-Chek Destinee Plus Test Strp) strip Start: 02-12-2022 End: 04-30-2023 Pen Needle, Diab etic (Comfort Ez Pen [place]) 29 gauge x 1/2 needle Start: 09-23-2021 End: 10-30-2021 Pen Needle, Diab etic (Comfort Ez Pen [place]) 31 gauge x 5/16 needle Start: 10-30-2021 End: 12-27-2021 Pen Needle, Diab etic (Comfort Ez Pen [place]) 31 gauge x 5/16 needle Start: 12-27-2021 End: 02-06-2023 Blood Sugar Diagnostic (Accu-Chek Destinee Plus Test Strp) strip Start: 04-30-2023 Pen Needle, Diab etic (Comfort Ez Pen [place]) 31 gauge x 5/16 needle Start: 02-06-2023 Blood Sugar Diagnostic (Accu-Chek Destinee Plus Test Strp) strip Start: 02-13-2021 End: 02-13-2021 Blood Sugar Diagnostic (Accu-Chek Destinee Plus Test Strp) strip Start: 02-13-2021 End: 02-12-2022 Blood Sugar Diagnostic (Accu-Chek Destinee Plus Test Strp) strip Start: 02-12-2022 End: 04-30-2023 Pen Needle, Diab etic (Comfort Ez Pen [place]) 29 gauge x 1/2 needle Start: 09-23-2021 End: 10-30-2021 Pen Needle, Diab etic (Comfort Ez Pen [place]) 31 gauge x 5/16 needle Start: 10-30-2021 End: 12-27-2021 Pen Needle, Diab etic (Comfort Ez Pen [place]) 31 gauge x 5/16 needle Start: 12-27-2021 End: 02-06-2023 Blood Sugar Diagnostic (Accu-Chek Destinee Plus Test Strp) strip Start: 04-30-2023 Pen Needle, Diab etic (Comfort Ez Pen [place]) 31 gauge x 5/16 needle Start: 02-06-2023 Blood Sugar Diagnostic (Accu-Chek Destinee Plus Test Strp) strip Start: 02-13-2021 End: 02-13-2021 Blood Sugar Diagnostic (Accu-Chek Destinee Plus Test Strp) strip Start: 02-13-2021 End: 02-12-2022 Blood Sugar Diagnostic (Accu-Chek Destinee Plus Test Strp) strip Start: 02-12-2022 End: 04-30-2023 Pen Needle, Diab etic (Comfort Ez Pen [place]) 29 gauge x 1/2 needle Start: 09-23-2021 End: 10-30-2021 Pen Needle, Diab etic (Comfort Ez Pen [place]) 31 gauge x 5/16 needle Start: 10-30-2021 End: 12-27-2021 Pen Needle, Diab etic (Comfort Ez Pen [place]) 31 gauge x 5/16 needle Start: 12-27-2021 End: 02-06-2023 Blood Sugar Diagnostic (Accu-Chek Destinee Plus Test Strp) strip Start: 06-08-2024 Pen Needle, Diab etic (Comfort Ez Pen [place]) 31 gauge x 5/16 needle Start: 10-13-2024 Blood Sugar Diagnostic (Accu-Chek Destinee Plus Test Strp) strip Start: 02-13-2021 End: 02-13-2021 Blood Sugar Diagnostic (Accu-Chek Destinee Plus Test Strp) strip Start: 02-13-2021 End: 02-12-2022 Blood Sugar Diagnostic (Accu-Chek Destinee Plus Test Strp) strip Start: 04-30-2023 End: 06-08-2024 Blood Sugar Diagnostic (Accu-Chek Destinee Plus Test Strp) strip Start: 02-12-2022 End: 04-30-2023 Pen Needle, Diab etic (Comfort Ez Pen [place]) 29 gauge x 1/2 needle Start: 09-23-2021 End: 10-30-2021 Pen Needle, Diab etic (Comfort Ez Pen [place]) 31 gauge x 5/16 needle Start: 10-30-2021 End: 12-27-2021 Pen Needle, Diab etic (Comfort Ez Pen [place]) 31 gauge x 5/16 needle Start: 12-27-2021 End: 02-06-2023 Pen Needle, Diab etic (Comfort Ez Pen [place]) 31 gauge x 5/16 needle Start: 02-06-2023 End: 02-29-2024 Pen Needle, Diab etic (Comfort Ez Pen [place]) 31 gauge x 5/16 needle Start: 02-29-2024 End: 10-13-2024 Blood Sugar Diagnostic (Accu-Chek Destinee Plus Test Strp) strip Start: 06-08-2024 Pen Needle, Diab etic (Comfort Ez Pen [place]) 31 gauge x 5/16 needle Start: 10-13-2024 Blood Sugar Diagnostic (Accu-Chek Destinee Plus Test Strp) strip Start: 02-13-2021 End: 02-13-2021 Blood Sugar Diagnostic (Accu-Chek Destinee Plus Test Strp) strip Start: 02-13-2021 End: 02-12-2022 Blood Sugar Diagnostic (Accu-Chek Destinee Plus Test Strp) strip Start: 04-30-2023 End: 06-08-2024 Blood Sugar Diagnostic (Accu-Chek Destinee Plus Test Strp) strip Start: 02-12-2022 End: 04-30-2023 Pen Needle, Diab etic (Comfort Ez Pen [place]) 29 gauge x 1/2 needle Start: 09-23-2021 End: 10-30-2021 Pen Needle, Diab etic (Comfort Ez Pen [place]) 31 gauge x 5/16 needle Start: 10-30-2021 End: 12-27-2021 Pen Needle, Diab etic (Comfort Ez Pen [place]) 31 gauge x 5/16 needle Start: 12-27-2021 End: 02-06-2023 Pen Needle, Diab etic (Comfort Ez Pen [place]) 31 gauge x 5/16 needle Start: 02-06-2023 End: 02-29-2024 Pen Needle, Diab etic (Comfort Ez Pen [place]) 31 gauge x 5/16 needle Start: 02-29-2024 End: 10-13-2024 Blood Sugar Diagnostic (Accu-Chek Destinee Plus Test Strp) strip Start: 06-08-2024 Pen Needle, Diab etic (Comfort Ez Pen [place]) 31 gauge x 5/16 needle Start: 10-13-2024 Blood Sugar Diagnostic (Accu-Chek Destinee Plus Test Strp) strip Start: 02-13-2021 End: 02-13-2021 Blood Sugar Diagnostic (Accu-Chek Destinee Plus Test Strp) strip Start: 02-13-2021 End: 02-12-2022 Blood Sugar Diagnostic (Accu-Chek Destinee Plus Test Strp) strip Start: 04-30-2023 End: 06-08-2024 Blood Sugar Diagnostic (Accu-Chek Destinee Plus Test Strp) strip Start: 02-12-2022 End: 04-30-2023 Pen Needle, Diab etic (Comfort Ez Pen [place]) 29 gauge x 1/2 needle Start: 09-23-2021 End: 10-30-2021 Pen Needle, Diab etic (Comfort Ez Pen [place]) 31 gauge x 5/16 needle Start: 10-30-2021 End: 12-27-2021 Pen Needle, Diab etic (Comfort Ez Pen [place]) 31 gauge x 5/16 needle Start: 12-27-2021 End: 02-06-2023 Pen Needle, Diab etic (Comfort Ez Pen [place]) 31 gauge x 5/16 needle Start: 02-06-2023 End: 02-29-2024 Pen Needle, Diab etic (Comfort Ez Pen [place]) 31 gauge x 5/16 needle Start: 02-29-2024 End: 10-13-2024 Blood Sugar Diagnostic (Accu-Chek Destinee Plus Test Strp) strip Start: 06-08-2024 Pen Needle, Diab etic (Comfort Ez Pen [place]) 31 gauge x 5/16 needle Start: 10-13-2024 Blood Sugar Diagnostic (Accu-Chek Destinee Plus Test Strp) strip Start: 02-13-2021 End: 02-13-2021 Blood Sugar Diagnostic (Accu-Chek Destinee Plus Test Strp) strip Start: 02-13-2021 End: 02-12-2022 Blood Sugar Diagnostic (Accu-Chek Destinee Plus Test Strp) strip Start: 04-30-2023 End: 06-08-2024 Blood Sugar Diagnostic (Accu-Chek Destinee Plus Test Strp) strip Start: 02-12-2022 End: 04-30-2023 Pen Needle, Diab etic (Comfort Ez Pen [place]) 29 gauge x 1/2 needle Start: 09-23-2021 End: 10-30-2021 Pen Needle, Diab etic (Comfort Ez Pen [place]) 31 gauge x 5/16 needle Start: 10-30-2021 End: 12-27-2021 Pen Needle, Diab etic (Comfort Ez Pen [place]) 31 gauge x 5/16 needle Start: 12-27-2021 End: 02-06-2023 Pen Needle, Diab etic (Comfort Ez Pen [place]) 31 gauge x 5/16 needle Start: 02-06-2023 End: 02-29-2024 Pen Needle, Diab etic (Comfort Ez Pen [place]) 31 gauge x 5/16 needle Start: 02-29-2024 End: 10-13-2024 Blood Sugar Diagnostic (Accu-Chek Destinee Plus Test Strp) strip Start: 06-08-2024 Pen Needle, Diab etic (Comfort Ez Pen [place]) 31 gauge x 5/16 needle Start: 10-13-2024 Blood Sugar Diagnostic (Accu-Chek Destinee Plus Test Strp) strip Start: 02-13-2021 End: 02-13-2021 Blood Sugar Diagnostic (Accu-Chek Destinee Plus Test Strp) strip Start: 02-13-2021 End: 02-12-2022 Blood Sugar Diagnostic (Accu-Chek Destinee Plus Test Strp) strip Start: 04-30-2023 End: 06-08-2024 Blood Sugar Diagnostic (Accu-Chek Destinee Plus Test Strp) strip Start: 02-12-2022 End: 04-30-2023 Pen Needle, Diab etic (Comfort Ez Pen [place]) 29 gauge x 1/2 needle Start: 09-23-2021 End: 10-30-2021 Pen Needle, Diab etic (Comfort Ez Pen [place]) 31 gauge x 5/16 needle Start: 10-30-2021 End: 12-27-2021 Pen Needle, Diab etic (Comfort Ez Pen [place]) 31 gauge x 5/16 needle Start: 12-27-2021 End: 02-06-2023 Pen Needle, Diab etic (Comfort Ez Pen [place]) 31 gauge x 5/16 needle Start: 02-06-2023 End: 02-29-2024 Pen Needle, Diab etic (Comfort Ez Pen [place]) 31 gauge x 5/16 needle Start: 02-29-2024 End: 10-13-2024 Blood Sugar Diagnostic (Accu-Chek Destinee Plus Test Strp) strip Start: 06-08-2024 Pen Needle, Diab etic (Comfort Ez Pen [place]) 31 gauge x 5/16 needle Start: 10-13-2024 Blood Sugar Diagnostic (Accu-Chek Destinee Plus Test Strp) strip Start: 02-13-2021 End: 02-13-2021 Blood Sugar Diagnostic (Accu-Chek Destinee Plus Test Strp) strip Start: 02-13-2021 End: 02-12-2022 Blood Sugar Diagnostic (Accu-Chek Destinee Plus Test Strp) strip Start: 04-30-2023 End: 06-08-2024 Blood Sugar Diagnostic (Accu-Chek Destinee Plus Test Strp) strip Start: 02-12-2022 End: 04-30-2023 Pen Needle, Diab etic (Comfort Ez Pen [place]) 29 gauge x 1/2 needle Start: 09-23-2021 End: 10-30-2021 Pen Needle, Diab etic (Comfort Ez Pen [place]) 31 gauge x 5/16 needle Start: 10-30-2021 End: 12-27-2021 Pen Needle, Diab etic (Comfort Ez Pen [place]) 31 gauge x 5/16 needle Start: 12-27-2021 End: 02-06-2023 Pen Needle, Diab etic (Comfort Ez Pen [place]) 31 gauge x 5/16 needle Start: 02-06-2023 End: 02-29-2024 Pen Needle, Diab etic (Comfort Ez Pen [place]) 31 gauge x 5/16 needle Start: 02-29-2024 End: 10-13-2024 Blood Sugar Diagnostic (Accu-Chek Destinee Plus Test Strp) strip Start: 06-08-2024 Pen Needle, Diab etic (Comfort Ez Pen [place]) 31 gauge x 5/16 needle Start: 10-13-2024 Blood Sugar Diagnostic (Accu-Chek Destinee Plus Test Strp) strip Start: 02-13-2021 End: 02-13-2021 Blood Sugar Diagnostic (Accu-Chek Destinee Plus Test Strp) strip Start: 02-13-2021 End: 02-12-2022 Blood Sugar Diagnostic (Accu-Chek Destinee Plus Test Strp) strip Start: 04-30-2023 End: 06-08-2024 Blood Sugar Diagnostic (Accu-Chek Destinee Plus Test Strp) strip Start: 02-12-2022 End: 04-30-2023 Pen Needle, Diab etic (Comfort Ez Pen [place]) 29 gauge x 1/2 needle Start: 09-23-2021 End: 10-30-2021 Pen Needle, Diab etic (Comfort Ez Pen [place]) 31 gauge x 5/16 needle Start: 10-30-2021 End: 12-27-2021 Pen Needle, Diab etic (Comfort Ez Pen [place]) 31 gauge x 5/16 needle Start: 12-27-2021 End: 02-06-2023 Pen Needle, Diab etic (Comfort Ez Pen [place]) 31 gauge x 5/16 needle Start: 02-06-2023 End: 02-29-2024 Pen Needle, Diab etic (Comfort Ez Pen [place]) 31 gauge x 5/16 needle Start: 02-29-2024 End: 10-13-2024 Blood Sugar Diagnostic (Accu-Chek Destinee Plus Test Strp) strip Start: 06-08-2024 Pen Needle, Diab etic (Comfort Ez Pen [place]) 31 gauge x 5/16 needle Start: 10-13-2024 Blood Sugar Diagnostic (Accu-Chek Destinee Plus Test Strp) strip Start: 02-13-2021 End: 02-13-2021 Blood Sugar Diagnostic (Accu-Chek Destinee Plus Test Strp) strip Start: 02-13-2021 End: 02-12-2022 Blood Sugar Diagnostic (Accu-Chek Destinee Plus Test Strp) strip Start: 04-30-2023 End: 06-08-2024 Blood Sugar Diagnostic (Accu-Chek Destinee Plus Test Strp) strip Start: 02-12-2022 End: 04-30-2023 Pen Needle, Diab etic (Comfort Ez Pen [place]) 29 gauge x 1/2 needle Start: 09-23-2021 End: 10-30-2021 Pen Needle, Diab etic (Comfort Ez Pen [place]) 31 gauge x 5/16 needle Start: 10-30-2021 End: 12-27-2021 Pen Needle, Diab etic (Comfort Ez Pen [place]) 31 gauge x 5/16 needle Start: 12-27-2021 End: 02-06-2023 Pen Needle, Diab etic (Comfort Ez Pen [place]) 31 gauge x 5/16 needle Start: 02-06-2023 End: 02-29-2024 Pen Needle, Diab etic (Comfort Ez Pen [place]) 31 gauge x 5/16 needle Start: 02-29-2024 End: 10-13-2024 Blood Sugar Diagnostic (Accu-Chek Destinee Plus Test Strp) strip Start: 06-08-2024 Pen Needle, Diab etic (Comfort Ez Pen [place]) 31 gauge x 5/16 needle Start: 10-13-2024 Blood Sugar Diagnostic (Accu-Chek Destinee Plus Test Strp) strip Start: 02-13-2021 End: 02-13-2021 Blood Sugar Diagnostic (Accu-Chek Destinee Plus Test Strp) strip Start: 02-13-2021 End: 02-12-2022 Blood Sugar Diagnostic (Accu-Chek Destinee Plus Test Strp) strip Start: 04-30-2023 End: 06-08-2024 Blood Sugar Diagnostic (Accu-Chek Destinee Plus Test Strp) strip Start: 02-12-2022 End: 04-30-2023 Pen Needle, Diab etic (Comfort Ez Pen [place]) 29 gauge x 1/2 needle Start: 09-23-2021 End: 10-30-2021 Pen Needle, Diab etic (Comfort Ez Pen [place]) 31 gauge x 5/16 needle Start: 10-30-2021 End: 12-27-2021 Pen Needle, Diab etic (Comfort Ez Pen [place]) 31 gauge x 5/16 needle Start: 12-27-2021 End: 02-06-2023 Pen Needle, Diab etic (Comfort Ez Pen [place]) 31 gauge x 5/16 needle Start: 02-06-2023 End: 02-29-2024 Pen Needle, Diab etic (Comfort Ez Pen [place]) 31 gauge x 5/16 needle Start: 02-29-2024 End: 10-13-2024 Blood Sugar Diagnostic (Accu-Chek Destinee Plus Test Strp) strip Start: 06-08-2024 Pen Needle, Diab etic (Comfort Ez Pen [place]) 31 gauge x 5/16 needle Start: 2025 Blood Sugar Diagnostic (Accu-Chek Destinee Plus Test Strp) strip Start: 02-13-2021 End: 02-13-2021 Blood Sugar Diagnostic (Accu-Chek Destinee Plus Test Strp) strip Start: 02-13-2021 End: 02-12-2022 Blood Sugar Diagnostic (Accu-Chek Destinee Plus Test Strp) strip Start: 04-30-2023 End: 06-08-2024 Blood Sugar Diagnostic (Accu-Chek Destinee Plus Test Strp) strip Start: 02-12-2022 End: 04-30-2023 Pen Needle, Diab etic (Comfort Ez Pen [place]) 29 gauge x 1/2 needle Start: 09-23-2021 End: 10-30-2021 Pen Needle, Diab etic (Comfort Ez Pen [place]) 31 gauge x 5/16 needle Start: 10-30-2021 End: 12-27-2021 Pen Needle, Diab etic (Comfort Ez Pen [place]) 31 gauge x 5/16 needle Start: 12-27-2021 End: 02-06-2023 Pen Needle, Diab etic (Comfort Ez Pen [place]) 31 gauge x 5/16 needle Start: 02-06-2023 End: 02-29-2024 Pen Needle, Diab etic (Comfort Ez Pen [place]) 31 gauge x 5/16 needle Start: 02-29-2024 End: 10-13-2024 Pen Needle, Diab etic (Comfort Ez Pen [place]) 31 gauge x 5/16 needle Start: 10-13-2024 End: 2025 Blood Sugar Diagnostic (Accu-Chek Destinee Plus Test Strp) strip Start: 06-08-2024 Pen Needle, Diab etic (Comfort Ez Pen [place]) 31 gauge x 5/16 needle Start: 2025 Blood Sugar Diagnostic (Accu-Chek Destinee Plus Test Strp) strip Start: 02-13-2021 End: 02-13-2021 Blood Sugar Diagnostic (Accu-Chek Destinee Plus Test Strp) strip Start: 02-13-2021 End: 02-12-2022 Blood Sugar Diagnostic (Accu-Chek Destinee Plus Test Strp) strip Start: 04-30-2023 End: 06-08-2024 Blood Sugar Diagnostic (Accu-Chek Destinee Plus Test Strp) strip Start: 02-12-2022 End: 04-30-2023 Pen Needle, Diab etic (Comfort Ez Pen [place]) 29 gauge x 1/2 needle Start: 09-23-2021 End: 10-30-2021 Pen Needle, Diab etic (Comfort Ez Pen [place]) 31 gauge x 5/16 needle Start: 10-30-2021 End: 12-27-2021 Pen Needle, Diab etic (Comfort Ez Pen [place]) 31 gauge x 5/16 needle Start: 12-27-2021 End: 02-06-2023 Pen Needle, Diab etic (Comfort Ez Pen [place]) 31 gauge x 5/16 needle Start: 02-06-2023 End: 02-29-2024 Pen Needle, Diab etic (Comfort Ez Pen [place]) 31 gauge x 5/16 needle Start: 02-29-2024 End: 10-13-2024 Pen Needle, Diab etic (Comfort Ez Pen [place]) 31 gauge x 5/16 needle Start: 10-13-2024 End: 2025 Clinical Notes 02-04-2022 to 04-17-2025 Note Date & Type Note Facility 04-17-2025 Progress note [facility] 03-06-2025 Evaluation note Diagnosis Onset Date Resolution Dermatitis chronic March 06 1:07pm Essential hypertension chronic March 06, 2025 1:07pm Irritable bowel syndrome chronic March 06, 2025 1:07pm Paroxysmal atrial fibrillation chronic March 06, 2025 1:07pm Type 2 diabetes mellitus chronic March 06, 2025 1:07pm Venous insufficiency of both lower extremities chronic March 06, 2025 1:07pm 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 acute April 17, 2025 1:23pm Endometrial cancer February, resolved April 17, 2025 1:23pm Encounter for routine gynecological examination noneactive April 17, 2025 1:23pm [facility] Work Phone: 1(541) 445-501907-14-2025 Evaluation note* Diagnosis Onset Date Resolution Status Admit Date Dermatitis chronic March 06 1:07pm Essential hypertension chronic Ju 2024 1:07pm Irritable bowel syndrome chronic March 06, 2025 1:07pm Paroxysmal atrial fibrillation chronic March 06, 2025 1:07pm Type 2 diabetes mellitus chronic March 06, 2025 1:07pm Venous insufficiency of both lower extremities chronic March 06 1:07pm 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 acute April 17 1:23pm Endometrial cancer February, resolved April 17, 2025 1:23pm Encounter for routine gynecological examination noneactive April 17, 2025 1:23pm [facility] 20[facility] 12:58[facility] Essential hypertension chronic Se ptember 2024 12:58pm Hyperlipidemia chronic May 23, 2025 12:58pm Obesity chronic April 12:58pm Overactive bladder chronic Septem 2024 12:58pm Type 2 diabetes mellitus chronic May 23, 2025 12:58pm Venous insufficiency of both lower extremities chronic April 12:58pm [facility] Work Phone: 1(352) 887-873604-29-2025 Evaluation note* Diagnosis Onset Date Resolution Status Admit Date Essential hypertension chronic Ap ril 2024 2:12pm Hyperlipidemia chronic November 2:12pm Paroxysmal atrial fibrillation chron ic December 20, 2024 2:12pm Dermatitis chronic March 06 1:07pm Essential hypertension chronic Ju 2024 1:07pm Irritable bowel syndrome chronic March 06, 2025 1:07pm Paroxysmal atrial fibrillation chron ic March 06, 2025 1:07pm Type 2 diabetes mellitus chronic March 06, 2025 1:07pm Venous insufficiency of both lower extremities chronic March 06 1:07pm 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 acute April 17 1:23pm Endometrial cancer February, resolved April 17, 2025 1:23pm Encounter for routine gynecological examination noneactive April 17, 2025 1:23pm [employer] [employer] Work Phone: 1([phone]) 932-247304-07-2025 Evaluation note* Diagnosis Onset Date Resolution Status Admit Date Essential hypertension chronic Ap 2024 11:07am Hyperlipidemia chronic November 28, 2024 11:07am Irritable bowel syndrome chronic November 28, 2024 11:07am Type 2 diabetes mellitus chronic November 28, 2024 11:07am Essential hypertension chronic Ap ril 2024 2:12pm Hyperlipidemia chronic November 2:12pm Paroxysmal atrial fibrillation chron ic December 20, 2024 2:12pm [facility] Work Phone: 1(610) 749-760604-07-2025 Evaluation note* Diagnosis Onset Date Resolution Status Admit Date Essential hypertension chronic Ap ril 2024 11:07am Hyperlipidemia chronic November 28, 2024 11:07am Irritable bowel syndrome chronic November 28, 2024 11:07am Type 2 diabetes mellitus chronic November 28, 2024 11:07am Essential hypertension chronic Ap ril 2024 2:12pm Hyperlipidemia chronic November 2:12pm Paroxysmal atrial fibrillation chron ic December 20, 2024 2:12pm Dermatitis chronic March 06 1:07pm Essential hypertension chronic Ju 2024 1:07pm Irritable bowel syndrome chronic March 06, 2025 1:07pm Paroxysmal atrial fibrillation chron ic March 06, 2025 1:07pm Type 2 diabetes mellitus chronic March 06, 2025 1:07pm Venous insufficiency of both lower extremities chronic March 06 1:07pm [facility] Work Phone: 1(423) 514-781412-30-2024 Evaluation note* Diagnosis Onset Date Resolution Status Admit Date Essential hypertension chronic 2023 1:21pm Generalized anxiety disorder chronic August 22, 2024 1:21pm Night terrors, adult chronic [facility] 2023 1:21pm Type 2 diabetes mellitus [facility] August 22, 2024 1:21pm [facility] Work Phone: 1(530) 296-290312-30-2024 Evaluation note* Diagnosis Onset Date Resolution Status Admit Date Essential hypertension 2023 1:21pm Generalized anxiety disorder chronic August 22, 2024 1:21pm Night terrors, adult chronic [facility] 2023 1:21pm Type 2 diabetes mellitus chronic August 22, 2024 1:21pm Essential hypertension chronic 2024 11:07am Hyperlipidemia chronic November 28, 2024 11:07am Irritable bowel syndrome chronic November 28, 2024 11:07am Type 2 diabetes mellitus chronic November 28, 2024 11:07am [facility] Work Phone: 1(209) 418-267406-14-2022 NotePatient Outreach (NETNAV) ERENDIRA CHÁVEZ ([id number]) 1945 F Date Time Provider Department 02/04/22 CECILLE CARBONE During your visit today, we recorded the following information about you: Cecille Carbone MA 02/04/2022 9:12 AM Signed POPULATION HEALTH NAVIGATION OUTREACH Action/FYI February 04, 2022 DM Management outreach ISIDRO was 3.24.2020 with Ashlie Villanueva, APRIL for DM follow up HM due: BP Control Albumin Urine Dilated Retinal Exam HgBAIC Annual Exam Advance Directive Discussion Outcome: Spoke with patient. She advises that she has changed her primary care providers to a new practice outside of [facility]. PCP field has been updated, thank you Pt identified by name and : YES, via phone Outreach Outcome/Action Spoke to patient or caregiver: PCP confirmed / updated Did you use a PCP flex slot to schedule this appointment? N/A Reason for Outreach [facility] Diabetes Management Payer: No coverage found. Care Gap Reviewed:: Annual Wellness visit Reminder: Reminder note to check Health Maintenance for items below Health Maintenance items due: BP CONTROLLED (<130/80) Never done DTAP,TDAP,TD(1 - Tdap) due on 06/05/2010 SHINGRIX VACCINE(1 of 2) due on 09/14/2013 DIABETIC FOOT EXAM due on 11/30/2017 URINE ALBUMIN:CREATININE RATIO due on 05/04/2019 DEPRESSION SCREENING due on 11/20/2019 DILATED RETINAL EXAM due on 01/29/2021 HBA1C due on 03/01/2021 COVID-19 VACCINE(3 - Booster for Pfizer series) due on 03/16/2021 LDL CHOLESTEROL due on 06/20/2021 ADVANCE DIRECTIVE DISCUSSION Never done ANNUAL PCP TEAM CHRONIC DISEASE VISIT due on 11/14/2021 Message Sent to Practice: No Navigation Signature: Cecille Carbone MA February 04, 2022 Allergies As of Date: 02/04/2022 Noted Allergy Reaction ALPHAGAN (BRIMONIDINE) 10/01/2017 9 - Itching PENICILLINS 06/16/2005 Date Reviewed: 07/06/2020 Reviewed by: Arabella Gonzales LPN - Fully Assessed Reason for Visit: Population Health Navigation Outreach [3910] Cmt: DM Management Prescriptions as of 02/04/2022 - SITagliptin (JANUVIA) 100 mg tablet Take 1 tablet by mouth once daily. - glimepiride (AMARYL) 1 mg tablet Take 0.5 tablets by mouth twice daily with meals. - atenolol (TENORMIN) 25 mg tablet Take 1 tablet by mouth twice daily. - nystatin (MYCOSTATIN) powder Apply 1 application to affected area four times daily. - warfarin (COUMADIN) 4 mg tablet Take 2mg Thu,Thu, Thursday and 4mg daily all other days or as directed. - omeprazole (PRILOSEC) 40 mg capsule Take 1 capsule by mouth twice daily. - ketoconazole (NIZORAL) 2 % cream Apply 1 application to affected area twice daily. Continue to use for 1 week after rash resolves - fluticasone (FLONASE) 50 mcg/actuation nasal spray Use 2 Sprays in each nostril once daily. Rinse mouth after use. - lisinopril (ZESTRIL, PRINIVIL) 5 mg tablet Take 1 tablet by mouth once daily. - blood sugar diagnostic (ACCU-CHEK DESTINEE PLUS TEST STRP) test strip Test blood sugar(s) 1 times daily. Dx:E11.9 Insulin: No - simvastatin (ZOCOR) 10 mg tablet Take 1 tablet by mouth daily at bedtime. - propafenone (RYTHMOL) 150 mg tablet Take 150 mg by mouth every 8 hours as needed. for a fib - OTC PRODUCT [id number] twice daily - OTC PRODUCT omega 3 liquid 1725mg - COQ10 SG 100 100 MG-100 UNIT CAP Take one(1) tablet daily. - THERAPEUTIC MULTIVITAMIN TAB Take one(1) tablet daily. Problem List As Of Date 02/04/2022 Noted Resolved Abdominal pain, left lower quadrant [R10.32] 07/15/2005 10/19/2014 Diarrhea [R19.7] 07/15/2005 10/19/2014 BENIGN HYPERTENSION [I10] 07/23/2005 10/19/2014 HYPERLIPIDEMIA NEC/NOS [E78.5] 07/23/2005 10/24/2015 PULMONARY NODULE [R22.2] 07/23/2005 10/19/2014 ESOPHAGITIS, UNSPECIFIED [K20.90] 02/05/2006 Other hammer toe (acquired) [M20.40] 06/02/2008 10/19/2014 OBESITY [E66.9] 10/16/2008 10/19/2014 Myalgia and myositis, unspecified [LHT3004] 02/21/2009 07/05/2020 SKIN ERUPTION, NONSPEC [R21] 04/24/2009 10/19/2014 Fracture, shoulder [S42.90XA] 02/07/2009 11/28/2015 DM w/o complication type II [E11.9] 01/16/2011 10/24/2015 Adiposity [E66.9] 02/19/2012 Essential hypertension [I10] 02/19/2012 IBS (irritable bowel syndrome) [K58.9] 02/19/2012 Endometrial cancer [C54.1] 06/01/2012 11/28/2015 Paroxysmal atrial fibrillation (HCC) [I48.0] 02/16/2013 Urethral caruncle [N36.2] 09/20/2013 PAF (paroxysmal atrial fibrillation) [I48.0] 10/19/2013 10/19/2014 BMI 39.0-39.9,adult [Z68.39] 04/19/2014 06/03/2019 Hyperlipidemia [E78.5] 10/24/2015 Acute frontal sinusitis [J01.10] 10/24/2015 11/30/2016 BMI 37.0-37.9, adult [Z68.37] 10/24/2015 06/03/2019 Anticoagulated on Coumadin [Z79.01] 01/02/2016 Endometrial cancer (HCC) [C54.1] 01/02/2016 Pulmonary HTN (HCC) [I27.20] 01/02/2016 Gastroesophageal reflux disease [K21.9] 12/22 (more content not included)... [facility]06-14-2022 NoteHNO ID: [id number] Author: Cecille Carbone MA Service: ? Author Type: Brushing Machine Operator Type: Progress Notes Filed: 02/04/2022 9:12 AM Note Text: POPULATION HEALTH NAVIGATION OUTREACH Action/February 04, 2022 DM Management outreach ISIDRO was 3.24.2020 with Ashlie Older, HEAVY EQUIPMENT OPERATING ENGINEER for DM follow up HM due: BP Control Albumin Urine Dilated Retinal Exam HgBAIC Annual Exam Advance Directive Discussion Outcome: Spoke with patient. She advises that she has changed her primary care providers to a new practice outside of [facility]. PCP field has been updated, thank you Pt identified by name and : YES, via phone Outreach Outcome/Action Spoke to patient or caregiver: PCP confirmed / updated Did you use a PCP flex slot to schedule this appointment? N/A Reason for Outreach [facility] Diabetes Management Payer: No coverage found. Care Gap Reviewed:: Annual Wellness visit Reminder: Reminder note to check Health Maintenance for items below Health Maintenance items due: BP CONTROLLED (<130/80) Never done DTAP,TDAP,TD(1 - Tdap) due on 06/05/2010 SHINGRIX VACCINE(1 of 2) due on 09/14/2013 DIABETIC FOOT EXAM due on 11/30/2017 URINE ALBUMIN:CREATININE RATIO due on 05/04/2019 DEPRESSION SCREENING due on 11/20/2019 DILATED RETINAL EXAM due on 01/29/2021 HBA1C due on 03/01/2021 COVID-19 VACCINE(3 - Booster for Pfizer series) due on 03/16/2021 LDL CHOLESTEROL due on 06/20/2021 ADVANCE DIRECTIVE DISCUSSION Never done ANNUAL PCP TEAM CHRONIC DISEASE VISIT due on 11/14/2021 Message Sent to Practice: No Navigation Signature: Cecille Carbone MA [facility] Diagnosis Onset Date Resolution Status Essential hypertension chron ic Intertriginous dermatitis associated with moisture chronic Type 2 diabetes mellitus chr onic Intertriginous dermatitis associated with moisture chronic Type 2 diabetes mellitus chr onic [facility] Work Phone: Evaluation note* Diagnosis Onset Date Resolution Status Essential hypertension chron ic Intertriginous dermatitis associated with moisture chronic Type 2 diabetes mellitus chr onic Intertriginous dermatitis associated with moisture chronic Type 2 diabetes mellitus chr onic Obesity chronic Rosacea chronic Type 2 diabetes mellitus chr onic Venous insufficiency of both lower extremities chronic [facility] Work Phone: Evaluation note* Diagnosis Onset Date Resolution Status Intertriginous dermatitis associated with moisture chronic Type 2 diabetes mellitus chr onic Obesity chronic Rosacea chronic Type 2 diabetes mellitus chr onic Venous insufficiency of both lower extremities chronic Back pain acute Encounter for routine gynecological examination noneactive [facility] Work Phone: Evaluation note* Diagnosis Onset Date Resolution Status Obesity chronic Type 2 diabetes mellitus chr onic Venous insufficiency of both lower extremities chronic Back pain acute Encounter for routine gynecological examination noneactive Bilateral hip pain chronic Chronic back pain chronic Essential hypertension chron ic Type 2 diabetes mellitus chr onic Venous insufficiency of both lower extremities chronic [facility] Work Phone: Evaluation note* Diagnosis Onset Date Resolution Status Back pain acute Encounter for routine gynecological examination noneactive Bilateral hip pain chronic Chronic back pain chronic Essential hypertension chron ic Type 2 diabetes mellitus chr onic Venous insufficiency of both lower extremities chronic Claudication acute Dyspnea on exertion acute Essential hypertension chron ic Hyperlipidemia chronic Paroxysmal atrial fibrillation [facility] Work Phone: Evaluation note* Diagnosis Onset Date Resolution Status Bilateral hip pain chronic Chronic back pain chronic Essential hypertension chron ic Type 2 diabetes mellitus chr onic Venous insufficiency of both lower extremities chronic Claudication acute Dyspnea on exertion acute Essential hypertension chron ic Hyperlipidemia chronic Paroxysmal atrial fibrillation [facility] Work Phone: Evaluation note* Diagnosis Onset Date Resolution Status Bilateral hip pain chronic Chronic back pain chronic Essential hypertension chron ic Type 2 diabetes mellitus chr onic Venous insufficiency of both lower extremities chronic Claudication acute Dyspnea on exertion acute Essential hypertension chron ic Hyperlipidemia chronic Paroxysmal atrial fibrillation chronic Essential hypertension chron ic GERD (gastroesophageal reflux disease) chronic Hypersomnolence chronic Paroxysmal atrial fibrillation chronic Type 2 diabetes mellitus chr onic Venous insufficiency of both lower extremities [facility] Work Phone: Evaluation note* Diagnosis Onset Date Resolution Status Essential hypertension chron ic GERD (gastroesophageal reflux disease) chronic Hypersomnolence chronic Paroxysmal atrial fibrillation chronic Type 2 diabetes mellitus chr onic Venous insufficiency of both lower extremities [facility] Work Phone: Evaluation note* Diagnosis Onset Date Resolution Status Essential hypertension chron ic GERD (gastroesophageal reflux disease) chronic Hypersomnolence chronic Paroxysmal atrial fibrillation chronic Type 2 diabetes mellitus chr onic Venous insufficiency of both lower extremities chronic Left shoulder pain acute Chronic back pain chronic Essential hypertension chron ic Type 2 diabetes mellitus chr [facility] Work Phone: Evaluation note* Diagnosis Onset Date Resolution Status Left shoulder pain acute Chronic back pain chronic Essential hypertension chron ic Type 2 diabetes mellitus chr [facility] Work Phone: Evaluation note* Diagnosis Onset Date Resolution Status Left shoulder pain acute Chronic back pain chronic Essential hypertension chron ic Type 2 diabetes mellitus chr onic Essential hypertension chron ic Osteoarthritis chronic Osteopenia chronic Type 2 diabetes mellitus chr [facility] Work Phone: Evaluation note* Diagnosis Onset Date Resolution Status Essential hypertension chron ic Osteoarthritis chronic Osteopenia chronic Type 2 diabetes mellitus chr onic 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 acute Encounter for routine gynecological examination noneactive [facility] Work Phone: Evaluation note* Diagnosis Onset Date Resolution Status Dermatitis acute Health care maintenance acut e Essential hypertension chron ic GERD (gastroesophageal reflux disease) chronic Hot flashes chronic Irritable bowel syndrome chr [facility] Type 2 diabetes mellitus chr onic Essential hypertension chron ic Hyperlipidemia chronic Paroxysmal atrial fibrillation chronic [facility] Work Phone: Evaluation note* Diagnosis Onset Date Resolution Status Essential hypertension chron ic Generalized anxiety disorder chronic GERD (gastroesophageal reflux disease) chronic Type 2 diabetes mellitus chr [facility] Work Phone: Evaluation note* Diagnosis Onset Date Resolution Status Essential hypertension chron ic Generalized anxiety disorder chronic GERD (gastroesophageal reflux disease) chronic Type 2 diabetes mellitus chr onic Essential hypertension chron ic Hyperlipidemia chronic Paroxysmal atrial fibrillation chronic 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 chronic Essential hypertension chron ic Hyperlipidemia chronic Type 2 diabetes mellitus chr [facility] Work Phone: Evaluation note* Diagnosis Onset Date Resolution Status Essential hypertension chron ic Hyperlipidemia chronic Paroxysmal atrial fibrillation chronic 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 chronic Essential hypertension chron ic Hyperlipidemia chronic Type 2 diabetes mellitus chr [facility] Work Phone: Progress note Author Lola Bowles [facility] Note Date/Time April 17, 2025 1: 51pm [facility] [address], [address] [place] [address] OFFICE VISIT Date of Service: 04/17/25 MR#: [id number] Acct: [id number] Name: ERENDIRA CHÁVEZ Rep #: [id number] : 1945 Provider: Dr. 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) Chief Complaint: est annual 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 Is patient in pain?: No Allergies brimonidine Allergy (Verified 04/17/25 13:29) NEEDS FOLLOW-UP Penicillins Allergy (Verified 04/17/25 13:29) Hives Medications ?Medication ?Instructions ?Recorded ?Confirmed ?Type cholecalciferol (vitamin D3) 25 1,000 unit PO QDAY 07/1104/17/25 History mcg (1,000 unit) capsule multivitamin,eq-koqa-hoawgoqq 1 tab PO QDAY 12/02/17 0 04/17/25 History (Complete Multivitamin tablet) aluminum hydrox-magnesium carb 160 2 - 3 tab PO QHS 04/17/25 History mg-105 mg chewable tablet compress.stocking,knee,reg,lrg #2 ea 04/02/22 04/17/25 Rx cane #1 ea 01/21/23 04/17/25 Rx calcium 500 mg 2 tab PO BID 10/30/23 History (carb,gluconate)-magnesium 250 mg (gluc,oxide) tablet (Calcium Magnesium) warfarin 4 mg tablet 4 mg PO DAILY #90 tabs 05/1204/17/25 Rx Handicap Placard #1 ea 05/13/24 04/17/25 Rx blood sugar diagnostic (Accu-Chek #200 ea 06/08/24 Rx Destinee Plus test strips) amlodipine 2.5 mg tablet 2.5 mg PO DAILY #30 tabs 04/17/25 Rx insulin glargine 100 unit/mL (3 45 unit (0.45 mL) subc ut QDAY 3 10/07/24 04/17/25 Rx mL) subcutaneous pen (Lantus months #40.5 mL Solostar U-100 Insulin) pen needle, diabetic 31 gauge x #100 ea 10/13/2404/17 Rx 5/16 (Comfort EZ Pen [place]) glimepiride 2 mg tablet 6 mg (3 x 2 mg) PO DAILY 3 m onths 10/26/24 04/17/25 Rx #270 tabs lansoprazole 30 mg capsule,delayed 30 mg PO DAILY #90 caps 10/26/24 04/17/25 Rx release simvastatin 10 mg tablet 10 mg PO QHS #90 tabs 04/17/25 Rx atenolol 25 mg tablet 25 mg PO BID #180 tabs 03/2804/17/25 Rx lisinopril 20 mg tablet 20 mg PO BID #180 tabs 03/2804/17/25 Rx Is last menstrual period known: No Post menopausal: Yes Patient : No : No Control Method: post menopausal PFSH Medical History Night terrors, adult Health care maintenance Dermatitis Hot flashes Osteopenia Osteoarthritis Left shoulder pain Hypersomnolence Bilateral hip pain Chronic back pain Rosacea Venous insufficiency of both lower extremities Paroxysmal atrial fibrillation Generalized anxiety disorder Headache Wears glasses Yeast dermatitis Arthritis High cholesterol Back pain Migraine headache Difficulty swallowing Dietary restriction History of hiatal hernia History of IBS Gastric reflux Non-smoker Leg cramps History of edema Cardiology follow-up encounter Hx of echocardiogram History of stress test Fecal incontinence Vaginal candidiasis Fatty liver disease, nonalcoholic h/o urethral surgery Frequent UTI Secondary pulmonary hypertension Irritable bowel syndrome Glaucoma GERD (gastroesophageal reflux disease) History of left shoulder fracture Diarrhea 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 intermediate current use of anticoagulant Palpitations Hyperlipidemia Sebaceous cyst Endometrial cancer (02/2012) Obesity Essential hypertension Type 2 diabetes mellitus Surgical History S/P eye surgery H/O colonoscopy H/O endoscopy History of LAVH History of tonsillectomy Hx of cholecystectomy Family History Mother CVA (cerebral vascular accident) Diabetes Heart disease Father Myocardial infarction Heart disease Brother Hypertension High cholesterol Social History (Updated 04/17/25 @ 13:30 by Mona Faulkner) number of children: 2 current occupational status: retired Smoking Status: Never smoker alcohol intake: never substance use type: does not use caffeine: No what type of physical activity do you participate in: walking seatbelt use: always do you feel safe at home: Yes additional social history: Yariel- Retired Patient is retired History 2 Elective abortions Hx Para 2 Spontaneous abortions Hx # Term Pregnancies Ectopic pregnancies Hx # Pregnancies Multiple births # of living children Past Pregnancies Del. Date Name GA/Weeks Outcome Route Bth Weight Infant Gen Labor Lgth Anesthesia Del Locatn Provider FOB Unknown 1962 Huy Unknown 1965 Taylor [facility] Encounter for routine gynecological examination Details: ERENDIRA CHÁVEZ is a 79 year old who presents for annual exam. Last PAP: hysterectomy History of abnormal PAP: Last mammogram: 04/14/24 - normal, also done today History of abnormal mammogram: Colon cancer screening: will be scheduling soon Other preventative health care screenings: PCP Rosie Delatorre 2022 ROS Const Constitutional: Reports as per HPI and fatigue; Denies increased appetite, poor appetite, weight gain or weight loss Cardio Card: Denies chest pain Resp Resp: Denies cough or dyspnea GI GI: Reports as per HPI and bloating; Denies abdominal pain, constipation, nausea or vomiting : Reports as per HPI and other; Denies difficulty voiding, dysuria, hematuria, nipple discharge, pelvic pain, prolapse symptoms, urinary frequency, urinary incontinence, urinary urgency, vaginal discharge, vaginal dryness, vaginal odor or vaginal pruritus Skin Skin/Breast: Reports changing lesions; Denies breast mass, breast pain, breast skin changes or nipple discharge Psych Psych: Denies anxiety or depression Exam Const General: cooperative, healthy appearing, comfortable, no acute distress, well developed and well groomed [facility] Head: normal to inspection and normocephalic Ears: hearing grossly normal bilaterally and external ears normal Nose: external nose normal Face and sinus: normal facial exam Neck Neck: normal visual inspection, full ROM and no lymphadenopathy Thyroid: thyroid normal Chest Chest palpation & inspection: normal inspection of the chest Breast inspection: normal inspection of the breasts and normal inspection of theaxillae Breast palpation: normal palpation of the breasts, normal palpation of the axillae and no axillary lymphadenopathy Resp Effort & Inspection: normal respiratory effort GI Inspection: normal to inspection and non-distended Palpation: soft, no hepatosplenomegaly and no guarding General: bladder normal to palpation External Female Exam: normal external appearance, normal appearance of the urethra and no lesions Urethra: normal appearance of the urethra and normal palpation Speculum Exam - Vagina: normal appearance of the vagina and normal vaginal discharge Bimanual Exam- Vagina & Uterus: bladder normal to palpation Bimanual Exam- Adnexa, other: normal adnexae, no masses and non-tender Skin General: no rashes or lesions noted Neuro General: patient alert, moves all extremities and no focal motor deficits Extrem General: normal to inspection and no pedal edema Psych Appearance: grossly normal Mental Status: mental status grossly normal Affect: normal affect Speech and Movement: speech and movement normal Attitude: cooperative Coding Level of Care Code MC Pelvic/Breast Diagnoses Encounter for gynecological examination with abnormal finding Z01.411 Gynecological examination findings: abnormal findings PRESENT 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 Z91.89 Endometrial cancer C54.1 Assessment and Plan Assessment and Plan (1) Encounter for routine gynecological examination: Qualifiers: Gynecological examination findings: abnormal findings PRESENT QualifiedCode(s): Z01.411 - Encounter for gynecological examination (general) (routine) with abnormal findings (2) 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 Encouraged maintenance of a healthy weight and active lifestyle and handout given. Annual exam handout including recommendations for good health guidelines, Calcium/vitamin D recommendations, and basic screening information given. Problem list up to date, see problem list details for any additional plan information. Follow up in one year for annual health maintenance exam or sooner if needed. 04/17/25 2878 <Electronically signed by Lola hernandez MD> Date _ Lola Bowles MD Cosigner Signature: Date (if applicable) CC: ~ [facility] Work Phone: Reason for referral (narrative)No reason for referral information availableWMagruder [facility] Work Phone: Summary Purpose Family History No Family History Records Found Relationship Condition Age at Onset Recorded Date/T christianne mother Cerebrovascular accident (CVA) Unknown Diabetes mellitus Unknown Cardiac disease Unknown father Myocardial infarction Unknown Relationship Condition Age at Onset Recorded Date/T christianne mother Cerebrovascular accident (CVA) Unknown Diabetes mellitus Unknown Cardiac disease Unknown father Myocardial infarction Unknown brother Hypertension Unknown High blood cholesterol Unknown Advance Directives No Advanced Directives Records Found Advance Directive Response Recorded Date/ Time Advance Directives No February 14 10:19am Living Will Yes February 14, 2021 10:19am Power of Associate Professor Of Psychology Yes February 14 10:19am Advance Directive Response Recorded Date/ Time Advance Directives No February 14 9:19am Living Will Yes February 14, 2021 9:19am Power of Associate Professor Of Psychology Yes February 14 9:19am Advance Directive Response Recorded Date/ Time Advance Directives No April 2:19pm Living Will Yes April 30, 023 2:19pm Power of Associate Professor Of Psychology Yes April 30, 2023 2:19pm Advance Directive Response Recorded Date/ Time Advance Directives No April 1:19pm Living Will Yes April 30, 023 1:19pm Power of Associate Professor Of Psychology Yes April 30, 2023 1:19pm Advance Directive Response Recorded Date/ Time Living Will Yes April 30 023 2:19pm Do you have a Healthcare Power of Associate Professor Of Psychology? Yes April 30, 2023 2:19pm Living Will Yes September 24 3:05am Do you have a Healthcare Power of Associate Professor Of Psychology? Yes September 24, 2024 3:05am Living Will Yes October 22, 2024 9:09am Do you have a Healthcare Power of Associate Professor Of Psychology? Yes October 22, 2024 9:09am Living Will Yes July 24 3:43am Do you have a Healthcare Power of Associate Professor Of Psychology? Yes July 24, 2024 3:43am Living Will Yes August 24 5:30am Do you have a Healthcare Power of Associate Professor Of Psychology? Yes August 24, 2024 5:30am Advance Directives No April 2:19pm Advance Directive Response Recorded Date/ Time Living Will Yes April 30 023 2:19pm Do you have a Healthcare Power of Associate Professor Of Psychology? Yes April 30, 2023 2:19pm Living Will Yes September 24 3:05am Do you have a Healthcare Power of Associate Professor Of Psychology? Yes September 24, 2024 3:05am Living Will Yes October 22, 2024 9:09am Do you have a Healthcare Power of Associate Professor Of Psychology? Yes October 22, 2024 9:09am Living Will Yes November 21, 2024 10:20pm Do you have a Healthcare Power of Associate Professor Of Psychology? Yes November 21, 2024 10:20pm Living Will Yes December 22, 2024 12 :55am Do you have a Healthcare Power of Associate Professor Of Psychology? Yes December 22, 2024 12:55am Advance Directives No April 2:19pm Advance Directive Response Recorded Date/ Time Living Will Yes April 30, 023 2:19pm Do you have a Healthcare Power of Associate Professor Of Psychology? Yes April 30, 2023 2:19pm Living Will Yes October 22, 2024 9:09am Do you have a Healthcare Power of Associate Professor Of Psychology? Yes October 22, 2024 9:09am Living Will Yes November 21, 2024 10:20pm Do you have a Healthcare Power of Associate Professor Of Psychology? Yes November 21, 2024 10:20pm Living Will Yes December 22, 2024 12 :55am Do you have a Healthcare Power of Associate Professor Of Psychology? Yes December 22, 2024 12:55am Living Will Yes January 22, 2025 9 :19pm Do you have a Healthcare Power of Associate Professor Of Psychology? Yes January 22, 2025 9:19pm Advance Directives No April 2:19pm Advance Directive Response Recorded Date/ Time Living Will Yes April 30 2:19pm Do you have a Healthcare Power of Associate Professor Of Psychology? Yes April 30, 2023 2:19pm Living Will Yes November 21, 2024 10:20pm Do you have a Healthcare Power of Associate Professor Of Psychology? Yes November 21, 2024 10:20pm Living Will Yes December 22, 2024 12 :55am Do you have a Healthcare Power of Associate Professor Of Psychology? Yes December 22, 2024 12:55am Living Will Yes January 22, 2025 9 :19pm Do you have a Healthcare Power of Associate Professor Of Psychology? Yes January 22, 2025 9:19pm Advance Directives No April 2:19pm Advance Directive Response Recorded Date/ Time Living Will Yes April 30 2:19pm Do you have a Healthcare Power of Associate Professor Of Psychology? Yes April 30, 2023 2:19pm Living Will Yes December 22, 2024 12 :55am Do you have a Healthcare Power of Associate Professor Of Psychology? Yes December 22, 2024 12:55am Living Will Yes January 22, 2025 9 :19pm Do you have a Healthcare Power of Associate Professor Of Psychology? Yes January 22, 2025 9:19pm Advance Directives No April 2:19pm Advance Directive Response Recorded Date/ Time Living Will Yes December 22, 2024 12 :55am Do you have a Healthcare Power of Associate Professor Of Psychology? Yes December 22, 2024 12:55am Living Will Yes January 22, 2025 9 :19pm Do you have a Healthcare Power of Associate Professor Of Psychology? Yes January 22, 2025 9:19pm Advance Directives No April 2:19pm Advance Directive Response Recorded Date/ Time Living Will Yes January 22, 2025 9 :19pm Do you have a Healthcare Power of Associate Professor Of Psychology? Yes January 22, 2025 9:19pm Advance Directives No April 2:19pm Chief Complaint and Reason for Visit Chief Complaint S/O FINGERSTICK 3 M FU 5W F/U S/O FINGERSTICK S/O FINGERSTICK Reason for Visit Essential hypertensi on Intertriginous dermatitis associated with moisture Type 2 diabetes mellitus Intertriginous dermatitis associated with moisture Type 2 diabetes mellitus Chief Complaint S/O FINGERSTICK 3 M FU 5W F/U S/O FINGERSTICK S/O FINGERSTICK 2 M FU S/O FINGERSTICK Reason for Visit Essential hypertensi on Intertriginous dermatitis associated with moisture Type 2 diabetes mellitus Intertriginous dermatitis associated with moisture Type 2 diabetes mellitus Obesity Rosacea Type 2 diabetes mellitus Venous insufficiency of both lower extremities Chief Complaint 5W F/U S/O FINGERSTICK S/O FINGERSTICK 2 M FU S/O FINGERSTICK S/O FINGERSTICK SCREENING 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) Reason for Visit Intertriginous derma titis associated with moisture Type 2 diabetes mellitus Obesity Rosacea Type 2 diabetes mellitus Venous insufficiency of both lower extremities Back pain Encounter for routine gynecological examination Chief Complaint S/O FINGERSTICK 2 M FU S/O FINGERSTICK S/O FINGERSTICK SCREENING 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) S/O FINGERSTICK 3 M FU Reason for Visit Obesity Type 2 diabetes mellitus Venous insufficiency of both lower extremities Back pain Encounter for routine gynecological examination Bilateral hip pain Chronic back pain Essential hypertension Type 2 diabetes mellitus Venous insufficiency of both lower extremities Chief Complaint S/O FINGERSTICK SCREENING 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) S/O FINGERSTICK 3 M FU S/O FINGERSTICK 1 Y FU S/O FINGERSTICK Reason for Visit Back pain Encounter for routine gynecological examination Bilateral hip pain Chronic back pain Essential hypertension Type 2 diabetes mellitus Venous insufficiency of both lower extremities Claudication Dyspnea on exertion Essential hypertension Hyperlipidemia Paroxysmal atrial fibrillation Chief Complaint SCREENING 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) S/O FINGERSTICK 3 M FU S/O FINGERSTICK 1 Y FU S/O FINGERSTICK BILAT LEG SWELLING Reason for Visit Back pain Encounter for routine gynecological examination Bilateral hip pain Chronic back pain Essential hypertension Type 2 diabetes mellitus Venous insufficiency of both lower extremities Claudication Dyspnea on exertion Essential hypertension Hyperlipidemia Paroxysmal atrial fibrillation Chief Complaint S/O FINGERSTICK 3 M FU S/O FINGERSTICK 1 Y FU S/O FINGERSTICK BILAT LEG SWELLING S/O FINGERSTICK Reason for Visit Bilateral hip pain Chronic back pain Essential hypertension Type 2 diabetes mellitus Venous insufficiency of both lower extremities Claudication Dyspnea on exertion Essential hypertension Hyperlipidemia Paroxysmal atrial fibrillation Chief Complaint 3 M FU S/O FINGERSTICK 1 Y FU S/O FINGERSTICK BILAT LEG SWELLING S/O FINGERSTICK S/O FINGERSTICK 3 M FU Reason for Visit Bilateral hip pain Chronic back pain Essential hypertension Type 2 diabetes mellitus Venous insufficiency of both lower extremities Claudication Dyspnea on exertion Essential hypertension Hyperlipidemia Paroxysmal atrial fibrillation Essential hypertension GERD (gastroesophageal reflux disease) Hypersomnolence Paroxysmal atrial fibrillation Type 2 diabetes mellitus Venous insufficiency of both lower extremities Chief Complaint S/O FINGERSTICK BILAT LEG SWELLING S/O FINGERSTICK S/O FINGERSTICK 3 M FU S/O FINGERSTICK Reason for Visit Essential hypertensi on GERD (gastroesophageal reflux disease) Hypersomnolence Paroxysmal atrial fibrillation Type 2 diabetes mellitus Venous insufficiency of both lower extremities Chief Complaint S/O FINGERSTICK 3 M FU S/O FINGERSTICK S/O FINGERSTICK S/O FINGERSTICK 3 M FU Reason for Visit Essential hypertensi on GERD (gastroesophageal reflux disease) Hypersomnolence Paroxysmal atrial fibrillation Type 2 diabetes mellitus Venous insufficiency of both lower extremities Left shoulder pain Chronic back pain Essential hypertension Type 2 diabetes mellitus Chief Complaint S/O FINGERSTICK S/O FINGERSTICK S/O FINGERSTICK 3 M FU S/O FINGERSTICK Reason for Visit Left shoulder pain Chronic back pain Essential hypertension Type 2 diabetes mellitus Chief Complaint S/O FINGERSTICK S/O FINGERSTICK 3 M FU S/O FINGERSTICK S/O FINGERSTICK Reason for Visit Left shoulder pain Chronic back pain Essential hypertension Type 2 diabetes mellitus Chief Complaint S/O FINGERSTICK 3 M FU S/O FINGERSTICK S/O FINGERSTICK S/O FINGERSTICK 3 M FU Reason for Visit Left shoulder pain Chronic back pain Essential hypertension Type 2 diabetes mellitus Essential hypertension Osteoarthritis Osteopenia Type 2 diabetes mellitus Chief Complaint 3 M FU S/O FINGERSTICK S/O FINGERSTICK S/O FINGERSTICK 3 M FU OSTEO S/O FINGERSTICK Reason for Visit Left shoulder pain Chronic back pain Essential hypertension Type 2 diabetes mellitus Essential hypertension Osteoarthritis Osteopenia Type 2 diabetes mellitus Chief Complaint S/O FINGERSTICK S/O FINGERSTICK S/O FINGERSTICK 3 M FU OSTEO S/O FINGERSTICK 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 Reason for Visit Essential hypertensi on Osteoarthritis Osteopenia Type 2 diabetes mellitus 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 Encounter for routine gynecological examination Chief Complaint S/O FINGERSTICK S/O FINGERSTICK 3 M FU OSTEO S/O FINGERSTICK 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 S/O FINGERSTICK Reason for Visit Essential hypertensi on Osteoarthritis Osteopenia Type 2 diabetes mellitus 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 Encounter for routine gynecological examination Chief Complaint S/O FINGERSTICK 3 M FU OSTEO S/O FINGERSTICK 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 S/O FINGERSTICK S/O FINGERSTICK Reason for Visit Essential hypertensi on Osteoarthritis Osteopenia Type 2 diabetes mellitus 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 Encounter for routine gynecological examination Chief Complaint S/O FINGERSTICK S/O FINGERSTICK 3 M FU 1 Y FU S/O FINGERSTICK Paroxysmal atrial fibrillation S/O FINGERSTICK Reason for Visit Dermatitis Health care maintenance Essential hypertension GERD (gastroesophageal reflux disease) Hot flashes Irritable bowel syndrome Type 2 diabetes mellitus Essential hypertension Hyperlipidemia Paroxysmal atrial fibrillation Chief Complaint S/O FINGERSTICK 3 M FU 1 Y FU S/O FINGERSTICK Paroxysmal atrial fibrillation S/O FINGERSTICK S/O FINGERSTICK Reason for Visit Dermatitis Health care maintenance Essential hypertension GERD (gastroesophageal reflux disease) Hot flashes Irritable bowel syndrome Type 2 diabetes mellitus Essential hypertension Hyperlipidemia Paroxysmal atrial fibrillation Chief Complaint S/O FINGERSTICK 3 M FU S/O FINGERSTICK S/O FINGERSTICK I480 Reason for Visit Essential hypertensi on Generalized anxiety disorder GERD (gastroesophageal reflux disease) Type 2 diabetes mellitus Chief Complaint 3 M FU S/O FINGERSTICK S/O FINGERSTICK I480 I480 6 M FU 3 M FU Reason for Visit Essential hypertensi on Generalized anxiety disorder GERD (gastroesophageal reflux disease) Type 2 diabetes mellitus Essential hypertension Hyperlipidemia Paroxysmal atrial fibrillation 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 Essential hypertension Hyperlipidemia Type 2 diabetes mellitus Chief Complaint S/O FINGERSTICK I480 I480 6 M FU 3 M FU I480 Reason for Visit Essential hypertensi on Hyperlipidemia Paroxysmal atrial fibrillation 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 Essential hypertension Hyperlipidemia Type 2 diabetes mellitus Chief Complaint Admit Date 3 M FU August 22, 2024 1:21pm S/O- INR- FINGERSTICK August 22 2:30pm S/O- INR- FINGERSTICK September 19, 2024 11:54am S/O- INR- FINGERSTICK October 11 2:15pm S/O- INR- FINGERSTICK November 14, 2024 1 1:10am Reason for Visit Admit Date Essential hypertension August 22 1:21pm Generalized anxiety disorder August 222023 1:21pm Night terrors, adult August 22, 2024 1:21pm Type 2 diabetes mellitus August 22, 2024 1:21pm Chief Complaint Admit Date 3 M FU August 22, 2024 1:21pm S/O- INR- FINGERSTICK August 22 2:30pm S/O- INR- FINGERSTICK September 19, 2024 11:54am S/O- INR- FINGERSTICK October 11 2:15pm S/O- INR- FINGERSTICK November 14, 2024 1 1:10am 3 m fu - keep last of am or pm November 11:07am Reason for Visit Admit Date Essential hypertension August 22 1:21pm Generalized anxiety disorder August 222023 1:21pm Night terrors, adult August 22, 2024 1:21pm Type 2 diabetes mellitus August 22, 2024 1:21pm Essential hypertension November 28, 2024 1 1:07am Hyperlipidemia November 28, 2024 11:0 7am Irritable bowel syndrome November 28, 2024 11:07am Type 2 diabetes mellitus November 28, 2024 11:07am Chief Complaint Admit Date S/O- INR- FINGERSTICK October 11 2:15pm S/O- INR- FINGERSTICK November 14, 2024 1 1:10am 3 m fu - keep last of am or pm November 11:07am S/O- INR- FINGERSTICK December 12, 2024 1 1:33am 1 Y FU December 20, 2024 2:1 2pm S/O- INR- FINGERSTICK January 10, 2025 11: 23am Reason for Visit Admit Date Essential hypertension November 28, 2024 1 1:07am Hyperlipidemia November 28, 2024 11:0 7am Irritable bowel syndrome November 28, 2024 11:07am Type 2 diabetes mellitus November 28, 2024 11:07am Essential hypertension December 20, 2024 2:12pm Hyperlipidemia December 20, 2024 2:1 2pm Paroxysmal atrial fibrillation November 2:12pm Chief Complaint Admit Date S/O- INR- FINGERSTICK November 14, 2024 1 1:10am 3 m fu - keep last of am or pm November 11:07am S/O- INR- FINGERSTICK December 12, 2024 1 1:33am 1 Y FU December 20, 2024 2:1 2pm S/O- INR- FINGERSTICK January 10, 2025 11: 23am S/O- INR- FINGERSTICK February 09, 2025 10 :18am Chief Complaint Admit Date S/O- INR- FINGERSTICK November 14, 2024 1 1:10am 3 m fu - keep last of am or pm November 11:07am S/O- INR- FINGERSTICK December 12, 2024 1 1:33am 1 Y FU December 20, 2024 2:1 2pm S/O- INR- FINGERSTICK January 10, 2025 11: 23am S/O- INR- FINGERSTICK February 09, 2025 10 :18am 3 m fu March 06, 2025 1:07 pm Chief Complaint Admit Date 3 m fu - keep last of am or pm November 11:07am S/O- INR- FINGERSTICK December 12, 2024 1 1:33am 1 Y FU December 20, 2024 2:1 2pm S/O- INR- FINGERSTICK January 10, 2025 11: 23am S/O- INR- FINGERSTICK February 09, 2025 10 :18am 3 m fu March 06, 2025 1:07 pm S/O- INR- FINGERSTICK/ ADD OLEGHE EORDER S March 08, 2025 10:40am Reason for Visit Admit Date Essential hypertension November 28, 2024 1 1:07am Hyperlipidemia November 28, 2024 11:0 7am Irritable bowel syndrome November 28, 2024 11:07am Type 2 diabetes mellitus November 28, 2024 11:07am Essential hypertension December 20, 2024 2:12pm Hyperlipidemia December 20, 2024 2:1 2pm Paroxysmal atrial fibrillation November 2:12pm Dermatitis March 06, 2025 1:07 pm Essential hypertension March 06, 2025 1 :07pm Irritable bowel syndrome March 06, 2025 1:07pm Paroxysmal atrial fibrillation February 1:07pm Type 2 diabetes mellitus March 06, 2025 1:07pm Venous insufficiency of both lower extre mities March 06, 2025 1:07pm Chief Complaint Admit Date 1 Y FU December 20, 2024 2:1 2pm S/O- INR- FINGERSTICK January 10, 2025 11: 23am S/O- INR- FINGERSTICK February 09, 2025 10 :18am 3 m fu March 06, 2025 1:07 pm S/O- INR- FINGERSTICK/ ADD OLEGHE EORDER S March 08, 2025 10:40am S/O- INR- FINGERSTICK/ ADD OLEGHE EORDER S March 24, 2025 11:55am screen for breast cancer April 17 12:27pm 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) April 17, 2025 1: 23pm Reason for Visit Admit Date Essential hypertension December 20, 2024 2:12pm Hyperlipidemia December 20, 2024 2:1 2pm Paroxysmal atrial fibrillation November 2:12pm Dermatitis March 06, 2025 1:07 pm Essential hypertension March 06, 2025 1 :07pm Irritable bowel syndrome March 06, 2025 1:07pm Paroxysmal atrial fibrillation February 1:07pm Type 2 diabetes mellitus March 06, 2025 1:07pm Venous insufficiency of both lower extre mities March 06, 2025 1:07pm 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 April 17, 2025 1:23pm Endometrial cancer April 17, 2025 1: 23pm Encounter for routine gynecological exam ination April 17, 2025 1:23pm Chief Complaint Admit Date S/O- INR- FINGERSTICK January 10, 2025 11: 23am S/O- INR- FINGERSTICK February 09, 2025 10 :18am 3 m fu March 06, 2025 1:07 pm S/O- INR- FINGERSTICK/ ADD OLEGHE EORDER S March 08, 2025 10:40am screen for breast cancer April 17 12:27pm 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) April 17, 2025 1: 23pm S/O- INR- FINGERSTICK/ ADD OLEGHE EORDER S April 19, 2025 12:19pm Reason for Visit Admit Date Dermatitis March 06, 2025 1:07 pm Essential hypertension March 06, 2025 1 :07pm Irritable bowel syndrome March 06, 2025 1:07pm Paroxysmal atrial fibrillation February 1:07pm Type 2 diabetes mellitus March 06, 2025 1:07pm Venous insufficiency of both lower extre mities March 06, 2025 1:07pm 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 April 17, 2025 1:23pm Endometrial cancer April 17, 2025 1: 23pm Encounter for routine gynecological exam ination April 17, 2025 1:23pm Chief Complaint Admit Date S/O- INR- FINGERSTICK February 09, 2025 10 :18am 3 m fu March 06, 2025 1:07 pm S/O- INR- FINGERSTICK/ ADD OLEGHE EORDER S March 08, 2025 10:40am screen for breast cancer April 17 12:27pm 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 Delatorre April 262024 12:58pm S/O- INR- FINGERSTICK May 23 2:33pm Reason for Visit Admit Date Dermatitis March 06, 2025 1:07 pm Essential hypertension March 06, 2025 1 :07pm Irritable bowel syndrome March 06, 2025 1:07pm Paroxysmal atrial fibrillation February 1:07pm Type 2 diabetes mellitus March 06, 2025 1:07pm Venous insufficiency of both lower extre mities March 06, 2025 1:07pm 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 April 17, 2025 1:23pm Endometrial cancer April 17, 2025 1: 23pm Encounter for routine gynecological exam ination April 17, 2025 1:23pm Health care maintenance May 23, 2025 12:58pm Essential hypertension May 23, 025 12:58pm Hyperlipidemia May 23, 2025 12:58pm Obesity May 23, 2025 12:58pm Overactive bladder May 23, 2025 12:58pm Type 2 diabetes mellitus May 23, 2025 12:58pm Venous insufficiency of both lower extre mities May 23, 2025 12:58pm Additional Source Comments INFORMATION SOURCE (unrecogn ized section and content) DATE CREATED AUTHOR 02/15/2018 [facility] DATE CREATED AUTHOR AUTHOR'S ORGANIZ ATION 02/15/2018 [facility] DATE CREATED AUTHOR AUTHOR'S ORGANIZ ATION 02/04/2022 [facility] DATE CREATED AUTHOR AUTHOR'S ORGANIZ ATION 03/14/2022 [facility] DATE CREATED AUTHOR AUTHOR'S ORGANIZ ATION 06/25/2025 [facility] Goals (unrecognized section and content) Goals may be documented in a n alternate sectionGoals may be documented in an alternate sectionGoals may be documented in an alternate sectionGoals may be documented in an alternate sectionGoals may be documented in an alternate sectionGoals may be documented in an alternate sectionGoals may be documented in an alternate sectionGoals may be documented in an alternate sectionGoals may be documented in an alternate sectionGoals may be documented in an alternate sectionGoals may be documented in an alternate sectionGoals may be documented in an alternate sectionGoals may be documented in an alternate sectionGoals may be documented in an alternate sectionGoals may be documented in an alternate sectionGoals may be documented in an alternate sectionGoals may be documented in an alternate sectionGoals may be documented in an alternate sectionGoals may be documented in an alternate sectionGoals may be documented in an alternate sectionGoals may be documented in an alternate sectionGoals may be documented in an alternate sectionGoals may be documented in an alternate sectionGoals may be documented in an alternate sectionGoals may be documented in an alternate sectionGoals may be documented in an alternate sectionGoals may be documented in an alternate sectionGoals may be documented in an alternate sectionGoals may be documented in an alternate sectionGoals may be documented in an alternate sectionGoals may be documented in an alternate sectionGoals may be documented in an alternate sectionGoals may be documented in an alternate sectionGoals may be documented in an alternate sectionGoals may be documented in an alternate sectionGoals may be documented in an alternate section Care Teams (unrecognized sec tion and content) Team Status: Active Member Role Status Dates Dr. Megan Finengan MD Family Provider Active Dr. Eric Delatorre MD Primary Care Provider Active Team Status: Inactive Member Role Status Dates Dr. Eric Delatorre MD Primary Care P cale, Attending Provider, Referring Provider Active Team Status: Inactive Member Role Status Dates Dr. Eric Delatorre MD Primary Care Provider Active Dr. Javon Jenkins MD Attending Provider, Referring Pro vider Active Team Status: Active Member Role Status Dates Dr. Eric Delatorre MD Primary Care Provider Active Dr. Javon Jenkins MD Attending Provider, Referring Pro vider Active Team Status: Inactive Member Role Status Dates Dr. Eric Delatorre MD Primary Care Provider, Refer ring Provider Active Dr. Lola Bowles MD Attending Provider Active Team Status: Active Member Role Status Dates Dr. Eric Delatorre MD Primary Care Provider Active Dr. Lola Bowles MD Attending Provider, Referr ing Provider Active Team Status: Inactive Member Role Status Dates Dr. Eric Delatorre MD Primary Care Provider Active Dr. Lola Bowles MD Attending Provider, Referr ing Provider Active Team Status: Inactive Member Role Status Dates Dr. Eric Delatorre MD Primary Care Provider, Refer ring Provider Active Dr. Javon Jenkins MD Attending Provider Active Team Status: Active Member Role Status Dates Dr. Eric Delatorre MD Primary Care Provider Active Dr. William Penny MD Attending Provider Active Dr. Javon Jenkins MD Referring Provider Active Team Status: Active Member Role Status Dates Dr. Eric Delatorre MD Primary Care Provider Active Dr. Javon Jenkins MD Attending Provider Active Team Status: Inactive Member Role Status Dates Dr. Eric Delatorre MD Primary Care Provider, Refer ring Provider Active Christian Capellan NP, CHAIN [employer]ER-C Attending Provider Active Team Status: Active Member Role Status Dates Dr. Eric Delatorre MD Primary Care Provider Active Team Status: Inactive Member Role Status Dates Dr. Eric Delatorre MD Primary Care Provider Active Start: August 22, 2024 End: August 22, 2024 Dr. Eric Delatorre MD Attending Provider Active Start: August 22, 2024 End: August 22, 2024 Dr. Eric Delatorre MD Referring Provider Active Start: August 22, 2024 End: August 22, 2024 Team Status: Inactive Member Role Status Dates Dr. Eric Delatorre MD Primary Care Provider Active Start: August 22, 2024 End: August 22, 2024 Dr. Javon Jenkins MD Attending Provider Active S tart: August 22, 2024 End: August 22, 2024 Dr. Javon Jenkins MD Referring Provider Active S tart: August 22, 2024 End: August 22, 2024 Team Status: Inactive Member Role Status Dates Dr. Eric Delatorre MD Primary Care Provider Active Start: September 19, 2024 End: September 19, 2024 Dr. Javon Jenkins MD Attending Provider Active S tart: September 19, 2024 End: September 19, 2024 Dr. Javon Jenkins MD Referring Provider Active S tart: September 19, 2024 End: September 19, 2024 Team Status: Inactive Member Role Status Dates Dr. Eric Delatorre MD Primary Care Provider Active Start: October 11, 2024 End: October 21, 2024 Dr. Javon Jenkins MD Attending Provider Active S tart: October 11, 2024 End: October 21, 2024 Dr. Javon Jenkins MD Referring Provider Active S tart: October 11, 2024 End: October 21, 2024 Team Status: Inactive Member Role Status Dates Dr. Eric Delatorre MD Primary Care Provider Active Start: November 14, 2024 End: November 14, 2024 Dr. Javon Jenkins MD Attending Provider Active S tart: November 14, 2024 End: November 14, 2024 Dr. Javon Jenkins MD Referring Provider Active S tart: November 14, 2024 End: November 14, 2024 Team Status: Inactive Member Role Status Dates Dr. Eric Delatorre MD Primary Care Provider Active Start: November 28, 2024 End: November 28, 2024 Dr. Eric Delatorre MD Attending Provider Active Start: November 28, 2024 End: November 28, 2024 Dr. Eric Delatorre MD Referring Provider Active Start: November 28, 2024 End: November 28, 2024 Team Status: Inactive Member Role Status Dates Dr. Eric Delatorre MD Primary Care Provider Active Start: December 12, 2024 End: December 21, 2024 Dr. Javon Jenkins MD Attending Provider Active S tart: December 12, 2024 End: December 21, 2024 Dr. Javon Jenkins MD Referring Provider Active S tart: December 12, 2024 End: December 21, 2024 Team Status: Inactive Member Role Status Dates Dr. Eric Delatorre MD Primary Care Provider Active Start: December 20, 2024 End: December 20, 2024 Dr. Eric Delatorre MD Referring Provider Active Start: December 20, 2024 End: December 20, 2024 Dr. Javon Jenkins MD Attending Provider Active S tart: December 20, 2024 End: December 20, 2024 Team Status: Inactive Member Role Status Dates Dr. Eric Delatorre MD Primary Care Provider Active Start: January 10, 2025 End: January 10, 2025 Dr. Javon Jenkins MD Attending Provider Active S tart: January 10, 2025 End: January 10, 2025 Dr. Javon Jenkins MD Referring Provider Active S tart: January 10, 2025 End: January 10, 2025 Team Status: Active Member Role/Relationship Status Dates Dr. Eric Delatorre MD Primary Care Provider Active Team Status: Inactive Member Role/Relationship Status Dates Dr. Eric Delatorre MD Primary Care Provider Active Start: November 14, 2024 End: November 14, 2024 Dr. Javon Jenkins MD Attending Provider Active S tart: November 14, 2024 End: November 14, 2024 Dr. Javon Jenkins MD Referring Provider Active S tart: November 14, 2024 End: November 14, 2024 Team Status: Inactive Member Role/Relationship Status Dates Dr. Eric Delatorre MD Primary Care Provider Active Start: November 28, 2024 End: November 28, 2024 Dr. Eric Delatorre MD Attending Provider Active Start: November 28, 2024 End: November 28, 2024 Dr. Eric Delatorre MD Referring Provider Active Start: November 28, 2024 End: November 28, 2024 Team Status: Inactive Member Role/Relationship Status Dates Dr. Eric Delatorre MD Primary Care Provider Active Start: November 28, 2024 End: November 28, 2024 Dr. Eric Delatorre MD Attending Provider Active Start: November 28, 2024 End: November 28, 2024 Dr. Eric Delatorre MD Referring Provider Active Start: November 28, 2024 End: November 28, 2024 Team Status: Inactive Member Role/Relationship Status Dates Dr. Eric Delatorre MD Primary Care Provider Active Start: December 12, 2024 End: December 21, 2024 Dr. Javon Jenkins MD Attending Provider Active S tart: December 12, 2024 End: December 21, 2024 Dr. Javon Jenkins MD Referring Provider Active S tart: December 12, 2024 End: December 21, 2024 Team Status: Inactive Member Role/Relationship Status Dates Dr. Eric Delatorre MD Primary Care Provider Active Start: December 20, 2024 End: December 20, 2024 Dr. Eric Delatorre MD Referring Provider Active Start: December 20, 2024 End: December 20, 2024 Dr. Javon Jenkins MD Attending Provider Active S tart: December 20, 2024 End: December 20, 2024 Team Status: Inactive Member Role/Relationship Status Dates Dr. Eric Delatorre MD Primary Care Provider Active Start: January 10, 2025 End: January 10, 2025 Dr. Javon Jenkins MD Attending Provider Active S tart: January 10, 2025 End: January 10, 2025 Dr. Javon Jenkins MD Referring Provider Active S tart: January 10, 2025 End: January 10, 2025 Team Status: Inactive Member Role/Relationship Status Dates Dr. Eric Delatorre MD Primary Care Provider Active Start: February 09, 2025 End: February 09, 2025 Dr. Javon Jenkins MD Attending Provider Active S tart: February 09, 2025 End: February 09, 2025 Dr. Javon Jenkins MD Referring Provider Active S tart: February 09, 2025 End: February 09, 2025 Team Status: Inactive Member Role/Relationship Status Dates Dr. Eric Delatorre MD Primary Care Provider Active Start: March 06, 2025 End: March 06, 2025 Dr. Eric Delatorre MD Attending Provider Active Start: March 06, 2025 End: March 06, 2025 Dr. Eric Delatorre MD Referring Provider Active Start: March 06, 2025 End: March 06, 2025 Team Status: Inactive Member Role/Relationship Status Dates Dr. Eric Delatorre MD Primary Care Provider Active Start: November 28, 2024 End: November 28, 2024 Dr. Eric Delatrore MD Attending Provider Active Start: November 28, 2024 End: November 28, 2024 Dr. Eric Delatorre MD Referring Provider Active Start: November 28, 2024 End: November 28, 2024 Team Status: Inactive Member Role/Relationship Status Dates Dr. Eric Delatorre MD Primary Care Provider Active Start: December 12, 2024 End: December 21, 2024 Dr. Javon Jenkins MD Attending Provider Active S tart: December 12, 2024 End: December 21, 2024 Dr. Javon Jenkins MD Referring Provider Active S tart: December 12, 2024 End: December 21, 2024 Team Status: Inactive Member Role/Relationship Status Dates Dr. Eric Delatorre MD Primary Care Provider Active Start: December 20, 2024 End: December 20, 2024 Dr. Eric Delatorre MD Referring Provider Active Start: December 20, 2024 End: December 20, 2024 Dr. Javon Jenkins MD Attending Provider Active S tart: December 20, 2024 End: December 20, 2024 Team Status: Inactive Member Role/Relationship Status Dates Dr. Eric Delatorre MD Primary Care Provider Active Start: January 10, 2025 End: January 10, 2025 Dr. Javon Jenkins MD Attending Provider Active S tart: January 10, 2025 End: January 10, 2025 Dr. Javon Jenkins MD Referring Provider Active S tart: January 10, 2025 End: January 10, 2025 Team Status: Inactive Member Role/Relationship Status Dates Dr. Eric Delatorre MD Primary Care Provider Active Start: February 09, 2025 End: February 09, 2025 Dr. Javon Jenkins MD Attending Provider Active S tart: February 09, 2025 End: February 09, 2025 Dr. Javon Jenkins MD Referring Provider Active S tart: February 09, 2025 End: February 09, 2025 Team Status: Inactive Member Role/Relationship Status Dates Dr. Eric Delatorre MD Primary Care Provider Active Start: March 06, 2025 End: March 06, 2025 Dr. Eric Delatorre MD Attending Provider Active Start: March 06, 2025 End: March 06, 2025 Dr. Eric Delatorre MD Referring Provider Active Start: March 06, 2025 End: March 06, 2025 Team Status: Inactive Member Role/Relationship Status Dates Dr. Eric Delatorre MD Primary Care Provider Active Start: March 08, 2025 End: March 23, 2025 Dr. Eric Delatorre MD Other Provider Active Start: March 08, 2025 End: March 23, 2025 Dr. Javon Jenkins MD Attending Provider Active S tart: March 08, 2025 End: March 23, 2025 Dr. Javon Jenkins MD Referring Provider Active S tart: March 08, 2025 End: March 23, 2025 Team Status: Inactive Member Role/Relationship Status Dates Dr. Eric Delatorre MD Primary Care Provider Active Start: December 20, 2024 End: December 20, 2024 Dr. Eric Delatorre MD Referring Provider Active Start: December 20, 2024 End: December 20, 2024 Dr. Javon Jenkins MD Attending Provider Active S tart: December 20, 2024 End: December 20, 2024 Team Status: Inactive Member Role/Relationship Status Dates Dr. Eric Delatorre MD Primary Care Provider Active Start: January 10, 2025 End: January 10, 2025 Dr. Javon Jenkins MD Attending Provider Active S tart: January 10, 2025 End: January 10, 2025 Dr. Javon Jenkins MD Referring Provider Active S tart: January 10, 2025 End: January 10, 2025 Team Status: Inactive Member Role/Relationship Status Dates Dr. Eric Delatorre MD Primary Care Provider Active Start: February 09, 2025 End: February 09, 2025 Dr. Javon Jenkins MD Attending Provider Active S tart: February 09, 2025 End: February 09, 2025 Dr. Javon Jenkins MD Referring Provider Active S tart: February 09, 2025 End: February 09, 2025 Team Status: Inactive Member Role/Relationship Status Dates Dr. Eric Delatorre MD Primary Care Provider Active Start: March 06, 2025 End: March 06, 2025 Dr. Eric Delatorre MD Attending Provider Active Start: March 06, 2025 End: March 06, 2025 Dr. Eric Delatorre MD Referring Provider Active Start: March 06, 2025 End: March 06, 2025 Team Status: Inactive Member Role/Relationship Status Dates Dr. Eric Delatorre MD Primary Care Provider Active Start: March 08, 2025 End: March 23, 2025 Dr. Eric Delatorre MD Other Provider Active Start: March 08, 2025 End: March 23, 2025 Dr. Javon Jenkins MD Attending Provider Active S tart: March 08, 2025 End: March 23, 2025 Dr. Javon Jenkins MD Referring Provider Active S tart: March 08, 2025 End: March 23, 2025 Team Status: Active Member Role/Relationship Status Dates Dr. Eric Delatorre MD Primary Care Provider Active Start: March 24, 2025 Dr. Eric Delatorre MD Attending Provider Active Start: March 24, 2025 Team Status: Active Member Role/Relationship Status Dates Dr. Eric Delatorre MD Primary Care Provider Active Start: March 24, 2025 Dr. Eric Delatorre MD Other Provider Active Start: March 24, 2025 Dr. Javon Jenkins MD Attending Provider Active S tart: March 24, 2025 Dr. Javon Jenkins MD Referring Provider Active S tart: March 24, 2025 Team Status: Active Member Role/Relationship Status Dates Dr. Eric Delatorre MD Primary Care Provider Active Start: April 17, 2025 Dr. Lola Bowles MD Attending Provider Active Start: April 17, 2025 Dr. Lola Bowles MD Referring Provider Active Start: April 17, 2025 Team Status: Inactive Member Role/Relationship Status Dates Dr. Eric Delatorre MD Primary Care Provider Active Start: April 17, 2025 End: April 17, 2025 Dr. Eric Delatorre MD Referring Provider Active Start: April 17, 2025 End: April 17, 2025 Dr. Lola Bowles MD Attending Provider Active Start: April 17, 2025 End: April 17, 2025 Team Status: Inactive Member Role/Relationship Status Dates Dr. Eric Delatorre MD Primary Care Provider Active Start: January 10, 2025 End: January 10, 2025 Dr. Javon Jenkins MD Attending Provider Active S tart: January 10, 2025 End: January 10, 2025 Dr. Javon Jenkisn MD Referring Provider Active S tart: January 10, 2025 End: January 10, 2025 Team Status: Inactive Member Role/Relationship Status Dates Dr. Eric Delatorre MD Primary Care Provider Active Start: February 09, 2025 End: February 09, 2025 Dr. Javon Jenkins MD Attending Provider Active S tart: February 09, 2025 End: February 09, 2025 Dr. Javon Jenkins MD Referring Provider Active S tart: February 09, 2025 End: February 09, 2025 Team Status: Inactive Member Role/Relationship Status Dates Dr. Eric Delatorre MD Primary Care Provider Active Start: March 06, 2025 End: March 06, 2025 Dr. Eric Delatorre MD Attending Provider Active Start: March 06, 2025 End: March 06, 2025 Dr. Eric Delatorre MD Referring Provider Active Start: March 06, 2025 End: March 06, 2025 Team Status: Inactive Member Role/Relationship Status Dates Dr. Eric Delatrore MD Primary Care Provider Active Start: March 08, 2025 End: March 23, 2025 Dr. Eric Delatorre MD Other Provider Active Start: March 08, 2025 End: March 23, 2025 Dr. Javon Jenkins MD Attending Provider Active S tart: March 08, 2025 End: March 23, 2025 Dr. Javon Jenkins MD Referring Provider Active S tart: March 08, 2025 End: March 23, 2025 Team Status: Active Member Role/Relationship Status Dates Dr. Eric Delatorre MD Primary Care Provider Active Start: March 24, 2025 Dr. Eric Delatorre MD Attending Provider Active Start: March 24, 2025 Team Status: Inactive Member Role/Relationship Status Dates Dr. Eric Delatorre MD Primary Care Provider Active Start: April 17, 2025 End: April 17, 2025 Dr. Lola Bowles MD Attending Provider Active Start: April 17, 2025 End: April 17, 2025 Dr. Lola Bowles MD Referring Provider Active Start: April 17, 2025 End: April 17, 2025 Team Status: Inactive Member Role/Relationship Status Dates Dr. Eric Delatorre MD Primary Care Provider Active Start: April 17, 2025 End: April 17, 2025 Dr. Eric Delatorre MD Referring Provider Active Start: April 17, 2025 End: April 17, 2025 Dr. Lola Bowles MD Attending Provider Active Start: April 17, 2025 End: April 17, 2025 Team Status: Active Member Role/Relationship Status Dates Dr. Eric Delatorre MD Primary Care Provider Active Start: April 19, 2025 Dr. Eric Delatorre MD Other Provider Active Start: April 19, 2025 Dr. Javon Jenkins MD Attending Provider Active S tart: April 19, 2025 Dr. Javon Jenkins MD Referring Provider Active S tart: April 19, 2025 Team Status: Inactive Member Role/Relationship Status Dates Dr. Eric Delatorre MD Primary Care Provider Active Start: April 19, 2025 End: April 19, 2025 Dr. Eric Delatorre MD Other Provider Active Start: April 19, 2025 End: April 19, 2025 Dr. Javon Jenkins MD Attending Provider Active S tart: April 19, 2025 End: April 19, 2025 Dr. Javon Jenkins MD Referring Provider Active S tart: April 19, 2025 End: April 19, 2025 Team Status: Active Member Role/Relationship Status Dates Dr. Eric Delatorre MD Primary care physician Activ e Team Status: Inactive Member Role/Relationship Status Dates Dr. Eric Delatorre MD Primary care physician Activ e Start: February 09, 2025 End: February 09, 2025 Dr. Javon Jenkins MD Attending physician Active Start: February 09, 2025 End: February 09, 2025 Dr. Javon Jenkins MD Referring Provider Active S tart: February 09, 2025 End: February 09, 2025 Team Status: Inactive Member Role/Relationship Status Dates Dr. Eric Delatorre MD Primary care physician Activ e Start: March 06, 2025 End: March 06, 2025 Dr. Eric Delatorre MD Attending physician Active Start: March 06, 2025 End: March 06, 2025 Dr. Eric Delatorre MD Referring Provider Active Start: March 06, 2025 End: March 06, 2025 Team Status: Inactive Member Role/Relationship Status Dates Dr. Eric Delatorre MD Primary care physician Activ e Start: March 08, 2025 End: March 23, 2025 Dr. Eric Delatorre MD Nurse Practitioner Active Start: March 08, 2025 End: March 23, 2025 Dr. Javon Jenkins MD Attending physician Active Start: March 08, 2025 End: March 23, 2025 Dr. Javon Jenkins MD Referring Provider Active S tart: March 08, 2025 End: March 23, 2025 Team Status: Active Member Role/Relationship Status Dates Dr. Eric Delatorre MD Primary care physician Activ e Start: March 24, 2025 Dr. Eric Delatorre MD Attending physician Active Start: March 24, 2025 Team Status: Inactive Member Role/Relationship Status Dates Dr. Eric Delatorre MD Primary care physician Activ e Start: April 17, 2025 End: April 17, 2025 Dr. Lola Bowles MD Attending physician Active Start: April 17, 2025 End: April 17, 2025 Dr. Lola Bowles MD Referring Provider Active Start: April 17, 2025 End: April 17, 2025 Team Status: Inactive Member Role/Relationship Status Dates Dr. Eric Delatorre MD Primary care physician Activ e Start: April 17, 2025 End: April 17, 2025 Dr. Eric Delatorre MD Referring Provider Active Start: April 17, 2025 End: April 17, 2025 Dr. Lola Bowles MD Attending physician Active Start: April 17, 2025 End: April 17, 2025 Team Status: Inactive Member Role/Relationship Status Dates Dr. Eric Delatorre MD Primary care physician Activ e Start: April 19, 2025 End: April 19, 2025 Dr. Eric Delatorre MD Nurse Practitioner Active Start: April 19, 2025 End: April 19, 2025 Dr. Javon Jenkins MD Attending physician Active Start: April 19, 2025 End: April 19, 2025 Dr. Javon Jenkins MD Referring Provider Active S tart: April 19, 2025 End: April 19, 2025 Team Status: Inactive Member Role/Relationship Status Dates Dr. Eric Delatorre MD Primary care physician Activ e Start: May 23, 2025 End: May 23, 2025 Dr. Eric Delatorre MD Attending physician Active Start: May 23, 2025 End: May 23, 2025 Dr. Eric Delatorre MD Referring Provider Active Start: May 23, 2025 End: May 23, 2025 Team Status: Inactive Member Role/Relationship Status Dates Dr. Eric Delatorre MD Primary care physician Activ e Start: May 23, 2025 End: May 23, 2025 Dr. Eric Delatorre MD Nurse Practitioner Active Start: May 23, 2025 End: May 23, 2025 Dr. Javon Jenkins MD Attending physician Active Start: May 23, 2025 End: May 23, 2025 Dr. Javon Jenkins MD Referring Provider Active S tart: May 23, 2025 End: May 23, 2025 FOR RECORDS PERTAINING TO PATIENTS WHO ARE OR HAVE BEEN ENROLLED IN A CHEMICAL DEPENDENCY/SUBSTANCEABUSE PROGRAM, SOME INFORMATION MAY BE OMITTED. This clinical summary was aggregated from multiple sources. Caution should be exercised in using it in the provision of clinical care. This summary normalizes information from multiple sources, and as a consequence, information in this document may materially change the coding, format and clinical context of patient data. In addition, data may be omitted in some cases. CLINICAL DECISIONS SHOULD BE BASED ON THE PRIMARY CLINICAL RECORDS. [facility] [employer] provides no warranty or guarantee of the accuracy or completeness of information in this document.
== END | disposition home or self-care (01) ==
LOC: LABSPEC 10:04
PROVIDERS: PCP Internal Medicine; Referring Provider Physician Assistant; Visit Provider Physician Assistant
DX: R19.7 Diarrhea, unspecified (principal); K58.9 Irritable bowel syndrome, unspecified
CPT/HCPCS: 82274; 87493; 87506

== ENCOUNTER 2025-07-09 16:45 | Emergency (ER) | payer MEDICARE, SELFPAY ==
[2025-07-09 16:47] VITALS: BP 149/104; PULSE 140; RESP 18; TEMP 36.6; O2SAT 99; BMI 39.4
--- NOTE | 2025-07-09 16:51 | ED.RN ---
Patient rude to this RN in triage continually interrupting this nurse, not wanting to give information so this RN can check patient in. States "you don't need to know that" and "you'll have to wait". Patient educated on the need for information to check patient in. Patient removing monitoring equipment self and educated on why they need to currently be on as this RN is obtaining vitals.
--- NOTE | 2025-07-09 17:16 | EX.ED.DYSGE1 ---
HPI History of Present Illness Chief Complaint: Palpitations Informant: patient Onset/Context/Timing Onset: Weeks (2) Context: Gradual Onset Timing: Continuous (Today) and Intermittent (Over the past 2 weeks) Quality: Fluttering Location: Chest Worsened by: Stress Relieved by: Nothing Associated Symptoms Associated Symptoms: Lightheaded, weak, room spinning Narrative Narrative: Patient presents with palpitations that began 2 weeks ago. Patient states that they have been intermittent over the past 2 weeks but constant today. Patient states she feels fluttering in her chest. Patient states this is worse with stress. Patient states she feels lightheaded, weak, and feels like the room is spinning at times. Patient states she had diarrhea 2 weeks ago. Patient admits to some polydipsia. Patient admits to some subjective chills. [facility] Medical History Diarrhea Overactive bladder Night terrors, adult Health care maintenance Dermatitis Hot flashes Osteopenia Osteoarthritis Left shoulder pain Hypersomnolence Bilateral hip pain Chronic back pain Rosacea Venous insufficiency of both lower extremities Paroxysmal atrial fibrillation Generalized anxiety disorder Headache Wears glasses Yeast dermatitis Arthritis High cholesterol Back pain Migraine headache Difficulty swallowing Dietary restriction History of hiatal hernia History of IBS Gastric reflux Non-smoker Leg cramps History of edema Cardiology follow-up encounter Hx of echocardiogram History of stress test Fecal incontinence Vaginal candidiasis Fatty liver disease, nonalcoholic h/o urethral surgery Frequent UTI Secondary pulmonary hypertension Irritable bowel syndrome Glaucoma GERD (gastroesophageal reflux disease) History of left shoulder fracture 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 intermediate current use of anticoagulant Palpitations Hyperlipidemia Sebaceous cyst Endometrial cancer (02/2012) Obesity Essential hypertension Type 2 diabetes mellitus Home Medications Medication Instructions Recorded Last Taken Type cholecalciferol (vitamin D3) 25 1,000 unit PO QDAY 12/02/17 06/28/25 History mcg (1,000 unit) capsule multivitamin,se-atsc-uszpsrum 1 tab PO QDAY 12/02/17 07/08/25 History (Complete Multivitamin tablet) aluminum hydrox-magnesium carb 160 2 - 3 tab PO QHS 01/22/21 07/08/25 History mg-105 mg chewable tablet compress.stocking,knee,reg,lrg #2 ea 04/02/22 Unknown Rx cane #1 ea 01/21/23 Unknown Rx calcium 500 mg 2 tab PO BID 03/08/24 11/05/25 History (carb,gluconate)-magnesium 250 mg (gluc,oxide) tablet (Calcium Magnesium) warfarin 4 mg tablet 4 mg PO DAILY #90 tabs 05/12/24 07/08/25 Rx Handicap Placard #1 ea 05/13/24 Unknown Rx simvastatin 10 mg tablet 10 mg PO QHS #90 tabs 01/09/25 07/08/25 Rx atenolol 25 mg tablet 25 mg PO BID #180 tabs 03/28/25 07/09/25 Rx lisinopril 20 mg tablet 20 mg PO BID #180 tabs 03/28/25 07/09/25 Rx pen needle, diabetic 31 gauge x #100 ea 04/25/25 Unknown Rx 01/06" (Comfort EZ Pen Cross Anchor) amlodipine 2.5 mg tablet 2.5 mg PO DAILY #30 tabs 06/16/25 07/09/25 Rx blood sugar diagnostic (Accu-Chek #200 ea 07/06/25 Unknown Rx Destinee Plus test strips) glimepiride 2 mg tablet 6 mg PO DAILY 07/09/25 07/09/25 History insulin glargine 100 unit/mL (3 20 unit subcut BID 07/09/25 07/09/25 History mL) subcutaneous pen (Lantus Solostar U-100 Insulin) lansoprazole 15 mg capsule,delayed 15 mg PO DAILY 07/09/25 Unknown History release (Acid Drier Operator Helper (lansoprazole)) Allergy/AdvReac Type Severity Reaction Status Date / Time brimonidine Allergy NEEDS Verified 07/09/25 16:50 FOLLOW-UP Penicillins Allergy Hives Verified 07/09/25 16:50 Family History Mother CVA (cerebral vascular accident) Diabetes Heart disease Father Myocardial infarction Heart disease Brother Hypertension High cholesterol Surgical History S/P eye surgery H/O colonoscopy H/O endoscopy History of LAVH History of tonsillectomy Hx of cholecystectomy Social History number of children: 2 current occupational status: retired Smoking Status: Never smoker alcohol intake: never substance use type: does not use caffeine: No what type of physical activity do you participate in: walking seatbelt use: always do you feel safe at home: Yes additional social history: Yariel- Retired Patient is retired ROS ROS ED Constitutional Constitutional ED: Reports chills and subjective; Denies fever(s) Eyes Eyes: Denies blurry vision or change in vision ENT ENT ED: Reports sore throat; Denies rhinorrhea Cardiovascular Cardiovascular: Reports palpitations; Denies chest pain Respiratory/Chest Respiratory/Chest: Denies cough or dyspnea Gastrointestinal Gastrointestinal: Reports diarrhea; Denies nausea or vomiting Genitourinary Genitourinary ED: Denies dysuria or hematuria Musculoskeletal Musculoskeletal: Denies back pain or neck pain Integumentary Denies abscess or rash Neurologic Neurologic: Reports headache(s) and weakness Endocrine Endocrinology: Reports polydipsia; Denies polyuria Allergic/Immunologic Allergic/Immunologic ED: Denies mouth swelling or urticaria EXAM Physical Exam Const Vital Signs: 07/09/25 16:47 07/09/25 17:19 07/09/25 18:00 Temperature 98 F Temperature Source Oral Pulse Rate 140 H 135 H 120 H Respiratory Rate 18 26 H 18 Blood Pressure 149/104 H 126/86 H 126/78 H Blood Pressure Mean 119 99 94 Pulse Ox 99 98 98 Oxygen Delivery Method Room Air Room Air Room Air 07/09/25 19:00 07/09/25 20:00 Temperature Temperature Source Pulse Rate 109 H 109 H Respiratory Rate 20 H 19 H Blood Pressure Blood Pressure Mean Pulse Ox 97 96 Oxygen Delivery Method Room Air Positive well nourished and well developed Constitutional Narrative: BMI is 39.5. General Appearance ED: well developed and NAD HEENT Reports moist mucous membranes Neck supple and no JVD Resp normal respiratory effort and clear to auscultation bilaterally Cardio Rate: tachycardic Rhythm: abnormal rhythm irregularly irregular GI non-tender and non-distended Palpation: soft Neuro oriented x3, CN's II-XII intact bilaterally and no sensory deficits noted Sensorium / Orientation: alert Motor Exam: strength 5/5 throughout Psych mental status grossly normal MDM MDM MDM Narrative Medical decision making narrative: Differential diagnosis includes cardiac dysrhythmia, cardiac ischemia, pneumonia, bronchitis, electrolyte abnormality, dehydration, hyperglycemia, diabetic ketoacidosis, urinary tract infection, and anxiety. EKG will be obtained to assess for cardiac dysrhythmia and cardiac ischemia. Chest x-ray will be obtained to assess for pneumonia or bronchitis. CBC will be obtained to assess for leukocytosis and anemia. Basic metabolic profile will be obtained to assess for electrolyte abnormality and renal function. High-sensitivity troponin will be obtained to assess for cardiac ischemia. 2-hour repeat high-sensitivity troponin will be obtained to assess for ongoing cardiac ischemia. PT with INR and PTT will be obtained to assess for coagulopathy. Urinalysis will be obtained to assess for urinary tract infection and hematuria. Beta hydroxybutyrate will be obtained to assess for diabetic ketoacidosis. Lab Data Attestation: I reviewed the patient's lab results. Lab results narrative: CBC was reviewed and was within normal limits. PT with INR and PTT were reviewed. Pro time was 30.2 and INR was 2.8. PTT was 39.0. Basic metabolic profile was reviewed. Glucose was 167. BUN was slightly elevated at 26. The remainder is within normal limits. Initial high-sensitivity troponin was reviewed and was slightly elevated at 16. 2-hour repeat high-sensitivity troponin was reviewed and was normal at 13. Beta hydroxybutyrate was reviewed and was normal at 0.1. Urinalysis was reviewed. There is no evidence of urinary tract infection or hematuria. Labs: Laboratory Results - last 24 hr 07/09/25 07/09/25 07/09/25 17:37 17:41 19:40 WBC 8.3 RBC 3.93 L Hgb 12.8 Hct 37.3 MCV 94.9 MCH 32.6 H MCHC 34.3 RDW Std Deviation 49.1 H RDW Coeff of Hayder 14.1 Plt Count 242 MPV 9.9 Immature Gran % (Auto) 0.400 Neut % (Auto) 59.7 Lymph % (Auto) 30.8 Borden % (Auto) 7.6 Eos % (Auto) 1.1 Baso % (Auto) 0.4 Absolute Neuts (auto) 4.9 Absolute Lymphs (auto) 2.54 Nucleated RBC % 0 PT 30.2 H INR 2.8 APTT 39.0 H Sodium 138 Potassium 4.4 Chloride 105 Carbon Dioxide 24.1 Anion Gap 9 BUN 26 H Creatinine 0.98 Estim Creat Clear Calc 53.88 Est GFR (MDRD) Non-Af 59 L BUN/Creatinine Ratio 26.3 H Glucose 167 H Calcium 9.3 Troponin T High Sens 16 H Troponin T Hi Sens 2 Hr 13 b-Hydroxybutyric mmol/L 0.1 Urine Color Yellow Urine Clarity Sl. Cloudy Urine pH 5.0 Ur Specific Anderson 1.025 Urine Protein 30 H Urine Glucose (UA) Normal Urine Ketones Negative Urine Occult Blood 10 H Urine Nitrite Negative Urine Bilirubin Negative Urine Urobilinogen Normal Ur Leukocyte Esterase Negative Urine RBC 0-5 SEEN Urine WBC 0-5 SEEN Ur Squamous Epith Cells 0-5 SEEN Urine Bacteria 0 SEEN Urine Mucus 0 SEEN Radiography Chest X-Ray - ED: 1 View, Read by ED Physician and Read by Radiologist Diagnostic Testing: Clinical Impression(s) from Imaging Studies Chest X-Ray 07/09/25 17:59 IMPRESSION: Probable retrocardiac opacity and bilateral perihilar opacity, which may represent some combination of infection and lymphadenopathy. Consider CT for further evaluation. Reading Location: [facility] Formal chest x-ray was obtained. There is 1 view. On my independent interpretation, there is a questionable retrocardiac opacity which may represent infection and/or lymphadenopathy. Bony thorax was normal. There is borderline cardiomegaly. There is no evidence of congestive heart failure. Radiologist also interpreted the x-rays and agrees. EKG Initial EKG: Attestation: I personally reviewed and interpreted this EKG as follows: Interpretation: Atrial Fibrillation (124) and Non-Specific ST Changes Comments: EKG was obtained. On my independent interpretation, shows atrial fibrillation with a rate of 124. QRS interval was normal at 80 ms. QTc interval was normal at 436 ms. There is left axis deviation at -28. There are nonspecific ST-T wave changes. Prior EKG tracings: available for review Prior: Changed (Compared to EKG dated 04/08/2022, the atrial fibrillation is new. However, patient was noted to be in atrial fibrillation on EKG report dated 02/14/2013.) Treatment and Re-Evaluation :: Patient was given IV fluids and a dose of her atenolol. Patient's heart rate improved. Patient was feeling better on reevaluation. Patient was instructed to follow-up with cardiology in 3 to 5 days. Patient was instructed to take an extra dose of her atenolol at home if needed. Patient and family understood and were agreeable with the plan. All questions were answered. Discharge Plan Triage Chief Complaint: Palpitations ED Provider: William Bradley Dx/Rx/DC Orders Clinical Impression: Atrial fibrillation, Type 2 diabetes mellitus, Essential hypertension, intermediate current use of anticoagulant Instructions: ED AFIB Prescriptions: No Action multivitamin,[id number] [Complete Multivitamin] tablet 1 tab PO QDAY cholecalciferol (vitamin D3) 1,000 unit capsule 1,000 unit PO QDAY Calcium Magnesium 500 mg calcium -250 mg tablet 2 tab PO BID (DME) cane Device See Rx Instructions .Route Qty: 1 3RF Rx Instructions: As directed (DME) Handicap Placard See Rx Instructions .ROUTE .MEDSUPPLY Qty: 1 0RF Rx Instructions: As directed, length of time 3 years (DME) Accu-Chek Destinee Plus test strp Strip See Rx Instructions .ROUTE .MEDSUPPLY Qty: 200 1RF Rx Instructions: check blood glucose 3x daily for type 2 DM Gaviscon 160-105 mg Tablet,Chewable 2 - 3 tab PO QHS lansoprazole [Acid Drier Operator Helper (lansoprazole)] 15 mg capsule,delayed release(DR/EC) 15 mg PO DAILY glimepiride 2 mg tablet 6 mg PO DAILY insulin glargine [Lantus Solostar U-100 Insulin] 100 unit/mL (3 mL) insulin pen 20 unit subcut BID Rx Instructions: Take 20 units in the morning and 20 units in the evening (DME) compress.stocking,knee,reg,lrg Misc See Rx Instructions .MEDSUPPLY Qty: 2 1RF Rx Instructions: wear daily for venous insufficiency 15-20 mmHg warfarin 4 mg tablet 4 mg PO DAILY Qty: 90 3RF Protocol: Dose Management Condition: Thursday Dose/Route: 2 mg Instruction: 0.5 x 4 mg tablets Condition: Thursday Dose/Route: 4 mg Instruction: 1 x 4 mg tablet Condition: Thursday Dose/Route: 4 mg Instruction: 1 x 4 mg tablet Condition: Thursday Dose/Route: 4 mg Instruction: 1 x 4 mg tablet Condition: Dose/Route: 4 mg Instruction: 1 x 4 mg tablet Condition: Thursday Dose/Route: 4 mg Instruction: 1 x 4 mg tablet Condition: Thursday Dose/Route: 2 mg Instruction: 0.5 x 4 mg tablets Protocol Text: Adjustment Start Date: Thursday06/20/25 INR Value: 2.0 INR Date: 06/20/25 Recheck Date: 07/20/25 simvastatin 10 mg tablet 10 mg PO QHS Qty: 90 3RF atenolol 25 mg tablet 25 mg PO BID Qty: 180 2RF lisinopril 20 mg tablet 20 mg PO BID Qty: 180 3RF (DME) pen needle, diabetic [Comfort EZ Pen Cross Anchor] 31 gauge x 5/16" needle See Rx Instructions .ROUTE .MEDSUPPLY Qty: 100 3RF Rx Instructions: Use daily amlodipine 2.5 mg tablet 2.5 mg PO DAILY Qty: 30 11RF Primary Care Provider: Zbigniew Delatorre Referrals: Javon Jenkins MD [Med Staff - Active Staff, Cardiology] - 3-5 Days Zbigniew Delatorre MD [Primary Care Provider, Internal Medicine] - 3-5 Days Print Language: Niuean Disposition Disposition: Home, Self Care
[2025-07-09 17:19] VITALS: BP 126/86; PULSE 135; RESP 26; O2SAT 98
--- NOTE | 2025-07-09 17:30 | EKG12_ITS ---
Test Reason : Blood Pressure : */* mmHG Vent. Rate : 124 BPM Atrial Rate : * BPM P-R Int : * ms QRS Dur : 80 ms QT Int : 304 ms P-R-T Axes : * -28 69 degrees QTcB Int : 436 ms Atrial fibrillation with rapid ventricular response Cannot rule out Anterior infarct , age undetermined Abnormal ECG Confirmed by THAI BRANDON, DIANNE ([id number]), art editor MEREDITH ALBA ([id number]) on 07/10/2025 9:19:42 AM Referred By: Confirmed By: DIANNE ANDRE MD
[2025-07-09 17:47] LABS: Hematocrit 37.3 % (37-47); Hemoglobin 12.8 g/dL (12.0-15.0); Immature Granulocytes Count 0.030 X10^3/uL (0.0-0.0); Mean Corp Hgb Conc 34.3 g/dL (32-36); Mean Corpuscular Volume 94.9 fL (81-99); Mean Platelet Vol. 9.9 fl (6.2-12.0); NRBC Flagged by Analyzer 0 % (0-5); Platelet Count 242 K/mm3 (150-450); RBC Distribution Width CV 14.1 % (11.6-14.6); RBC Distribution Width SD 49.1 fl (35.1-43.9); Red Blood Count 3.93 M/mm3 (4.2-5.4); White Blood Count 8.3 K/mm3 (4.4-11.0)
[2025-07-09 17:48] LABS: Mucous, Urine 0 SEEN /hpf (<or=2+)
[2025-07-09 17:51] LABS: Color, Urine Yellow (Yellow); Glucose, Dipstick Normal (Normal); Ketone-Dipstick Negative (Negative); Leukocyte Esterase-Dipstick Negative /ul (Negative); Nitrite-Dipstick Negative (Negative); Occult Blood-Urine 10 /ul (Negative); Protein-Dipstick 30 mg/dl (Negative); Specific Gravity, Urine 1.025 (1.002-1.030); Urine Bilirubin Dipstick Negative (Negative)
[2025-07-09 17:57] LABS: Prothrombin Time (Protime)PT. 30.2 SECONDS (11.7-14.9)
[2025-07-09] MEDS: 0.9% Normal Saline (1000mL) 1,000 ML 1000 ML IV (17:57)
[2025-07-09 17:58] LABS: Partial Thromboplast Time 39.0 Seconds (24.1-36.2)
--- NOTE | 2025-07-09 17:59 | RAD_ITS ---
PROCEDURE: CHEST 1 VIEW (PORTABLE) 07/09/2025 REASON FOR EXAM: PALPITATIONS TECHNIQUE: Frontal view of the chest. COMPARISON: None FINDINGS: Mediastinum: There is bilateral perihilar prominence Lungs: There is suggestion of retrocardiac opacity. Prominent cardiac silhouette. No significant pleural effusion. Bones: Degenerative changes of the spine and shoulders. RAD/Chest 1 View (Portable) IMPRESSION: Probable retrocardiac opacity and bilateral perihilar opacity, which may repres ent some combination of infection and lymphadenopathy. Consider CT for further evaluation. Reading Location: [id number]
[2025-07-09 18:00] VITALS: BP 126/78; PULSE 120; RESP 18; O2SAT 98
[2025-07-09 18:09] LABS: Anion Gap 9 (5-15); BETA-HYDROXYBUTYRATE 0.1 mmol/L (0.0-0.3); BUN 26 mg/dL (4-19); BUN/Creat Ratio 26.3 RATIO (10-20); Calcium,Total 9.3 mg/dL (7.6-11.0); Carbon Dioxide 24.1 mmol/L (21.0-32.0); Chloride 105 mmol/L (98-108); Estimated Creatinine Clearance 53.88 ml/min (50-250); Glucose 167 mg/dL (70-99); Potassium 4.4 mmol/L (3.3-5.1)
[2025-07-09 18:20] LABS: Troponin T High Sensitivity 16 ng/L (<=14)
[2025-07-09 18:27] LABS: Red Blood Cells-Urine 0-5 SEEN /hpf (0-5); Squamous Epithelial Cells - UA 0-5 SEEN /hpf (5-10)
--- OUTSIDE RECORDS SUMMARY | 2025-07-09 18:57 | XMS RPT_ITS | CCD ---
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 Lola Bowles Attending Provider [phone] ERIC DELATORRE MD Consulting Unavailable ERIC DELATORRE [...] Dr. Eric Delatorre Attending Provider [phone] Roof BALLET PROFESSOR, BALLET PROFESSOR-C Christian Hilario Attending Provider [phone] Dr. William Penny Attending Provider [phone] Dr. Eric Delatorre Primary Care Provider [phone] Dr. Eric Delatorre Referring Provider [phone] Roof BALLET PROFESSOR, BALLET PROFESSOR-C Christian H Referring Provider Dr. Eric Delatorre Primary Care Provider [phone] Dr. Eric Delatorre Attending Provider [phone] Dr. Eric Delatorre Referring Provider [phone] Roof BALLET PROFESSOR, BALLET PROFESSOR-C Christian H Attending Provider Dr. William Penny Attending Provider [phone] Roof BALLET PROFESSOR, BALLET PROFESSOR-C Christian H Referring Provider Dr. Temo Delatorrebe [...] Nandini, Dr. Coy Referring Provider [phone] Roof BALLET PROFESSOR, BALLET PROFESSOR-Kym Hilario Attending Provider [phone] Nandini, Dr. Coy [...] Dr. Alejandro Attending Provider [phone] Alice BRANDON, Dr. Alejandro Referring Provider [phone] [...] Dr. Coy Nurse Practitioner [phone] Wilbur BARNDON, Dr. Davila Attending Physician Rustyghe, Efewongbe Primary Care Unavailable Lola Bowles Referring Unavailable Lola Bowles Attending Unavailable Oleghe, Efewongbe Consulting Unavailable Oleghe, Efewongbe Primary Care Unavailable Alice, Javon Attending Unavailable Alice, Javon Referring Unavailable Oleghe, Efewongbe Primary Care Unavailable Alice, Javon Attending Unavailable Alice, Smyrna Referring Unavailable Oleghe, Efewongbe Consulting Unavailable Oleghe, Efewongbe Primary Care Unavailable Alice, Javon Attending Unavailable Alice, Smyrna Referring Unavailable Oleghe, Efewongbe Consulting Unavailable Oleghe, Efewongbe Primary Care Unavailable Alice, Javon Attending Unavailable Alice, Smyrna Referring Unavailable Oleghe, Efewongbe Consulting Unavailable Alice, Smyrna Referring Unavailable Oleghe, Efewongbe Primary Care Unavailable Alice, Javon Attending Unavailable Oleghe, Efewongbe Referring Unavailable Oleghe, Efewongbe Primary Care Unavailable Oleghe, Efewongbe Attending Unavailable Oleghe, Efewongbe Primary Care Unavailable Alice, Javon Referring Unavailable Alice, Javon Attending Unavailable Alice, Javon Referring Unavailable Oleghe, Efewongbe Primary Care Unavailable Alice, Smyrna Attending Unavailable Alice, Smyrna Referring Unavailable Oleghe, Efewongbe Primary Care Unavailable Alice, Javon Attending Unavailable Alice, Javon Referring Unavailable Oleghe, Efewongbe Primary Care Unavailable Alice, Smyrna Attending Unavailable Alice, Smyrna Referring Unavailable Oleghe, Efewongbe Primary Care Unavailable Alice, Javon Attending Unavailable Oleghe, Efewongbe Primary Care Unavailable Alice, Javon Referring Unavailable Alice, Smyrna Attending Unavailable Oleghe, Efewongbe Primary Care Unavailable Alice, Smyrna Referring Unavailable Alice, Smyrna Attending Unavailable Oleghe, Efewongbe Primary Care Unavailable Oleghe, Efewongbe Attending Unavailable Oleghe, Efewongbe Primary Care Unavailable Oleghe, Efewongbe Referring Unavailable Oleghe, Efewongbe Attending Unavailable Oleghe, Efewongbe Primary Care Unavailable Oleghe, Efewongbe Referring Unavailable Alice, Javno Attending Unavailable Oleghe, Efewongbe Referring Unavailable Oleghe, [...] Unavailable Oleghe, Efewongbe Primary Care Unavailable Alice, Smyrna Referring Unavailable Javon Jenkins Attending Unavailable Allergies Allergy Classification Reported Allergen(s) Allergy Type Date of Onset Reaction(s) Facility (20 sources) brimonidine; Translations: [BRIMONIDINE] Drug Allergy 8 AOF, NEEDS FOLLOW-UP [facility] Repository (20 sources) Penicillins; Translations: [PENICILLINS] Propensity to adverse reactions (disorder) 5 Hives [facility] Repository (13 sources) bromonadine Allergy to substance 2 Other [facility] Medications Current Medications Medication Drug Class(es) [...] Start: 05-13-2024 End: 10-07-2024 Insulin Glargine (Lantus Trsiha ostar U-100 Insulin) 100 unit/mL (3 mL) [...] EACH TOPICAL NEEDED December 04, 2020 12:00am Multivitamin,Mn-Vrws-Qjhpdvs s (Complete Multivitamin) tablet (11 sources) Start: 12-02-2017 Start: 12-02-2017 Multivitamin,T g-Ijdo-Fehtwjuj (Complete Multivitamin) tablet Active 1 {tbl} PO daily December 02, 2017 12:00am multivitamin,pi-bgeb-wkshbkz s tablet (20 sources) Start: 12-02-2017 take 1 tablet by mouth once daily multivitamin,uh-spvi-qgbrbboz tablet Active 1 TABLET PO daily December 02, 2017 9:33am Start: 12-02-2017 take 1 tablet by suzanna th once daily multivitamin,uv-hkvl-wrgesuxg tablet Act mandeep 1 TABLET PO daily December 01, 2017 11:00pm Start: 12-02-2017 take 1 tablet by suzanna th once daily multivitamin,bl-gyeh-ksevykgj tablet Act mandeep 1 TABLET PO daily December 02, 2017 12:00am [place]-3 Fatty Acids (20 sources) Start: 12-02-2017 take 1000 mg by mout h once daily [place]-3 Fatty Acids Active 1000 MG PO daily December 02, 2017 9:33am Start: 12-02-2017 End: 08-05-2023 take 1000 mg by mouth once daily [place]-3 Fatty Acids Discontinued 1000 MG PO daily December 02, 2017 12:00am August 05, 2023 4:21pm Start: 12-02-2017 End: 08-05-2023 take 1000 mg by mouth once daily [place]-3 Fatty Acids Discontinued 1000 MG PO daily December 01, 2017 11:00pm August 05, 2023 3:21pm Start: 12-02-2017 take 1000 mg by mout h once daily [place]-3 Fatty Acids Active 1000 MG PO daily December 01, 2017 11:00pm Start: 12-02-2017 take 1000 mg by mout h once daily [place]-3 Fatty Acids Active 1000 MG PO daily [...] 2021 1:00am April 08, 2022 1:12pm nystatin [id number] unt/ml topical cream (20 sources) Polyene Antifungal [...] 14, 2021 12:00am April 08, 2022 1:12pm [place]-3 Fatty Acids 1,000 mg capsule (11 sources) Start: 12-02-2017 End: 08-05-2023 take 1 capsule by mouth once daily [place]-3 Fatty Acids 1,000 mg capsule Discontinued 1000 [...] to 3 tablets 8 hours apart. 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 simvastatin [...] 1 capsule by mouth once daily Coenzyme P68-Ngkqywr E 1 EACH capsule Discontinued 1 NMA PO DAILY December 06, 2015 12:00am October 30, 2023 2:06pm Start: 12-06-2015 End: 10-30-2023 Coenzyme L38-Gpdqhpu E Disco ntinued 1 EACH PO DAILY [...] sources) Long-term current use of anticoagulant; Translations: [emt intermediate (current) use of anticoagulants] 03-09-2019 Episodic Other aftercare (1 source) senior living (current) use of anticoagulants; Translations: [senior living (current) use of anticoagulants] Onset: 06-24-2025 Episodic [...] Da te Episodic/Chronic Other aftercare (1 source) emt intermediate (current) use of oral hypoglycemic drugs; Translations: [senior living (current) use of oral hypoglycemic drugs] Onset: 05-22-2021 Episodic Unclassified (20 sources) h/o urethral surgery 03-14-2022 Comment on above: 2019 Results Test Name Value Interpretation Reference Range Facility Basic Metabolic Profile (BMP )on 06-20-2025 BUN/CRE 30.9 RATIO High 06-12 [facility] Comment on above: Order Comment: OF [facility] OFFICE ORDERE PT/INR STANDING ORDER. ORDERED THE REST. Performed By: #### L 501.9985, L502.0250, L500.2500, L300.3900 #### [facility] [address] [place], [address] Calcium [Mass/Vol] 9.0 mg/dL Normal 7.6-11.0 [facility] Comment on above: Order Comment: OF [facility] OFFICE ORDERE PT/INR STANDING ORDER. ORDERED THE REST. Performed By: #### L 501.9985, L502.0250, L500.2500, L300.3900 #### [facility] [address] [place], [address] Chloride [Moles/Vol] 106 mmol/L Normal 98-108 [facility] Comment on above: Order Comment: OF [facility] OFFICE ORDERE PT/INR STANDING ORDER. ORDERED THE REST. Performed By: #### L 501.9985, L502.0250, L500.2500, L300.3900 #### [facility] [address] [place], [address] CO2 [Moles/Vol] 24.0 mmol/L Normal 21.0-32.0 [facility] Comment on above: Order Comment: OF [facility] OFFICE ORDERE PT/INR STANDING ORDER. ORDERED THE REST. Performed By: #### L 501.9985, L502.0250, L500.2500, L300.3900 #### [facility] [address] [place], [address] Creatinine [Mass/Vol] 0.67 mg/dL Low 0.70-1.20 [facility] Comment on above: Order Comment: OF [facility] OFFICE ORDERE PT/INR STANDING ORDER. ORDERED THE REST. Performed By: #### L 501.9985, L502.0250, L500.2500, L300.3900 #### [facility] [address] [place], [address] GAP 8 Normal 5-15 [facility] Comment on above: Order Comment: OF [facility] OFFICE ORDERE PT/INR STANDING ORDER. ORDERED THE REST. Performed By: #### L 501.9985, L502.0250, L500.2500, L300.3900 #### [facility] [address] [place], [address] GFR/1.73 sq M.predicted among non-blacks MDRD (S/P/Bld) [Vol rate/Area] 88 mL/min/{1.73_m2} Normal >60 [facility] Comment on above: Order Comment: OF [facility] OFFICE ORDERE PT/INR STANDING ORDER. ORDERED THE REST. Result Comment: mL/m in/1.73m2 CKD-EPI Creatinine Equation (2020) Performed By: #### L 501.9985, L502.0250, L500.2500, L300.3900 #### [facility] [address] [place], [address] Glucose [Mass/Vol] 149 mg/dL High 70-99 [facility] Comment on above: Order Comment: OF [facility] OFFICE ORDERE PT/INR STANDING ORDER. ORDERED THE REST. Performed By: #### L 501.9985, L502.0250, L500.2500, L300.3900 #### [facility] [address] [place], [address] Potassium [Moles/Vol] 4.2 mmol/L Normal 3.3-5.1 [facility] Comment on above: Order Comment: OF [facility] OFFICE ORDERE PT/INR STANDING ORDER. ORDERED THE REST. Performed By: #### L 501.9985, L502.0250, L500.2500, L300.3900 #### [facility] [address] [place], [address] Sodium [Moles/Vol] 137 mmol/L Normal 133-145 [facility] Comment on above: Order Comment: OF [facility] OFFICE ORDERE PT/INR STANDING ORDER. ORDERED THE REST. Performed By: #### L 501.9985, L502.0250, L500.2500, L300.3900 #### [facility] [address] [place], [address] Urea nitrogen [Mass/Vol] 21 mg/dL High 4-19 [facility] Comment on above: Order Comment: OF [facility] OFFICE ORDERE PT/INR STANDING ORDER. ORDERED THE REST. Performed By: #### L 501.9985, L502.0250, L500.2500, L300.3900 #### [facility] [address] [place], [address] Hemoglobin A1con 06-20-2025 HbA1c (Bld) [Mass fraction] 7.7 % High <=5.6 [facility] Comment on above: Result Comment: Norm al < 5.7 % Prediabetic 5.7 - 6.4 % Diabetic >or= 6.5 % Please note range changes. Performed By: #### L 501.9985, L502.0250, L500.2500, L300.3900 #### [facility] [address] [place], [address] Microalb:Creat Ratio,Random URon 06-20-2025 Creatinine [Mass/Vol] 86.30 mg/dL Normal 28.00- 217. 00 [facility] Comment on above: Performed By: #### L 9200.0000 #### [facility] [address] [place], [address] MALB:CREAT 55.3 mg/g CRE High <30 mg/g CRE [facility] Comment on above: Performed By: #### L 9200.0000 #### [facility] [address] [place], [address] MICROALBUMIN,UR 47.7 mg/L Normal <20 mg/L [facility] Comment on above: Performed By: #### L 9200.0000 #### [facility] [address] [place], [address] Prothrombin Time w/INRon INR Coag (PPP) [Relative time] 2.0 {INR} Normal [facility] Comment on above: Performed By: #### L 501.9985, L502.0250, L500.2500, L300.3900 #### [facility] [address] [place], [address] PT Coag (PPP) [Time] 23.5 s High 11.7-14.9 [facility] Comment on above: Performed By: #### L 501.9985, L502.0250, L500.2500, L300.9610 #### [facility] [address] [place], [address] Internal Medicine Office Vis iton 05-23-2025 Internal Medicine Office Visit [facility] [address] [place] [address] [place] [address] OFFICE VISIT Date of Service: 05/23/25 MR#: [id number] Acct: [id number] Name: EERNDIRA CHÁVEZ Rep #: [id number] : 1945 Provider: Dr. Eric mayo MD Age/Sex: 80/F Location[place] [facility] Status: Signed Intake Vital Signs 04/17/25 13:26 [...] Dr. Delatorre Chief Complaint: FU Chronic Conditions Butcher Supervisor Required: No Is patient in pain?: No Allergies brimonidine Allergy (Verified 05/23/25 13:05) NEEDS FOLLOW-UP Penicillins Allergy (Verified 05/23/25 13:05) Hives Medications ???Medication ???Instructions ???Recorded ???Confirmed ???Type cholecalciferol (vitamin D3) 25 1,000 unit PO QDAY 12/02/17 History mcg (1,000 unit) capsule multivitamin,qm-pzyp-edbzvtpi 1 tab PO QDAY 12/02/17 05/23/25 Hi [...] gauge x #100 ea 04/25/25 05/23/25 Rx 5/16" (Comfort EZ Pen [place]) glimepiride 2 mg tablet 6 mg (3 x 2 mg) PO DAILY 3 months 05/01/25 05/23/25 Rx #270 tabs Have you fallen in the past year?: No [facility] Medical History (Updated 05/23/25 @ 14:37 by [...] shoulder fracture Diarrhea 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 emt intermediate current use of anticoagulant Palpitations Hyperlipidemia [...] presenting for (more content not included)... Normal [facility] International normalized rat io (INR) measurement by fingerstickOrdered By: Javon Jenkins on 05-23-2025 INR Coag (BldC) [Relative time] 2.1 [facility] Comment on above: Critical Value > 4.0 Protime w/INR Fingerstickon 05-23-2025 INR Coag (PPP) [Relative time] 2.1 {INR} Normal [facility] Comment on above: Result Comment: Crit ical Value > 4.0 Performed By: #### L 9200.0000 #### [facility] [address] [place], [place], [id number] Protime Coagsen 22.7 SEC High 11.7-14.9 [facility] Comment on above: Performed By: #### L 9200.0000 #### [facility] [address] [place], [address] Whole blood prothrombin time Ordered By: Javon Jenkins on 05-23-2025 PT Coag (Bld) [Time] 22.7 s High 11.7-14.9 [facility] Breast imaging reportOrdered By: Clara Bejarano on 04-19-2025 Study report [facility] Imaging Services [address] [place] [address] SCRN MAMM (CAD)W/ERNESTINA BILAT MR#: [id number] Acct: [id number] Name: ERENDIRA CHÁVEZ Rep #: [id number] : 1945 F 79 From: Toby Bejarano DO PCP: Dr. Eric Delatorre MD Status: R EG CLI Study:SCRN MAMM (CAD)W/ERNESTINA BILAT Date of Exa m: 04/17/25 Exam# [id number] Ordering Dr: Lola Lopez MD ADDENDUM by Dr. Clara Bejarano DO on 04/19/25 at 2245 Breast composition: The breasts are primarily fatty. Reading Location: [facility] 04/19/255 Date cc: Dr. Eric Delatorre MD; [...] be mailed to the patient. Reading Location: [facility] CC: Dr. Eric Delatorre MD; Dr. Lola Bowles MD ~ Director Global Development: Signed [facility] normalized rat io (INR) measurement by fingerstickOrdered By: Javon Jenkins on 04-19-2025 INR Coag (BldC) [Relative time] 2.3 [facility] Comment on above: Critical Value > 4.0 Protime w/INR Fingerstickon 04-19-2025 INR Coag (PPP) [Relative time] 2.3 {INR} Normal [facility] Comment on above: Result Comment: Crit ical Value > 4.0 Performed By: #### L 9200.0000 #### [facility] [address] [place], [place], [address] Protime Coagsen 25.0 SEC High 11.7-14.9 [facility] Comment on above: Performed By: #### L 9200.0000 #### [facility] [address] [place], [place], [address] Whole blood prothrombin time Ordered By: Javon Jenkins on 04-19-2025 PT Coag (Bld) [Time] 25.0 s High 11.7-14.9 [facility] Office Visit Reporton 04-17-2025 [facility] Office Visit Report [facility] [address] [place] [address] OFFICE VISIT Date of Service: 04/17/25 MR#: [id number] Acct: [id number] Name: ERENDIRA CHÁVEZ Rep #: [id number] : 1945 Provider: Dr. 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 Complaint: est annual Butcher Supervisor Required: No Is patient in pain?: No Allergies brimonidine Allergy (Verified 04/17/25 13:29) NEEDS FOLLOW-UP Penicillins Allergy (Verified 04/17/25 13:29) Hives Medications ???Medication ???Instructions ???Recorded ???Confirmed ???Type cholecalciferol (vitamin D3) 25 1,000 unit PO QDAY 12/02/17 History mcg (1,000 unit) capsule multivitamin,ei-xojc-qhxdvldh 1 tab PO QDAY 12/02/17 04/17/25 Hi [...] gauge x #100 ea 10/13/24 04/17/25 Rx 5/16" (Comfort EZ Pen [place]) glimepiride 2 mg tablet 6 mg (3 [...] No : No Control Method: post menopausal [facility] Medical History Night terrors, adult Health care [...] shoulder fracture Diarrhea 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 senior living current use of anticoagulant Palpitations Hyperlipidemia Sebaceous [...] Date Name GA/Weeks Outcome Route Bth Weight Gen Labor Lgth Anesthesia D (more content not included)... Normal [facility] SCRN MAMM (CAD)W/ERNESTINA BILATo n 04-17-2025 SCRN MAMM (CAD)W/ERNESTINA BILAT [facility] Imaging Services [address] [place], [place] [id number] SCRN MAMM (CAD)W/ERNESTINA BILAT MR#: [id number] Acct: [id number] Name: ERENDIRA CHÁVEZ Rep #: [id number] : 1945 F 79 From: Clara Calles PCP: Dr. Eric Delatorre MD Status: [facility] CLI Study: SCRN MAMM (CAD)W/ERNESTINA BILAT Date of Exam: 03/25 01/15 Exam# [id number] Ordering Dr: Lola Bowles ADDENDUM by Dr. Clara Bejarano DO on 04/19/25 at 2245 Breast composition: The breasts are primarily fatty. Reading Location: [id number] 04/19/252244 Date cc: Dr. Eric Delatorre MD; [...] be mailed to the patient. Reading Location: [id number] CC: Dr. Eric Delatorre MD; Dr. Lola Bowles MD Director Global Development: Signed Normal [facility] No Panel InformationOrdered By: Christian Capellan on 03-24-2025 INR International Normalized Ratio 2.0 [facility] Absolute lymphocyte countOrd ered By: Eric Delatorre on 03-08-2025 Lymphocytes Auto (Unsp spec) [#/Vol] 1.69 10*3/uL 0.83-4.51 [facility] Absolute neutrophil countOrd ered By: Eric Delatorre on 03-08-2025 Neutrophils (Bld) [#/Vol] 4.4 10*3/uL 2.0-7.7 [facility] Anion gap in Serum or Plasma Ordered By: Eric Delatorre on 03-08-2025 Anion gap [Moles/Vol] 8 mmol/L 5-15 [facility] Automated lymphocyte count a s percentage of total leukocytesOrdered By: Eric Delatorre on 03-08-2025 Lymphocytes/100 WBC Auto (Unsp spec) 24.7 % 19-41 [facility] BUN/creatinine ratioOrdered By: Eric Delatorre on 03-08-2025 Urea nitrogen/Creatinine [Mass ratio] 26.6 mg/mg High 10-20 [facility] Basophil percentageOrdered B y: Eric Delatorre on 03-08-2025 Basophils/100 WBC (Bld) 0.3 % 0-1 [facility] Bilirubin, totalOrdered By: Eric Delatorre on 03-08-2025 Bilirubin [Mass/Vol] 0.51 mg/dL 0.00-1.30 [facility] CBC W/Diff, Automatedon 07- Absolute Lymph 1.69 X10 3/uL Normal 0.83-4.51 [facility] Comment on above: Performed By: #### L 300.3900 #### [facility] [address] [place], [address] Absolute Neut 4.4 X10 3/uL Normal 2.0-7.7 [facility] Comment on above: Performed By: #### L 300.3900 #### [facility] [address] [place], [address] Basophils/100 WBC (Bld) 0.3 % Normal 0-1 [facility] Comment on above: Performed By: #### L 300.3900 #### [facility] [address] [place], [address] Eosinophils/100 WBC (Bld) 1.3 % Normal 0-5 [facility] Comment on above: Performed By: #### L 300.3900 #### [facility] [address] [place], [address] Erythrocyte distribution width (RBC) [Ratio] 13.8 % Normal 11.6-14.6 [facility] Comment on above: Performed By: #### L 300.3900 #### [facility] [address] [place], [address] Hematocrit (Bld) [Volume fraction] 37.9 % Normal 37-47 [facility] Comment on above: Performed By: #### L 300.3900 #### [facility] [address] [place], [address] Hemoglobin (Bld) [Mass/Vol] 12.5 g/dL Normal 12.0-15.0 [facility] Comment on above: Performed By: #### L 300.3900 #### [facility] [address] [place], [address] IG% 0.300 Normal 0.0-0.9 [facility] Comment on above: Result Comment: IG% - Immature Granulocytes (promyelocytes, myelocytes and metamyelocytes) > 1% indicates that a LEFT SHIFT is Present. Performed By: #### L 300.3900 #### [facility] [address] [place], [address] Lymphocytes/100 WBC (Bld) 24.7 % Normal 19-41 [facility] Comment on above: Performed By: #### L 300.3900 #### [facility] [address] [place], [address] MCH (RBC) [Entitic mass] 31.6 pg Normal 27.0-32.0 [facility] Comment on above: Performed By: #### L 300.3900 #### [facility] [address] [place], [address] MCHC (RBC) [Mass/Vol] 33.0 g/dL Normal 32-36 [facility] Comment on above: Performed By: #### L 300.3900 #### [facility] [address] [place], [address] MCV (RBC) [Entitic vol] 95.9 fL Normal 81-99 [facility] Comment on above: Performed By: #### L 300.3900 #### [facility] [address] [place], [address] Monocytes/100 WBC (Bld) 8.8 % Normal 0-10 [facility] Comment on above: Performed By: #### L 300.3900 #### [facility] [address] [place], [address] Neutrophils/100 WBC (Bld) 64.6 % Normal 47-70 [facility] Comment on above: Performed By: #### L 300.3900 #### [facility] [address] [place], [address] Nucleated RBC (Bld) [#/Vol] 0 10*3/uL Normal 0-5 [facility] Comment on above: Performed By: #### L 300.3900 #### [facility] [address] [place], [address] Platelet mean volume (Bld) [Entitic vol] 10.6 fL Normal 6.2-12.0 [facility] Comment on above: Performed By: #### L 300.3900 #### [facility] [address] [place], [address] Platelets (Bld) [#/Vol] 205 10*3/uL Normal 150-450 [facility] Comment on above: Performed By: #### L 300.3900 #### [facility] [address] [place], [address] RBC (Bld) [#/Vol] 3.95 10*6/uL Low 4.2-5.4 [facility] Comment on above: Performed By: #### L 300.3900 #### [facility] [address] [place], [address] RDW SD 49.3 fl High 35.1-43.9 [facility] Comment on above: Performed By: #### L 300.3900 #### [facility] [address] [place], [address] WBC (Bld) [#/Vol] 6.8 10*3/uL Normal 4.4-11.0 [facility] Comment on above: Performed By: #### L 300.3900 #### [facility] [address] [place], [address] Carbon dioxide, total [Moles /volume] in Central venous bloodOrdered By: Eric Delatorre on 03-08-2025 CO2 [Moles/Vol] 26.0 mmol/L 21.0-32.0 [facility] Chloride assayOrdered By: Ayush catie Delatorre on 03-08-2025 Chloride [Moles/Vol] 105 mmol/L 98-108 [facility] Comprehensive Metabolic Prof ilon 03-08-2025 Albumin [Mass/Vol] 4.1 g/dL Normal 3.4-4.8 [facility] Comment on above: Performed By: #### L 300.3900 #### [facility] [address] [place], [address] Albumin/Globulin [Mass ratio] 1.2 {ratio} Normal 0.9-2.4 [facility] Comment on above: Performed By: #### L 300.3900 #### [facility] [address] [place], [address] ALK PHOS 69 U/L Normal 35-104 [facility] Comment on above: Performed By: #### L 300.3900 #### [facility] [address] [place], [address] ALT [Catalytic activity/Vol] 18 U/L Normal <=34 [facility] Comment on above: Performed By: #### L 300.3900 #### [facility] [address] [place], [address] AST [Catalytic activity/Vol] 24 U/L Normal <=31 [facility] Comment on above: Performed By: #### L 300.3900 #### [facility] [address] [place], [address] Bilirubin [Mass/Vol] 0.51 mg/dL Normal 0.00-1.30 [facility] Comment on above: Performed By: #### L 300.3900 #### [facility] [address] [place], [address] BUN/CRE 26.6 RATIO High 10-20 [facility] Comment on above: Performed By: #### L 300.3900 #### [facility] [address] [place], [address] Calcium [Mass/Vol] 9.4 mg/dL Normal 7.6-11.0 [facility] Comment on above: Performed By: #### L 300.3900 #### [facility] [address] [place], [address] Chloride [Moles/Vol] 105 mmol/L Normal 98-108 [facility] Comment on above: Performed By: #### L 300.3900 #### [facility] [address] [place], [address] CO2 [Moles/Vol] 26.0 mmol/L Normal 21.0-32.0 [facility] Comment on above: Performed By: #### L 300.3900 #### [facility] [address] [place], [address] Creatinine [Mass/Vol] 0.74 mg/dL Normal 0.70-1.20 [facility] Comment on above: Performed By: #### L 300.3900 #### [facility] [address] [place], [address] GAP 8 Normal 5-15 [facility] Comment on above: Performed By: #### L 300.3900 #### [facility] [address] [place], [address] GFR/1.73 sq M.predicted among non-blacks MDRD (S/P/Bld) [Vol rate/Area] 82 mL/min/{1.73_m2} Normal >60 [facility] Comment on above: Result Comment: mL/m in/1.73m2 CKD-EPI Creatinine Equation (2020) Performed By: #### L 300.3900 #### [facility] [address] [place], [address] Globulin (S) [Mass/Vol] 3.4 g/dL Normal 2.2-4.2 [facility] Comment on above: Performed By: #### L 300.3900 #### [facility] [address] [place], [address] Glucose [Mass/Vol] 175 mg/dL High 70-99 [facility] Comment on above: Performed By: #### L 300.3900 #### [facility] [address] [place], [address] Potassium [Moles/Vol] 4.4 mmol/L Normal 3.3-5.1 [facility] Comment on above: Performed By: #### L 300.3900 #### [facility] [address] [place], [address] Sodium [Moles/Vol] 139 mmol/L Normal 133-145 [facility] Comment on above: Performed By: #### L 300.3900 #### [facility] [address] [place], [address] T PROT 7.5 g/dL Normal 5.9-8.4 [facility] Comment on above: Performed By: #### L 300.3900 #### [facility] [address] [place], [address] Urea nitrogen [Mass/Vol] 20 mg/dL High 4-19 [facility] Comment on above: Performed By: #### L 300.3900 #### [facility] [address] [place], [address] Eosinophil percentageOrdered By: Eric Delatorre on 03-08-2025 Eosinophils/100 WBC (Bld) 1.3 % 0-5 [facility] Erythrocyte distribution wid th ratioOrdered By: Eric Delatorre on 03-08-2025 Erythrocyte distribution width (RBC) [Ratio] 13.8 % 11.6-14.6 [facility] Erythrocyte distribution wid th standard deviationOrdered By: Eric Delatorre on 03-08-2025 Erythrocyte distribution width (RBC) [Ratio] 49.3 fl High 35.1-43.9 [facility] Glomerular filtration rate ( GFR) estimation/1.73 sq m using serum, plasma, or whole bOrdered By: Eric Delatorre on 03-08-2025 GFR/1.73 sq M.predicted among non-blacks MDRD (S/P/Bld) [Vol rate/Area] 82 mL/min/{1.73_m2} >60 [facility] Comment on above: mL/min/1.73m2 CKD-EP I Creatinine Equation (2020) Hematocrit Auto (Bld) [Volum e fraction]Ordered By: Eric Delatorre on 03-08-2025 Hematocrit (Bld) [Volume fraction] 37.9 % 37-47 [facility] Hemoglobin measurementOrdere d By: Eric Delatorre on 03-08-2025 Hemoglobin (Bld) [Mass/Vol] 12.5 g/dL 12.0-15.0 [facility] Immature granulocytes/100 WB C Auto (Bld)Ordered By: Eric Delatorre on 03-08-2025 Immature granulocytes/100 WBC (Bld) 0.300 % 0.0-0.9 [facility] Comment on above: IG% - Immature Granu locytes (promyelocytes, myelocytes and metamyelocytes) > 1% indicates that a LEFT SHIFT is Present. International normalized rat io (INR) calculationOrdered By: Eric Delatorre on 03-08-2025 INR Coag (Bld) [Relative time] 1.9 {INR} [facility] - Chemistry and C hemistry - challengeOrdered By: Eric Delatorre on 03-08-2025 AST [Catalytic activity/Vol] 24 U/L <32 [facility] MCV (mean corpuscular volume ) determinationOrdered By: Eric Delatorre 03-08-2025 MCV (RBC) [Entitic vol] 95.9 fL 81-99 [facility] Mean corpuscular hemoglobin (MCH) determinationOrdered By: Eric Delatorre 03-08-2025 MCH (RBC) [Entitic mass] 31.6 pg 27.0-32.0 [facility] Mean corpuscular hemoglobin concentration (MCHC) determinationOrdered By: Eric Delatorre on 03-08-2025 MCHC (RBC) [Mass/Vol] 33.0 g/dL 32-36 [facility] Mean platelet volume determi nationOrdered By: Eric Delatorre on 03-08-2025 Platelet mean volume (Bld) [Entitic vol] 10.6 fL 6.2-12.0 [facility] Monocyte percentageOrdered B y: Eric Delatorre on 03-08-2025 Monocytes/100 WBC (Bld) 8.8 % 0-10 [facility] Neutrophil percentageOrdered By: nainacranerebeca Delatorre on 03-08-2025 Neutrophils/100 WBC (Bld) 64.6 % 47-70 [facility] Nucleated red blood cell per centageOrdered By: Eric Delatorre on 03-08-2025 Nucleated RBC/100 WBC (Bld) [Ratio] 0 % 0-5 [facility] Platelet countOrdered By: Ayush Delatorre on 03-08-2025 Platelets (Bld) [#/Vol] 205 10*3/uL 150-450 [facility] Potassium measurement (mass/ volume)Ordered By: Eric Delatorre on 03-08-2025 Potassium (Unsp spec) [Mass/Vol] 4.4 mmol/L 3.3-5.1 [facility] Prothrombin Time w/INRon INR Coag (PPP) [Relative time] 1.9 {INR} Normal [facility] Comment on above: Order Comment: DAYANARA Suarez SEND PT RESULTS TO Performed By: #### L 991.5117 #### [facility] [address] [place], [address] PT Coag (PPP) [Time] 21.7 s High 11.7-14.9 [facility] Comment on above: Order Comment: DAYANARA Suarez SEND PT RESULTS TO Performed By: #### L 996.3900 #### [facility] [address] [place], [address] Prothrombin timeOrdered By: Eric Delatorre on 03-08-2025 PT Coag (PPP) [Time] 21.7 s High 11.7-14.9 [facility] RBC Auto (Bld) [#/Vol]Ordere d By: Eric Delatorre on 03-08-2025 RBC (Bld) [#/Vol] 3.95 10*6/uL Low 4.2-5.4 [facility] Serum creatinine measurement (mass/volume)Ordered By: Eric Delatorre on 03-08-2025 Creatinine [Mass/Vol] 0.74 mg/dL 0.70-1.20 [facility] Serum globulin measurementOr dered By: Eric Delatorre on 03-08-2025 Globulin (S) [Mass/Vol] 3.4 g/dL 2.2-4.2 [facility] Serum glucose measurement (m ass/volume)Ordered By: Eric Delatorre on 03-08-2025 Glucose [Mass/Vol] 175 mg/dL High 70-99 [facility] Serum or plasma alanine gee otransferase (ALT) measurementOrdered By: Eric Delatorre on 03-08-2025 ALT [Catalytic activity/Vol] 18 U/L <35 [facility] Serum or plasma albumin david urement (mass/volume)Ordered By: Eric Delatorre 03-08-2025 Albumin [Mass/Vol] 4.1 g/dL 3.4-4.8 [facility] Serum or plasma albumin/glob ulin mass ratioOrdered By: Eric Delatorre 03-08-2025 Albumin/Globulin [Mass ratio] 1.2 {ratio} 0.9-2.4 [facility] Serum or plasma alkaline edgar sphatase measurementOrdered By: Eric Delatorre 03-08-2025 ALP [Catalytic activity/Vol] 69 U/L 35-104 [facility] Serum or plasma calcium david urement (mass/volume)Ordered By: Eric Delatorre 03-08-2025 Calcium [Mass/Vol] 9.4 mg/dL 7.6-11.0 [facility] Serum or plasma urea nitroge n measurement (mass/volume)Ordered By: Eric Delatorre on 03-08-2025 Urea nitrogen [Mass/Vol] 20 mg/dL High 4-19 [facility] Sodium levelOrdered By: Radha Delatorre on 03-08-2025 Sodium [Moles/Vol] 139 mmol/L 133-145 [facility] Total proteinOrdered By: Alvin Delatorre on 03-08-2025 Protein [Mass/Vol] 7.5 g/dL 5.9-8.4 [facility] White blood cell (WBC) count Ordered By: Eric Delatorre on 03-08-2025 WBC (Bld) [#/Vol] 6.8 10*3/uL 4.4-11.0 [facility] Internal Medicine Office Vis itonancy 03-06-2025 Internal Medicine Office Visit [facility] [address] [place] [address] [place] [address] OFFICE VISIT Date of Service: 03/06/25 MR#: [id number] Acct: [id number] Name: ERENDIRA CHÁVEZ Rep #: [id number] : 1945 Provider: Dr. Eric mayo MD Age/Sex: 79/F Location: [facility] [place] Status: Signed Intake Vital Signs 11/28/24 11:20 [...] m fu Chief Complaint: 3 m fu Butcher Supervisor Required: No Accompanied by: Self Is patient in pain?: No Allergies brimonidine Allergy (Verified 03/06/25 13:21) NEEDS FOLLOW-UP Penicillins Allergy (Verified 03/06/25 13:21) Hives Medications ???Medication ???Instructions ???Recorded ???Confirmed ???Type cholecalciferol (vitamin D3) 25 1,000 unit PO QDAY 12/02/17 History mcg (1,000 unit) capsule multivitamin,ml-ckok-fefijpxd 1 tab PO QDAY 12/02/17 03/06/25 Hi [...] QDAY 3 03/06/25 Rx mL) [facility]5 mL Solostar U-100 Insulin) pen needle, diabetic 31 gauge x #100 ea 10/13/24 03/06/25 Rx 5/16" (Comfort EZ Pen [place]) lisinopril 20 mg tablet 20 mg PO [...] numbers of sugar readings for 3 month [facility] Medical History Night terrors, adult Health care [...] shoulder fracture Diarrhea 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 emt intermediate current use of anticoagulant Palpitations Hyperlipidemia Sebaceous cyst Endometrial cancer (02/2012) Obesity Essential hypertension Type 2 diabetes mellitus Surgical History S/P eye surgery H/O colonoscopy H/O endoscopy History of [facility] History of tonsillectomy Hx of cholecystectomy [...] chronic medical (more content not included)... Normal [facility] - Hematology and Cell countsOrdered By: Eric Delatorre on 03-06-2025 HbA1c (Bld) [Mass fraction] 7.5 % High 4.2-6.3 [facility] International normalized rat io (INR) calculationOrdered By: Javon Jenkins on 02-09-2025 INR Coag (Bld) [Relative time] 2.0 {INR} [facility] Prothrombin Time w/INRon INR Coag (PPP) [Relative time] 2.0 {INR} Normal [facility] Comment on above: Performed By: #### L 300.3900 #### [facility] [address] [place], [address] PT Coag (PPP) [Time] 22.8 s High 11.7-14.9 [facility] Comment on above: Performed By: #### L 300.3900 #### [facility] [address] [place], [address] Prothrombin timeOrdered By: Javon Alice on 02-09-2025 PT Coag (PPP) [Time] 22.8 s High 11.7-14.9 [facility] International normalized rat io (INR) measurement by fingerstickOrdered By: Javon Jenkins on 01-10-2025 INR Coag (BldC) [Relative time] 2.3 [facility] Comment on above: Critical Value > 4.0 Protime w/INR Fingerstickon 01-10-2025 INR Coag (PPP) [Relative time] 2.3 {INR} Normal [facility] Comment on above: Result Comment: Crit ical Value > 4.0 Performed By: #### L 9200.0000 #### [facility] [address] [place], [address] Protime Coagsen 24.7 SEC High 11.7-14.9 [facility] Comment on above: Performed By: #### L 9200.0000 #### [facility] [address] [place], [address] Whole blood prothrombin time Ordered By: Javon Jenkins on 01-10-2025 PT Coag (Bld) [Time] 24.7 s High 11.7-14.9 [facility] Cardiology Visit Reporton Cardiology Visit Report [facility] [address] [place], [place] [address] OFFICE VISIT Date of Service: 12/20/24 MR#: [id number] Acct: [id number] Name: ERENDIRA CHÁVEZ Rep #: [id number] : 1945 Provider: Dr. Javon Jenkins MD Age/Sex: 79/F Location: [facility] [place] Status: Signed HPI HPI History of Present [...] Monitor Intake Visit Reasons: 1 Y FU Butcher Supervisor Required: No Accompanied by: Significant Other Is patient in pain?: No Allergies brimonidine Allergy (Verified 12/20/24 14:20) NEEDS FOLLOW-UP Penicillins Allergy (Verified 12/20/24 14:20) Hives Medications ???Medication ???Instructions ???Recorded ???Confirmed ???Type cholecalciferol (vitamin D3) 25 1,000 unit PO QDAY 12/02/17 History mcg (1,000 unit) capsule multivitamin,wv-sjrp-qefjfyjk 1 tab PO QDAY 12/02/17 12/20/24 Hi [...] gauge x #100 ea 10/13/24 11/28/24 Rx 5/16" (Comfort EZ Pen [place]) lisinopril 20 mg tablet 20 mg PO BID #180 tabs 10/24/24 Rx glimepiride 2 mg tablet 6 mg (3 x 2 mg) PO DAILY 3 months 10/26/24 12/20/24 Rx #270 tabs lansoprazole 30 mg capsule,delayed 30 mg PO DAILY #90 caps 10/26/24 12/20/24 Rx release Have you fallen in the past year?: No [facility] Medical History Night terrors, adult Health care [...] shoulder fracture Diarrhea 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 emt intermediate current use of anticoagulant Palpitations Hyperlipidemia Sebaceous cyst Endometrial cancer (02/2012) Obesity Essential hypertension Type 2 diabetes mellitus Surgical History S/P eye tara (more content not included)... Normal [facility] International normalized rat io (INR) measurement by fingerstickOrdered By: Javon Jenkins on 12-12-2024 INR Coag (BldC) [Relative time] 2.1 [facility] Comment on above: Critical Value > 4.0 Protime w/INR Fingerstickon 12-12-2024 INR Coag (PPP) [Relative time] 2.1 {INR} Normal [facility] Comment on above: Result Comment: Crit ical Value > 4.0 Performed By: #### L 300.3900 #### [facility] [address] [place], [address] Protime Coagsen 22.6 SEC High 11.7-14.9 [facility] Comment on above: Performed By: #### L 300.3900 #### [facility] [address] [place], [place], [address] Whole blood prothrombin time Ordered By: Javon Jenkins on 12-12-2024 PT Coag (Bld) [Time] 22.6 s High 11.7-14.9 [facility] Anion gap in Serum or Plasma Ordered By: Eric Delatorre on 11-28-2024 Anion gap [Moles/Vol] 8 mmol/L - [facility] BUN/creatinine ratioOrdered By: Eric Delatorre on 11-28-2024 Urea nitrogen/Creatinine [Mass ratio] 26.3 mg/mg High 06-12 [facility] Basic Metabolic Profile (BMP )on 11-28-2024 BUN/CRE 26.3 RATIO High 06-12 [facility] Comment on above: Performed By: #### L 500.2500 #### [facility] [address] [place], [address] Calcium [Mass/Vol] 9.5 mg/dL Normal 7.6-11.0 [facility] Comment on above: Performed By: #### L [id number] #### [facility] [address] [place], [address] Chloride [Moles/Vol] 104 mmol/L Normal 98-108 [facility] Comment on above: Performed By: #### L 500.2500 #### [facility] [address] [place], [address] CO2 [Moles/Vol] 27.5 mmol/L Normal 21.0-32.0 [facility] Comment on above: Performed By: #### L 500.2500 #### [facility] [address] [place], [address] Creatinine [Mass/Vol] 0.75 mg/dL Normal 0.70-1.20 [facility] Comment on above: Performed By: #### L 500.2500 #### [facility] [address] [place], [address] GAP 8 Normal - [facility] Comment on above: Performed By: #### L 500.2500 #### [facility] [address] [place], [address] GFR/1.73 sq M.predicted among non-blacks MDRD (S/P/Bld) [Vol rate/Area] 80 mL/min/{1.73_m2} Normal >60 [facility] Comment on above: Result Comment: mL/m in/1.73m2 CKD-EPI Creatinine Equation (2020) Performed By: #### L 500.2500 #### [facility] [address] [place], [address] Glucose [Mass/Vol] 123 mg/dL High 70-99 [facility] Comment on above: Performed By: #### L 500.2500 #### [facility] [address] [place], [address] Potassium [Moles/Vol] 5.0 mmol/L Normal 3.3-5.1 [facility] Comment on above: Performed By: #### L [id number] #### [facility] [address] [place], [address] Sodium [Moles/Vol] 140 mmol/L Normal 133-145 [facility] Comment on above: Performed By: #### L [id number] #### [facility] [address] [place], [address] Urea nitrogen [Mass/Vol] 20 mg/dL High 4-19 [facility] Comment on above: Performed By: #### L 500.2500 #### [facility] [address] [place], [address] Carbon dioxide, total [Moles /volume] in Central venous bloodOrdered By: Eric Delatorre on 11-28-2024 CO2 [Moles/Vol] 27.5 mmol/L 21.0-32.0 [facility] Chloride assayOrdered By: Ayush Delatorre on 11-28-2024 Chloride [Moles/Vol] 104 mmol/L 98-108 [facility] GFR/1.73 sq M.predicted ana g non-blacks MDRD (S/P/Bld) [Vol rate/Area]Ordered By: Eric Delatorre on 11-28-2024 Estimated GFR (MDRD) Non-Af Amer 80 >60 [facility] Comment on above: mL/min/1.73m2 CKD-EP I Creatinine Equation (2020) Glomerular filtration rate ( GFR) estimation/1.73 sq m using serum, plasma, or whole bOrdered By: Eric Delatorre on 11-28-2024 GFR/1.73 sq M.predicted among non-blacks MDRD (S/P/Bld) [Vol rate/Area] 80 mL/min/{1.73_m2} >60 [facility] Comment on above: mL/min/1.73m2 CKD-EP I Creatinine Equation (2020) Internal Medicine Office Vis itonancy 11-28-2024 Internal Medicine Office Visit [facility] [address] [place] [address] OFFICE VISIT Date of Service: 11/28/24 MR#: [id number] Acct: [id number] Name: ERENDIRA CHÁVEZ Rep #: [id number] : 1945 Provider: Dr. Eric mayo MD Age/Sex: 79/F Location: [facility] [place] Status: Signed Intake Vital Signs 08/22/24 13:29 [...] fu Is patient in pain?: Yes (2 "all over" ) Allergies brimonidine Allergy (Verified 11/28/24 11:22) NEEDS FOLLOW-UP Penicillins Allergy (Verified 11/28/24 11:22) Hives Medications ???Medication ???Instructions ???Recorded ???Confirmed ???Type cholecalciferol (vitamin D3) 25 1,000 unit PO QDAY 12/02/17 History mcg (1,000 unit) capsule multivitamin,il-hwno-elsfmhip 1 tab PO QDAY 12/02/17 11/28/24 Hi [...] gauge x #100 ea 10/13/24 11/28/24 Rx 5/16" (Comfort EZ Pen [place]) lisinopril 20 mg tablet 20 mg PO BID #180 tabs 10/24/24 Rx glimepiride 2 mg tablet 6 mg (3 x 2 mg) PO DAILY 3 months 10/26/24 11/28/24 Rx #270 tabs lansoprazole 30 mg capsule,delayed 30 mg PO DAILY #90 caps 10/26/24 11/28/24 Rx release Have you fallen in the past year?: No [facility] Medical History Night terrors, adult Health care [...] shoulder fracture Diarrhea 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 senior living current use of anticoagulant Palpitations Hyperlipidemia Sebaceous [...] close log and due to concern for inspector dials l (more content not included)... Normal [facility] - Hematology and Cell countsOrdered By: Eric Delatorre on 11-28-2024 HbA1c (Bld) [Mass fraction] 8.0 % High 4.2-6.3 [facility] Potassium (Unsp spec) [Mass/ Vol]Ordered By: Eric Delatorre on 11-28-2024 Potassium [Moles/Vol] 5.0 mmol/L 3.3-5.1 [facility] Potassium measurement (mass/ volume)Ordered By: Ayushnainanancirebeca Delatorre on 11-28-2024 Potassium (Unsp spec) [Mass/Vol] 5.0 mmol/L 3.3-5.1 [facility] Serum creatinine measurement (mass/volume)Ordered By: Ayushnainanancirebeca Ojedajulitadaniela on 11-28-2024 Creatinine [Mass/Vol] 0.75 mg/dL 0.70-1.20 [facility] Serum glucose measurement (m ass/volume)Ordered By: Ayushcatie Delatorre on 11-28-2024 Glucose [Mass/Vol] 123 mg/dL High 70-99 [facility] Serum or plasma calcium david urement (mass/volume)Ordered By: Ayushnainanancirebeca Ojedajulitadaniela on 11-28-2024 Calcium [Mass/Vol] 9.5 mg/dL 7.6-11.0 [facility] Serum or plasma urea nitroge n measurement (mass/volume)Ordered By: Eric Delatorre on 11-28-2024 Urea nitrogen [Mass/Vol] 20 mg/dL High 4-19 [facility] Sodium levelOrdered By: Radha inman Rustyjulitadaniela on 11-28-2024 Sodium [Moles/Vol] 140 mmol/L 133-145 [facility] Protime w/INR Fingerstickon 11-15-2024 INR Coag (PPP) [Relative time] 2.0 {INR} Normal [facility] Comment on above: Result Comment: Crit ical Value > 4.0 Performed By: #### L 9200.0000 #### [facility] [address] [place], [address] Protime Coagsen 21.7 SEC High 11.7-14.9 [facility] Comment on above: Performed By: #### L 9200.0000 #### [facility] [address] [place], [address] INR Coag (BldC) [Relative ti me]Ordered By: Javon Jenkins on 11-14-2024 INR Coag (Bld) [Relative time] 2.0 {INR} [facility] Comment on above: Critical Value > 4.0 International normalized rat io (INR) measurement by fingerstickOrdered By: Smyrna Alice on 11-14-2024 INR Coag (BldC) [Relative time] 2.0 [facility] Comment on above: Critical Value > 4.0 PT Coag (Bld) [Time]Ordered By: Smyrnalorri Jenkins on 11-14-2024 Bedside Prothrombin Time 21.7 SEC High 11.7-14.9 [facility] Whole blood prothrombin time Ordered By: Javon Alice on 11-14-2024 PT Coag (Bld) [Time] 21.7 s High 11.7-14.9 [facility] Protime w/INR Fingerstickon 10-25-2024 INR Coag (PPP) [Relative time] 1.9 {INR} Normal [facility] Comment on above: Result Comment: Crit ical Value > 4.0 Performed By: #### L 9200.0000 #### [facility] [address] [place], [place], [address] Protime Coagsen 21.2 SEC High 11.7-14.9 [facility] Comment on above: Performed By: #### L 9200.0000 #### [facility] [address] [place], [place], [id number] INR Coag (BldC) [Relative ti me]Ordered By: Javon Jenkins on 10-11-2024 INR Coag (Bld) [Relative time] 1.8 {INR} [facility] Comment on above: Critical Value > 4.0 International normalized rat io (INR) measurement by fingerstickOrdered By: Javon Jenkins on 10-11-2024 INR Coag (BldC) [Relative time] 1.8 [facility] Comment on above: Critical Value > 4.0 PT Coag (Bld) [Time]Ordered By: Smyrna Alice on 10-11-2024 Bedside Prothrombin Time 20.2 SEC High 11.7-14.9 [facility] Protime w/INR Fingerstickon 10-11-2024 INR Coag (PPP) [Relative time] 1.8 {INR} Normal [facility] Comment on above: Result Comment: Crit ical Value > 4.0 Performed By: #### L 500.2500 #### [facility] [address] [place], [address] Protime Coagsen 20.2 SEC High 11.7-14.9 [facility] Comment on above: Performed By: #### L 500.2500 #### [facility] [address] [place], [address] Whole blood prothrombin time Ordered By: Javon Jenkins on 10-11-2024 PT Coag (Bld) [Time] 20.2 s High 11.7-14.9 [facility] Protime w/INR Fingerstickon 10-03-2024 INR Coag (PPP) [Relative time] 2.0 {INR} Normal [facility] Comment on above: Result Comment: Crit ical Value > 4.0 Performed By: #### L [id number] #### [facility] [address] [place], [address] Protime Coagsen 22.2 SEC High 11.7-14.9 [facility] Comment on above: Performed By: #### L [id number] #### [facility] [address] [place], [address] Protime w/INR Fingerstickon 09-26-2024 INR Coag (PPP) [Relative time] 1.8 {INR} Normal [facility] Comment on above: Result Comment: Crit ical Value > 4.0 Performed By: #### L [id number] #### [facility] [address] [place], [address] Protime Coagsen 20.6 SEC High 11.7-14.9 [facility] Comment on above: Performed By: #### L [id number] #### [facility] [address] [place], [address] INR Coag (BldC) [Relative ti me]Ordered By: Javon Jenkins on 09-19-2024 INR Coag (Bld) [Relative time] 1.4 {INR} [facility] Comment on above: Critical Value > 4.0 PT Coag (Bld) [Time]Ordered By: Javon Jenkins on 09-19-2024 Bedside Prothrombin Time 15.5 SEC High 11.7-14.9 [facility] Protime w/INR Fingerstickon 09-19-2024 INR Coag (PPP) [Relative time] 1.4 {INR} Normal [facility] Comment on above: Result Comment: Crit ical Value > 4.0 Performed By: #### L [id number] #### [facility] [address] [place], [address] Protime Coagsen 15.5 SEC High 11.7-14.9 [facility] Comment on above: Performed By: #### L [id number] #### [facility] [address] [place], [address] Protime w/INR Fingerstickon 09-09-2024 INR Coag (PPP) [Relative time] 2.1 {INR} Normal [facility] Comment on above: Result Comment: Crit ical Value > 4.0 Performed By: #### L [id number] #### [facility] [address] [place], [address] Protime Coagsen 23.1 SEC High 11.7-14.9 [facility] Comment on above: Performed By: #### L [id number] #### [facility] [address] [place], [address] Protime w/INR Fingerstickon 08-30-2024 INR Coag (PPP) [Relative time] 2.0 {INR} Normal [facility] Comment on above: Result Comment: Crit ical Value > 4.0 Performed By: #### L [id number] #### [facility] [address] [place], [place], [address] Protime Coagsen 22.3 SEC High 11.7-14.9 [facility] Comment on above: Performed By: #### L [id number] #### [facility] [address] [place], [place], [address] INR Coag (BldC) [Relative ti me]Ordered By: Javon Jenkins on 08-22-2024 INR Coag (Bld) [Relative time] 1.4 {INR} [facility] Comment on above: Critical Value > 4.0 Internal Medicine Office Vis iton 08-22-2024 Internal Medicine Office Visit [facility] [address] [place], [place] [address] OFFICE VISIT Date of Service: 08/22/24 MR#: [id number] Acct: [id number] Name: ERENDIRA CHÁVEZ Rep #: [id number] : 1945 Provider: Dr. Eric mayo MD Age/Sex: 79/F Location: [facility] [place] Status: Signed Intake Vital Signs 05/13/24 11:12 [...] FU Chief Complaint: follow up chronic conditions. Butcher Supervisor Required: No Accompanied by: Self Is patient in pain?: No Allergies brimonidine Allergy (Verified 08/22/24 13:24) NEEDS FOLLOW-UP Penicillins Allergy (Verified 08/22/24 13:24) Hives Medications ???Medication ???Instructions ???Recorded ???Confirmed ???Type cholecalciferol (vitamin D3) 25 1,000 unit PO QDAY 12/02/17 08/22/24 History mcg (1,000 unit) capsule multivitamin,iw-[id number] 1 tab PO QDAY 12/02/17 08/22/24 History [...] gauge x #100 ea 02/29/24 08/22/24 Rx 5/16" (Comfort EZ Pen [place]) glimepiride 2 mg tablet 6 mg (3 [...] you fallen in the past year?: No [facility] Medical History (Updated 08/22/24 @ 14:32 by [...] shoulder fracture Diarrhea 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 senior living current use of anticoagulant Palpitations Hyperlipidemia Sebaceous [...] which s (more content not included)... Normal [facility] - Hematology and Cell countson 08-22-2024 HbA1c (Bld) [Mass fraction] 8.5 % High 4.2-6.3 [facility] PT Coag (Bld) [Time]Ordered By: Javon Jenkins on 08-22-2024 Bedside Prothrombin Time 16.2 SEC High 11.7-14.9 [facility] Protime w/INR Fingerstickon 08-22-2024 INR Coag (PPP) [Relative time] 1.4 {INR} Normal [facility] Comment on above: Result Comment: Crit ical Value > 4.0 Performed By: #### L 300.3900 #### [facility] [address] [place], [address] Protime Coagsen 16.2 SEC High 11.7-14.9 [facility] Comment on above: Performed By: #### L [id number] #### [facility] [address] [place], [address] Protime w/INR Fingerstickon 08-15-2024 INR Coag (PPP) [Relative time] 1.6 {INR} Normal [facility] Comment on above: Result Comment: Crit ical Value > 4.0 Performed By: #### L [id number] #### [facility] [address] [place], [address] Protime Coagsen 18.7 SEC High 11.7-14.9 [facility] Comment on above: Performed By: #### L [id number] #### [facility] [address] [place], [address] Protime w/INR Fingerstickon 07-20-2024 INR Coag (PPP) [Relative time] 2.3 {INR} Normal [facility] Comment on above: Result Comment: Crit ical Value > 4.0 Performed By: #### L [id number] #### [facility] [address] [place], [address] Protime Coagsen 25.2 SEC High 11.7-14.9 [facility] Comment on above: Performed By: #### L [id number] #### [facility] [address] [place], [address] Capillary blood internationa l normalized ratio (INR)Ordered By: Javon Alice on 12-11-2023 INR Coag (BldC) [Relative time] 2.6 [facility] Comment on above: Critical Value > 4.0 Whole blood prothrombin time Ordered By: Javonlorri Jenkins on 12-11-2023 PT Coag (Bld) [Time] 26.4 s 11.7-14.9 [facility] Absolute lymphocyte countOrd ered By: Eric Delatorre on 11-11-2023 Lymphocytes Auto (Unsp spec) [#/Vol] 2.09 10*3/uL 0.83-4.51 [facility] Automated lymphocyte count a s percentage of total leukocytesOrdered By: Eric Delatorre on 11-11-2023 Lymphocytes/100 WBC Auto (Unsp spec) 30.1 % 19-41 [facility] Basophil percentageOrdered B y: Ayushnainanancirebeca Ojedauyen on 11-11-2023 Basophils/100 WBC (Bld) 0.4 % 0-1 [facility] Bilirubin [Mass/Vol] 0.50 mg/dL 0.20-1.00 [facility] Comment on above: For patients on eltr ombopag therapy, use of Dimension [place] TBIL is not recommended. Chloride [Moles/Vol] 106 mmol/L 98-107 [facility] Eosinophils/100 WBC (Bld) 1.0 % 0-5 [facility] Glucose [Mass/Vol] 137 mg/dL 74-106 [facility] Comment on above: Fasting Glucose resu lt greater than or equal to 126 mg/dL suggests DIABETES MELLITUS per A.D.A. criteria. Hemoglobin (Bld) [Mass/Vol] 13.1 g/dL 12.0-15.0 [facility] Monocytes/100 WBC (Bld) 9.8 % 0-10 [facility] Neutrophils (Bld) [#/Vol] 4.0 10*3/uL 2.0-7.7 [facility] Neutrophils/100 WBC (Bld) 58.3 % 47-70 [facility] Potassium [Moles/Vol] 4.0 mmol/L 3.5-5.1 [facility] Protein [Mass/Vol] 7.8 g/dL 6.4-8.2 [facility] Sodium [Moles/Vol] 139 mmol/L 136-145 [facility] WBC (Bld) [#/Vol] 6.9 10*3/uL 4.4-11.0 [facility] Determination of erythrocyte mean corpuscular volume (MCV)Ordered By: Eric Delatorre on 11-11-2023 MCV (RBC) [Entitic vol] 94.6 fL 81-99 [facility] Erythrocyte distribution wid th ratioOrdered By: [facility] Rustydaniela on 11-11-2023 Erythrocyte distribution width (RBC) [Ratio] 13.9 % 11.6-14.6 [facility] Erythrocyte distribution wid th standard deviationOrdered By: [facility] Rustydaniela on 11-11-2023 Erythrocyte distribution width (RBC) [Entitic vol] 48.3 fL 35.1-43.9 [facility] Hematocrit Auto (Bld) [Volum e fraction]Ordered By: [facility] O[facility]adaniel[facility] on 11-11-2023 Hematocrit (Bld) [Volume fraction] 40.2 % 37-47 [facility] Immature granulocytes/100 WB C Auto (Bld)Ordered By: [facility] Rustydaniela on 11-11-2023 Immature granulocytes/100 WBC (Bld) 0.400 % 0.0-0.9 [facility] Comment on above: IG% - Immature Granu locytes (promyelocytes, myelocytes and metamyelocytes) > 1% indicates that a LEFT SHIFT is Present. Laboratory - Chemistry and C hemistry - challengeOrdered By: nainacranerebeca Ojedadaniela on 11-11-2023 Albumin/Globulin [Mass ratio] 0.9 {ratio} 0.9-2.4 [facility] ALP [Catalytic activity/Vol] 74 U/L 45-117 [facility] ALT [Catalytic activity/Vol] 28 U/L 13-56 [facility] CO2 [Moles/Vol] 30.0 mmol/L 21.0-32.0 [facility] Globulin (S) [Mass/Vol] 4.2 g/dL 2.2-4.2 [facility] Urea nitrogen/Creatinine [Mass ratio] 29.8 mg/mg 10- [facility] - Hematology and Cell countsOrdered By: Eric Delatorre on 11-11-2023 MCH (RBC) [Entitic mass] 30.8 pg 27.0-32.0 [facility] MCHC (RBC) [Mass/Vol] 32.6 g/dL 32-36 [facility] Nucleated RBC/100 WBC (Bld) [Ratio] 0 % 0-5 [facility] Platelet mean volume (Bld) [Entitic vol] 10.3 fL 6.2-12.0 [facility] Platelets (Bld) [#/Vol] 208 10*3/uL 150-450 [facility] - Hematology and Cell countson 11-11-2023 HbA1c (Bld) [Mass fraction] 7.9 % 4.2-6.3 [facility] No Panel InformationOrdered By: Eric Delatorre on 11-11-2023 Estimated GFR (MDRD) Amer 103 mL/min >60 [facility] Comment on above: GFR Calc Estimated GFR (MDRD) Non-Af Amer 85 mL/min >60 [facility] Comment on above: Non- GFR Calc Urine Microalbumin/Creatini ne Ratio 47.8 mg/g CRE <30 [facility] RBC Auto (Bld) [#/Vol]Ordere d By: Eric Delatorre on 11-11-2023 RBC (Bld) [#/Vol] 4.25 10*6/uL 4.2-5.4 [facility] Serum or plasma calcium david urement (mass/volume)Ordered By: Eric Delatorre on 11-11-2023 Calcium [Mass/Vol] 8.9 mg/dL 8.5-10.1 [facility] Serum or plasma creatinine m easurement (mass/volume)Ordered By: Eric Delatorre on 11-11-2023 Creatinine [Mass/Vol] 0.70 mg/dL 0.55-1.02 [facility] Comment on above: The validity of the calculated GFR & GFRAA in patients over 70 years has not been determined. Clinical correlation is essential. Serum or plasma thyroid stim ulating hormone (TSH) measurement (units/volume)Ordered By: Eric Delatorre on 11-11-2023 TSH Qn 2.35 uIU/mL 0.358-3.74 [facility] Serum or plasma urea nitroge n measurement (mass/volume)Ordered By: Eric Delatorre on 11-11-2023 Urea nitrogen [Mass/Vol] 21 mg/dL 7-18 [facility] Thin prep Papanicolaou smear with manual screeningOrdered By: Eric Delatorre on 11-11-2023 Thin prep Papanicolaou smear with manual screening 3.6 g/dL 3.2-5.0 [facility] Thin prep Papanicolaou smear with manual screening 25 U/L 15-37 [facility] Thin prep Papanicolaou smear with manual screening 3 5-15 [facility] Thin prep Papanicolaou smear with manual screening 41.8 mg/L NO RANGE EST. [facility] Thin prep Papanicolaou smear with manual screening 0.67 ng/dL 0.76-1.46 [facility] Urine creatinine measurement (mass/volume)Ordered By: Eric Delatorre on 11-11-2023 Creatinine (U) [Mass/Vol] 87.40 mg/dL NO RANGE EST. [facility] Capillary blood internationa l normalized ratio (INR)Ordered By: Javon Jenkins on 10-30-2023 INR Coag (BldC) [Relative time] 2.1 [facility] Comment on above: Critical Value > 4.0 Whole blood prothrombin time Ordered By: Javon Jenkins on 10-30-2023 PT Coag (Bld) [Time] 22.1 s 11.7-14.9 [facility] Capillary blood internationa l normalized ratio (INR)Ordered By: Javon Jenkins on 10-09-2023 INR Coag (BldC) [Relative time] 2.1 [facility] Comment on above: Critical Value > 4.0 Whole blood prothrombin time Ordered By: Javon Jenkins on 10-09-2023 PT Coag (Bld) [Time] 22.0 s 11.7-14.9 [facility] - CoagulationOrde red By: Javon Jenkins on 09-10-2023 PT Coag (PPP) [Time] 38.9 s 11.7-14.9 [facility] Platelet poor plasma interna tional normalized ratio (INR)Ordered By: Javon Jenkins on 09-10-2023 INR Coag (PPP) [Relative time] 3.9 {INR} [facility] Whole blood prothrombin time Ordered By: Javon Jenkins on 09-10-2023 PT Coag (Bld) [Time] 42.3 s 11.7-14.9 [facility] Basophil percentageOrdered B y: Eric Delatorre on 08-05-2023 Chloride [Moles/Vol] 108 mmol/L 98-107 [facility] Glucose [Mass/Vol] 196 mg/dL 74-106 [facility] Comment on above: Fasting Glucose resu lt greater than or equal to 126 mg/dL suggests DIABETES MELLITUS per A.D.A. criteria. Potassium [Moles/Vol] 4.5 mmol/L 3.5-5.1 [facility] Sodium [Moles/Vol] 141 mmol/L 136-145 [facility] Laboratory - Chemistry and C hemistry - challengeOrdered By: Eric Delatorre on 08-05-2023 CO2 [Moles/Vol] 31.0 mmol/L 21.0-32.0 [facility] Urea nitrogen/Creatinine [Mass ratio] 27.5 mg/mg 10- [facility] - CoagulationOrde red By: Javon Jenkins on 08-05-2023 PT Coag (PPP) [Time] 30.7 s 11.7-14.9 [facility] - Hematology and Cell countson 08-05-2023 HbA1c (Bld) [Mass fraction] 7.8 % 4.2-6.3 [facility] No Panel InformationOrdered By: Eric Delatorre on 08-05-2023 Estimated GFR (MDRD) Amer 99 mL/min >60 [facility] Comment on above: GFR Calc Estimated GFR (MDRD) Non-Af Amer 82 mL/min >60 [facility] Comment on above: Non- GFR Calc Serum or plasma calcium david urement (mass/volume)Ordered By: Eric Delatorre on 08-05-2023 Calcium [Mass/Vol] 9.4 mg/dL 8.5-10.1 [facility] Serum or plasma creatinine m easurement (mass/volume)Ordered By: Eric Delatorre on 08-05-2023 Creatinine [Mass/Vol] 0.73 mg/dL 0.55-1.02 [facility] Comment on above: The validity of the calculated GFR & GFRAA in patients over 70 years has not been determined. Clinical correlation is essential. Serum or plasma urea nitroge n measurement (mass/volume)Ordered By: Eric Delatorre on 08-05-2023 Urea nitrogen [Mass/Vol] 20 mg/dL 7-18 [facility] Thin prep Papanicolaou smear with manual screeningOrdered By: Eric Delatorre on 08-05-2023 Thin prep Papanicolaou smear with manual screening 2 5-15 [facility] Whole blood international no rmalized ratio (INR)Ordered By: Javon Jenkins on 08-05-2023 INR Coag (Bld) [Relative time] 2.9 {INR} [facility] - CoagulationOrde red By: Javon Jenkins on 07-10-2023 INR Coag (Bld) [Relative time] 3.0 {INR} [facility] Comment on above: Critical Value > 4.0 Whole blood prothrombin time Ordered By: Javon Jenkins on 07-10-2023 PT Coag (Bld) [Time] 32.3 s 11.7-14.9 [facility] - CoagulationOrde red By: Javon Jenkins on 06-11-2023 INR Coag (Bld) [Relative time] 3.0 {INR} [facility] Comment on above: Critical Value > 4.0 Whole blood prothrombin time Ordered By: Javon Jenkins on 06-11-2023 PT Coag (Bld) [Time] 32.5 s 11.7-14.9 [facility] - CoagulationOrde red By: Javon Jenkins on 05-13-2023 INR Coag (Bld) [Relative time] 3.0 {INR} [facility] Comment on above: Critical Value > 4.0 Whole blood prothrombin time Ordered By: Javon Jenkins on 05-13-2023 PT Coag (Bld) [Time] 32.0 s 11.7-14.9 [facility] - Hematology and Cell countson 04-30-2023 HbA1c (Bld) [Mass fraction] 7.3 % 4.2-6.3 [facility] Absolute lymphocyte countOrd ered By: Christian Capellan on 04-15-2023 Lymphocytes Auto (Unsp spec) [#/Vol] 1.73 10*3/uL 0.83-4.51 [facility] Basophil percentageOrdered B y: Christian Capellan on 04-15-2023 Basophils/100 WBC (Bld) 0.3 % 0-1 [facility] Eosinophils/100 WBC (Bld) 1.2 % 0-5 [facility] Neutrophils (Bld) [#/Vol] 3.7 10*3/uL 2.0-7.7 [facility] Neutrophils/100 WBC (Bld) 60.8 % 47-70 [facility] WBC (Bld) [#/Vol] 6.0 10*3/uL 4.4-11.0 [facility] Bilirubin [Mass/Vol] 0.60 mg/dL 0.20-1.00 [facility] Comment on above: For patients on eltr ombopag therapy, use of Dimension [place] TBIL is not recommended. Chloride [Moles/Vol] 109 mmol/L 98-107 [facility] Cholesterol [Mass/Vol] 184 mg/dL <200 [facility] Comment on above: <200 mg/dL Desirable 200-240 mg/dL Borderline >240 mg/dL High Risk Glucose [Mass/Vol] 95 mg/dL 74-106 [facility] Potassium [Moles/Vol] 3.9 mmol/L 3.5-5.1 [facility] Protein [Mass/Vol] 7.6 g/dL 6.4-8.2 [facility] Sodium [Moles/Vol] 141 mmol/L 136-145 [facility] Triglyceride [Mass/Vol] 106 mg/dL <199 [facility] Comment on above: The drugs N-Acetylcy steine and Metamizole may falsely depress this assay.Serum Triglycerides Reference Interval Normal <150 mg/dL Borderline high 150 - 199 mg/dL High 200 - 499 mg/dL Very High > or = 500 mg/dL Blood erythrocytes count (nu mber/volume)Ordered By: Christian Capellan on 04-15-2023 RBC (Bld) [#/Vol] 4.17 10*6/uL 4.2-5.4 [facility] Blood hemoglobin measurement (mass/volume)Ordered By: Christian Capellan on 04-15-2023 Hemoglobin (Bld) [Mass/Vol] 13.0 g/dL 12.0-15.0 [facility] Blood lymphocytes/100 leukoc ytesOrdered By: Christian Capellan on 04-15-2023 Lymphocytes/100 WBC (Bld) 28.7 % 19-41 [facility] Blood monocytes/100 leukocyt esOrdered By: Christian Capellan on 04-15-2023 Monocytes/100 WBC (Bld) 8.5 % 0-10 [facility] Blood platelet mean volumeOr dered By: Christian Capellan on 04-15-2023 Platelet mean volume (Bld) [Entitic vol] 9.7 fL 6.2-12.0 [facility] Determination of erythrocyte mean corpuscular volume (MCV)Ordered By: Christian Capellan on 04-15-2023 MCV (RBC) [Entitic vol] 94.2 fL 81-99 [facility] Hematocrit Auto (Bld) [Volum e fraction]Ordered By: Christian Capellan on 04-15-2023 Hematocrit (Bld) [Volume fraction] 39.3 % 37-47 [facility] INR in Blood by Coagulation assayOrdered By: Christian Capellan on 04-15-2023 INR Coag (Bld) [Relative time] 2.7 {INR} [facility] - Chemistry and C hemistry - challengeOrdered By: Christian Capellan on 04-15-2023 ALP [Catalytic activity/Vol] 64 U/L 45-117 [facility] ALT [Catalytic activity/Vol] 25 U/L 13-56 [facility] CO2 [Moles/Vol] 29.0 mmol/L 21.0-32.0 [facility] Globulin (S) [Mass/Vol] 4.2 g/dL 2.2-4.2 [facility] Urea nitrogen/Creatinine [Mass ratio] 23.4 mg/mg 10-20 [facility] - CoagulationOrde red By: Christian Capellan on 04-15-2023 PT Coag (PPP) [Time] 28.6 s 11.7-14.9 [facility] - Hematology and Cell countsOrdered By: Christian Capellan on 04-15-2023 Erythrocyte distribution width (RBC) [Entitic vol] 47.2 fL 35.1-43.9 [facility] Erythrocyte distribution width (RBC) [Ratio] 13.7 % 11.6-14.6 [facility] Immature granulocytes/100 WBC (Bld) 0.500 % 0.0-0.9 [facility] Comment on above: IG% - Immature Granu locytes (promyelocytes, myelocytes and metamyelocytes) > 1% indicates that a LEFT SHIFT is Present. MCH (RBC) [Entitic mass] 31.2 pg 27.0-32.0 [facility] Nucleated RBC/100 WBC (Bld) [Ratio] 0 % 0-5 [facility] MCHC Auto (RBC) [Mass/Vol]Or dered By: Christian Capellan on 04-15-2023 MCHC (RBC) [Mass/Vol] 33.1 g/dL 32-36 [facility] No Panel InformationOrdered By: Christian Capellan on 04-15-2023 Urine Microalbumin/Creatini ne Ratio 36.1 mg/g CRE <30 [facility] Vitamin D 25-Hydroxy 31.3 ng/mL [facility] Comment on above: Vitamin D 25(OH) Sta tus Range Deficiency <20 ng/mL (50nmol/L) Insufficiency 20 - 30 ng/mL (50 - 75 nmol/L) Sufficiency 30 - 100 ng/mL (75 - 250 nmol/L) Toxicity >100 ng/mL (>250 nmol/L) Estimated GFR (MDRD) Amer 107 mL/min >60 [facility] Comment on above: GFR Calc Estimated GFR (MDRD) Non-Af Amer 88 mL/min >60 [facility] Comment on above: Non- GFR Calc Platelets bldOrdered By: Salty Capellan on 04-15-2023 Platelets (Bld) [#/Vol] 203 10*3/uL 150-450 [facility] Serum or plasma albumin david urement (mass/volume)Ordered By: Christian Capellan on 04-15-2023 Albumin [Mass/Vol] 3.4 g/dL 3.2-5.0 [facility] Serum or plasma albumin/glob ulin mass ratioOrdered By: Christian Capellan on 04-15-2023 Albumin/Globulin [Mass ratio] 0.8 {ratio} 0.9-2.4 [facility] Serum or plasma calcium david urement (mass/volume)Ordered By: Christian Capellan on 04-15-2023 Calcium [Mass/Vol] 8.7 mg/dL 8.5-10.1 [facility] Serum or plasma cholesterol in HDL measurement (mass/volume)Ordered By: Christian Capellan on 04-15-2023 Cholesterol in HDL [Mass/Vol] 66 mg/dL >40 [facility] Comment on above: The drugs N-Acetylcy steine and Metamizole may falsely depress this assay. Reference Range HDL <40 mg/dL Low HDL Cholesterol HDL >or= 60 mg/dL High HDL Cholesterol Serum or plasma cholesterol in VLDL measurement (mass/volume)Ordered By: Christian Capellan on 04-15-2023 Cholesterol in VLDL [Mass/Vol] 21 mg/dL 5-40 [facility] Serum or plasma creatinine m easurement (mass/volume)Ordered By: Christian Capellan on 04-15-2023 Creatinine [Mass/Vol] 0.68 mg/dL 0.55-1.02 [facility] Comment on above: The validity of the calculated GFR & GFRAA in patients over 70 years has not been determined. Clinical correlation is essential. Serum or plasma low density lipoprotein (LDL) cholesterol measurement (mass/volume)Ordered By: Christian Capellan on 04-15-2023 Cholesterol in LDL [Mass/Vol] 97 mg/dL 0-130 [facility] Serum or plasma urea nitroge n measurement (mass/volume)Ordered By: Christian Capellan on 04-15-2023 Urea nitrogen [Mass/Vol] 16 mg/dL 7-18 [facility] Thin prep Papanicolaou smear with manual screeningOrdered By: Christian Capellan on 04-15-2023 Thin prep Papanicolaou smear with manual screening 46.2 mg/L NO RANGE EST. [facility] Thin prep Papanicolaou smear with manual screening 19 U/L 15-37 [facility] Thin prep Papanicolaou smear with manual screening 3 5-15 [facility] Urine creatinine measurement (mass/volume)Ordered By: Christian Capellan on 04-15-2023 Creatinine (U) [Mass/Vol] 128.00 mg/dL NO RANGE EST. [facility] Whole blood hemoglobin A1c/t otal hemoglobin ratio (mass fraction)Ordered By: Christian Capellan on 04-15-2023 HbA1c (Bld) [Mass fraction] 7.1 % 3.8-5.6 [facility] Comment on above: Normal < 5.7 % Predi abetic 5.7 - 6.4 % Diabetic >or= 6.5 % Please note range changes. Whole blood prothrombin time Ordered By: Javon Jenkins on 03-31-2023 PT Coag (Bld) [Time] 33.8 s 11.7-14.9 [facility] - CoagulationOrde red By: Javon Jenkins on 03-16-2023 INR Coag (Bld) [Relative time] 3.2 {INR} [facility] Comment on above: Critical Value > 4.0 Whole blood prothrombin time Ordered By: Javon Jenkins on 03-16-2023 PT Coag (Bld) [Time] 34.4 s 11.7-14.9 [facility] - CoagulationOrde red By: Javon Jenkins on 02-16-2023 INR Coag (Bld) [Relative time] 2.8 {INR} [facility] Comment on above: Critical Value > 4.0 Whole blood prothrombin time Ordered By: Javon Jenkins on 02-16-2023 PT Coag (Bld) [Time] 29.8 s 11.7-14.9 [facility] - CoagulationOrde red By: Dr. Jenkins on 02-06-2023 INR Coag (Bld) [Relative time] 1.7 {INR} [facility] Comment on above: Critical Value > 4.0 Whole blood prothrombin time Ordered By: Dr. Jenkins on 02-06-2023 PT Coag (Bld) [Time] 19.4 s 11.7-14.9 [facility] - Hematology and Cell countson 01-21-2023 HbA1c (Bld) [Mass fraction] 7.9 % 4.2-6.3 [facility] - CoagulationOrde red By: Dr. Jenkins on 01-14-2023 INR Coag (Bld) [Relative time] 1.9 {INR} [facility] Comment on above: Critical Value > 4.0 Whole blood prothrombin time Ordered By: Dr. Jenkins on 01-14-2023 PT Coag (Bld) [Time] 21.2 s 11.7-14.9 [facility] - CoagulationOrde red By: Dr. Jenkins on 12-05-2022 INR Coag (Bld) [Relative time] 1.9 {INR} [facility] Comment on above: Critical Value > 4.0 Whole blood prothrombin time Ordered By: Dr. Jenkins on 12-05-2022 PT Coag (Bld) [Time] 21.0 s 11.7-14.9 [facility] - CoagulationOrde red By: Dr. Jenkins on 10-28-2022 INR Coag (Bld) [Relative time] 2.2 {INR} [facility] Comment on above: Critical Value > 4.0 Whole blood prothrombin time Ordered By: Dr. Jenkins on 10-28-2022 PT Coag (Bld) [Time] 26.1 s 11.7-14.9 [facility] - Hematology and Cell countson 10-17-2022 HbA1c (Bld) [Mass fraction] 7.8 % 4.2-6.3 [facility] - CoagulationOrde red By: Dr. Jenkins on 09-30-2022 INR Coag (Bld) [Relative time] 2.2 {INR} [facility] Comment on above: Critical Value > 4.0 Whole blood prothrombin time Ordered By: Dr. Jenkins on 09-30-2022 PT Coag (Bld) [Time] 26.0 s 11.7-14.9 [facility] - CoagulationOrde red By: Dr. Jenkins on 08-26-2022 INR Coag (Bld) [Relative time] 2.4 {INR} [facility] Comment on above: Critical Value > 4.0 Whole blood prothrombin time Ordered By: Dr. Jenkins on 08-26-2022 PT Coag (Bld) [Time] 27.4 s 11.7-14.9 [facility] - CoagulationOrde red By: Dr. Jenkins on 07-30-2022 INR Coag (Bld) [Relative time] 2.5 {INR} [facility] Comment on above: Critical Value > 4.0 Whole blood prothrombin time Ordered By: Dr. Jenkins on 07-30-2022 PT Coag (Bld) [Time] 28.7 s 11.7-14.9 [facility] - CoagulationOrde red By: Dr. Jenkins on 07-04-2022 INR Coag (Bld) [Relative time] 2.3 {INR} [facility] Comment on above: Critical Value > 4.0 Whole blood prothrombin time Ordered By: Dr. Jenkins on 07-04-2022 PT Coag (Bld) [Time] 27.3 s 11.7-14.9 [facility] - Coagulationon 1 INR Coag (Bld) [Relative time] 2.6 {INR} [facility] Work Phone: Comment on above: Critical Value > 4.0 Whole blood prothrombin time on 06-06-2022 PT Coag (Bld) [Time] 29.6 s 11.7-14.9 [facility] Work Phone: Laboratory - Coagulationon 0 05-06-2022 INR Coag (Bld) [Relative time] 3.0 {INR} [facility] Work Phone: Comment on above: Critical Value > 4.0 Whole blood prothrombin time on 05-06-2022 PT Coag (Bld) [Time] 34.5 s 11.7-14.9 [facility] Work Phone: Laboratory - Coagulationon 0 04-08-2022 INR Coag (Bld) [Relative time] 2.3 {INR} [facility] Work Phone: Comment on above: Critical Value > 4.0 Whole blood prothrombin time on 04-08-2022 PT Coag (Bld) [Time] 26.8 s 11.7-14.9 [facility] Work Phone: Absolute lymphocyte counton 04-02-2022 Lymphocytes Auto (Unsp spec) [#/Vol] 1.86 10*3/uL 0.83-4.51 [facility] Work Phone: [phone] Basophil percentageon 2021 Basophils/100 WBC (Bld) 0.3 % 0-1 [facility] Work Phone: [phone] Bilirubin [Mass/Vol] 0.40 mg/dL 0.20-1.00 [facility] Work Phone: Comment on above: For patients on eltr ombopag therapy, use of Dimension [place] TBIL is not recommended. Chloride [Moles/Vol] 106 mmol/L 98-107 [facility] Work Phone: Cholesterol [Mass/Vol] 178 mg/dL <200 [facility] Work Phone: Comment on above: <200 mg/dL Desirable 200-240 mg/dL Borderline >240 mg/dL High Risk Eosinophils/100 WBC (Bld) 2.0 % 0-5 [facility] Work Phone: Glucose [Mass/Vol] 172 mg/dL 74-106 [facility] Work Phone: Comment on above: Fasting Glucose resu lt greater than or equal to 126 mg/dL suggests DIABETES MELLITUS per A.D.A. criteria. Neutrophils (Bld) [#/Vol] 3.5 10*3/uL 2.0-7.7 [facility] Work Phone: [phone] Neutrophils/100 WBC (Bld) 56.7 % 47-70 [facility] Work Phone: [phone] Potassium [Moles/Vol] 4.0 mmol/L 3.5-5.1 [facility] Work Phone: [phone] Protein [Mass/Vol] 7.7 g/dL 6.4-8.2 [facility] Work Phone: [phone] Sodium [Moles/Vol] 139 mmol/L 136-145 [facility] Work Phone: [phone] Triglyceride [Mass/Vol] 156 mg/dL <199 [facility] Work Phone: Comment on above: The drugs N-Acetylcy steine and Metamizole may falsely depress this assay.Serum Triglycerides Reference Interval Normal <150 mg/dL Borderline high 150 - 199 mg/dL High 200 - 499 mg/dL Very High > or = 500 mg/dL WBC (Bld) [#/Vol] 6.1 10*3/uL 4.4-11.0 [facility] Work Phone: [phone] Blood erythrocytes count (nu mber/volume)on 04-02-2022 RBC (Bld) [#/Vol] 4.04 10*6/uL 4.2-5.4 [facility] Work Phone: Blood hemoglobin measurement (mass/volume)on 04-02-2022 Hemoglobin (Bld) [Mass/Vol] 13.0 g/dL 12.0-15.0 [facility] Work Phone: Blood lymphocytes/100 leukoc yteson 04-02-2022 Lymphocytes/100 WBC (Bld) 30.5 % 19-41 [facility] Work Phone: Blood monocytes/100 leukocyt eson 04-02-2022 Monocytes/100 WBC (Bld) 10.2 % 0-10 [facility] Work Phone: [phone] Blood platelet mean volumeon 04-02-2022 Platelet mean volume (Bld) [Entitic vol] 9.6 fL 6.2-12.0 [facility] Work Phone: Determination of erythrocyte mean corpuscular volume (MCV)on 04-02-2022 MCV (RBC) [Entitic vol] 94.3 fL 81-99 [facility] Work Phone: [phone] Hematocrit Auto (Bld) [Volum e fraction]on 04-02-2022 Hematocrit (Bld) [Volume fraction] 38.1 % 37-47 [facility] Work Phone: Laboratory - Chemistry and C hemistry - challengeon 04-02-2022 ALP [Catalytic activity/Vol] 68 U/L 45-117 [facility] Work Phone: ALT [Catalytic activity/Vol] 32 U/L 13-56 [facility] Work Phone: CO2 [Moles/Vol] 30.0 mmol/L 21.0-32.0 [facility] Work Phone: Globulin (S) [Mass/Vol] 4.4 g/dL 2.2-4.2 [facility] Work Phone: Urea nitrogen/Creatinine [Mass ratio] 29.5 mg/mg 10-20 [facility] Work Phone: Laboratory - Hematology and Cell countson 04-02-2022 Erythrocyte distribution width (RBC) [Entitic vol] 48.1 fL 35.1-43.9 [facility] Work Phone: [phone] Erythrocyte distribution width (RBC) [Ratio] 13.9 % 11.6-14.6 [facility] Work Phone: [phone] Immature granulocytes/100 WBC (Bld) 0.300 % 0.0-0.9 [facility] Work Phone: [phone] Comment on above: IG% - Immature Granu locytes (promyelocytes, myelocytes and metamyelocytes) > 1% indicates that a LEFT SHIFT is Present. MCH (RBC) [Entitic mass] 32.2 pg 27.0-32.0 [facility] Work Phone: [phone] Nucleated RBC/100 WBC (Bld) [Ratio] 0 % 0-5 [facility] Work Phone: HbA1c (Bld) [Mass fraction] 8.2 % 4.2-6.3 [facility] Work Phone: MCHC Auto (RBC) [Mass/Vol]on 04-02-2022 MCHC (RBC) [Mass/Vol] 34.1 g/dL 32-36 [facility] Work Phone: No Panel Informationon 04-02 Urine Microalbumin/Creatini ne Ratio 17.8 mg/g CRE <30 [facility] Work Phone: Estimated GFR (MDRD) Amer 97 mL/min >60 [facility] Work Phone: Comment on above: GFR Calc Estimated GFR (MDRD) Non-Af Amer 80 mL/min >60 [facility] Work Phone: Comment on above: Non- GFR Calc Platelets bldon 04-02-2022 Platelets (Bld) [#/Vol] 196 10*3/uL 150-450 [facility] Work Phone: Serum or plasma albumin david urement (mass/volume)on 04-02-2022 Albumin [Mass/Vol] 3.3 g/dL 3.2-5.0 [facility] Work Phone: Serum or plasma albumin/glob ulin mass ratioon 04-02-2022 Albumin/Globulin [Mass ratio] 0.8 {ratio} 0.9-2.4 [facility] Work Phone: Serum or plasma calcium david urement (mass/volume)on 04-02-2022 Calcium [Mass/Vol] 8.9 mg/dL 8.5-10.1 [facility] Work Phone: Serum or plasma cholesterol in HDL measurement (mass/volume)on 04-02-2022 Cholesterol in HDL [Mass/Vol] 58 mg/dL >40 [facility] Work Phone: Comment on above: The drugs N-Acetylcy steine and Metamizole may falsely depress this assay. Reference Range HDL <40 mg/dL Low HDL Cholesterol HDL >or= 60 mg/dL High HDL Cholesterol Serum or plasma cholesterol in VLDL measurement (mass/volume)on 04-02-2022 Cholesterol in VLDL [Mass/Vol] 31 mg/dL 5-40 [facility] Work Phone: Serum or plasma creatinine m easurement (mass/volume)on 04-02-2022 Creatinine [Mass/Vol] 0.75 mg/dL 0.55-1.02 [facility] Work Phone: Comment on above: The validity of the calculated GFR & GFRAA in patients over 70 years has not been determined. Clinical correlation is essential. Serum or plasma low density lipoprotein (LDL) cholesterol measurement (mass/volume)on 04-02-2022 Cholesterol in LDL [Mass/Vol] 89 mg/dL 0-130 [facility] Work Phone: Serum or plasma urea nitroge n measurement (mass/volume)on 04-02-2022 Urea nitrogen [Mass/Vol] 22 mg/dL 7-18 [facility] Work Phone: Thin prep Papanicolaou smear with manual screeningon 04-02-2022 Thin prep Papanicolaou smear with manual screening 24.5 mg/L NO RANGE EST. [facility] Work Phone: Thin prep Papanicolaou smear with manual screening 26 U/L 15-37 [facility] Work Phone: Thin prep Papanicolaou smear with manual screening 3 5-15 [facility] Work Phone: Urine creatinine measurement (mass/volume)on 04-02-2022 Creatinine (U) [Mass/Vol] 138.00 mg/dL NO RANGE EST. [facility] Work Phone: Laboratory - Coagulationon 0 03-18-2022 INR Coag (Bld) [Relative time] 2.7 {INR} [facility] Work Phone: Comment on above: Critical Value > 4.0 Whole blood prothrombin time on 03-18-2022 PT Coag (Bld) [Time] 30.8 s 11.7-14.9 [facility] Work Phone: Laboratory - Coagulationon 0 01-28-2022 INR Coag (Bld) [Relative time] 3.0 {INR} [facility] Work Phone: Comment on above: Critical Value > 4.0 Whole blood prothrombin time on 01-28-2022 PT Coag (Bld) [Time] 34.4 s 11.7-14.9 [facility] Work Phone: Laboratory - Coagulationon 0 01-13-2022 INR Coag (Bld) [Relative time] 3.1 {INR} [facility] Work Phone: Comment on above: Critical Value > 4.0 Whole blood prothrombin time on 01-13-2022 PT Coag (Bld) [Time] 35.4 s 11.7-14.9 [facility] Work Phone: Laboratory - Hematology and Cell countson 12-27-2021 HbA1c (Bld) [Mass fraction] 8.1 % 4.2-6.3 [facility] Work Phone: Laboratory - Coagulationon 0 12-18-2021 INR Coag (Bld) [Relative time] 2.3 {INR} [facility] Work Phone: Comment on above: Critical Value > 4.0 Whole blood prothrombin time on 12-18-2021 PT Coag (Bld) [Time] 26.9 s 11.7-14.9 [facility] Work Phone: Laboratory - Coagulationon 0 11-12-2021 INR Coag (Bld) [Relative time] 1.8 {INR} [facility] Work Phone: Comment on above: Critical Value > 4.0 Whole blood prothrombin time on 11-12-2021 PT Coag (Bld) [Time] 21.0 s 11.7-14.9 [facility] Work Phone: Laboratory - Coagulationon 0 09-23-2021 INR Coag (Bld) [Relative time] 2.3 {INR} [facility] Work Phone: Comment on above: Critical Value > 4.0 Laboratory - Hematology and Cell countson 09-23-2021 HbA1c (Bld) [Mass fraction] 9.8 % [facility] Work Phone: Whole blood prothrombin time on 09-23-2021 PT Coag (Bld) [Time] 26.8 s 11.9-14.4 [facility] Work Phone: CNOVon 10-01-2017 CNOV Office Visit (AGCARDWST) ----ERENDIRA CHÁVEZ ([id number]) 1945 [facility] Time Provider Department10/01/17 2:30 PM JERONIMO LANDAVERDE During your visit today, we recorded the following information about you: Pulse Blood pressure Weight 66/minute 124/75 98.3 kgJeronimo Landaverde MD 10/01/2017 3:24 PM SignedPERTINENT CARDIAC HISTORYPAFHTNHyperlipidemiaDM ADHERENCE TO GUIDELINESACE-I or ARB for HF with prior LVEFANDlt;40 (NQF 0081) - N/AASA or Plavix for ASHD (NQF 0067) - N/ABeta pat for ASHD with prior SC or prior LVEFANDlt;40 (NQF 0070) - N/ABeta [...] with treatment plan.This note was generated using [employer] voice recognition system, and there may besome incorrect [...] 1x/ daily. Dx: 250.00. Insulin: NoOTC PRODUCT [id number] [id number] twice dailyOTC PRODUCT omega 3 liquid [id number] SG 100 100 MG-100 UNIT CAP Take [...] was 82. TSH is normal.Electronically Signed:Jeronimo [facility]andaverde [facility] 3:20 PMCC: ALEXIA Maldonadoeferring Provider: MEGAN FINNEGAN [[id number]]Allergies As of Date: 10/01/2017 Noted Allergy ReactionALPHAGAN [...] blood sugar(s) 1x/ daily* * OTC PRODUCT [id number] ma* * OTC PRODUCT omega 3 liquid [...] [E66.9] INVALID FOR*10/19/2014 MYALGIA AND MYOSITIS NOS [[id number]] INVALID FOR* SKIN ERUPTION, NONSPEC [R21] INVALID [...] *INVALID FOR* More... Glaucoma [H40.9] Status:Closed by JREONIMO LANDAVERDE MD on 10/01/17 Normal [facility] PROGRESSon 10-01-2017 PROGRESS HNO ID: [id number] thor: Jeronimo Mondragon: (none)Author Type: PhysicianType: Progress NotesFiled: 10/01/2017 3:24 PMNote Text:PERTINENT CARDIAC HISTORYPAFHTNHyperlipidemiaDM ADHERENCE TO GUIDELINESACE-I or ARB for HF with prior LVEF<40 (NQF 0081) - N/AASA or Plavix for ASHD (NQF 0067) - N/ABeta pat for ASHD with prior SC or prior LVEF<40 (NQF 0070) - N/ABeta [...] with treatment plan.This note was generated using [employer] voice recognition system, and theremay be some [...] 1 tablet by mouth twice daily.Blood-Glucose Meter [facility] As directed; E11.9 Insulin: Nofluticasone (FLONASE) 50 mcg/actuation nasal spray Use 2 Sprays in eachnostril once daily.Lancets lancets Test blood sugar(s) 1x/ daily. Dx: 250.00. Insulin: NoOTC PRODUCT [id number] [id number] gtgdthynr618dr twice dailyOTC PRODUCT omega 3 liquid [id number] SG 100 100 MG-100 UNIT CAP Take [...] LDL was 82. TSH isnormal.Electronically Signed:Jeronimo Landaverde MDbruary 2017 3:20 PMCC: Megan Finnegan MD [facility] Vital Signs Date Time Vital Sign Value Performing Clinician Faci lity 05-23-2025 13:14-0400 Body height 162.[address] Eric Delatorre MD Work Phone: [facility] 05-23-2025 13:14-0400 Body mass index (BMI) [Ratio] 39.4 kg/m2 Dr. Eric Delatorre MD Work Phone: [facility] 05-23-2025 13:14-0400 Body temperature 97.4 [degF] Dr. Eric Delatorre MD Work Phone: [facility] 05-23-2025 13:14-0400 Body weight 104.[address] Eric Delatorre MD Work Phone: [facility] 05-23-2025 13:14-0400 Diastolic blood pressure 82 mm[Hg] Dr. Eric Delatorre MD Work Phone: [facility] 05-23-2025 13:14-0400 Heart rate 68 /min Dr. Eric Delatorre MD Work Phone: [facility] 05-23-2025 13:14-0400 Respiratory rate 14 /min Dr. Eric Delatorre MD Work Phone: [facility] 05-23-2025 13:14-0400 SaO2% (BldA) [Mass fraction] 97 % Dr. Eric Delatorre MD Work Phone: [facility] 05-23-2025 13:14-0400 Systolic blood pressure 144 mm[Hg] Dr. Eric Delatorre MD Work Phone: [facility] 04-17-2025 13:26-0400 Body height 162.[address] Eric Delatorre MD Work Phone: [facility] 04-17-2025 13:26-0400 Body mass index (BMI) [Ratio] 39.6 kg/m2 Dr. Eric Delatorre MD Work Phone: [facility] 04-17-2025 13:26-0400 Body weight 104.[address] Eric Delatorre MD Work Phone: [facility] 04-17-2025 13:26-0400 Diastolic blood pressure 78 mm[Hg] Dr. Eric Delatorre MD Work Phone: [facility] 04-17-2025 13:26-0400 Systolic blood pressure 154 mm[Hg] Dr. Eric Delatorre MD Work Phone: [facility] 03-06-2025 13:25-0400 Body height 162.[address] Eric Delatorre MD Work Phone: [facility] 03-06-2025 13:25-0400 Body mass index (BMI) [Ratio] 39.5 kg/m2 Dr. Eric Delatorre MD Work Phone: [facility] 03-06-2025 13:25-0400 Body temperature 98.1 [degF] Dr. Eric Delatorre MD Work Phone: [facility] 03-06-2025 13:25-0400 Body weight 104.[address] Eric Delatorre MD Work Phone: [facility] 03-06-2025 13:25-0400 Diastolic blood pressure 80 mm[Hg] Dr. Eric Delatorre MD Work Phone: [facility] 03-06-2025 13:25-0400 Heart rate 73 /min Dr. Eric Delatorre MD Work Phone: [facility] 03-06-2025 13:25-0400 Respiratory rate 16 /min Dr. Eric Delatorre MD Work Phone: [facility] 03-06-2025 13:25-0400 SaO2% (BldA) [Mass fraction] 97 % Dr. Eric Delatorre MD Work Phone: [facility] 03-06-2025 13:25-0400 Systolic blood pressure 132 mm[Hg] Dr. Eric Delatorre MD Work Phone: [facility] 01-22-2025 21:19-0400 Body mass index (BMI) [Ratio] 34.4 kg/m2 Dr. Eric Delatorre MD Work Phone: [facility] 12-22-2024 00:55-0400 Body mass index (BMI) [Ratio] 34.4 kg/m2 Dr. Eric Delatorre MD Work Phone: [facility] 12-20-2024 14:13-0400 Body height 162.[address] Eric Delatorre MD Work Phone: [facility] 12-20-2024 14:13-0400 Body mass index (BMI) [Ratio] 39.1 kg/m2 Dr. Eric Delatorre MD Work Phone: [facility] 12-20-2024 14:13-0400 Body weight 103.[address] Eric Delatorre MD Work Phone: [facility] 12-20-2024 14:13-0400 Diastolic blood pressure 78 mm[Hg] Dr. Eric Delatorre MD Work Phone: [facility] 12-20-2024 14:13-0400 Heart rate 72 /min Dr. Eric Delatorre MD Work Phone: [facility] 12-20-2024 14:13-0400 Respiratory rate 16 /min Dr. Eric Delatorre MD Work Phone: [facility] 12-20-2024 14:13-0400 Systolic blood pressure 144 mm[Hg] Dr. Eric Delatorre MD Work Phone: [facility] 11-28-2024 11:20-0400 Body height 162.[address] Eric Delatorre MD Work Phone: [facility] 11-28-2024 11:20-0400 Body mass index (BMI) [Ratio] 38.9 kg/m2 Dr. Eric Delatorre MD Work Phone: [facility] 11-28-2024 11:20-0400 Body temperature 98 [degF] Dr. Eric Delatorre MD Work Phone: [facility] 11-28-2024 11:20-0400 Body weight 102.[address] Eric Delatorre MD Work Phone: [facility] 11-28-2024 11:20-0400 Diastolic blood pressure 72 mm[Hg] Dr. Eric Delatorre MD Work Phone: [facility] 11-28-2024 11:20-0400 Heart rate 64 /min Dr. Eric Delatorre MD Work Phone: [facility] 11-28-2024 11:20-0400 Respiratory rate 18 /min Dr. Eric Delatorre MD Work Phone: [facility] 11-28-2024 11:20-0400 SaO2% (BldA) [Mass fraction] 97 % Dr. Eric Delatorre MD Work Phone: [facility] 11-28-2024 11:20-0400 Systolic blood pressure 124 mm[Hg] Dr. Eric Delatorre MD Work Phone: [facility] 11-21-2024 22:20-0400 Body mass index (BMI) [Ratio] 34.4 kg/m2 Dr. Eric Delatorre MD Work Phone: [facility] 10-22-2024 08:09-0500 Body mass index (BMI) [Ratio] 34.4 kg/m2 Dr. Eric Delatorre MD Work Phone: [facility] 09-24-2024 02:05-0500 Body mass index (BMI) [Ratio] 34.4 kg/m2 Dr. Eric Delatorre MD Work Phone: [phone] [place] [address] 08-24-2024 04:30-0500 Body mass index (BMI) [Ratio] 34.4 kg/m2 Dr. Eric Delatorre MD Work Phone: [facility] 08-22-2024 13:29-0500 Body height 162.[address] Eric Delatorre MD Work Phone: [facility] 08-22-2024 13:29-0500 Body mass index (BMI) [Ratio] 37.8 kg/m2 Dr. Eric Delatorre MD Work Phone: [facility] 08-22-2024 13:29-0500 Body temperature 97.5 [degF] Dr. Eric Delatorre MD Work Phone: [facility] 08-22-2024 13:29-0500 Body weight 99.[address] Eric Delatorre MD Work Phone: [facility] 08-22-2024 13:29-0500 Diastolic blood pressure 80 mm[Hg] Dr. Eric Delatorre MD Work Phone: [facility] 08-22-2024 13:29-0500 Heart rate 75 /min Dr. Eric Delatorre MD Work Phone: [facility] 08-22-2024 13:29-0500 Respiratory rate 16 /min Dr. Eric Delatorre MD Work Phone: [facility] 08-22-2024 13:29-0500 SaO2% (BldA) [Mass fraction] 99 % Dr. Eric Delatorre MD Work Phone: [facility] 08-22-2024 13:29-0500 Systolic blood pressure 128 mm[Hg] Dr. Eric Delatorre MD Work Phone: [facility] 07-24-2024 02:43-0500 Body mass index (BMI) [Ratio] 34.4 kg/m2 Dr. Eric Delatorre MD Work Phone: [facility] 11-22-2023 01:00-0400 Body mass index (BMI) [Ratio] 34.4 kg/m2 Dr. Eric Delatorre Work Phone: [facility] 11-11-2023 13:35-0400 Body height 162.[address] Eric Delatorre Work Phone: [facility] 11-11-2023 13:35-0400 Body mass index (BMI) [Ratio] 37.6 kg/m2 Dr. Eric Delatorre Work Phone: [facility] 11-11-2023 13:35-0400 Body temperature 97.9 [degF] Dr. Eric Delatorre Work Phone: [facility] 11-11-2023 13:35-0400 Body weight 99.[address] Eric Delatorre Work Phone: [facility] 11-11-2023 13:35-0400 Diastolic blood pressure 80 mm[Hg] Dr. Eric Delatorre Work Phone: [facility] 11-11-2023 13:35-0400 Heart rate 61 /min Dr. Eric Delatorre Work Phone: [facility] 11-11-2023 13:35-0400 Respiratory rate 16 /min Dr. Eric Delatorre Work Phone: [facility] 11-11-2023 13:35-0400 SaO2% (BldA) [Mass fraction] 97 % Dr. Eric Delatorre Work Phone: [facility] 11-11-2023 13:35-0400 Systolic blood pressure 140 mm[Hg] Dr. Eric Delatorre Work Phone: [facility] 10-30-2023 12:55-0500 Body mass index (BMI) [Ratio] 37.8 kg/m2 Dr. Eric Delatorre Work Phone: [facility] 10-30-2023 12:55-0500 Body weight 99.[address] Eric Delatorre Work Phone: [facility] 10-30-2023 12:55-0500 Diastolic blood pressure 73 mm[Hg] Dr. Eric Delatorre Work Phone: [facility] 10-30-2023 12:55-0500 Heart rate 63 /min Dr. Eric Delatorre Work Phone: [facility] 10-30-2023 12:55-0500 Respiratory rate 16 /min Dr. Eric Delatorre Work Phone: [facility] 10-30-2023 12:55-0500 Systolic blood pressure 156 mm[Hg] Dr. Eric Delatorre Work Phone: [facility] 10-22-2023 23:54-0500 Body mass index (BMI) [Ratio] 34.4 kg/m2 Dr. Eric Delatorre Work Phone: [facility] 09-23-2023 23:13-0500 Body mass index (BMI) [Ratio] 34.4 kg/m2 Dr. Eric Delatorre Work Phone: [facility] 08-24-2023 00:25-0500 Body mass index (BMI) [Ratio] 34.4 kg/m2 Dr. Eric Delatorre Work Phone: [facility] 08-05-2023 15:22-0500 Body height 162.[address] Eric Delatorre Work Phone: [facility] 08-05-2023 15:22-0500 Body mass index (BMI) [Ratio] 37.4 kg/m2 Dr. Eric Delatorre Work Phone: [facility] 08-05-2023 15:22-0500 Body temperature 97.6 [degF] Dr. Eric Delatorre Work Phone: [facility] 08-05-2023 15:22-0500 Body weight 98.[address] Eric Delatorre Work Phone: [facility] 08-05-2023 15:22-0500 Diastolic blood pressure 84 mm[Hg] Dr. Eric Delatorre Work Phone: [facility] 08-05-2023 15:22-0500 Heart rate 62 /min Dr. Eric Delatorre Work Phone: [facility] 08-05-2023 15:22-0500 Respiratory rate 16 /min Dr. Eric Delatorre Work Phone: [facility] 08-05-2023 15:22-0500 SaO2% (BldA) [Mass fraction] 99 % Dr. Eric Delatorre Work Phone: [facility] 08-05-2023 15:22-0500 Systolic blood pressure 144 mm[Hg] Dr. Eric Delatorre Work Phone: [facility] 07-24-2023 03:13-0500 Body mass index (BMI) [Ratio] 34.4 kg/m2 Dr. Eric Delatorre Work Phone: [facility] 06-23-2023 22:25-0400 Body mass index (BMI) [Ratio] 34.4 kg/m2 Dr. Eric Delatorre Work Phone: [facility] 05-24-2023 03:15-0400 Body mass index (BMI) [Ratio] 34.4 kg/m2 Dr. Eric Delatorre Work Phone: [facility] 05-05-2023 13:30-0400 Body height 162.[address] Eric Delatorre Work Phone: [facility] 05-05-2023 13:12-0400 Body mass index (BMI) [Ratio] 37.2 kg/m2 Dr. Eric Delatorre Work Phone: [facility] 05-05-2023 13:12-0400 Body weight 98.[address] Eric Delatorre Work Phone: [facility] 05-05-2023 13:12-0400 Heart rate 62 /min Dr. Eric Delatorre Work Phone: [facility] 05-05-2023 13:12-0400 Respiratory rate 16 /min Dr. Eric Delatorre Work Phone: [facility] 04-30-2023 13:44-0400 Body mass index (BMI) [Ratio] 37.2 kg/m2 Dr. Eric Delatorre Work Phone: [facility] 04-30-2023 13:44-0400 Body temperature 96.6 [degF] Dr. Eric Delatorre Work Phone: [facility] 04-30-2023 13:44-0400 Body weight 98.[address] Eric Delatorre Work Phone: [facility] 04-30-2023 13:44-0400 Diastolic blood pressure 96 mm[Hg] Dr. Eric Dleatorre Work Phone: [facility] 04-30-2023 13:44-0400 Heart rate 62 /min Dr. Eric Delatorre Work Phone: [facility] 04-30-2023 13:44-0400 Respiratory rate 18 /min Dr. Eirc Dleatorre Work Phone: [facility] 04-30-2023 13:44-0400 SaO2% (BldA) [Mass fraction] 98 % Dr. Eric Delatorre Work Phone: [facility] 04-30-2023 13:44-0400 Systolic blood pressure 166 mm[Hg] Dr. Eric Delatorre Work Phone: [facility] 04-23-2023 23:04-0400 Body mass index (BMI) [Ratio] 34.4 kg/m2 Dr. Eric Delatorre Work Phone: [facility] 03-24-2023 00:50-0400 Body mass index (BMI) [Ratio] 34.4 kg/m2 Dr. Eric Delatorre Work Phone: [facility] 02-20-2023 22:32-0400 Body mass index (BMI) [Ratio] 34.4 kg/m2 Dr. Eric Delatorre Work Phone: [facility] 02-19-2023 09:50-0400 Body height 162.[address] Eric Delatorre Work Phone: [facility] 02-19-2023 09:49-0400 Body mass index (BMI) [Ratio] 37.5 kg/m2 Dr. Eric Delatorre Work Phone: [facility] 02-19-2023 09:49-0400 Body weight 99.[address] Eric Delatorre Work Phone: [facility] 02-19-2023 09:49-0400 Diastolic blood pressure 80 mm[Hg] Dr. Eric Delatorre Work Phone: [facility] 02-19-2023 09:49-0400 Systolic blood pressure 172 mm[Hg] Dr. Eric Delatorre Work Phone: [facility] 01-22-2023 09:58-0400 Body mass index (BMI) [Ratio] 34.4 kg/m2 Dr. Eric Delatorre Work Phone: [facility] 01-21-2023 13:35-0400 Body height 162.[address] Eric Delatorre Work Phone: [facility] 01-21-2023 13:35-0400 Body mass index (BMI) [Ratio] 36.9 kg/m2 Dr. Eric Delatorre Work Phone: [facility] 01-21-2023 13:35-0400 Body temperature 96.6 [degF] Dr. Eric Delatorre Work Phone: [facility] 01-21-2023 13:35-0400 Body weight 97.[address] Eric Delatorre Work Phone: [facility] 01-21-2023 13:35-0400 Diastolic blood pressure 96 mm[Hg] Dr. Eric Delatorre Work Phone: [facility] 01-21-2023 13:35-0400 Heart rate 96 /min Dr. Eric Delatorre Work Phone: [facility] 01-21-2023 13:35-0400 Respiratory rate 18 /min Dr. Eric Delatorre Work Phone: [facility] 01-21-2023 13:35-0400 SaO2% (BldA) [Mass fraction] 97 % Dr. Eric Delatorre Work Phone: [facility] 01-21-2023 13:35-0400 Systolic blood pressure 138 mm[Hg] Dr. Eric Delatorre Work Phone: [facility] 12-21-2022 01:26-0400 Body mass index (BMI) [Ratio] 34.4 kg/m2 Dr. Eric Delatorre Work Phone: [facility] 11-21-2022 23:11-0400 Body mass index (BMI) [Ratio] 34.4 kg/m2 Dr. Eric Delatorre Work Phone: [facility] 10-21-2022 23:07-0500 Body mass index (BMI) [Ratio] 34.4 kg/m2 Dr. Eric Delatorre Work Phone: [facility] 10-17-2022 13:43-0500 Body height 162.[address] Eric Delatorre Work Phone: [facility] 10-17-2022 13:43-0500 Body mass index (BMI) [Ratio] 37.4 kg/m2 Dr. Eric Delatorre Work Phone: [facility] 10-17-2022 13:43-0500 Body temperature 96.5 [degF] Dr. Eric Delatorre Work Phone: [facility] 10-17-2022 13:43-0500 Body weight 98.[address] Eric Delatorre Work Phone: [facility] 10-17-2022 13:43-0500 Diastolic blood pressure 84 mm[Hg] Dr. Eric Delatorre Work Phone: [facility] 10-17-2022 13:43-0500 Heart rate 66 /min Dr. Eric Delatorre Work Phone: [facility] 10-17-2022 13:43-0500 Respiratory rate 18 /min Dr. Eric Delatorre Work Phone: [facility] 10-17-2022 13:43-0500 SaO2% (BldA) [Mass fraction] 99 % Dr. Eric Delatorre Work Phone: [facility] 10-17-2022 13:43-0500 Systolic blood pressure 130 mm[Hg] Dr. Eric Delatorre Work Phone: [facility] 09-24-2022 08:31-0500 Body mass index (BMI) [Ratio] 34.4 kg/m2 Dr. Eric Delatorre Work Phone: [facility] 08-24-2022 04:05-0500 Body mass index (BMI) [Ratio] 34.4 kg/m2 Dr. Eric Delatorre Work Phone: [facility] 07-24-2022 00:31-0500 Body mass index (BMI) [Ratio] 34.4 kg/m2 Dr. Eric Delatorre Work Phone: [facility] 07-09-2022 15:04-0500 Body temperature 96.5 [degF] Dr. Eric Delatorre Work Phone: [facility] 07-09-2022 15:04-0500 Body weight 98.[address] Eric Delatorre Work Phone: [facility] 07-09-2022 15:04-0500 Diastolic blood pressure 82 mm[Hg] Dr. Eric Delatorre Work Phone: [facility] 07-09-2022 15:04-0500 Heart rate 61 /min Dr. Eric Delatorre Work Phone: [facility] 07-09-2022 15:04-0500 Respiratory rate 18 /min Dr. Eric Delatorre Work Phone: [facility] 07-09-2022 15:04-0500 SaO2% (BldA) [Mass fraction] 100 % Dr. Eric Delatorre Work Phone: [facility] 07-09-2022 15:04-0500 Systolic blood pressure 134 mm[Hg] Dr. Eric Delatorre Work Phone: [facility] 06-24-2022 10:08-0400 Body mass index (BMI) [Ratio] 34.4 kg/m2 Dr. Eric Delatorre Work Phone: [facility] 05-24-2022 04:08-0400 Body mass index (BMI) [Ratio] 34.4 kg/m2 Dr. Eric Delatorre Work Phone: [facility] Work Phone: 04-23-2022 23:13-0400 Body mass index (BMI) [Ratio] 34.4 kg/m2 Dr. Eric Delatorre Work Phone: [facility] Work Phone: 04-08-2022 13:03-0400 Body height 162.[address] Eric Delatorre Work Phone: [facility] Work Phone: 04-08-2022 13:03-0400 Body mass index (BMI) [Ratio] 36.8 kg/m2 Dr. Eric Delatorre Work Phone: [facility] Work Phone: 04-08-2022 13:03-0400 Body weight 97.[address] Eric Delatorre Work Phone: [facility] Work Phone: 04-08-2022 13:03-0400 Diastolic blood pressure 68 mm[Hg] Dr. Eric Delatorre Work Phone: [facility] Work Phone: 04-08-2022 13:03-0400 Heart rate 64 /min Dr. Eric Delatorre Work Phone: [facility] Work Phone: 04-08-2022 13:03-0400 Respiratory rate 16 /min Dr. Eric Delatorre Work Phone: [facility] Work Phone: 04-08-2022 13:03-0400 Systolic blood pressure 125 mm[Hg] Dr. Eric Delatorre Work Phone: [facility] Work Phone: 04-02-2022 13:57-0400 Body height 162.[address] Eric Delatorre Work Phone: [facility] Work Phone: 04-02-2022 13:57-0400 Body mass index (BMI) [Ratio] 36.9 kg/m2 Dr. Eric Delatorre Work Phone: [facility] Work Phone: 04-02-2022 13:57-0400 Body temperature 97.5 [degF] Dr. Eric Delatorre Work Phone: [facility] Work Phone: 04-02-2022 13:57-0400 Body weight 97.[address] Eric Delatorre Work Phone: [facility] Work Phone: 04-02-2022 13:57-0400 Diastolic blood pressure 70 mm[Hg] Dr. Eric eDlatorre Work Phone: [facility] Work Phone: 04-02-2022 13:57-0400 Heart rate 67 /min Dr. Eric Delatorre Work Phone: [facility] Work Phone: 04-02-2022 13:57-0400 Respiratory rate 16 /min Dr. Eric Delatorre Work Phone: [facility] Work Phone: 04-02-2022 13:57-0400 SaO2% (BldA) [Mass fraction] 98 % Dr. Eric Delatorre Work Phone: [facility] Work Phone: 04-02-2022 13:57-0400 Systolic blood pressure 134 mm[Hg] Dr. Eric Delatorre Work Phone: [facility] Work Phone: 03-23-2022 03:36-0400 Body mass index (BMI) [Ratio] 34.4 kg/m2 Dr. Eric Delatorre Work Phone: [facility] Work Phone: 02-21-2022 10:02-0400 Body mass index (BMI) [Ratio] 34.4 kg/m2 Dr. Eric Delatorre Work Phone: [facility] Work Phone: 02-17-2022 11:08-0400 Body height 162.[address] Eric Delatorre Work Phone: [facility] Work Phone: 02-17-2022 11:08-0400 Body mass index (BMI) [Ratio] 34.3 kg/m2 Dr. Eric Delatorre Work Phone: [facility] Work Phone: 02-17-2022 11:07-0400 Body weight 97.[address] Eric Delatorre Work Phone: [facility] Work Phone: 02-17-2022 11:07-0400 Diastolic blood pressure 92 mm[Hg] Dr. Eric Delatorre Work Phone: [facility] Work Phone: 02-17-2022 11:07-0400 Systolic blood pressure 140 mm[Hg] Dr. Eric Delatorre Work Phone: [facility] Work Phone: 01-21-2022 21:58-0400 Body mass index (BMI) [Ratio] 34.4 kg/m2 Dr. Eric Delatorre Work Phone: [facility] Work Phone: 12-27-2021 14:37-0400 Body mass index (BMI) [Ratio] 35.9 kg/m2 Dr. Eric Delatorre Work Phone: [facility] Work Phone: 12-27-2021 14:37-0400 Body temperature 96.9 [degF] Dr. Eric Delatorre Work Phone: [facility] Work Phone: 12-27-2021 14:37-0400 Body weight 94.[address] Eric Delatorre Work Phone: [facility] Work Phone: 12-27-2021 14:37-0400 Diastolic blood pressure 86 mm[Hg] Dr. Eric Delatorre Work Phone: [facility] Work Phone: 12-27-2021 14:37-0400 Heart rate 66 /min Dr. Eric Delatorre Work Phone: [facility] Work Phone: 12-27-2021 14:37-0400 Respiratory rate 16 /min Dr. Eric Delatorre Work Phone: [facility] Work Phone: 12-27-2021 14:37-0400 SaO2% (BldA) [Mass fraction] 97 % Dr. Eric Delatorre Work Phone: [facility] Work Phone: 12-27-2021 14:37-0400 Systolic blood pressure 142 mm[Hg] Dr. Eric Delatorre Work Phone: [facility] Work Phone: 12-27-2021 14:37-0400 Body height 162.[address] Eric Delatorre Work Phone: [facility] Work Phone: 12-27-2021 14:37-0400 Body mass index (BMI) [Ratio] 35.9 kg/m2 Dr. Eric Delatorre Work Phone: [facility] Work Phone: 12-27-2021 14:37-0400 Body temperature 96.9 [degF] Dr. Eric Delatorre Work Phone: [facility] Work Phone: 12-27-2021 14:37-0400 Body weight 94.[address] Eric Delatorre Work Phone: [facility] Work Phone: 12-27-2021 14:37-0400 Diastolic blood pressure 86 mm[Hg] Dr. Eric Delatorre Work Phone: [facility] Work Phone: 12-27-2021 14:37-0400 Heart rate 66 /min Dr. Eric Delatorre Work Phone: [facility] Work Phone: 12-27-2021 14:37-0400 Respiratory rate 16 /min Dr. Eric Delatorre Work Phone: [facility] Work Phone: 12-27-2021 14:37-0400 SaO2% (BldA) [Mass fraction] 97 % Dr. Eric Delatorre Work Phone: [facility] Work Phone: 12-27-2021 14:37-0400 Systolic blood pressure 142 mm[Hg] Dr. Eric Delatorre Work Phone: [facility] Work Phone: 12-22-2021 05:20-0400 Body mass index (BMI) [Ratio] 34.4 kg/m2 Dr. Eric Delatorre Work Phone: [facility] Work Phone: 11-22-2021 03:15-0400 Body mass index (BMI) [Ratio] 34.4 kg/m2 Dr. Eric Delatorre Work Phone: [facility] Work Phone: 10-30-2021 14:56-0500 Body mass index (BMI) [Ratio] 35.9 kg/m2 Dr. Eric Delatorre Work Phone: [facility] Work Phone: 10-30-2021 14:56-0500 Body temperature 96.6 [degF] Dr. Eric Delatorre Work Phone: [facility] Work Phone: 10-30-2021 14:56-0500 Body weight 94.[address] Eric Delatorre Work Phone: [facility] Work Phone: 10-30-2021 14:56-0500 Diastolic blood pressure 70 mm[Hg] Dr. Eric Delatorre Work Phone: [facility] Work Phone: 10-30-2021 14:56-0500 Heart rate 70 /min Dr. Eric Delatorre Work Phone: [facility] Work Phone: 10-30-2021 14:56-0500 Respiratory rate 16 /min Dr. Eric Delatorre Work Phone: [facility] Work Phone: 10-30-2021 14:56-0500 SaO2% (BldA) [Mass fraction] 97 % Dr. Eric Delatorre Work Phone: [facility] Work Phone: 10-30-2021 14:56-0500 Systolic blood pressure 154 mm[Hg] Dr. Eric Delatorre Work Phone: [facility] Work Phone: 10-30-2021 13:56-0500 Body height 162.[address] Eric Delatorre Work Phone: [facility] Work Phone: 10-30-2021 13:56-0500 Body mass index (BMI) [Ratio] 35.9 kg/m2 Dr. Eric Delatorre Work Phone: [facility] Work Phone: 10-30-2021 13:56-0500 Body temperature 96.6 [degF] Dr. Eric Delatorre Work Phone: [facility] Work Phone: 10-30-2021 13:56-0500 Body weight 94.[address] Eirc Delatorre Work Phone: [facility] Work Phone: 10-30-2021 13:56-0500 Diastolic blood pressure 70 mm[Hg] Dr. Eric Delatorre Work Phone: [facility] Work Phone: 10-30-2021 13:56-0500 Heart rate 70 /min Dr. Eric Delatorre Work Phone: [facility] Work Phone: 10-30-2021 13:56-0500 Respiratory rate 16 /min Dr. Eric Delatorre Work Phone: [facility] Work Phone: 10-30-2021 13:56-0500 SaO2% (BldA) [Mass fraction] 97 % Dr. Eric Delatorre Work Phone: [facility] Work Phone: 10-30-2021 13:56-0500 Systolic blood pressure 154 mm[Hg] Dr. Eric Delatorre Work Phone: [facility] Work Phone: 09-24-2021 01:20-0500 Body mass index (BMI) [Ratio] 34.4 kg/m2 Dr. Eric Delatorre Work Phone: [facility] Work Phone: 09-24-2021 00:20-0500 Body mass index (BMI) [Ratio] 34.4 kg/m2 Dr. Eric Delatorre Work Phone: [facility] Work Phone: 09-23-2021 14:13-0500 Body temperature 96.6 [degF] Dr. Eric Delatorre Work Phone: [facility] Work Phone: 09-23-2021 14:13-0500 Body weight 92.[address] Eric Delatorre Work Phone: [facility] Work Phone: 09-23-2021 14:13-0500 Diastolic blood pressure 88 mm[Hg] Dr. Eric Delatorre Work Phone: [facility] Work Phone: 09-23-2021 14:13-0500 Heart rate 16 /min Dr. Eric Delatorre Work Phone: [facility] Work Phone: 09-23-2021 14:13-0500 Respiratory rate 16 /min Dr. Eric Delatorre Work Phone: [facility] Work Phone: 09-23-2021 14:13-0500 SaO2% (BldA) [Mass fraction] 99 % Dr. Eric Delatorre Work Phone: [facility] Work Phone: 09-23-2021 14:13-0500 Systolic blood pressure 160 mm[Hg] Dr. Eric Delatorre Work Phone: [facility] Work Phone: 08-25-2021 03:31-0500 Body mass index (BMI) [Ratio] 34.4 kg/m2 Dr. Eric Delatorre Work Phone: [facility] Work Phone: Encounters Encounter Date Encounter Type Care Provider Facility Start: 06-24-2025 ambulatory Eric Oliveri ty:[facility] Start: 06-20-2025 End: 06-20-2025 ambulatory Eric Delatorre Facility:[facility] Start: 05-23-2025 End: 05-23-[address] Javon Jenkins MD -[facility] Work Phone: Start: 05-23-2025 End: 05-23-[address] Eric Delatorre MD Work Phone: -[facility] [place] Start: 05-23-2025 End: 05-23-[address] Eric Delatorre MD -[facility] Work Phone: Start: 05-23-2025 End: 05-23-[address] Eric Delatorre MD [facility] Start: 05-23-2025 End: 05-23-[address] Eric Delatorre MD Work Phone: -[facility] Start: 04-19-2025 End: 04-19-[address] Eric Delatorre MD Work Phone: -[facility] [place] Start: 04-19-2025 End: 04-19-[address] Javon Jenkins MD -[facility] Work Phone: Start: 04-19-[address] Javon Jenkins MD -[facility] [place] Work Phone: Start: 04-17-2025 Encounter for gynecological examination (general) (routine) with abnormal findings Lola Bowles [facility] Start: 04-17-2025 End: 04-17-[address] Lola Bowles MD [facility] Start: 04-17-2025 End: 04-17-[address] Eric Delatorre MD Work Phone: -[facility] Start: 04-17-2025 End: 04-17-[address] Lola Bowles MD -[facility] Work Phone: Start: 04-17-2025 End: 04-17-2025 ambulatory Eric Delatorre Facility:[facility] Start: 03-24-[address] Javon Jenkins MD -[facility] [place] Work Phone: Start: 03-24-2025 ambulatory Eric Oliveri ty:[facility] Start: 03-24-2025 Non-patient / Non-visit Dr. Ayush Delatorre MD -[facility] Work Phone: Start: 03-08-2025 End: 03-23-[address] Javon Jenkins MD -[facility] [place] [facility] Work Phone: Start: 03-08-2025 End: 03-23-[address] Eric Delatorre MD Work Phone: -[facility] [place] Start: 03-06-2025 End: 03-06-[address] Eric Delatorre MD -[facility] Work Phone: Start: 03-06-2025 End: 03-06-[address] Eric Delatorre MD Work Phone: -[facility] Start: 02-09-2025 End: 02-09-[address] Javon Jenkins MD -[facility] Work Phone: Start: 02-09-2025 End: 02-09-[address] Eric Delatorre MD Work Phone: -[facility] [place] Start: 01-10-2025 End: 01-10-[address] Javon Jenkins [facility] [place] [facility] Work Phone: Start: 01-10-2025 End: 01-10-[address] Eric Delatorre MD Work Phone: [facility] Work Phone: Start: 12-20-2024 End: 12-20-[address] Javon Jenkins MD -[facility] Work Phone: Start: 12-20-2024 End: 12-20-2024 ambulatory [facility] Facility[place] Start: 12-12-2024 End: 12-21-2024 ambulatory Javon Jenkins Facility:[facility] Start: 12-12-2024 End: 12-21-[address] Javon Jenkins MD -Laboratory [facility] Work Phone: Start: 11-28-2024 End: 11-28-[address] Eric Delatorre MD Work Phone: [facility] Work Phone: Start: 11-28-2024 End: 11-28-[address] Eric Delatorre MD -Laboratory, [place] Start: 11-28-2024 End: 11-28-[address] Eric Delatorre MD -[facility] Work Phone: Start: 11-28-2024 End: 11-28-2024 ambulatory [facility] Facility:[facility] Start: 11-28-2024 End: 11-28-2024 ambulatory [facility] Facility:[facility] Start: 11-14-2024 End: 11-14-[address] Eric Delatorre MD Work Phone: [facility] Work Phone: Start: 11-14-2024 End: 11-14-[address] Javon Jenkins MD -Laboratory Work Phone: Start: 10-11-2024 End: 10-21-2024 ambulatory Javon Jenkins Facility:[facility] Start: 10-11-2024 End: 10-21-[address] [facility] Start: 09-19-2024 End: 09-19-2024 ambulatory [facility] Facility:[facility] Start: 09-19-2024 End: 09-19-[address] Javon Jenkins MD -Laboratory Work Phone: Start: 08-22-2024 End: 08-22-2024 ambulatory [facility] Facility:[facility] Start: 08-22-2024 End: 08-22-[address] Javon Jenkins MD -Laboratory Work Phone: Start: 08-22-2024 End: 08-22-[address] Eric Delatorre MD -[facility] Work Phone: Start: 08-22-2024 End: 08-22-2024 ambulatory [facility] Facility:[facility] Start: 07-20-2024 End: 07-23-2024 ambulatory [facility] Facility:[facility] Start: 12-11-2023 End: 12-22-[address] Eric Delatorre Work Phone: [facility] Work Phone: Start: 12-11-2023 End: 12-22-[address] Eric Delatorre Work Phone: [facility] Work Phone: Start: 11-11-2023 End: 11-11-[address] Eric Delatorre Work Phone: [facility] Work Phone: Start: 11-11-2023 End: 11-11-[address] Eric Delatorre Work Phone: [facility] Work Phone: Start: 10-30-2023 End: 10-30-[address] Eric Delatorre Work Phone: [facility] Work Phone: Start: 10-30-2023 End: 11-22-[address] Eric Delatorre Work Phone: [facility] Work Phone: Start: 10-30-2023 End: 11-22-[address] [facility] Start: 10-30-[address] Gisel Delatorre Work Phone: [facility] Work Phone: Start: 10-09-2023 End: 10-22-[address] Eric Delatorre Work Phone: [facility] Work Phone: Start: 10-09-2023 End: 10-22-[address] [facility] Start: 09-10-2023 End: 09-10-[address] [facility] Start: 08-05-2023 End: 08-23-[address] [facility] [place] Start: 08-05-2023 End: 08-05-[address] Eirc Delatorre Work Phone: [facility] Work Phone: Start: 07-10-2023 End: 07-23-[address] Eric Delatorre Work Phone: [facility] Work Phone: Start: 07-10-2023 End: 07-23-[address] Eric Delatorre Work Phone: [facility]-Laboratory Work Phone: Start: 06-11-2023 End: 06-11-[address] Eric Delatorre Work Phone: [facility] Work Phone: Start: 06-11-2023 End: 06-11-[address] Eric Delatorre Work Phone: [facility]-Laboratory Work Phone: Start: 05-27-2023 Non-patient / Non-visit Dr. Ayush Delatorre Work Phone: [facility] Start: 05-27-2023 End: 05-27-[address] Eric Delatorre Work Phone: [facility]Cardi[facility]cul[facility] Work Phone: Start: 05-13-2023 End: 05-13-[address] Eric Delatorre Work Phone: [facility]-Laboratory Work Phone: Start: 05-05-2023 End: 05-05-[address] Eric Delatorre Work Phone: [facility] Work Phone: Start: 04-30-[address] Daniela Delatorre Work Phone: [facility] Start: 04-30-2023 End: 04-30-2023 Encounter for general adult medical examination without abnormal findings Dr. Eric Delatorre Work Phone: [facility] Start: 04-30-2023 End: 04-30-[address] Eric Delatorre Work Phone: [facility] Work Phone: Start: 04-15-2023 End: 04-15-[address] Eric Delatorre Work Phone: [facility] Work Phone: Start: 04-15-2023 End: 04-15-[address] Eric Delatorre Work Phone: [facility] Work Phone: Start: 03-16-2023 End: 03-23-[address] Eric Delatorre Work Phone: [facility] Work Phone: Start: 03-16-2023 End: 03-23-[address] Eric Delatorre Work Phone: [facility] Work Phone: Start: 02-19-2023 End: 02-19-[address] Eric Delatorre Work Phone: [facility] Work Phone: Start: 02-19-2023 End: 02-19-[address] Eric Delatorre Work Phone: [facility]-Outpatient Breast Imaging Work Phone: Start: 02-16-2023 End: 02-16-[address] Eric Delatorre Work Phone: [facility] Work Phone: Start: 02-16-2023 End: 02-16-[address] [facility] Start: 02-06-[address] Gisel [facility] Start: 02-05-2023 End: 02-05-[address] Eric Delatorre Work Phone: [facility] Work Phone: Start: 02-05-2023 End: 02-05-[address] Eric Delatorre Work Phone: [facility]-Outpatient Bone Densitometry Start: 01-21-2023 End: 01-21-[address] Eric Delatorre Work Phone: [facility] Start: 01-14-2023 End: 01-21-[address] Eric Delatorre Work Phone: [facility] Work Phone: Start: 01-14-2023 End: 01-21-[address] [facility] Start: 12-05-2022 End: 12-21-[address] Eric Delatorre Work Phone: [facility] Work Phone: Start: 12-05-2022 End: 12-21-[address] [facility] Start: 10-28-2022 End: 11-21-[address] Eric Delatorre Work Phone: [facility] Work Phone: Start: 10-28-2022 End: 11-21-[address] [facility] Start: 10-17-2022 End: 10-17-[address] Eric Delatorre Work Phone: [facility] Start: 09-30-2022 End: 09-30-[address] Eric Delatorre Work Phone: [facility] Work Phone: Start: 09-30-2022 End: 09-30-[address] [facility] Start: 08-26-2022 End: 08-26-[address] [facility] Start: 07-30-2022 End: 07-30-[address] Eric Delatorre Work Phone: [facility] Work Phone: Start: 07-30-2022 End: 07-30-[address] [facility] Start: 07-09-2022 End: 07-09-[address] Eric Delatorre Work Phone: [facility] Start: 07-04-2022 End: 07-23-[address] Eric Delatorre Work Phone: [facility] Work Phone: Start: 07-04-2022 End: 07-23-[address] [facility] Start: 06-06-2022 End: 06-06-[address] Eric Delatorre Work Phone: [facility] Work Phone: Start: 06-06-2022 End: 06-06-[address] [facility] Start: 05-26-2022 Non-patient / Non-visit Dr. Ayush Delatorre Work Phone: [facility] Start: 05-26-2022 End: 05-26-[address] Eric Delatorre Work Phone: [facility] Work Phone: Start: 05-26-2022 End: 05-26-[address] Eric Delatorre Work Phone: [facility] Start: 05-06-2022 End: 05-06-[address] Eric Delatorre Work Phone: [facility] Work Phone: Start: 05-06-2022 End: 05-06-[address] Eric Delatorre Work Phone: [facility] Start: 04-08-2022 End: 04-08-[address] Eric Delatorre Work Phone: [facility] Start: 04-08-2022 End: 04-08-[address] [facility] Start: 04-02-2022 End: 04-02-[address] Eric Delatorre Work Phone: [facility] [place] Start: 04-02-2022 End: 04-02-[address] Eric Delatorre Work Phone: [facility] Start: 03-18-2022 End: 03-23-[address] Eric Delatorre Work Phone: [facility] Start: 03-10-2022 End: 03-10-2022 [facility] Start: 02-17-2022 End: 02-17-[address] Eric Delatorre Work Phone: [facility] Start: 01-28-2022 End: 02-20-[address] Eric Delatorre Work Phone: [facility] Start: 01-28-[address] Gisel Delatorre Work Phone: [facility] Start: 01-13-2022 End: 01-13-[address] Eric Delatorre Work Phone: [facility] Start: 12-27-2021 End: 12-27-[address] Eric Delatorre Work Phone: [facility] Start: 12-18-2021 End: 12-18-[address] Eric Delatorre Work Phone: [facility] Start: 11-12-2021 End: 11-21-[address] Eric Delatorre Work Phone: [facility] Start: 10-30-2021 End: 10-30-[address] Eric Delatorre Work Phone: [facility] Start: 09-30-2021 End: 09-30-2021 [facility] Start: 09-23-2021 End: 09-23-[address] Eric Delatorre Work Phone: [facility] Start: 09-23-2021 End: 09-23-[address] Eric Delatorre Work Phone: [facility] Start: 07-30-2021 End: 07-30-2021 ambulatory ERIC DELATORRE Gareth [facility] Start: 05-22-2021 End: 05-22-2021 ambulatory ERIC OJEDAJULITADaniela Gareth [facility] Start: 04-15-2021 End: 04-15-2021 ambulatory [facility] Start: 03-21-2021 End: 03-21-2021 ambulatory [facility] Start: 06-02-2018 Ambulatory [facility] Facility :[facility] Start: 10-01-2017 End: 10-01-2017 Ambulatory [facility] Facility[facility] Start: 09-23-2017 Ambulatory [facility] Facility :[facility] Procedures Date Procedure Procedure Detail Performing Clinician [...] Author Start: 05-23-2025 Urine microalbumin/creatinine ratio measurement [facility] Start: 04-17-2025 Screening mammography SCRN ALVIN M (CAD)W/ERNESTINA BILAT [facility] Start: 02-17-2022 Patient referral [facility] Work Phone: Start: 09-23-2021 Patient referral [facility] Work Phone: Ankle brachial press ure index [facility] Work Phone: Basic metabolic 2008 panel with ionized calcium - Serum or Plasma [facility] Calculation of international normalized ratio [facility] Calculation of international normalized ratio [facility] CBC W Auto Different ial panel - Blood [facility] CBC W Auto Different ial panel - Blood [facility] Comprehensive metabo lic 2000 panel - Serum or Plasma [facility] DXA Bone [Mass/Area] Bone density [facility] Hemoglobin A1c/Hemoglobin.total in Blood [facility] Hemoglobin A1c/Hemoglobin.total in Blood [facility] Lipid 1996 panel - S twila or Plasma [facility] Patient referral [facility] Work Phone: Prothrombin time (PT ) in Blood by Coagulation assay [facility] Prothrombin time (PT ) in Blood by Coagulation assay [facility] Urine microalbumin/creatinine ratio measurement [facility] Vitamin D, 25-hydrox y measurement [facility] Immunizations Immunization Date Immunization Notes Care Provider Kerri laird 07-23-2023 Influenza High-Dose Quadrivalent Dr. Eric Delatorre MD Work Phone: [facility] 05-30-2023 Pfizer Covid-19 (Comirnaty) Dr. Eric Delatorre MD Work Phone: [facility] 07-10-2022 Influenza High-Dose Quadrivalent Dr. Eric Delatorre MD Work Phone: [facility] 06-15-2022 Covid Pfizer Bivalen t Booster Dr. Eric Delatorre MD Work Phone: [facility] 01-06-2022 Covid (Pfizer) Dr. Eric Delatorre MD Work Phone: [facility] 07-16-2021 influenza, injectabl e, quadrivalent, preservative free Dr. Eric Delatorre MD Work Phone: [facility] 06-21-2021 Covid (Pfizer) Dr. Eric Delatorre MD Work Phone: [facility] 10-17-2020 Covid (Pfizer) Dr. Eric Delatorre MD Work Phone: [facility] 09-21-2020 Covid (Pfizer) Dr. Eric Dleatorre MD Work Phone: [facility] 06-16-2020 Influenza High-Dose Quadrivalent Dr. Eric Delatorre MD Work Phone: [facility] 07-15-2019 influenza, high dose seasonal, preservative-free Dr. Eric Delatorre MD Work Phone: [facility] 04-18-2015 pneumococcal conjuga te vaccine, [address] Eric Delatorre MD Work Phone: [facility] Payers Date Payer Category Payer Self-pay [id number] 2023 Medicare [id number] 2010 Medicare [id number] 1945 Unknown [id number] 2.16.84 0.1.809503.3.579.2. 1945 Unknown [id number] 2.16.84 0.1.371452.3.579.2. 1945 Unknown [id number] 2.16.84 0.1.448290.3.579.2.65 1945 Unknown [id number] 2.16.84 0.1.601517.3.579.2.651 1945 Unknown [id number] 2.16.84 0.1.350984.3.579.2.651 1945 Unknown [id number] 2.16.84 0.1.956477.3.579.2.651 Unknown [id number] Unknown [id number] 2.16.8 40.1.992275.3.579.2.462 Unknown [id number] 2.16.8 40.1.123301.3.579.2.462 Unknown [id number] 2.16.8 40.1.199374.3.579.2.462 Unknown [id number] 2.16.8 40.1.223414.3.579.2.462 Unknown [id number] 2.16.8 40.1.491810.3.579.2.462 Unknown [id number] 2.16.8 40.1.410717.3.579.2.462 Unknown [id number] 2.16.8 40.1.847996.3.579.2.462 Unknown [id number] 2.16.8 40.1.995243.3.579.2.462 Unknown [id number] 2.16.8 40.1.925914.3.579.2.462 Unknown [id number] 2.16.8 40.1.292639.3.579.2.462 Unknown [id number] 2.16.8 40.1.421107.3.579.2.462 Unknown [id number] 2.16.8 40.1.074678.3.579.2.462 Unknown [id number] 2.16.8 40.1.943644.3.579.2.462 Unknown [id number] 2.16.8 40.1.967714.3.579.2.462 Unknown [id number] 2.16.8 40.1.541455.3.579.2.462 Unknown [id number] 2.16.8 40.1.554866.3.579.2.462 Unknown [id number] 2.16.8 40.1.519591.3.579.2.462 Unknown [id number] 2.16.8 40.1.648783.3.579.2.462 Unknown [id number] 2.16.8 40.1.421206.3.579.2.462 Unknown [id number] 2.16.8 40.1.827187.3.579.2.462 Unknown [id number] 2.16.8 [id number] Unknown [id number] 2.16.8 40.1.448833.3.579.2.462 Social History Date Type Detail Facility Start: 10-30-2021 End: 11-11-2023 Tobacco smoking status NHIS Unknown if ever smoked [facility] Start: 02-14-2021 Rare [facility] Start: 02-14-2021 None [facility] Start: 02-14-2021 Homeless [facility] Start: 02-14-2021 Non-smoker [facility] Start: 1945 Sex Assigned At Female [facility] Start: 11-11-2023 End: 04-17-2025 Tobacco smoking status NHIS Never smoked tobacco (finding) [facility] Start: 11-21-2024 End: 12-01-2024 Sex Female (finding) [facility] Sex Female [facility] Medical Equipment Procedure Code Equipment Code Equipment Origin al Text Equipment Identifier Dates Blood Sugar Diagnostic (Accu-Chek Destinee Plus Test Strp) strip Start: 02-13-2021 Pen Needle, Diab etic (Comfort Ez Pen [place]) 31 gauge x 5/16" needle Start: 10-30-2021 Blood Sugar Diagnostic (Accu-Chek Destinee Plus Test Strp) strip Start: 02-13-2021 End: 02-13-2021 Pen Needle, Diab etic (Comfort Ez Pen [place]) 29 gauge x 1/2" needle Start: 09-23-2021 End: 10-30-2021 Blood Sugar Diagnostic (Accu-Chek Destinee Plus Test Strp) strip Start: 02-13-2021 Pen Needle, Diab etic (Comfort Ez Pen [place]) 31 gauge x 5/16" needle Start: 12-27-2021 Blood Sugar Diagnostic (Accu-Chek Destinee Plus Test Strp) strip Start: 02-13-2021 End: 02-13-2021 Pen Needle, Diab etic (Comfort Ez Pen [place]) 29 gauge x 1/2" needle Start: 09-23-2021 End: 10-30-2021 Pen Needle, Diab etic (Comfort Ez Pen [place]) 31 gauge x 5/16" needle Start: 10-30-2021 End: 12-27-2021 Blood Sugar Diagnostic (Accu-Chek Destinee Plus Test Strp) strip Start: 02-12-2022 Pen Needle, Diab etic (Comfort Ez Pen [place]) 31 gauge x 5/16" needle Start: 12-27-2021 Blood Sugar Diagnostic (Accu-Chek Destinee Plus Test Strp) strip Start: 02-13-2021 End: 02-13-2021 Blood Sugar Diagnostic (Accu-Chek Destinee Plus Test Strp) strip Start: 02-13-2021 End: 02-12-2022 Pen Needle, Diab etic (Comfort Ez Pen [place]) 29 gauge x 1/2" needle Start: 09-23-2021 End: 10-30-2021 Pen Needle, Diab etic (Comfort Ez Pen [place]) 31 gauge x 5/16" needle Start: 10-30-2021 End: 12-27-2021 Blood Sugar Diagnostic (Accu-Chek Destinee Plus Test Strp) strip Start: 02-12-2022 Pen Needle, Diab etic (Comfort Ez Pen [place]) 31 gauge x 5/16" needle Start: 12-27-2021 Blood Sugar Diagnostic (Accu-Chek Destinee Plus Test Strp) strip Start: 02-13-2021 End: 02-13-2021 Blood Sugar Diagnostic (Accu-Chek Destinee Plus Test Strp) strip Start: 02-13-2021 End: 02-12-2022 Pen Needle, Diab etic (Comfort Ez Pen [place]) 29 gauge x 1/2" needle Start: 09-23-2021 End: 10-30-2021 Pen Needle, Diab etic (Comfort Ez Pen [place]) 31 gauge x 5/16" needle Start: 10-30-2021 End: 12-27-2021 Blood Sugar Diagnostic (Accu-Chek Destinee Plus Test Strp) strip Start: 02-12-2022 Pen Needle, Diab etic (Comfort Ez Pen [place]) 31 gauge x 5/16" needle Start: 12-27-2021 Blood Sugar Diagnostic (Accu-Chek Destinee Plus Test Strp) strip Start: 02-13-2021 End: 02-13-2021 Blood Sugar Diagnostic (Accu-Chek Destinee Plus Test Strp) strip Start: 02-13-2021 End: 02-12-2022 Pen Needle, Diab etic (Comfort Ez Pen [place]) 29 gauge x 1/2" needle Start: 09-23-2021 End: 10-30-2021 Pen Needle, Diab etic (Comfort Ez Pen [place]) 31 gauge x 5/16" needle Start: 10-30-2021 End: 12-27-2021 Blood Sugar Diagnostic (Accu-Chek Destinee Plus Test Strp) strip Start: 02-12-2022 Pen Needle, Diab etic (Comfort Ez Pen [place]) 31 gauge x 5/16" needle Start: 12-27-2021 Blood Sugar Diagnostic (Accu-Chek Destinee Plus Test Strp) strip Start: 02-13-2021 End: 02-13-2021 Blood Sugar Diagnostic (Accu-Chek Destinee Plus Test Strp) strip Start: 02-13-2021 End: 02-12-2022 Pen Needle, Diab etic (Comfort Ez Pen [place]) 29 gauge x 1/2" needle Start: 09-23-2021 End: 10-30-2021 Pen Needle, Diab etic (Comfort Ez Pen [place]) 31 gauge x 5/16" needle Start: 10-30-2021 End: 12-27-2021 Blood Sugar Diagnostic (Accu-Chek Destinee Plus Test Strp) strip Start: 02-12-2022 Pen Needle, Diab etic (Comfort Ez Pen [place]) 31 gauge x 5/16" needle Start: 12-27-2021 Blood Sugar Diagnostic (Accu-Chek Destinee Plus Test Strp) strip Start: 02-13-2021 End: 02-13-2021 Blood Sugar Diagnostic (Accu-Chek Destinee Plus Test Strp) strip Start: 02-13-2021 End: 02-12-2022 Pen Needle, Diab etic (Comfort Ez Pen [place]) 29 gauge x 1/2" needle Start: 09-23-2021 End: 10-30-2021 Pen Needle, Diab etic (Comfort Ez Pen [place]) 31 gauge x 5/16" needle Start: 10-30-2021 End: 12-27-2021 Blood Sugar Diagnostic (Accu-Chek Destinee Plus Test Strp) strip Start: 02-12-2022 Pen Needle, Diab etic (Comfort Ez Pen [place]) 31 gauge x 5/16" needle Start: 12-27-2021 Blood Sugar Diagnostic (Accu-Chek Destinee Plus Test Strp) strip Start: 02-13-2021 End: 02-13-2021 Blood Sugar Diagnostic (Accu-Chek Destinee Plus Test Strp) strip Start: 02-13-2021 End: 02-12-2022 Pen Needle, Diab etic (Comfort Ez Pen [place]) 29 gauge x 1/2" needle Start: 09-23-2021 End: 10-30-2021 Pen Needle, Diab etic (Comfort Ez Pen [place]) 31 gauge x 5/16" needle Start: 10-30-2021 End: 12-27-2021 Blood Sugar Diagnostic (Accu-Chek Destinee Plus Test Strp) strip Start: 02-12-2022 Pen Needle, Diab etic (Comfort Ez Pen [place]) 31 gauge x 5/16" needle Start: 12-27-2021 Blood Sugar Diagnostic (Accu-Chek Destinee Plus Test Strp) strip Start: 02-13-2021 End: 02-13-2021 Blood Sugar Diagnostic (Accu-Chek Destinee Plus Test Strp) strip Start: 02-13-2021 End: 02-12-2022 Pen Needle, Diab etic (Comfort Ez Pen [place]) 29 gauge x 1/2" needle Start: 09-23-2021 End: 10-30-2021 Pen Needle, Diab etic (Comfort Ez Pen [place]) 31 gauge x 5/16" needle Start: 10-30-2021 End: 12-27-2021 Blood Sugar Diagnostic (Accu-Chek Destinee Plus Test Strp) strip Start: 02-12-2022 Pen Needle, Diab etic (Comfort Ez Pen [place]) 31 gauge x 5/16" needle Start: 12-27-2021 Blood Sugar Diagnostic (Accu-Chek Destinee Plus Test Strp) strip Start: 02-13-2021 End: 02-13-2021 Blood Sugar Diagnostic (Accu-Chek Destinee Plus Test Strp) strip Start: 02-13-2021 End: 02-12-2022 Pen Needle, Diab etic (Comfort Ez Pen [place]) 29 gauge x 1/2" needle Start: 09-23-2021 End: 10-30-2021 Pen Needle, Diab etic (Comfort Ez Pen [place]) 31 gauge x 5/16" needle Start: 10-30-2021 End: 12-27-2021 Blood Sugar Diagnostic (Accu-Chek Destinee Plus Test Strp) strip Start: 02-12-2022 Pen Needle, Diab etic (Comfort Ez Pen [place]) 31 gauge x 5/16" needle Start: 12-27-2021 Blood Sugar Diagnostic (Accu-Chek Destinee Plus Test Strp) strip Start: 02-13-2021 End: 02-13-2021 Blood Sugar Diagnostic (Accu-Chek Destinee Plus Test Strp) strip Start: 02-13-2021 End: 02-12-2022 Pen Needle, Diab etic (Comfort Ez Pen [place]) 29 gauge x 1/2" needle Start: 09-23-2021 End: 10-30-2021 Pen Needle, Diab etic (Comfort Ez Pen [place]) 31 gauge x 5/16" needle Start: 10-30-2021 End: 12-27-2021 Blood Sugar Diagnostic (Accu-Chek Destinee Plus Test Strp) strip Start: 02-12-2022 Pen Needle, Diab etic (Comfort Ez Pen [place]) 31 gauge x 5/16" needle Start: 12-27-2021 Blood Sugar Diagnostic (Accu-Chek Destinee Plus Test Strp) strip Start: 02-13-2021 End: 02-13-2021 Blood Sugar Diagnostic (Accu-Chek Destinee Plus Test Strp) strip Start: 02-13-2021 End: 02-12-2022 Pen Needle, Diab etic (Comfort Ez Pen [place]) 29 gauge x 1/2" needle Start: 09-23-2021 End: 10-30-2021 Pen Needle, Diab etic (Comfort Ez Pen [place]) 31 gauge x 5/16" needle Start: 10-30-2021 End: 12-27-2021 Blood Sugar Diagnostic (Accu-Chek Destinee Plus Test Strp) strip Start: 02-12-2022 Pen Needle, Diab etic (Comfort Ez Pen [place]) 31 gauge x 5/16" needle Start: 12-27-2021 Blood Sugar Diagnostic (Accu-Chek Destinee Plus Test Strp) strip Start: 02-13-2021 End: 02-13-2021 Blood Sugar Diagnostic (Accu-Chek Destinee Plus Test Strp) strip Start: 02-13-2021 End: 02-12-2022 Pen Needle, Diab etic (Comfort Ez Pen [place]) 29 gauge x 1/2" needle Start: 09-23-2021 End: 10-30-2021 Pen Needle, Diab etic (Comfort Ez Pen [place]) 31 gauge x 5/16" needle Start: 10-30-2021 End: 12-27-2021 Blood Sugar Diagnostic (Accu-Chek Destinee Plus Test Strp) strip Start: 02-12-2022 Pen Needle, Diab etic (Comfort Ez Pen [place]) 31 gauge x 5/16" needle Start: 12-27-2021 Blood Sugar Diagnostic (Accu-Chek Destinee Plus Test Strp) strip Start: 02-13-2021 End: 02-13-2021 Blood Sugar Diagnostic (Accu-Chek Destinee Plus Test Strp) strip Start: 02-13-2021 End: 02-12-2022 Pen Needle, Diab etic (Comfort Ez Pen [place]) 29 gauge x 1/2" needle Start: 09-23-2021 End: 10-30-2021 Pen Needle, Diab etic (Comfort Ez Pen [place]) 31 gauge x 5/16" needle Start: 10-30-2021 End: 12-27-2021 Blood Sugar Diagnostic (Accu-Chek Destinee Plus Test Strp) strip Start: 02-12-2022 Pen Needle, Diab etic (Comfort Ez Pen [place]) 31 gauge x 5/16" needle Start: 02-06-2023 Blood Sugar Diagnostic (Accu-Chek Destinee Plus Test Strp) strip Start: 02-13-2021 End: 02-13-2021 Blood Sugar Diagnostic (Accu-Chek Destinee Plus Test Strp) strip Start: 02-13-2021 End: 02-12-2022 Pen Needle, Diab etic (Comfort Ez Pen [place]) 29 gauge x 1/2" needle Start: 09-23-2021 End: 10-30-2021 Pen Needle, Diab etic (Comfort Ez Pen [place]) 31 gauge x 5/16" needle Start: 10-30-2021 End: 12-27-2021 Pen Needle, Diab etic (Comfort Ez Pen [place]) 31 gauge x 5/16" needle Start: 12-27-2021 End: 02-06-2023 Blood Sugar Diagnostic (Accu-Chek Destinee Plus Test Strp) strip Start: 02-12-2022 Pen Needle, Diab etic (Comfort Ez Pen [place]) 31 gauge x 5/16" needle Start: 02-06-2023 Blood Sugar Diagnostic (Accu-Chek Destinee Plus Test Strp) strip Start: 02-13-2021 End: 02-13-2021 Blood Sugar Diagnostic (Accu-Chek Destinee Plus Test Strp) strip Start: 02-13-2021 End: 02-12-2022 Pen Needle, Diab etic (Comfort Ez Pen [place]) 29 gauge x 1/2" needle Start: 09-23-2021 End: 10-30-2021 Pen Needle, Diab etic (Comfort Ez Pen [place]) 31 gauge x 5/16" needle Start: 10-30-2021 End: 12-27-2021 Pen Needle, Diab etic (Comfort Ez Pen [place]) 31 gauge x 5/16" needle Start: 12-27-2021 End: 02-06-2023 Blood Sugar Diagnostic (Accu-Chek Destinee Plus Test Strp) strip Start: 02-12-2022 Pen Needle, Diab etic (Comfort Ez Pen [place]) 31 gauge x 5/16" needle Start: 02-06-2023 Blood Sugar Diagnostic (Accu-Chek Destinee Plus Test Strp) strip Start: 02-13-2021 End: 02-13-2021 Blood Sugar Diagnostic (Accu-Chek Destinee Plus Test Strp) strip Start: 02-13-2021 End: 02-12-2022 Pen Needle, Diab etic (Comfort Ez Pen [place]) 29 gauge x 1/2" needle Start: 09-23-2021 End: 10-30-2021 Pen Needle, Diab etic (Comfort Ez Pen [place]) 31 gauge x 5/16" needle Start: 10-30-2021 End: 12-27-2021 Pen Needle, Diab etic (Comfort Ez Pen [place]) 31 gauge x 5/16" needle Start: 12-27-2021 End: 02-06-2023 Blood Sugar Diagnostic (Accu-Chek Destinee Plus Test Strp) strip Start: 02-12-2022 Pen Needle, Diab etic (Comfort Ez Pen [place]) 31 gauge x 5/16" needle Start: 02-06-2023 Blood Sugar Diagnostic (Accu-Chek Destinee Plus Test Strp) strip Start: 02-13-2021 End: 02-13-2021 Blood Sugar Diagnostic (Accu-Chek Destinee Plus Test Strp) strip Start: 02-13-2021 End: 02-12-2022 Pen Needle, Diab etic (Comfort Ez Pen [place]) 29 gauge x 1/2" needle Start: 09-23-2021 End: 10-30-2021 Pen Needle, Diab etic (Comfort Ez Pen [place]) 31 gauge x 5/16" needle Start: 10-30-2021 End: 12-27-2021 Pen Needle, Diab etic (Comfort Ez Pen [place]) 31 gauge x 5/16" needle Start: 12-27-2021 End: 02-06-2023 Blood Sugar Diagnostic (Accu-Chek Destinee Plus Test Strp) strip Start: 02-12-2022 Pen Needle, Diab etic (Comfort Ez Pen [place]) 31 gauge x 5/16" needle Start: 02-06-2023 Blood Sugar Diagnostic (Accu-Chek Destinee Plus Test Strp) strip Start: 02-13-2021 End: 02-13-2021 Blood Sugar Diagnostic (Accu-Chek Destinee Plus Test Strp) strip Start: 02-13-2021 End: 02-12-2022 Pen Needle, Diab etic (Comfort Ez Pen [place]) 29 gauge x 1/2" needle Start: 09-23-2021 End: 10-30-2021 Pen Needle, Diab etic (Comfort Ez Pen [place]) 31 gauge x 5/16" needle Start: 10-30-2021 End: 12-27-2021 Pen Needle, Diab etic (Comfort Ez Pen [place]) 31 gauge x 5/16" needle Start: 12-27-2021 End: 02-06-2023 Blood Sugar Diagnostic (Accu-Chek Destinee Plus Test Strp) strip Start: 04-30-2023 Pen Needle, Diab etic (Comfort Ez Pen [place]) 31 gauge x 5/16" needle Start: 02-06-2023 Blood Sugar Diagnostic (Accu-Chek Destinee Plus Test Strp) strip Start: 02-13-2021 End: 02-13-2021 Blood Sugar Diagnostic (Accu-Chek Destinee Plus Test Strp) strip Start: 02-13-2021 End: 02-12-2022 Blood Sugar Diagnostic (Accu-Chek Destinee Plus Test Strp) strip Start: 02-12-2022 End: 04-30-2023 Pen Needle, Diab etic (Comfort Ez Pen [place]) 29 gauge x 1/2" needle Start: 09-23-2021 End: 10-30-2021 Pen Needle, Diab etic (Comfort Ez Pen [place]) 31 gauge x 5/16" needle Start: 10-30-2021 End: 12-27-2021 Pen Needle, Diab etic (Comfort Ez Pen [place]) 31 gauge x 5/16" needle Start: 12-27-2021 End: 02-06-2023 Blood Sugar Diagnostic (Accu-Chek Destinee Plus Test Strp) strip Start: 04-30-2023 Pen Needle, Diab etic (Comfort Ez Pen [place]) 31 gauge x 5/16" needle Start: 02-06-2023 Blood Sugar Diagnostic (Accu-Chek Destinee Plus Test Strp) strip Start: 02-13-2021 End: 02-13-2021 Blood Sugar Diagnostic (Accu-Chek Destinee Plus Test Strp) strip Start: 02-13-2021 End: 02-12-2022 Blood Sugar Diagnostic (Accu-Chek Destinee Plus Test Strp) strip Start: 02-12-2022 End: 04-30-2023 Pen Needle, Diab etic (Comfort Ez Pen [place]) 29 gauge x 1/2" needle Start: 09-23-2021 End: 10-30-2021 Pen Needle, Diab etic (Comfort Ez Pen [place]) 31 gauge x 5/16" needle Start: 10-30-2021 End: 12-27-2021 Pen Needle, Diab etic (Comfort Ez Pen [place]) 31 gauge x 5/16" needle Start: 12-27-2021 End: 02-06-2023 Blood Sugar Diagnostic (Accu-Chek Destinee Plus Test Strp) strip Start: 04-30-2023 Pen Needle, Diab etic (Comfort Ez Pen [place]) 31 gauge x 5/16" needle Start: 02-06-2023 Blood Sugar Diagnostic (Accu-Chek Destinee Plus Test Strp) strip Start: 02-13-2021 End: 02-13-2021 Blood Sugar Diagnostic (Accu-Chek Destinee Plus Test Strp) strip Start: 02-13-2021 End: 02-12-2022 Blood Sugar Diagnostic (Accu-Chek Destinee Plus Test Strp) strip Start: 02-12-2022 End: 04-30-2023 Pen Needle, Diab etic (Comfort Ez Pen [place]) 29 gauge x 1/2" needle Start: 09-23-2021 End: 10-30-2021 Pen Needle, Diab etic (Comfort Ez Pen [place]) 31 gauge x 5/16" needle Start: 10-30-2021 End: 12-27-2021 Pen Needle, Diab etic (Comfort Ez Pen [place]) 31 gauge x 5/16" needle Start: 12-27-2021 End: 02-06-2023 Blood Sugar Diagnostic (Accu-Chek Destinee Plus Test Strp) strip Start: 04-30-2023 Pen Needle, Diab etic (Comfort Ez Pen [place]) 31 gauge x 5/16" needle Start: 02-06-2023 Blood Sugar Diagnostic (Accu-Chek Destinee Plus Test Strp) strip Start: 02-13-2021 End: 02-13-2021 Blood Sugar Diagnostic (Accu-Chek Destinee Plus Test Strp) strip Start: 02-13-2021 End: 02-12-2022 Blood Sugar Diagnostic (Accu-Chek Destinee Plus Test Strp) strip Start: 02-12-2022 End: 04-30-2023 Pen Needle, Diab etic (Comfort Ez Pen [place]) 29 gauge x 1/2" needle Start: 09-23-2021 End: 10-30-2021 Pen Needle, Diab etic (Comfort Ez Pen [place]) 31 gauge x 5/16" needle Start: 10-30-2021 End: 12-27-2021 Pen Needle, Diab etic (Comfort Ez Pen [place]) 31 gauge x 5/16" needle Start: 12-27-2021 End: 02-06-2023 Blood Sugar Diagnostic (Accu-Chek Destinee Plus Test Strp) strip Start: 04-30-2023 Pen Needle, Diab etic (Comfort Ez Pen [place]) 31 gauge x 5/16" needle Start: 02-06-2023 Blood Sugar Diagnostic (Accu-Chek Destinee Plus Test Strp) strip Start: 02-13-2021 End: 02-13-2021 Blood Sugar Diagnostic (Accu-Chek Destinee Plus Test Strp) strip Start: 02-13-2021 End: 02-12-2022 Blood Sugar Diagnostic (Accu-Chek Destinee Plus Test Strp) strip Start: 02-12-2022 End: 04-30-2023 Pen Needle, Diab etic (Comfort Ez Pen [place]) 29 gauge x 1/2" needle Start: 09-23-2021 End: 10-30-2021 Pen Needle, Diab etic (Comfort Ez Pen [place]) 31 gauge x 5/16" needle Start: 10-30-2021 End: 12-27-2021 Pen Needle, Diab etic (Comfort Ez Pen [place]) 31 gauge x 5/16" needle Start: 12-27-2021 End: 02-06-2023 Blood Sugar Diagnostic (Accu-Chek Destinee Plus Test Strp) strip Start: 04-30-2023 Pen Needle, Diab etic (Comfort Ez Pen [place]) 31 gauge x 5/16" needle Start: 02-06-2023 Blood Sugar Diagnostic (Accu-Chek Destinee Plus Test Strp) strip Start: 02-13-2021 End: 02-13-2021 Blood Sugar Diagnostic (Accu-Chek Destinee Plus Test Strp) strip Start: 02-13-2021 End: 02-12-2022 Blood Sugar Diagnostic (Accu-Chek Destinee Plus Test Strp) strip Start: 02-12-2022 End: 04-30-2023 Pen Needle, Diab etic (Comfort Ez Pen [place]) 29 gauge x 1/2" needle Start: 09-23-2021 End: 10-30-2021 Pen Needle, Diab etic (Comfort Ez Pen [place]) 31 gauge x 5/16" needle Start: 10-30-2021 End: 12-27-2021 Pen Needle, Diab etic (Comfort Ez Pen [place]) 31 gauge x 5/16" needle Start: 12-27-2021 End: 02-06-2023 Blood Sugar Diagnostic (Accu-Chek Destinee Plus Test Strp) strip Start: 06-08-2024 Pen Needle, Diab etic (Comfort Ez Pen [place]) 31 gauge x 5/16" needle Start: 10-13-2024 Blood Sugar Diagnostic (Accu-Chek Destinee Plus Test Strp) strip Start: 02-13-2021 End: 02-13-2021 Blood Sugar Diagnostic (Accu-Chek Destinee Plus Test Strp) strip Start: 02-13-2021 End: 02-12-2022 Blood Sugar Diagnostic (Accu-Chek Destinee Plus Test Strp) strip Start: 04-30-2023 End: 06-08-2024 Blood Sugar Diagnostic (Accu-Chek Destinee Plus Test Strp) strip Start: 02-12-2022 End: 04-30-2023 Pen Needle, Diab etic (Comfort Ez Pen [place]) 29 gauge x 1/2" needle Start: 09-23-2021 End: 10-30-2021 Pen Needle, Diab etic (Comfort Ez Pen [place]) 31 gauge x 5/16" needle Start: 10-30-2021 End: 12-27-2021 Pen Needle, Diab etic (Comfort Ez Pen [place]) 31 gauge x 5/16" needle Start: 12-27-2021 End: 02-06-2023 Pen Needle, Diab etic (Comfort Ez Pen [place]) 31 gauge x 5/16" needle Start: 02-06-2023 End: 02-29-2024 Pen Needle, Diab etic (Comfort Ez Pen [place]) 31 gauge x 5/16" needle Start: 02-29-2024 End: 10-13-2024 Blood Sugar Diagnostic (Accu-Chek Destinee Plus Test Strp) strip Start: 06-08-2024 Pen Needle, Diab etic (Comfort Ez Pen [place]) 31 gauge x 5/16" needle Start: 10-13-2024 Blood Sugar Diagnostic (Accu-Chek Destinee Plus Test Strp) strip Start: 02-13-2021 End: 02-13-2021 Blood Sugar Diagnostic (Accu-Chek Destinee Plus Test Strp) strip Start: 02-13-2021 End: 02-12-2022 Blood Sugar Diagnostic (Accu-Chek Destinee Plus Test Strp) strip Start: 04-30-2023 End: 06-08-2024 Blood Sugar Diagnostic (Accu-Chek Destinee Plus Test Strp) strip Start: 02-12-2022 End: 04-30-2023 Pen Needle, Diab etic (Comfort Ez Pen [place]) 29 gauge x 1/2" needle Start: 09-23-2021 End: 10-30-2021 Pen Needle, Diab etic (Comfort Ez Pen [place]) 31 gauge x 5/16" needle Start: 10-30-2021 End: 12-27-2021 Pen Needle, Diab etic (Comfort Ez Pen [place]) 31 gauge x 5/16" needle Start: 12-27-2021 End: 02-06-2023 Pen Needle, Diab etic (Comfort Ez Pen [place]) 31 gauge x 5/16" needle Start: 02-06-2023 End: 02-29-2024 Pen Needle, Diab etic (Comfort Ez Pen [place]) 31 gauge x 5/16" needle Start: 02-29-2024 End: 10-13-2024 Blood Sugar Diagnostic (Accu-Chek Destinee Plus Test Strp) strip Start: 06-08-2024 Pen Needle, Diab etic (Comfort Ez Pen [place]) 31 gauge x 5/16" needle Start: 10-13-2024 Blood Sugar Diagnostic (Accu-Chek Destinee Plus Test Strp) strip Start: 02-13-2021 End: 02-13-2021 Blood Sugar Diagnostic (Accu-Chek Destinee Plus Test Strp) strip Start: 02-13-2021 End: 02-12-2022 Blood Sugar Diagnostic (Accu-Chek Destinee Plus Test Strp) strip Start: 04-30-2023 End: 06-08-2024 Blood Sugar Diagnostic (Accu-Chek Destinee Plus Test Strp) strip Start: 02-12-2022 End: 04-30-2023 Pen Needle, Diab etic (Comfort Ez Pen [place]) 29 gauge x 1/2" needle Start: 09-23-2021 End: 10-30-2021 Pen Needle, Diab etic (Comfort Ez Pen [place]) 31 gauge x 5/16" needle Start: 10-30-2021 End: 12-27-2021 Pen Needle, Diab etic (Comfort Ez Pen [place]) 31 gauge x 5/16" needle Start: 12-27-2021 End: 02-06-2023 Pen Needle, Diab etic (Comfort Ez Pen [place]) 31 gauge x 5/16" needle Start: 02-06-2023 End: 02-29-2024 Pen Needle, Diab etic (Comfort Ez Pen [place]) 31 gauge x 5/16" needle Start: 02-29-2024 End: 10-13-2024 Blood Sugar Diagnostic (Accu-Chek Destinee Plus Test Strp) strip Start: 06-08-2024 Pen Needle, Diab etic (Comfort Ez Pen [place]) 31 gauge x 5/16" needle Start: 10-13-2024 Blood Sugar Diagnostic (Accu-Chek Destinee Plus Test Strp) strip Start: 02-13-2021 End: 02-13-2021 Blood Sugar Diagnostic (Accu-Chek Destinee Plus Test Strp) strip Start: 02-13-2021 End: 02-12-2022 Blood Sugar Diagnostic (Accu-Chek Destinee Plus Test Strp) strip Start: 04-30-2023 End: 06-08-2024 Blood Sugar Diagnostic (Accu-Chek Destinee Plus Test Strp) strip Start: 02-12-2022 End: 04-30-2023 Pen Needle, Diab etic (Comfort Ez Pen [place]) 29 gauge x 1/2" needle Start: 09-23-2021 End: 10-30-2021 Pen Needle, Diab etic (Comfort Ez Pen [place]) 31 gauge x 5/16" needle Start: 10-30-2021 End: 12-27-2021 Pen Needle, Diab etic (Comfort Ez Pen [place]) 31 gauge x 5/16" needle Start: 12-27-2021 End: 02-06-2023 Pen Needle, Diab etic (Comfort Ez Pen [place]) 31 gauge x 5/16" needle Start: 02-06-2023 End: 02-29-2024 Pen Needle, Diab etic (Comfort Ez Pen [place]) 31 gauge x 5/16" needle Start: 02-29-2024 End: 10-13-2024 Blood Sugar Diagnostic (Accu-Chek Destinee Plus Test Strp) strip Start: 06-08-2024 Pen Needle, Diab etic (Comfort Ez Pen [place]) 31 gauge x 5/16" needle Start: 10-13-2024 Blood Sugar Diagnostic (Accu-Chek Destinee Plus Test Strp) strip Start: 02-13-2021 End: 02-13-2021 Blood Sugar Diagnostic (Accu-Chek Destinee Plus Test Strp) strip Start: 02-13-2021 End: 02-12-2022 Blood Sugar Diagnostic (Accu-Chek Destinee Plus Test Strp) strip Start: 04-30-2023 End: 06-08-2024 Blood Sugar Diagnostic (Accu-Chek Destinee Plus Test Strp) strip Start: 02-12-2022 End: 04-30-2023 Pen Needle, Diab etic (Comfort Ez Pen [place]) 29 gauge x 1/2" needle Start: 09-23-2021 End: 10-30-2021 Pen Needle, Diab etic (Comfort Ez Pen [place]) 31 gauge x 5/16" needle Start: 10-30-2021 End: 12-27-2021 Pen Needle, Diab etic (Comfort Ez Pen [place]) 31 gauge x 5/16" needle Start: 12-27-2021 End: 02-06-2023 Pen Needle, Diab etic (Comfort Ez Pen [place]) 31 gauge x 5/16" needle Start: 02-06-2023 End: 02-29-2024 Pen Needle, Diab etic (Comfort Ez Pen [place]) 31 gauge x 5/16" needle Start: 02-29-2024 End: 10-13-2024 Blood Sugar Diagnostic (Accu-Chek Destinee Plus Test Strp) strip Start: 06-08-2024 Pen Needle, Diab etic (Comfort Ez Pen [place]) 31 gauge x 5/16" needle Start: 10-13-2024 Blood Sugar Diagnostic (Accu-Chek Destinee Plus Test Strp) strip Start: 02-13-2021 End: 02-13-2021 Blood Sugar Diagnostic (Accu-Chek Destinee Plus Test Strp) strip Start: 02-13-2021 End: 02-12-2022 Blood Sugar Diagnostic (Accu-Chek Destinee Plus Test Strp) strip Start: 04-30-2023 End: 06-08-2024 Blood Sugar Diagnostic (Accu-Chek Destinee Plus Test Strp) strip Start: 02-12-2022 End: 04-30-2023 Pen Needle, Diab etic (Comfort Ez Pen [place]) 29 gauge x 1/2" needle Start: 09-23-2021 End: 10-30-2021 Pen Needle, Diab etic (Comfort Ez Pen [place]) 31 gauge x 5/16" needle Start: 10-30-2021 End: 12-27-2021 Pen Needle, Diab etic (Comfort Ez Pen [place]) 31 gauge x 5/16" needle Start: 12-27-2021 End: 02-06-2023 Pen Needle, Diab etic (Comfort Ez Pen [place]) 31 gauge x 5/16" needle Start: 02-06-2023 End: 02-29-2024 Pen Needle, Diab etic (Comfort Ez Pen [place]) 31 gauge x 5/16" needle Start: 02-29-2024 End: 10-13-2024 Blood Sugar Diagnostic (Accu-Chek Destinee Plus Test Strp) strip Start: 06-08-2024 Pen Needle, Diab etic (Comfort Ez Pen [place]) 31 gauge x 5/16" needle Start: 10-13-2024 Blood Sugar Diagnostic (Accu-Chek Destinee Plus Test Strp) strip Start: 02-13-2021 End: 02-13-2021 Blood Sugar Diagnostic (Accu-Chek Destinee Plus Test Strp) strip Start: 02-13-2021 End: 02-12-2022 Blood Sugar Diagnostic (Accu-Chek Destinee Plus Test Strp) strip Start: 04-30-2023 End: 06-08-2024 Blood Sugar Diagnostic (Accu-Chek Destinee Plus Test Strp) strip Start: 02-12-2022 End: 04-30-2023 Pen Needle, Diab etic (Comfort Ez Pen [place]) 29 gauge x 1/2" needle Start: 09-23-2021 End: 10-30-2021 Pen Needle, Diab etic (Comfort Ez Pen [place]) 31 gauge x 5/16" needle Start: 10-30-2021 End: 12-27-2021 Pen Needle, Diab etic (Comfort Ez Pen [place]) 31 gauge x 5/16" needle Start: 12-27-2021 End: 02-06-2023 Pen Needle, Diab etic (Comfort Ez Pen [place]) 31 gauge x 5/16" needle Start: 02-06-2023 End: 02-29-2024 Pen Needle, Diab etic (Comfort Ez Pen [place]) 31 gauge x 5/16" needle Start: 02-29-2024 End: 10-13-2024 Blood Sugar Diagnostic (Accu-Chek Destinee Plus Test Strp) strip Start: 06-08-2024 Pen Needle, Diab etic (Comfort Ez Pen [place]) 31 gauge x 5/16" needle Start: 10-13-2024 Blood Sugar Diagnostic (Accu-Chek Destinee Plus Test Strp) strip Start: 02-13-2021 End: 02-13-2021 Blood Sugar Diagnostic (Accu-Chek Destinee Plus Test Strp) strip Start: 02-13-2021 End: 02-12-2022 Blood Sugar Diagnostic (Accu-Chek Destinee Plus Test Strp) strip Start: 04-30-2023 End: 06-08-2024 Blood Sugar Diagnostic (Accu-Chek Destinee Plus Test Strp) strip Start: 02-12-2022 End: 04-30-2023 Pen Needle, Diab etic (Comfort Ez Pen [place]) 29 gauge x 1/2" needle Start: 09-23-2021 End: 10-30-2021 Pen Needle, Diab etic (Comfort Ez Pen [place]) 31 gauge x 5/16" needle Start: 10-30-2021 End: 12-27-2021 Pen Needle, Diab etic (Comfort Ez Pen [place]) 31 gauge x 5/16" needle Start: 12-27-2021 End: 02-06-2023 Pen Needle, Diab etic (Comfort Ez Pen [place]) 31 gauge x 5/16" needle Start: 02-06-2023 End: 02-29-2024 Pen Needle, Diab etic (Comfort Ez Pen [place]) 31 gauge x 5/16" needle Start: 02-29-2024 End: 10-13-2024 Blood Sugar Diagnostic (Accu-Chek Destinee Plus Test Strp) strip Start: 06-08-2024 Pen Needle, Diab etic (Comfort Ez Pen [place]) 31 gauge x 5/16" needle Start: 10-13-2024 Blood Sugar Diagnostic (Accu-Chek Destinee Plus Test Strp) strip Start: 02-13-2021 End: 02-13-2021 Blood Sugar Diagnostic (Accu-Chek Destinee Plus Test Strp) strip Start: 02-13-2021 End: 02-12-2022 Blood Sugar Diagnostic (Accu-Chek Destinee Plus Test Strp) strip Start: 04-30-2023 End: 06-08-2024 Blood Sugar Diagnostic (Accu-Chek Destinee Plus Test Strp) strip Start: 02-12-2022 End: 04-30-2023 Pen Needle, Diab etic (Comfort Ez Pen [place]) 29 gauge x 1/2" needle Start: 09-23-2021 End: 10-30-2021 Pen Needle, Diab etic (Comfort Ez Pen [place]) 31 gauge x 5/16" needle Start: 10-30-2021 End: 12-27-2021 Pen Needle, Diab etic (Comfort Ez Pen [place]) 31 gauge x 5/16" needle Start: 12-27-2021 End: 02-06-2023 Pen Needle, Diab etic (Comfort Ez Pen [place]) 31 gauge x 5/16" needle Start: 02-06-2023 End: 02-29-2024 Pen Needle, Diab etic (Comfort Ez Pen [place]) 31 gauge x 5/16" needle Start: 02-29-2024 End: 10-13-2024 Blood Sugar Diagnostic (Accu-Chek Destinee Plus Test Strp) strip Start: 06-08-2024 Pen Needle, Diab etic (Comfort Ez Pen [place]) 31 gauge x 5/16" needle Start: 2025 Blood Sugar Diagnostic (Accu-Chek Destinee Plus Test Strp) strip Start: 02-13-2021 End: 02-13-2021 Blood Sugar Diagnostic (Accu-Chek Destinee Plus Test Strp) strip Start: 02-13-2021 End: 02-12-2022 Blood Sugar Diagnostic (Accu-Chek Destinee Plus Test Strp) strip Start: 04-30-2023 End: 06-08-2024 Blood Sugar Diagnostic (Accu-Chek Destinee Plus Test Strp) strip Start: 02-12-2022 End: 04-30-2023 Pen Needle, Diab etic (Comfort Ez Pen [place]) 29 gauge x 1/2" needle Start: 09-23-2021 End: 10-30-2021 Pen Needle, Diab etic (Comfort Ez Pen [place]) 31 gauge x 5/16" needle Start: 10-30-2021 End: 12-27-2021 Pen Needle, Diab etic (Comfort Ez Pen [place]) 31 gauge x 5/16" needle Start: 12-27-2021 End: 02-06-2023 Pen Needle, Diab etic (Comfort Ez Pen [place]) 31 gauge x 5/16" needle Start: 02-06-2023 End: 02-29-2024 Pen Needle, Diab etic (Comfort Ez Pen [place]) 31 gauge x 5/16" needle Start: 02-29-2024 End: 10-13-2024 Pen Needle, Diab etic (Comfort Ez Pen [place]) 31 gauge x 5/16" needle Start: 10-13-2024 End: 2025 Blood Sugar Diagnostic (Accu-Chek Destinee Plus Test Strp) strip Start: 06-08-2024 Pen Needle, Diab etic (Comfort Ez Pen [place]) 31 gauge x 5/16" needle Start: 2025 Blood Sugar Diagnostic (Accu-Chek Destinee Plus Test Strp) strip Start: 02-13-2021 End: 02-13-2021 Blood Sugar Diagnostic (Accu-Chek Destinee Plus Test Strp) strip Start: 02-13-2021 End: 02-12-2022 Blood Sugar Diagnostic (Accu-Chek Destinee Plus Test Strp) strip Start: 04-30-2023 End: 06-08-2024 Blood Sugar Diagnostic (Accu-Chek Destinee Plus Test Strp) strip Start: 02-12-2022 End: 04-30-2023 Pen Needle, Diab etic (Comfort Ez Pen [place]) 29 gauge x 1/2" needle Start: 09-23-2021 End: 10-30-2021 Pen Needle, Diab etic (Comfort Ez Pen [place]) 31 gauge x 5/16" needle Start: 10-30-2021 End: 12-27-2021 Pen Needle, Diab etic (Comfort Ez Pen [place]) 31 gauge x 5/16" needle Start: 12-27-2021 End: 02-06-2023 Pen Needle, Diab etic (Comfort Ez Pen [place]) 31 gauge x 5/16" needle Start: 02-06-2023 End: 02-29-2024 Pen Needle, Diab etic (Comfort Ez Pen [place]) 31 gauge x 5/16" needle Start: 02-29-2024 End: 10-13-2024 Pen Needle, Diab etic (Comfort Ez Pen [place]) 31 gauge x 5/16" needle Start: 10-13-2024 End: 2025 Clinical Notes 02-04-2022 to 04-17-2025 Note Date & Type Note Facility 04-17-2025 Progress note [facility] 03-06-2025 Evaluation note Diagnosis Onset Date Resolution Dermatitis chronic March 06 1:07pm Essential hypertension chronic March 06, 2025 1:07pm Irritable bowel syndrome chronic March 06, 2025 1:07pm Paroxysmal atrial fibrillation chronic March 06, 2025 1:07pm Type 2 diabetes mellitus chronic March 06, 2025 1:07pm Venous insufficiency of both lower extremities chronic March 06, 2025 1:07pm 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 April 17, 2025 1:23pm Endometrial cancer February, resolved April 17, 2025 1:23pm Encounter for routine gynecological examination noneactive April 17, 2025 1:23pm [facility] Work Phone: 1(348) 132-319507-14-2025 Evaluation note* Diagnosis Onset Date Resolution Status Admit Date Dermatitis chronic March 06 1:07pm Essential hypertension chronic Ju 2024 1:07pm Irritable bowel syndrome chronic March 06, 2025 1:07pm Paroxysmal atrial fibrillation chronic March 06, 2025 1:07pm Type 2 diabetes mellitus chronic March 06, 2025 1:07pm Venous insufficiency of both lower extremities chronic March 06 1:07pm 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 April 17 1:23pm Endometrial cancer February, resolved April 17, 2025 1:23pm Encounter for routine gynecological examination noneactive April 17, 2025 1:23pm Health care maintenance acute S eptember 2024 12:58pm Essential hypertension chronic Se ptember 2024 12:58pm Hyperlipidemia chronic May 23, 2025 12:58pm Obesity chronic April 12:58pm Overactive bladder chronic Sept2024 12:58pm Type 2 diabetes mellitus chronic May 23, 2025 12:58pm Venous insufficiency of both lower extremities chronic April 12:58pm [facility] Work Phone: 1(293) 981-567504-29-2025 Evaluation note* Diagnosis Onset Date Resolution Status [...] both lower extremities chronic March 06 1:07pm 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 April 17 1:23pm Endometrial cancer February, resolved April 17, 2025 1:23pm Encounter for routine gynecological examination noneactive April 17, 2025 1:23pm [facility] Work Phone: 1(255) 882-317204-07-2025 Evaluation note* Diagnosis Onset Date Resolution Status Admit Date Essential hypertension chronic Ap 2024 11:07am Hyperlipidemia chronic November 28, 2024 11:07am Irritable bowel syndrome chronic November 28, 2024 11:07am Type 2 diabetes mellitus chronic November 28, 2024 11:07am Essential hypertension chronic Ap ril 2024 2:12pm Hyperlipidemia chronic November 2:12pm Paroxysmal atrial fibrillation chron ic December 20, 2024 2:12pm [facility] Work Phone: 1(975) 598-728404-07-2025 Evaluation note* Diagnosis Onset Date Resolution Status [...] both lower extremities chronic March 06 1:07pm [facility] Work Phone: 1(563) 529-582112-30-2024 Evaluation note* Diagnosis Onset Date Resolution Status Admit Date Essential hypertension chronic De cember 2023 1:21pm Generalized anxiety disorder chronic August 22, 2024 1:21pm Night terrors, adult chronic Dece mber 2023 1:21pm Type 2 diabetes mellitus chronic August 22, 2024 1:21pm [facility] Work Phone: 1(771) 525-393112-30-2024 Evaluation note* Diagnosis Onset Date Resolution Status Admit Date Essential hypertension chronic De cember 2023 1:21pm Generalized anxiety disorder chronic August 22, 2024 1:21pm Night terrors, adult chronic Dece mber 2023 1:21pm Type 2 diabetes mellitus chronic August 22, 2024 1:21pm Essential hypertension chronic Ap ril 2024 11:07am Hyperlipidemia chronic November 28, 2024 11:07am Irritable bowel syndrome chronic November 28, 2024 11:07am Type 2 diabetes mellitus chronic November 28, 2024 11:07am [facility] Work Phone: 1(868) 422-675306-14-2022 NotePatient Outreach (NETNAV) ERENDIRA CHÁVEZ ([id number]) 1945 F Date Time Provider Department 02/04/22 CECILLE CARBONE During your visit today, we recorded the following information about you: Cecille Carbone MA 02/04/2022 9:12 AM Signed POPULATION HEALTH NAVIGATION OUTREACH Action/February 04, 2022 DM Management outreach ISIDRO was 3.24.2020 with Ashlie Villanueva, LOOM FIXER APPRENTICE for DM follow up HM due: BP Control Albumin Urine Dilated Retinal Exam HgBAIC Annual Exam Advance Directive Discussion Outcome: Spoke with patient. She advises that she has changed her primary care providers to a new practice outside of [facility]. PCP field has been updated, thank you Pt identified by name and : YES, via phone Outreach Outcome/Action Spoke to patient or caregiver: PCP confirmed / updated Did you use a PCP flex slot to schedule this appointment? N/A Reason for Outreach [facility] Diabetes Management Payer: No coverage found. Care [...] needed. for a fib - OTC PRODUCT [id number] twice daily - OTC PRODUCT omega 3 [...] [E66.9] 10/16/2008 10/19/2014 Myalgia and myositis, unspecified [BGA5588] 02/21/2009 07/05/2020 SKIN ERUPTION, NONSPEC [R21] 04/24/2009 [...] disease [K21.9] 12/22 (more content not included)... [facility]06-14-2022 NoteHNO ID: [id number] Author: Cecille Carbone MA Service: ? Author Type: Door Assembler Type: Progress Notes Filed: 02/04/2022 9:12 AM Note Text: POPULATION HEALTH NAVIGATION OUTREACH Action/FYI February 04, 2022 DM Management outreach ISIDRO was 3.24.2020 with Ashlie Older, LOOM FIXER APPRENTICE for DM follow up HM due: BP Control Albumin Urine Dilated Retinal Exam HgBAIC Annual Exam Advance Directive Discussion Outcome: Spoke with patient. She advises that she has changed her primary care providers to a new practice outside of [facility]. PCP field has been updated, thank you Pt identified by name and : YES, via phone Outreach Outcome/Action Spoke to patient or caregiver: PCP confirmed / updated Did you use a PCP flex slot to schedule this appointment? N/A Reason for Outreach [facility] Diabetes Management Payer: No coverage found. Care [...] No Navigation Signature: Cecille Carbone MA [facility] Diagnosis Onset Date Resolution Status Essential hypertension chron ic Intertriginous dermatitis associated with moisture chronic Type 2 diabetes mellitus chr onic Intertriginous dermatitis associated with moisture chronic Type 2 diabetes mellitus chr onic [facility] Work Phone: Evaluation note* Diagnosis Onset Date Resolution Status Essential hypertension chron ic Intertriginous dermatitis associated with moisture chronic Type 2 diabetes mellitus chr onic Intertriginous dermatitis associated with moisture chronic Type 2 diabetes mellitus chr onic Obesity chronic Rosacea chronic Type 2 diabetes mellitus chr onic Venous insufficiency of both lower extremities [facility] Work Phone: Evaluation note* Diagnosis Onset Date Resolution Status Intertriginous dermatitis associated with moisture chronic Type 2 diabetes mellitus chr onic Obesity chronic Rosacea chronic Type 2 diabetes mellitus chr onic Venous insufficiency of both lower extremities chronic Back pain acute Encounter for routine gynecological examination noneactive [facility] Work Phone: Evaluation note* Diagnosis Onset Date Resolution Status Obesity chronic Type 2 diabetes mellitus chr onic Venous insufficiency of both lower extremities chronic Back pain acute Encounter for routine gynecological examination noneactive Bilateral hip pain chronic Chronic back pain chronic Essential hypertension chron ic Type 2 diabetes mellitus chr onic Venous insufficiency of both lower extremities chronic [facility] Work Phone: Evaluation note* Diagnosis Onset Date Resolution Status Back pain acute Encounter for routine gynecological examination noneactive Bilateral hip pain chronic Chronic back pain chronic Essential hypertension chron ic Type 2 diabetes mellitus chr onic Venous insufficiency of both lower extremities chronic Claudication acute Dyspnea on exertion acute Essential hypertension chron ic Hyperlipidemia chronic Paroxysmal atrial fibrillation chronic [facility] Work Phone: Evaluation note* Diagnosis Onset Date Resolution Status Bilateral hip pain chronic Chronic back pain chronic Essential hypertension chron ic Type 2 diabetes mellitus chr onic Venous insufficiency of both lower extremities chronic Claudication acute Dyspnea on exertion acute Essential hypertension chron ic Hyperlipidemia chronic Paroxysmal atrial fibrillation chronic [facility] Work Phone: Evaluation note* Diagnosis Onset [...] Venous insufficiency of both lower extremities chronic [facility] Work Phone: Evaluation note* Diagnosis Onset Date Resolution Status Essential hypertension chron ic GERD (gastroesophageal reflux disease) chronic Hypersomnolence chronic Paroxysmal atrial fibrillation chronic Type 2 diabetes mellitus chr onic Venous insufficiency of both lower extremities chronic [facility] Work Phone: Evaluation note* Diagnosis Onset Date Resolution Status Essential hypertension chron ic GERD (gastroesophageal reflux disease) chronic Hypersomnolence chronic Paroxysmal atrial fibrillation chronic Type 2 diabetes mellitus chr onic Venous insufficiency of both lower extremities chronic Left shoulder pain acute Chronic back pain chronic Essential hypertension chron ic Type 2 diabetes mellitus [facility] Work Phone: Evaluation note* Diagnosis Onset Date Resolution Status Left shoulder pain acute Chronic back pain chronic Essential hypertension chron ic Type 2 diabetes mellitus [facility] Work Phone: Evaluation note* Diagnosis Onset Date Resolution Status Left shoulder pain acute Chronic back pain chronic Essential hypertension chron ic Type 2 diabetes mellitus chr onic Essential hypertension chron ic Osteoarthritis chronic Osteopenia chronic Type 2 diabetes mellitus [facility] Work Phone: Evaluation note* Diagnosis Onset Date Resolution Status Essential hypertension chron ic Osteoarthritis chronic Osteopenia chronic Type 2 diabetes mellitus chr on 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 Encounter for routine gynecological examination noneactive [facility] Work Phone: Evaluation note* Diagnosis Onset Date Resolution Status Dermatitis acute Health care maintenance acut e Essential hypertension chron ic GERD (gastroesophageal reflux disease) chronic Hot flashes chronic Irritable bowel syndrome [facility] Type 2 diabetes mellitus chr onic Essential hypertension chron ic Hyperlipidemia chronic Paroxysmal atrial fibrillation chronic [facility] Work Phone: Evaluation note* Diagnosis Onset Date Resolution Status Essential hypertension chron ic Generalized anxiety disorder chronic GERD (gastroesophageal reflux disease) chronic Type 2 diabetes mellitus [facility] Work Phone: Evaluation note* Diagnosis Onset Date Resolution Status Essential hypertension chron ic Generalized anxiety disorder chronic GERD (gastroesophageal reflux disease) chronic Type 2 diabetes mellitus chr onic Essential hypertension chron ic Hyperlipidemia chronic Paroxysmal atrial fibrillation chronic 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 chronic Essential hypertension chron ic Hyperlipidemia chronic Type 2 diabetes mellitus [facility] Work Phone: Evaluation note* Diagnosis Onset Date Resolution Status Essential hypertension chron ic Hyperlipidemia chronic Paroxysmal atrial fibrillation chronic 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 chronic Essential hypertension chron ic Hyperlipidemia chronic Type 2 diabetes mellitus [facility] Work Phone: Progress note Author Lola Bowles [facility] Note Date/Time April 17, 2025 1: 51pm [facility] [address], [address] [place] [address] OFFICE VISIT Date of Service: 04/17/25 MR#: [id number] Acct: [id number] Name: ERENDIRA CHÁVEZ Rep #: [id number] : 1945 Provider: Dr. Waldo Bowles MD Age/Sex: 79/F Location: [facility] [place] Status: Signed Intake Vital Signs 12/20/24 14:13 03/06/25 13:25 04/17/25 13:26 Height 5 ft 4 in 5 ft 4 in 5 ft 4 in Weight: 231 lb 1 oz BMI 39.6 BP 154/78 H Intake Visit Reasons: Annual (BUSINESS EXCELLENCE MANAGER) Chief Complaint: est annual Butcher Supervisor Required: No Is patient in pain?: No Allergies brimonidine Allergy (Verified 04/17/25 13:29) NEEDS FOLLOW-UP Penicillins Allergy (Verified 04/17/25 13:29) Hives Medications ?Medication ?Instructions ?Recorded ?Confirmed ?Type cholecalciferol (vitamin D3) 25 1,000 unit PO QDAY 07/1104/17/25 History mcg (1,000 unit) capsule multivitamin,lv-cmoc-wdewueam 1 tab PO QDAY 12/02/17 0 04/17/25 [...] 31 gauge x #100 ea 10/13/2404/17 Rx 5/16" (Comfort EZ Pen [place]) glimepiride 2 mg tablet 6 mg (3 [...] shoulder fracture Diarrhea 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 emt intermediate current use of anticoagulant Palpitations Hyperlipidemia [...] FOB Unknown 1962 [place] Unknown 1965 [place] HPI Encounter for routine gynecological examination Details: ERENDIRA [...] acute distress, well developed and well groomed HENMT Head: normal to inspection and normocephalic Ears: [...] Attitude: cooperative Coding Level of Care Code Pelvic/Breast Diagnoses Encounter for gynecological examination with abnormal finding Z01.411 Gynecological examination findings: abnormal findings PRESENT 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 Z91.89 Endometrial cancer C54.1 Assessment and Plan Assessment and Plan (1) Encounter for routine gynecological examination: Qualifiers: Gynecological examination findings: abnormal findings PRESENT QualifiedCode(s): Z01.411 - Encounter for gynecological examination (general) (routine) with abnormal findings (2) 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: Status: Acute [...] maintenance exam or sooner if needed. 04/17/25 4830 <Electronically signed by Lola hernandez MD> Date _ Lola Bowles MD Cosigner Signature: Date (if applicable) CC: ~ [facility] Work Phone: Reason for referral (narrative)No reason for referral information availableWSamar[facility] Work Phone: Summary Purpose Family History No [...] Yes February 14, 2021 10:19am Power of Brokerage Clerk Yes February 14 10:19am Advance Directive Response Recorded Date/ Time Advance Directives No February 14 9:19am Living Will Yes February 14, 2021 9:19am Power of Brokerage Clerk Yes February 14 9:19am Advance Directive Response Recorded Date/ Time Advance Directives No April 2:19pm Living Will Yes April 30, 023 2:19pm Power of Brokerage Clerk Yes April 30, 2023 2:19pm Advance Directive Response Recorded Date/ Time Advance Directives No April 1:19pm Living Will Yes April 30, 2 023 1:19pm Power of Brokerage Clerk Yes April 30, 2023 1:19pm Advance Directive Response Recorded Date/ Time Living Will Yes April 30, 2 023 2:19pm Do you have a Healthcare Power of Brokerage Clerk? Yes April 30, 2023 2:19pm Living Will Yes September 24 3:05am Do you have a Healthcare Power of Brokerage Clerk? Yes September 24, 2024 3:05am Living Will Yes October 22, 2024 9:09am Do you have a Healthcare Power of Brokerage Clerk? Yes October 22, 2024 9:09am Living Will Yes July 24 3:43am Do you have a Healthcare Power of Brokerage Clerk? Yes Junaid 1st, 2024 3:43am Living Will Yes August 24 5:30am Do you have a Healthcare Power of Brokerage Clerk? Yes August 24, 2024 5:30am Advance Directives No April 2:19pm Advance Directive Response Recorded Date/ Time Living Will Yes April 30, 023 2:19pm Do you have a Healthcare Power of Brokerage Clerk? Yes April 30, 2023 2:19pm Living Will Yes September 24 3:05am Do you have a Healthcare Power of Brokerage Clerk? Yes September 24, 2024 3:05am Living Will Yes October 22, 2024 9:09am Do you have a Healthcare Power of Brokerage Clerk? Yes October 22, 2024 9:09am Living Will Yes November 21, 2024 10:20pm Do you have a Healthcare Power of Brokerage Clerk? Yes November 21, 2024 10:20pm Living Will Yes December 22, 2024 12 :55am Do you have a Healthcare Power of Brokerage Clerk? Yes December 22, 2024 12:55am Advance Directives No April 2:19pm Advance Directive Response Recorded Date/ Time Living Will Yes April 30 023 2:19pm Do you have a Healthcare Power of Brokerage Clerk? Yes April 30, 2023 2:19pm Living Will Yes October 22, 2024 9:09am Do you have a Healthcare Power of Brokerage Clerk? Yes October 22, 2024 9:09am Living Will Yes November 21, 2024 10:20pm Do you have a Healthcare Power of Brokerage Clerk? Yes November 21, 2024 10:20pm Living Will Yes December 22, 2024 12 :55am Do you have a Healthcare Power of Brokerage Clerk? Yes December 22, 2024 12:55am Living Will Yes January 22, 2025 9 :19pm Do you have a Healthcare Power of Brokerage Clerk? Yes January 22, 2025 9:19pm Advance Directives No April 2:19pm Advance Directive Response Recorded Date/ Time Living Will Yes April 30 023 2:19pm Do you have a Healthcare Power of Brokerage Clerk? Yes April 30, 2023 2:19pm Living Will Yes November 21, 2024 10:20pm Do you have a Healthcare Power of Brokerage Clerk? Yes November 21, 2024 10:20pm Living Will Yes December 22, 2024 12 :55am Do you have a Healthcare Power of Brokerage Clerk? Yes December 22, 2024 12:55am Living Will Yes January 22, 2025 9 :19pm Do you have a Healthcare Power of Brokerage Clerk? Yes January 22, 2025 9:19pm Advance Directives No April 2:19pm Advance Directive Response Recorded Date/ Time Living Will Yes April 30 2:19pm Do you have a Healthcare Power of Brokerage Clerk? Yes April 30, 2023 2:19pm Living Will Yes December 22, 2024 12 :55am Do you have a Healthcare Power of Brokerage Clerk? Yes December 22, 2024 12:55am Living Will Yes January 22, 2025 9 :19pm Do you have a Healthcare Power of Brokerage Clerk? Yes January 22, 2025 9:19pm Advance Directives No April 2:19pm Advance Directive Response Recorded Date/ Time Living Will Yes December 22, 2024 12 :55am Do you have a Healthcare Power of Brokerage Clerk? Yes December 22, 2024 12:55am Living Will Yes January 22, 2025 9 :19pm Do you have a Healthcare Power of Brokerage Clerk? Yes January 22, 2025 9:19pm Advance Directives No April 2:19pm Advance Directive Response Recorded Date/ Time Living Will Yes January 22, 2025 9 :19pm Do you have a Healthcare Power of Brokerage Clerk? Yes January 22, 2025 9:19pm Advance Directives [...] FU S/O FINGERSTICK S/O FINGERSTICK SCREENING Annual (BUSINESS EXCELLENCE MANAGER) Reason for Visit Intertriginous derma titis associated with moisture Type 2 diabetes mellitus Obesity Rosacea Type 2 diabetes mellitus Venous insufficiency of both lower extremities Back pain Encounter for routine gynecological examination Chief Complaint S/O FINGERSTICK 2 M FU S/O FINGERSTICK S/O FINGERSTICK SCREENING Annual (BUSINESS EXCELLENCE MANAGER) S/O FINGERSTICK 3 M FU Reason for Visit Obesity Type 2 diabetes mellitus Venous insufficiency of both lower extremities Back pain Encounter for routine gynecological examination Bilateral hip pain Chronic back pain Essential hypertension Type 2 diabetes mellitus Venous insufficiency of both lower extremities Chief Complaint S/O FINGERSTICK SCREENING Annual (BUSINESS EXCELLENCE MANAGER) S/O FINGERSTICK 3 M FU S/O FINGERSTICK 1 Y FU S/O FINGERSTICK Reason for Visit Back pain Encounter for routine gynecological examination Bilateral hip pain Chronic back pain Essential hypertension Type 2 diabetes mellitus Venous insufficiency of both lower extremities Claudication Dyspnea on exertion Essential hypertension Hyperlipidemia Paroxysmal atrial fibrillation Chief Complaint SCREENING Annual (BUSINESS EXCELLENCE MANAGER) S/O FINGERSTICK 3 M FU S/O FINGERSTICK [...] 3 M FU OSTEO S/O FINGERSTICK Annual (BUSINESS EXCELLENCE MANAGER) SCREENING Reason for Visit Essential hypertensi on Osteoarthritis Osteopenia Type 2 diabetes mellitus 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 Encounter for routine gynecological examination Chief Complaint S/O FINGERSTICK S/O FINGERSTICK 3 M FU OSTEO S/O FINGERSTICK Annual (BUSINESS EXCELLENCE MANAGER) SCREENING S/O FINGERSTICK Reason for Visit Essential hypertensi on Osteoarthritis Osteopenia Type 2 diabetes mellitus 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 Encounter for routine gynecological examination Chief Complaint S/O FINGERSTICK 3 M FU OSTEO S/O FINGERSTICK Annual (BUSINESS EXCELLENCE MANAGER) SCREENING S/O FINGERSTICK S/O FINGERSTICK Reason for Visit Essential hypertensi on Osteoarthritis Osteopenia Type 2 diabetes mellitus 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 Encounter for [...] for breast cancer April 17 12:27pm Annual (BUSINESS EXCELLENCE MANAGER) April 17, 2025 1: 23pm Reason for [...] lower extre mities March 06, 2025 1:07pm 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 April 17, [...] for breast cancer April 17 12:27pm Annual (BUSINESS EXCELLENCE MANAGER) April 17, 2025 1: 23pm S/O- INR- [...] lower extre mities March 06, 2025 1:07pm 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 April 17, 2025 1:23pm Endometrial cancer April 17, 2025 1: 23pm Encounter for routine gynecological exam ination April 17, 2025 1:23pm Chief Complaint Admit Date S/O- INR- FINGERSTICK February 09, 2025 10 :18am 3 m fu March 06, 2025 1:07 pm S/O- INR- FINGERSTICK/ BETTE GROSS S March 08, 2025 10:40am screen for breast cancer April 17 12:27pm Annual (BUSINESS EXCELLENCE MANAGER) April 17, 2025 1: 23pm S/O- INR- FINGERSTICK/ ADD NANDINI EORDER S April 19, 2025 12:19pm Follow [...] lower extre mities March 06, 2025 1:07pm 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 April 17, 2025 1:23pm Endometrial cancer April 17, 2025 1: 23pm Encounter for routine gynecological exam ination April 17, 2025 1:23pm Health care maintenance May 23, 2025 12:58pm Essential hypertension May 23, 2 025 12:58pm Hyperlipidemia May 23, 2025 12:58pm Obesity May 23, 2025 12:58pm Overactive bladder May 23, 2025 12:58pm Type 2 diabetes mellitus May 23, 2025 12:58pm Venous insufficiency of both lower extre mities May 23, 2025 12:58pm Additional Source Comments INFORMATION SOURCE (unrecogn ized section and content) DATE CREATED AUTHOR 02/15/2018 [facility] DATE CREATED AUTHOR AUTHOR'S ORGANIZ ATION 02/15/2018 [facility] DATE CREATED AUTHOR AUTHOR'S ORGANIZ ATION 02/04/2022 [facility] DATE CREATED AUTHOR AUTHOR'S OR[facility]IZ ATION [facility] DATE CREATED AUTHOR AUTHOR'S ORGANIZ ATION 06/25/2025 [facility] Goals (unrecognized section and content) Goals may [...] Active Member Role Status Dates Dr. Megan Finnegan MD Family Provider Active Dr. Eric Delatorre MD Primary Care Provider Active Team Status: Inactive Member Role Status Dates Dr. Eric Delatorre MD Primary Care Ivory madsen, Attending Provider, Referring Provider Active Team Status: [...] Provider, Refer ring Provider Active Christian Capellan BALLET PROFESSOR, BALLET PROFESSOR-C Attending Provider Active Team Status: Active Member [...] Status: Inactive Member Role/Relationship Status Dates Dr. Eirc Delatorre MD Primary Care Provider Active Start: [...] 06, 2025 End: March 06, 2025 Dr. rEic Delatorre MD Referring Provider Active Start: March [...] Provider Active Start: April 17, 2025 Dr. Lloa Bowles MD Attending Provider Active Start: April [...] BE BASED ON THE PRIMARY CLINICAL RECORDS. [facility] [employer] [facility]. provides no warranty or guarantee of the accuracy or completeness of information in this document.
[2025-07-09 19:00] VITALS: PULSE 109; RESP 20; O2SAT 97
[2025-07-09 20:00] VITALS: PULSE 109; RESP 19; O2SAT 96
[2025-07-09 20:22] LABS: Troponin T High Sens 2 HR 13 ng/L (<=14)
[2025-07-09 21:00] VITALS: BP 114/84; PULSE 95; RESP 16; TEMP 36.6; O2SAT 97
== END 2025-07-09 21:32 | disposition home or self-care (01) ==
PROVIDERS: Emergency Provider Emergency Medicine; PCP Internal Medicine; Visit Provider Emergency Medicine
DX: I48.0 Paroxysmal atrial fibrillation (principal); Z79.4 Long term (current) use of insulin; E11.9 Type 2 diabetes mellitus without complications; I10 Essential (primary) hypertension; I87.2 Venous insufficiency (chronic) (peripheral); K21.9 Gastro-esophageal reflux disease without esophagitis; E66.9 Obesity, unspecified; E78.00 Pure hypercholesterolemia, unspecified; M85.80 Other specified disorders of bone density and structure, unspecified site; Z85.42 Personal history of malignant neoplasm of other parts of uterus; Z87.19 Personal history of other diseases of the digestive system; Z79.899 Other long term (current) drug therapy; Z79.01 Long term (current) use of anticoagulants; Z79.84 Long term (current) use of oral hypoglycemic drugs; Z90.49 Acquired absence of other specified parts of digestive tract; Z68.39 Body mass index [BMI] 39.0-39.9, adult
CPT/HCPCS: 71045; 80048; 81001; 82010; 84484; 85025; 85610; 85730; 93005; 96360; 96361; 99284; A4216

== ENCOUNTER 2025-07-19 10:28 | Outpatient (RCR) | payer MEDICARE, SELFPAY ==
[2025-07-19 15:25] LABS: Prothrombin Time (Protime)PT. 24.5 SECONDS (11.7-14.9)
[2025-07-19 15:55] LABS: Amylase 44 U/L (28-100); Lipase 32 U/L (13-75); Vitamin B12 729 pg/mL (180-914); Vitamin D,25 Hydroxy 35.2 ng/mL (30-100)
[2025-07-24 12:09] LABS: ANTINUCLEAR ANTIBODIES DIRECT Negative (Negative)
== END 2025-07-23 18:00 | disposition home or self-care (01) ==
LOC: MTLAB 10:28
PROVIDERS: Physician Assistant; PCP Internal Medicine; Referring Provider Internal Medicine Cardiovascular Disease; Visit Provider Internal Medicine Cardiovascular Disease
DX: I48.0 Paroxysmal atrial fibrillation (principal); E11.69 Type 2 diabetes mellitus with other specified complication; R53.83 Other fatigue; R19.7 Diarrhea, unspecified; E55.9 Vitamin D deficiency, unspecified; Z79.01 Long term (current) use of anticoagulants
CPT/HCPCS: 36415; 82150; 82306; 82607; 83690; 84443; 85610; 86038; 86225; 86235

== ENCOUNTER → 2025-08-02 | Outpatient (CLI) | payer MEDICARE, SELFPAY ==
--- NOTE | 2025-08-02 10:36 | ECHOD_ITS ---
Reason For Study Reason For Study: ATRIAL FIBRILLATION Procedure This was a 2D Doppler, Color Flow transthoracic echocardiogram. The patient is in sinus rhythm. Exam performed in department. Left Ventricle Normal LV size. Left ventricular systolic function is normal. The left ventricular ejection fraction is 65 %. No regional wall motion abnormalities noted. Right Ventricle Normal RV size. Normal systolic function. Atria Normal left atrium. Normal right atrium. Mitral Valve There is mild mitral annular calcification. Mild (1+) eccentric mitral valve insufficiency. Tricuspid Valve Normal tricuspid valve. Mild (1+) tricuspid valve insufficiency. Pulmonary artery systolic pressure is 28 mmHg. Aortic Valve Trisinus/trileaflet aortic valve. Mild (1+) eccentric aortic valve insufficiency. Pulmonic Valve Normal pulmonic valve. Great Vessels Normal aortic root. The pulmonary artery is normal size. Inferior vena cava collapse with respiration. Pericardium/Pleural No pericardial effusion. MMode/2D Measurements & Calculations LVIDd: 4.5 cm IVSd: 1.3 cm LVOT diam: 1.9 cm LVIDs: 2.0 cm LVPWd: 1.1 cm LVOT area: 2.8 cm2 RVDd: 2.6 cm FS: 55.1 % Ao root diam: 3.0 cm asc Aorta Diam: 3.2 cm LAV(MOD- bp): 40.5 ml LAV(MOD- bp) Indexed: 19.5 ml/m2 LAV(MOD- sp2): 40.9 ml LAV(MOD- sp4): 39.9 ml LVAd ap4: 20.9 cm2 LVAd ap2: 19.4 cm2 EDV(MOD- bp): 49.5 ml LVLd ap4: 6.7 cm LVLd ap2: 6.6 cm ESV(MOD- bp): 16.7 ml EDV(MOD-sp4): 52.8 ml EDV(MOD-sp2): 46.5 ml EF(MOD- bp): 66.4 % EDV(sp4-el): 55.4 ml EDV(sp2-el): 48.2 ml LVAs ap4: 11.0 cm2 LVAs ap2: 10.3 cm2 LVLs ap4: 5.8 cm LVLs ap2: 5.6 cm ESV(MOD-sp4): 17.3 ml ESV(MOD-sp2): 15.7 ml ESV(sp4-el): 17.8 ml ESV(sp2-el): 16.0 ml EF(MOD-sp4): 67.2 % EF(MOD-sp2): 66.2 % EF(sp4-el): 67.9 % SV(MOD-sp4): 35.5 ml SV(MOD-sp2): 30.8 ml SV(sp4- el): 37.6 ml SI(MOD-sp4): 17.1 ml/m2 SI(MOD-sp2): 14.8 ml/m2 Ao sinus diam: 2.[address] Junction: 2.2 cm LA A4 area: 16.2 cm2 LA dimension(2D): 4.1 cm RA A4 area: 15.5 cm2 Time Measurements MV dec time: 0.24 sec Doppler Measurements & Calculations MV E max derrick: 81.3 cm/sec Lat Peak E' Derrick: 8.1 cm/sec Med Peak E' Derrick: 7.0 cm/sec MV A max derrick: 116.8 cm/sec E/E' lat: 10.0 E/E' med: 11.5 MV E/A: 0.70 MV dec slope: 334.1 cm/sec2 Ao V2 max: 162.3 cm/sec AI max derrick: 355.3 cm/sec Ao max P.5 mmHg AI max P.5 mmHg Ao V2 mean: 99.8 cm/sec AI dec slope: 143.3 cm/sec2 Ao mean P.5 mmHg AI P1/2t: 726.4 msec Ao V2 VTI: 31.6 cm AV (velocity ratio): 0.78 MARY(I,D): 2.2 cm2 MARY(V,D): 2.0 cm2 LV V1 max: 111.7 cm/sec SV(LVOT): 70.3 ml PA V2 max: 80.5 cm/sec LV V1 max P.0 mmHg LV V1 mean P.9 mmHg LV V1 mean: 82.6 cm/sec LV V1 VTI: 24.8 cm PI end-d derrick: 74.3 cm/sec TR max derrick: 252.0 cm/sec TR max P.4 mmHg ECHO/Echo Complete Interpretation Summary Normal LV size. Left ventricular systolic function is normal. The left ventricular ejection fraction is 65 %. Structurally normal valves. Ordering Physician: Christian Capellan Referring Physician: Zbigniew Delatorre Performed By: Kathy Patel RDCS
== END | disposition home or self-care (01) ==
LOC: CVS 10:35
PROVIDERS: PCP Internal Medicine; Referring Provider Nurse Practitioner Family; Visit Provider Nurse Practitioner Family
DX: I48.0 Paroxysmal atrial fibrillation (principal)
CPT/HCPCS: 93306

== ENCOUNTER 2025-08-18 14:19 | Outpatient (RCR) | payer MEDICARE, SELFPAY ==
[2025-08-18 14:24] LABS: INR Fingerstick 2.1
== END 2025-08-18 18:00 | disposition home or self-care (01) ==
LOC: MTLAB 14:19
PROVIDERS: PCP Internal Medicine; Referring Provider Internal Medicine Cardiovascular Disease; Visit Provider Internal Medicine Cardiovascular Disease
DX: I48.0 Paroxysmal atrial fibrillation (principal); Z79.01 Long term (current) use of anticoagulants
CPT/HCPCS: 36416; 85610